=== PATIENT | female | born 1940 | race Caucasian/White ===

== ENCOUNTER 2017-01-06 09:07 | Inpatient (IN) | payer MEDICARE, OTHER ==
[~2017-01-06] VITALS: Ht 152.4 cm; Wt 59.8 kg
[2017-01-06 09:24] VITALS: BP 151/104; PULSE 99; RESP 20; TEMP 98.6; O2SAT 98
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
[2017-01-06] MEDS ORDERED: OLANZapine ODT 5 MG TAB PO ONE (09:45)
[2017-01-06 10:11] LABS: AUTOMATED NEUTROPHIL # 6.9 TH/MM3 (1.8-7.7); BASOPHIL # 0.1 TH/MM3 (0-0.2); BASOPHIL % 0.8 % (0.0-2.0); EOSINOPHIL # 0.3 TH/MM3 (0-0.4); EOSINOPHIL % 2.7 % (0.0-4.0); HEMATOCRIT 34.2 % (35.0-46.0); HEMO FLAGS DIFF FINAL; LYMPH % 16.6 % (9.0-44.0); LYMPHOCYTE # 1.6 TH/MM3 (1.0-4.8); MEAN CELL VOLUME 89.8 FL (80.0-100.0); MEAN CORPUSCULAR HEMOGLOBIN 29.4 PG (27.0-34.0); MEAN CORPUSCULAR HGB CONC 32.8 % (32.0-36.0); MONO % 9.4 % (0.0-8.0); NEUT % 70.5 % (16.0-70.0); PLATELET COUNT 203 TH/MM3 (150-450); RED CELL DISTRIBUTION WIDTH 14.5 % (11.6-17.2); WHITE BLOOD COUNT 9.9 TH/MM3 (4.0-11.0)
[2017-01-06 10:32] LABS: ALT (GPT) 19 U/L (10-53); ANION GAP 9 MEQ/L (5-15); AST (GOT) 12 U/L (15-37); BICARBONATE 26.5 MEQ/L (21.0-32.0); BLOOD UREA NITROGEN 36 MG/DL (7-18); CHLORIDE 107 MEQ/L (98-107); GLOMERULAR FILTRATION RATE 43 ML/MIN (>89); POTASSIUM 3.7 MEQ/L (3.5-5.1); SODIUM (NA) 142 MEQ/L (136-145)
[2017-01-06 10:34] LABS: ALKALINE PHOSPHATASE 72 U/L (45-117); TOTAL BILIRUBIN ADULT 0.3 MG/DL (0.2-1.0)
[2017-01-06] MEDS ORDERED: REME15TA PO (11:03)
[2017-01-06] MEDS ORDERED: LIPI20TA PO (11:03)
[2017-01-06] MEDS ORDERED: LEVO25TA4 PO (11:03)
[2017-01-06] MEDS ORDERED: VALP250S2 PO (11:03)
[2017-01-06] MEDS ORDERED: SERO200T PO (11:03)
[2017-01-06] MEDS ORDERED: TYLE325T PO (11:03)
[2017-01-06] MEDS ORDERED: ASPI81CH14 PO (11:03)
[2017-01-06] MEDS ORDERED: AMLO5 PO (11:03)
[2017-01-06] MEDS ORDERED: ABH TOP (11:03)
[2017-01-06] MEDS ORDERED: PRIN20TA2 PO (11:03)
[2017-01-06 14:30] LABS: AMPHETAMINE, URINE NEG (NEG); BARBITURATES, URINE NEG (NEG); COCAINE, URINE NEG (NEG)
[2017-01-06 16:00] VITALS: BP 167/95; PULSE 92; RESP 17; O2SAT 97
[2017-01-06 18:29] VITALS: BP 161/83; PULSE 89; RESP 17; O2SAT 98
[2017-01-06] MEDS ORDERED: amLODIPine BESYLATE 5 MG TAB PO ONE (22:15)
[2017-01-06] MEDS ORDERED: LISINOPRIL 20 MG TAB PO ONE (22:15)
[2017-01-06 22:32] VITALS: BP 144/98; PULSE 100; RESP 17; O2SAT 96
[2017-01-07 02:31] VITALS: BP 158/94; PULSE 76; RESP 17; O2SAT 97
[2017-01-07 06:37] VITALS: RESP 18
[2017-01-07] MEDS ORDERED: OLANZapine ODT 5 MG TAB PO ONE (11:00)
[2017-01-07] MEDS ORDERED: ACETAMINOPHEN 325 MG TAB PO PRN (17:30)
[2017-01-07] MEDS ORDERED: MAGNESIUM HYDROXIDE SUSP 30 ML CUP PO PRN (17:30)
[2017-01-07] MEDS ORDERED: ALUMINUM/MAGNESIUM/SIMETH 30 ML CUP PO PRN (17:30)
[2017-01-07] MEDS: ASPIRIN 81 MG CHEW TAB PO SCH (18:00)
[2017-01-07] MEDS ORDERED: amLODIPine BESYLATE 5 MG TAB PO SCH (18:00)
[2017-01-07 18:32] VITALS: BP 192/94
[2017-01-07] MEDS ORDERED: cloNIDine HCL 0.1 MG TAB PO PRN (18:45)
[2017-01-07] MEDS: LISINOPRIL 20 MG TAB PO SCH (18:45)
[2017-01-07 19:45] VITALS: BP 172/85; PULSE 82; RESP 18; O2SAT 98
[2017-01-07] MEDS ORDERED: ATORVASTATIN 20 MG TAB PO SCH (21:00)
[2017-01-07] MEDS ORDERED: MIRTAZAPINE 15 MG TAB PO SCH ×2 (21:00)
[2017-01-07] MEDS ORDERED: QUEtiapine FUMARATE 200 MG TAB PO SCH (21:00)
[2017-01-07] MEDS ORDERED: VALPROIC ACID SYRUP 250 MG/5 ML UDC PO SCH (21:00)
[2017-01-07] MEDS: VALPROIC ACID SYRUP 250 MG/5 ML UDC PO SCH (21:21)
[2017-01-08 06:00] VITALS: BP_SYST 145; BP_SYST 176; BP_DIAS 75; BP_DIAS 97; PULSE 79; RESP 18; TEMP 98.6; O2SAT 100
[2017-01-08] MEDS ORDERED: LEVOTHYROXINE SODIUM 50 MCG TAB PO SCH (06:00)
[2017-01-08 08:57] LABS: ANION GAP 7 MEQ/L (5-15); BICARBONATE 26.9 MEQ/L (21.0-32.0); BLOOD UREA NITROGEN 31 MG/DL (7-18); CHLORIDE 108 MEQ/L (98-107); GLOMERULAR FILTRATION RATE 54 ML/MIN (>89); LDL CHOLESTEROL 87 MG/DL (0-99); POTASSIUM 4.2 MEQ/L (3.5-5.1); SODIUM (NA) 142 MEQ/L (136-145)
[2017-01-08] MEDS: ASPIRIN 81 MG CHEW TAB PO SCH (09:54)
[2017-01-08] MEDS: LISINOPRIL 20 MG TAB PO SCH (09:54)
[2017-01-08] MEDS: VALPROIC ACID SYRUP 250 MG/5 ML UDC PO SCH ×2 (09:54→21:13)
--- NOTE | 2017-01-08 13:22 | PD.CONS ---
History of Present Illness Service Primary Consult Requested By Dr. Suresh Reason for Consult Medical Management Primary Care Physician Ascencion Vásquez DO Diagnoses: (1) Agitation (2) Dementia (3) Schizophrenia (4) Hyperlipemia (5) Hypertension History of Present Illness This is an agitated 76 y/o occitan speaking female resident at the [facility] , where Dr. Vásquez is the medical staff assistant, who is transported to [facility] due to extreme agitation. Patient is unable to give any history and a celebrity manager has been requested. She remains agitated, yelling at everyone in the hallway. We have been consulted for medical management. Review of Systems ROS Limitations: Altered Mental Status, Uncooperative, Psychotic, Language Barrier Past Family Social History Allergies: Coded Allergies: Trileptal (Verified Allergy, Unknown, 01/06/17) Past Medical History Schizophrenia/psychosis Dementia Diabetes Hypertension Anemia Hyperlipidemia Reported Medications Reported Meds & Active Scripts Active Reported Seroquel (Quetiapine Fumarate) 200 Mg Tab 200 Mg PO BID Valproic Acid Liq 250 Mg/5 Ml Syp 375 Mg PO BID [Abh Crm 1MG/25MG/1MG] 1 Appl TOP Q4HR PRN Aspirin Adult Low Strength (Aspirin) 81 Mg Chew 81 Mg PO DAILY Tylenol (Acetaminophen) 325 Mg Tab 650 Mg PO Q6H PRN Prinivil (Lisinopril) 20 Mg Tab 20 Mg PO DAILY Lipitor (Atorvastatin Calcium) 20 Mg Tab 20 Mg PO HS Remeron (Mirtazapine) 15 Mg Tab 15 Mg PO HS Levothyroxine (Levothyroxine Sodium) 25 Mcg Tab 50 Mcg PO DAILY Norvasc (Amlodipine Besylate) 5 Mg Tab 5 Mg PO DAILY Active Ordered Medications Current Medications Medications (Trade) Dose Ordered Sig/Natalio Route Start Time Stop Time Status Last Admin (Ativan) 0.5 mg Q12H PRN PO 01/07/17 17:30 (Ativan Inj) 0.5 mg Q12H PRN IM 01/07/17 17:30 (Tylenol) 650 mg Q4H PRN PO 01/07/17 17:30 (Milk Of Magnesia Liq) 30 ml DAILY PRN PO 01/07/17 17:30 (Mag-Al Plus Susp Liq) 30 ml Q6H PRN PO 01/07/17 17:30 (Prinivil) 20 mg DAILY PO 01/07/17 18:45 01/08/17 09:54 (Aspirin Chew) 81 mg DAILY PO 01/07/17 18:00 01/08/17 09:54 (Synthroid) 50 mcg DAILY@0600 PO 01/08/17 06:00 01/08/17 05:32 (Lipitor) 20 mg HS PO 01/07/17 21:00 01/07/17 21:20 (SEROquel) 200 mg BID PO 01/07/17 21:00 Hold (Catapres) 0.1 mg Q6H PRN PO 01/07/17 18:45 (Depakene Liq) 375 mg BID PO 01/07/17 21:00 01/08/17 09:54 (Remeron) 15 mg HS PO 01/07/17 21:00 01/07/17 21:20 (Norvasc) 10 mg DAILY PO 01/09/17 09:00 Physical Exam Vital Signs Vital Signs Date Time Temp Pulse Resp B/P Pulse Ox O2 Delivery O2 Flow Rate FiO2 01/08/17 06:00 98.6 79 18 176/97 100 145/75 01/07/17 19:45 82 18 172/85 98 01/07/17 18:32 192/94 Physical Exam GENERAL: Well-nourished, well-developed patient. SKIN: Warm and dry. HEAD: Normocephalic. EYES: No scleral icterus. No injection or drainage. NECK: Supple, trachea midline. No JVD. CARDIOVASCULAR: Regular rate and rhythm without murmurs, gallops, or rubs. RESPIRATORY: Breath sounds equal bilaterally. No accessory muscle use. GASTROINTESTINAL: Abdomen soft, non-tender, nondistended. EXTREMITIES: No cyanosis, or edema. NEUROLOGICAL: Awake, alert, agitated. Unable to determine orientation d/t language barrier. Laboratory Laboratory Tests Test 01/08/17 07:09 Sodium Level 142 Potassium Level 4.2 Chloride Level 108 Carbon Dioxide Level 26.9 Anion Gap 7 Blood Urea Nitrogen 31 Creatinine 1.00 Estimat Glomerular Filtration 54 Rate Random Glucose 80 Calcium Level 9.2 Triglycerides Level 59 Cholesterol Level 172 LDL Cholesterol 87 HDL Cholesterol 73.0 Cholesterol/HDL Ratio 2.35 Result Diagram: 01/06/17 1000 01/08/17 0709 Assessment and Plan Problem List: (1) Dementia Status: Chronic Plan: Chronic. (2) Schizophrenia Status: Chronic Plan: Med management per psych. (3) Agitation Status: Acute Plan: Will evaluate UA for underlying cause and follow labs. (4) Hyperlipemia Status: Chronic Plan: Stable on current regimen. Lipid panel reviewed. (5) Hypertension Status: Chronic Plan: Lisinopril daily, clonidine PRN, add norvasc and monitor. Assessment and Plan Thank you for the consultation, Dr. Suresh. We will follow Ms. Montoya with you. D/W RN, Dr. Vásquez. Problem Qualifiers (1) Dementia: Qualified Code: F03.91 - Dementia with behavioral disturbance, unspecified dementia type (2) Schizophrenia: Qualified Code: F20.9 - Schizophrenia, unspecified type (3) Hyperlipemia: Qualified Code: E78.2 - Mixed hyperlipidemia (4) Hypertension: Qualified Code: I10 - Essential hypertension Shantal Luu Jan 08, 2017 13:22
[2017-01-08 13:31] LABS: HEMOGLOBIN A1b 0.8 %; HEMOGLOBIN Ao 85.9 %; HEMOGLOBIN F 0.8 %; HEMOGLOBIN LA1C 1.9 %
[2017-01-08] MEDS ORDERED: MAGNESIUM HYDROXIDE SUSP 30 ML CUP PO PRN (13:45)
[2017-01-08] MEDS ORDERED: ALUMINUM/MAGNESIUM/SIMETH 30 ML CUP PO PRN (13:45)
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
[2017-01-08 18:15] VITALS: BP 145/74; PULSE 77; RESP 18
[2017-01-08] MEDS: MIRTAZAPINE 15 MG TAB PO SCH (21:11)
[2017-01-08] MEDS: ATORVASTATIN 20 MG TAB PO SCH (21:11)
[2017-01-08] MEDS: QUEtiapine FUMARATE 200 MG TAB PO SCH (21:11)
[2017-01-09] MEDS: LEVOTHYROXINE SODIUM 50 MCG TAB PO SCH (05:30)
[2017-01-09 06:11] VITALS: BP 147/84; PULSE 92; RESP 18; TEMP 97.8; O2SAT 98
[2017-01-09 06:17] VITALS: BP 147/84; PULSE 92; RESP 18; TEMP 97.8; O2SAT 98
[2017-01-09 07:50] LABS: AUTOMATED NEUTROPHIL # 2.9 TH/MM3 (1.8-7.7); BASOPHIL % 0.9 % (0.0-2.0); EOSINOPHIL # 0.4 TH/MM3 (0-0.4); EOSINOPHIL % 7.5 % (0.0-4.0); HEMATOCRIT 33.7 % (35.0-46.0); HEMO FLAGS DIFF FINAL; LYMPH % 27.9 % (9.0-44.0); LYMPHOCYTE # 1.6 TH/MM3 (1.0-4.8); MEAN CELL VOLUME 88.5 FL (80.0-100.0); MEAN CORPUSCULAR HEMOGLOBIN 28.7 PG (27.0-34.0); MEAN CORPUSCULAR HGB CONC 32.5 % (32.0-36.0); MONO % 11.5 % (0.0-8.0); NEUT % 52.2 % (16.0-70.0); PLATELET COUNT 184 TH/MM3 (150-450); RED BLOOD COUNT 3.81 MIL/MM3 (4.00-5.30); RED CELL DISTRIBUTION WIDTH 14.2 % (11.6-17.2); WHITE BLOOD COUNT 5.6 TH/MM3 (4.0-11.0)
[2017-01-09 08:26] LABS: ALKALINE PHOSPHATASE 76 U/L (45-117); ALT (GPT) 20 U/L (10-53); ANION GAP 10 MEQ/L (5-15); AST (GOT) 20 U/L (15-37); BICARBONATE 27.4 MEQ/L (21.0-32.0); BLOOD UREA NITROGEN 32 MG/DL (7-18); CHLORIDE 104 MEQ/L (98-107); FREE T4 1.08 NG/DL (0.76-1.46); GLOMERULAR FILTRATION RATE 48 ML/MIN (>89); POTASSIUM 4.3 MEQ/L (3.5-5.1); SODIUM (NA) 141 MEQ/L (136-145); TOTAL BILIRUBIN ADULT 0.3 MG/DL (0.2-1.0)
[2017-01-09] MEDS: amLODIPine BESYLATE 5 MG TAB PO SCH ×2 (09:00→10:12)
[2017-01-09] MEDS: ASPIRIN 81 MG CHEW TAB PO SCH ×2 (09:00→10:11)
[2017-01-09] MEDS: LISINOPRIL 20 MG TAB PO SCH ×2 (09:00→10:11)
[2017-01-09] MEDS: QUEtiapine FUMARATE 200 MG TAB PO SCH ×3 (09:00→21:00)
[2017-01-09] MEDS: VALPROIC ACID SYRUP 250 MG/5 ML UDC PO SCH ×3 (09:00→21:00)
[2017-01-09] MEDS: LORazepam 0.5 MG TAB age > 65 yrs PO PRN (10:19)
[2017-01-09] MEDS: LORazepam 2 MG/ML VIAL - age > 65 yrs IM PRN (11:02)
--- NOTE | 2017-01-09 11:21 | HHI.PYPN ---
Subjective Remarks Patient seen in her room with nurse Satya, continues to be loud and intrusive in Ukrainian, it appears patient urinated in her wastebasket, though her door to the commode was locked. Patient overall reluctantly compliant medication. Counselors continuing to attempt to reach family members to arrange for meeting with me. For now continue treatment Review of Systems Except as stated in HPI: all other systems reviewed are Neg Objective Alert: Yes [place]: Person (vague) Mood: Agitated, Angry, Anxious Affect: Labile Memory Intact: Comment (very poor) Hallucinations: Auditory (patient appears to be talking to herself) Delusions: Yes Delusion Type: Paranoid (patient appears quite vigilant) Suicidal: Ideation (difficult to ascertain) Homicidal: Ideation (difficult to ascertain) Insight/Judgement Very poor Labs Test 01/09/17 01/09/17 06:15 06:45 White Blood Count 5.6 TH/MM3 Red Blood Count 3.81 MIL/MM3 Hemoglobin 11.0 GM/DL Hematocrit 33.7 % Mean Corpuscular Volume 88.5 FL Mean Corpuscular Hemoglobin 28.7 PG Mean Corpuscular Hemoglobin 32.5 % Concent Red Cell Distribution Width 14.2 % Platelet Count 184 TH/MM3 Mean Platelet Volume 9.5 FL Neutrophils (%) (Auto) 52.2 % Lymphocytes (%) (Auto) 27.9 % Monocytes (%) (Auto) 11.5 % Eosinophils (%) (Auto) 7.5 % Basophils (%) (Auto) 0.9 % Neutrophils # (Auto) 2.9 TH/MM3 Lymphocytes # (Auto) 1.6 TH/MM3 Monocytes # (Auto) 0.6 TH/MM3 Eosinophils # (Auto) 0.4 TH/MM3 Basophils # (Auto) 0.0 TH/MM3 CBC Comment DIFF FINAL Differential Comment Sodium Level 141 MEQ/L Potassium Level 4.3 MEQ/L Chloride Level 104 MEQ/L Carbon Dioxide Level 27.4 MEQ/L Anion Gap 10 MEQ/L Blood Urea Nitrogen 32 MG/DL Creatinine 1.11 MG/DL Estimat Glomerular Filtration 48 ML/MIN Rate Random Glucose 88 MG/DL Calcium Level 8.7 MG/DL Total Bilirubin 0.3 MG/DL Aspartate Amino Transf 20 U/L (AST/SGOT) Alanine Aminotransferase 20 U/L (ALT/SGPT) Alkaline Phosphatase 76 U/L Total Protein 7.0 GM/DL Albumin 3.7 GM/DL Free Thyroxine 1.08 NG/DL Thyroid Stimulating Hormone 5.030 uIU/ML 3rd Gen Vitals/IOs Vital Signs Date Time Temp Pulse Resp B/P Pulse Ox O2 Delivery O2 Flow Rate FiO2 01/09/17 06:17 97.8 92 18 147/84 98 01/07/17 02:31 Room Air Intake and Output 01/08/17 01/08/17 01/09/17 08:00 16:00 00:00 Intake Total 1440 ml Balance 1440 ml Assessment & Plan Problem List: (1) Dementia of Alzheimer's type with behavioral disturbance ICD Code: G30.8 Assessment & Plan Estimated LOS: days patient continues demented labile irritable though also compounded by the language difficulty. Mixed Compliance with meds Justification for Cont. Inpt. At this time patient will decompensate if placed in a lower level of care Discharge Planning To be determined Request HC Surrog/Guard Advoc?: Yes Rodolfo Corona MD Jan 09, 2017 11:21
--- NOTE | 2017-01-09 15:36 | HHI.PR ---
Subjective Remarks Remains agitated, yelling out in Burmese. Objective Vital Signs Date Time Temp Pulse Resp B/P Pulse Ox O2 Delivery O2 Flow Rate FiO2 01/09/17 06:17 97.8 92 18 147/84 98 01/09/17 06:11 97.8 92 18 147/84 98 01/08/17 18:15 77 18 145/74 I/O 01/08/17 01/08/17 01/08/17 01/09/17 01/09/17 01/09/17 07:00 15:00 23:00 07:00 15:00 23:00 Intake Total 1440 ml 120 ml Balance 1440 ml 120 ml Intake Oral 720 ml 120 ml Oral Supplement 720 ml # Voids 2 5 3 Result Diagram: 01/09/17 0615 01/09/17 0645 Objective Remarks GENERAL: Well-nourished, well-developed patient. SKIN: Warm and dry. HEAD: Normocephalic. EYES: No scleral icterus. No injection or drainage. NECK: Trachea midline. No JVD. CARDIOVASCULAR: Regular rate and rhythm without murmurs, gallops, or rubs. RESPIRATORY: Breath sounds equal bilaterally. No accessory muscle use. GASTROINTESTINAL: Abdomen soft, non-tender, nondistended. EXTREMITIES: No cyanosis, or edema. NEUROLOGICAL: Awake, alert, agitated. Medications and IVs Current Medications Medications (Trade) Dose Ordered Sig/Natalio Route Start Time Stop Time Status Last Admin (Ativan) 0.5 mg Q12H PRN PO 01/07/17 17:30 (Ativan Inj) 0.5 mg Q12H PRN IM 01/07/17 17:30 01/09/17 11:02 (Catapres) 0.1 mg Q6H PRN PO 01/07/17 18:45 (Tylenol) 650 mg Q4H PRN PO 01/08/17 13:45 (Milk Of Magnesia Liq) 30 ml DAILY PRN PO 01/08/17 13:45 (Mag-Al Plus Susp Liq) 30 ml Q6H PRN PO 01/08/17 13:45 (Norvasc) 5 mg DAILY PO 01/09/17 09:00 01/09/17 09:00 (Aspirin Chew) 81 mg DAILY PO 01/09/17 09:00 01/09/17 09:00 (Lipitor) 20 mg HS PO 01/08/17 21:00 01/08/17 21:11 (Synthroid) 50 mcg DAILY@06 PO 01/09/17 06:00 01/09/17 05:30 (Prinivil) 20 mg DAILY PO 01/09/17 09:00 01/09/17 09:00 (Remeron) 15 mg HS PO 01/08/17 21:00 01/08/17 21:11 (SEROquel) 200 mg BID PO 01/08/17 21:00 01/09/17 09:00 (Depakene Liq) 375 mg BID PO 01/08/17 21:00 01/09/17 09:00 Assessment and Plan Problem List: (1) Dementia Status: Chronic Plan: Chronic, resident of [facility], medication titration complicated by compliance. May benefit from exelon patch. Will defer to psych for med mgmt. (2) Schizophrenia Status: Chronic Plan: Med management per psych. (3) Agitation Status: Acute Plan: Difficulty with urine sample, pt, urinated in wastebasket. Sample pending. (4) Hyperlipemia Status: Chronic Plan: Stable on current regimen. Lipid panel reviewed. (5) Hypertension Status: Chronic Plan: Lisinopril daily, clonidine PRN, improved on norvasc. Could change clonidine to catapres patch if needed for better med compliance. Assessment and Plan Thank you for the consultation, Dr. Suresh. We will follow Ms. Montoya with you. D/W RN, Dr. Vásquez. Problem Qualifiers (1) Dementia: Qualified Code: F03.91 - Dementia with behavioral disturbance, unspecified dementia type (2) Schizophrenia: Qualified Code: F20.9 - Schizophrenia, unspecified type (3) Hyperlipemia: Qualified Code: E78.2 - Mixed hyperlipidemia (4) Hypertension: Qualified Code: I10 - Essential hypertension Shantal Luu Jan 09, 2017 15:36
[2017-01-09 18:08] LABS: BLOOD, URINE TRACE (NEG); COMMENT (UR) CULT NOT INDICATED; CULTURE IF INDICATED CULT NOT INDICATED; GLUCOSE,URINE NEG (NEG); KETONE, URINE TRACE mg/dL (NEG); MUCUS URINE FEW /lpf (OCC); NITRITE,URINE NEG (NEG); SQUAMOUS EPITHELIAL CELL URINE 1 /hpf (0-5); URINE COLOR YELLOW (YELLW/STRAW)
[2017-01-09] MEDS: MIRTAZAPINE 15 MG TAB PO SCH (22:24)
[2017-01-09] MEDS: ATORVASTATIN 20 MG TAB PO SCH (22:24)
[2017-01-10] MEDS: LEVOTHYROXINE SODIUM 50 MCG TAB PO SCH (06:00)
[2017-01-10 06:09] VITALS: BP 157/70; PULSE 77; RESP 18; TEMP 99; O2SAT 99
[2017-01-10] MEDS: QUEtiapine FUMARATE 200 MG TAB PO SCH (09:00)
[2017-01-10] MEDS: VALPROIC ACID SYRUP 250 MG/5 ML UDC PO SCH ×2 (10:38→20:45)
[2017-01-10] MEDS: ASPIRIN 81 MG CHEW TAB PO SCH (10:38)
[2017-01-10] MEDS: amLODIPine BESYLATE 5 MG TAB PO SCH (10:38)
[2017-01-10] MEDS: LISINOPRIL 20 MG TAB PO SCH (10:38)
--- NOTE | 2017-01-10 13:20 | HHI.PYPN ---
Subjective Remarks Patient seen in day room with nurse Jules and medical student Zara, chart reviewed. It appears patient's family have refused to give us permission to use Seroquel stating that it doesn't work. Will offer Respinol 1 mg twice a day M tab in its place. Patient showing some episodes of irritability and intrusiveness, though at the present time she is sitting quietly in the day room. While she continues to speak Niuean it appears at times she may understand Sinhala better than she is showing Review of Systems Except as stated in HPI: all other systems reviewed are Neg Objective Alert: Yes [place]: Person (vague) Mood: Agitated, Angry, Anxious, Calm (at times) Affect: Labile Memory Intact: Comment (very poor) Hallucinations: Auditory (patient appears to be talking to herself) Delusions: Yes Delusion Type: Paranoid (patient appears quite vigilant) Suicidal: Ideation (difficult to ascertain) Homicidal: Ideation (difficult to ascertain) Insight/Judgement Very poor Labs Test 01/09/17 18:00 Urine Color YELLOW Urine Turbidity CLEAR Urine pH 6.0 Urine Specific [place] 1.026 Urine Protein TRACE mg/dL Urine Glucose (UA) NEG mg/dL Urine Ketones TRACE mg/dL Urine Occult Blood TRACE Urine Nitrite NEG Urine Bilirubin NEG Urine Urobilinogen LESS THAN 2.0 MG/DL Urine Leukocyte Esterase NEG Urine RBC 1 /hpf Urine WBC 1 /hpf Urine Squamous Epithelial 1 /hpf Cells Urine Mucus FEW /lpf Microscopic Urinalysis Comment CULT NOT INDICATED Vitals/IOs Vital Signs Date Time Temp Pulse Resp B/P Pulse Ox O2 Delivery O2 Flow Rate FiO2 01/10/17 06:09 99.0 77 18 157/70 99 01/07/17 02:31 Room Air Intake and Output 01/09/17 01/09/17 01/10/17 08:00 16:00 00:00 Intake Total 120 ml 1140 ml Balance 120 ml 1140 ml Assessment & Plan Problem List: (1) Dementia of Alzheimer's type with behavioral disturbance ICD Code: G30.8 Assessment & Plan Estimated LOS: 5-7 days patient continues demented confused with out-of- control behaviors at times being intrusive labile yelling. See medication changes above Justification for Cont. Inpt. At this time patient will decompensate the placed in a lower level of care Discharge Planning To be determined Request HC Surrog/Guard Advoc?: Yes Rodolfo Corona MD Jan 10, 2017 13:20
--- NOTE | 2017-01-10 13:47 | HHI.PR ---
Subjective Remarks Waved when she heard her name, smiled. After exam, she was seen to become agitated again, yelling out. Objective Vital Signs Date Time Temp Pulse Resp B/P Pulse Ox O2 Delivery O2 Flow Rate FiO2 01/10/17 06:09 99.0 77 18 157/70 99 I/O 01/09/17 01/09/17 01/09/17 01/10/17 01/10/17 01/10/17 07:00 15:00 23:00 07:00 15:00 23:00 Intake Total 120 ml 960 ml 180 ml 480 ml Balance 120 ml 960 ml 180 ml 480 ml Intake Oral 120 ml 720 ml 180 ml 480 ml Oral Supplement 240 ml # Voids 3 1 3 Result Diagram: 01/09/17 0615 01/09/17 0645 Objective Remarks GENERAL: Well-nourished, well-developed patient. SKIN: Warm and dry. HEAD: Normocephalic. EYES: No scleral icterus. No injection or drainage. NECK: Trachea midline. No JVD. CARDIOVASCULAR: Regular rate and rhythm without murmurs, gallops, or rubs. RESPIRATORY: Breath sounds equal bilaterally. No accessory muscle use. GASTROINTESTINAL: Abdomen soft, non-tender, nondistended. EXTREMITIES: No cyanosis, or edema. NEUROLOGICAL: Awake, alert, agitated. Medications and IVs Current Medications Medications (Trade) Dose Ordered Sig/Natalio Route Start Time Stop Time Status Last Admin (Ativan) 0.5 mg Q12H PRN PO 01/07/17 17:30 (Ativan Inj) 0.5 mg Q12H PRN IM 01/07/17 17:30 01/09/17 11:02 (Catapres) 0.1 mg Q6H PRN PO 01/07/17 18:45 (Tylenol) 650 mg Q4H PRN PO 01/08/17 13:45 (Milk Of Magnesia Liq) 30 ml DAILY PRN PO 01/08/17 13:45 (Mag-Al Plus Susp Liq) 30 ml Q6H PRN PO 01/08/17 13:45 (Norvasc) 5 mg DAILY PO 01/09/17 09:00 01/10/17 10:38 (Aspirin Chew) 81 mg DAILY PO 01/09/17 09:00 01/10/17 10:38 (Lipitor) 20 mg HS PO 01/08/17 21:00 01/09/17 22:24 (Synthroid) 50 mcg DAILY@06 PO 01/09/17 06:00 01/10/17 06:00 (Prinivil) 20 mg DAILY PO 01/09/17 09:00 01/10/17 10:38 (Remeron) 15 mg HS PO 01/08/17 21:00 01/09/17 22:24 (Depakene Liq) 375 mg BID PO 01/08/17 21:00 01/10/17 10:38 (risperDAL M-TAB) 1 mg DAILY@12,18 PO 01/10/17 18:00 Assessment and Plan Problem List: (1) Dementia Status: Chronic Plan: Chronic, resident of [facility], medication titration complicated by compliance. May benefit from exelon patch/transdermal route when applicable. Will defer to psych for med mgmt. (2) Schizophrenia Status: Chronic Plan: Med management per psych. (3) Agitation Status: Acute Plan: Negative, no culture indicated. (4) Hyperlipemia Status: Chronic Plan: Stable on current regimen. Lipid panel reviewed. (5) Hypertension Status: Chronic Plan: Lisinopril daily, clonidine PRN, improved on norvasc. Could change clonidine to catapres patch if needed for better med compliance. Assessment and Plan Thank you for the consultation, Dr. Suresh. We will follow Ms. Montoya with you. D/W RN, Dr. Vásquez. Problem Qualifiers (1) Dementia: Qualified Code: F03.91 - Dementia with behavioral disturbance, unspecified dementia type (2) Schizophrenia: Qualified Code: F20.9 - Schizophrenia, unspecified type (3) Hyperlipemia: Qualified Code: E78.2 - Mixed hyperlipidemia (4) Hypertension: Qualified Code: I10 - Essential hypertension Shantal Luu Jan 10, 2017 13:47
[2017-01-10 18:38] VITALS: BP 169/79; PULSE 80; RESP 16; TEMP 97.6; O2SAT 98
[2017-01-10] MEDS: risperiDONE ODT 1 MG TAB PO SCH (20:45)
[2017-01-10] MEDS: ATORVASTATIN 20 MG TAB PO SCH (20:45)
[2017-01-10] MEDS: MIRTAZAPINE 15 MG TAB PO SCH (20:45)
[2017-01-11] MEDS: LORazepam 0.5 MG TAB age > 65 yrs PO PRN (01:22)
[2017-01-11] MEDS: LEVOTHYROXINE SODIUM 50 MCG TAB PO SCH (05:33)
[2017-01-11 06:35] VITALS: BP 145/67; PULSE 95; RESP 16; TEMP 98.5; O2SAT 97
[2017-01-11] MEDS: ASPIRIN 81 MG CHEW TAB PO SCH (08:53)
[2017-01-11] MEDS: amLODIPine BESYLATE 5 MG TAB PO SCH (08:53)
[2017-01-11] MEDS: VALPROIC ACID SYRUP 250 MG/5 ML UDC PO SCH ×2 (08:53→21:28)
[2017-01-11] MEDS: LISINOPRIL 20 MG TAB PO SCH (08:53)
--- NOTE | 2017-01-11 09:19 | HHI.PYPN ---
Subjective Remarks Patient seen in day room with nurse Jules, patient somewhat calmer she'll speaking East Timorese that appear she does understand Turkish to degree. She is still showing some lability and sundowning type behaviors. Staff has been contact with patient's son with admission now to start Respinol 1 mg M tab twice a day Review of Systems Except as stated in HPI: all other systems reviewed are Neg Objective Alert: Yes [place]: Person (vague) Mood: Agitated, Angry, Anxious, Calm (at times) Affect: Labile Memory Intact: Comment (very poor) Hallucinations: Auditory (patient appears to be talking to herself) Delusions: Yes Delusion Type: Paranoid (patient appears quite vigilant) Suicidal: Ideation (difficult to ascertain) Homicidal: Ideation (difficult to ascertain) Insight/Judgement Poor Vitals/IOs Vital Signs Date Time Temp Pulse Resp B/P Pulse Ox O2 Delivery O2 Flow Rate FiO2 01/11/17 06:35 98.5 95 16 145/67 97 Intake and Output 01/10/17 01/10/17 01/11/17 08:00 16:00 00:00 Intake Total 480 ml 660 ml Balance 480 ml 660 ml Assessment & Plan Problem List: (1) Dementia of Alzheimer's type with behavioral disturbance ICD Code: G30.8 Assessment & Plan Estimated LOS: days patient continues demented confused with some sundowning towards late afternoon and evening. For now continue treatment Justification for Cont. Inpt. At this time patient will decompensate if placed in a lower level of care Discharge Planning To be determined Request HC Surrog/Guard Advoc?: Yes Rodolfo Corona MD Jan 11, 2017 09:19
[2017-01-11] MEDS: risperiDONE ODT 1 MG TAB PO SCH ×2 (12:22→17:19)
[2017-01-11 18:07] VITALS: BP 159/80; PULSE 99; RESP 18; TEMP 97.2; O2SAT 98
[2017-01-11] MEDS: ATORVASTATIN 20 MG TAB PO SCH (21:28)
[2017-01-11] MEDS: MIRTAZAPINE 15 MG TAB PO SCH (21:28)
[2017-01-12] MEDS: LEVOTHYROXINE SODIUM 50 MCG TAB PO SCH (05:47)
[2017-01-12 06:00] VITALS: BP 151/74; PULSE 89; RESP 16; TEMP 98.1; O2SAT 99
[2017-01-12] MEDS: amLODIPine BESYLATE 5 MG TAB PO SCH (09:16)
[2017-01-12] MEDS: VALPROIC ACID SYRUP 250 MG/5 ML UDC PO SCH ×2 (09:17→20:35)
[2017-01-12] MEDS: LISINOPRIL 20 MG TAB PO SCH (09:17)
[2017-01-12] MEDS: ASPIRIN 81 MG CHEW TAB PO SCH (09:17)
--- NOTE | 2017-01-12 11:38 | HHI.PYPN ---
Subjective Remarks Patient was seen and case discussed with nursing. Patient is reluctant to speak Bengali so interview was conducted in [place]. She is alert and oriented 2. She is confused and nonsensical at times. Affect is elevated. She denies suicidal ideations thought intent or plan. Denies psychosis. Could be responding to internal stimuli. Behaving well on the unit Objective Alert: Yes [place]: Person (vague), Place Mood: Anxious, Calm (at times) Affect: Labile Memory Intact: Comment (very poor) Hallucinations: Auditory (talking to self but denies) Delusions: Yes Delusion Type: Paranoid (patient appears quite vigilant) Suicidal: Ideation (denies) Homicidal: Ideation (denies) Insight/Judgement Poor Vitals/IOs Vital Signs Date Time Temp Pulse Resp B/P Pulse Ox O2 Delivery O2 Flow Rate FiO2 01/12/17 06:00 98.1 89 16 151/74 99 Intake and Output 01/11/17 01/11/17 01/12/17 08:00 16:00 00:00 Intake Total 360 ml 960 ml 960 ml Balance 360 ml 960 ml 960 ml Assessment & Plan Problem List: (1) Dementia of Alzheimer's type with behavioral disturbance ICD Code: G30.8 Assessment & Plan Continue current treatment plan Justification for Cont. Inpt. Patient will decompensate in a less restrictive setting Request HC Surrog/Guard Advoc?: Yes Gustavo Amador DO Jan 12, 2017 11:38
[2017-01-12] MEDS: risperiDONE ODT 1 MG TAB PO SCH ×2 (12:28→17:43)
[2017-01-12 18:28] VITALS: BP 149/75; PULSE 96; RESP 20; TEMP 98.1; O2SAT 97
[2017-01-12 20:11] VITALS: BP 149/75; TEMP 98.1
[2017-01-12] MEDS: MIRTAZAPINE 15 MG TAB PO SCH (20:34)
[2017-01-12] MEDS: ATORVASTATIN 20 MG TAB PO SCH (20:34)
[2017-01-13] MEDS: LEVOTHYROXINE SODIUM 50 MCG TAB PO SCH (05:37)
[2017-01-13 06:01] VITALS: BP 153/80; PULSE 89; RESP 17; TEMP 98; O2SAT 99
[2017-01-13] MEDS: amLODIPine BESYLATE 5 MG TAB PO SCH (09:00)
[2017-01-13] MEDS: LISINOPRIL 20 MG TAB PO SCH (09:00)
[2017-01-13] MEDS: VALPROIC ACID SYRUP 250 MG/5 ML UDC PO SCH ×2 (09:00→20:42)
[2017-01-13] MEDS: ASPIRIN 81 MG CHEW TAB PO SCH (09:00)
--- NOTE | 2017-01-13 11:51 | HHI.PYPN ---
Subjective Remarks Patient was seen and case discussed with nursing. Patient is spending her time here talking to herself. She was engaged in Urdu still difficult to understand. She is alert and oriented 1. She denies voices. Thought processes tangential. When asked if she was scared she was perseverative in a fat woman washing her hands in her room. Compliant with medications Objective Alert: Yes [place]: Person (vague) Mood: Anxious, Calm (at times) Affect: Labile Memory Intact: Comment (very poor) Hallucinations: Auditory (talking to self but denies) Delusions: Yes Delusion Type: Paranoid (fat woman washing her hands) Suicidal: Ideation (denies) Homicidal: Ideation (denies) Insight/Judgement Poor Vitals/IOs Vital Signs Date Time Temp Pulse Resp B/P Pulse Ox O2 Delivery O2 Flow Rate FiO2 01/13/17 06:01 98.0 89 17 153/80 99 Intake and Output 01/12/17 01/12/17 01/13/17 08:00 16:00 00:00 Intake Total 480 ml 1320 ml Balance 480 ml 1320 ml Assessment & Plan Problem List: (1) Dementia of Alzheimer's type with behavioral disturbance ICD Code: G30.8 Assessment & Plan Continue current treatment plan Justification for Cont. Inpt. Patient will decompensate in a less restrictive setting Request HC Surrog/Guard Advoc?: Yes Gustavo Amador DO Jan 13, 2017 11:51
[2017-01-13] MEDS: risperiDONE ODT 1 MG TAB PO SCH ×2 (12:00→17:34)
[2017-01-13 20:26] VITALS: BP 187/78; PULSE 79; RESP 17; TEMP 98; O2SAT 98
[2017-01-13] MEDS: MIRTAZAPINE 15 MG TAB PO SCH (20:42)
[2017-01-13] MEDS: ATORVASTATIN 20 MG TAB PO SCH (20:42)
[2017-01-14] MEDS: LORazepam 0.5 MG TAB age > 65 yrs PO PRN ×3 (00:18→22:10)
[2017-01-14] MEDS: LEVOTHYROXINE SODIUM 50 MCG TAB PO SCH (06:38)
[2017-01-14] MEDS: LISINOPRIL 20 MG TAB PO SCH (08:49)
[2017-01-14] MEDS: ASPIRIN 81 MG CHEW TAB PO SCH (08:49)
[2017-01-14] MEDS: amLODIPine BESYLATE 5 MG TAB PO SCH (08:49)
[2017-01-14] MEDS: VALPROIC ACID SYRUP 250 MG/5 ML UDC PO SCH ×2 (08:53→21:07)
[2017-01-14] MEDS: risperiDONE ODT 1 MG TAB PO SCH ×2 (12:50→17:29)
--- NOTE | 2017-01-14 15:51 | HHI.PYPN ---
Subjective Remarks Patient discussed with treatment team, chart review, seen on unit. Patient continues to have episodes appearing to be responding to internal stimuli. Patient compliant medications. For now continue treatment Review of Systems Except as stated in HPI: all other systems reviewed are Neg Objective Alert: Yes [place]: Person Mood: Anxious, Calm (at times) Affect: Labile Memory Intact: Comment (very poor) Hallucinations: Auditory (talking to self but denies) Delusions: Yes Delusion Type: Paranoid Suicidal: Ideation (denies) Homicidal: Ideation (denies) Insight/Judgement Very poor Vitals/IOs Vital Signs Date Time Temp Pulse Resp B/P Pulse Ox O2 Delivery O2 Flow Rate FiO2 01/13/17 20:26 98.0 79 17 187/78 98 Intake and Output 01/13/17 01/13/17 01/14/17 08:00 16:00 00:00 Intake Total 0 ml 1320 ml Balance 0 ml 1320 ml Assessment & Plan Problem List: (1) Dementia of Alzheimer's type with behavioral disturbance ICD Code: G30.8 Assessment & Plan Estimated LOS: days patient continues demented with episodes of mild dyscontrol , apparent respond to internal stimuli Justification for Cont. Inpt. At this time patient will decompensate the placed in a lower level of care Discharge Planning To be determined Request HC Surrog/Guard Advoc?: Yes Rodolfo Corona MD Jan 14, 2017 15:51
[2017-01-14 18:30] VITALS: BP 148/87; PULSE 82; RESP 16; TEMP 96.9; O2SAT 100
[2017-01-14] MEDS: MIRTAZAPINE 15 MG TAB PO SCH (21:02)
[2017-01-14] MEDS: ATORVASTATIN 20 MG TAB PO SCH (21:02)
[2017-01-15] MEDS: LEVOTHYROXINE SODIUM 50 MCG TAB PO SCH (05:32)
[2017-01-15 06:07] VITALS: BP 165/66; PULSE 77; RESP 18; TEMP 97.7; O2SAT 97
[2017-01-15] MEDS: amLODIPine BESYLATE 5 MG TAB PO SCH (08:39)
[2017-01-15] MEDS: LISINOPRIL 20 MG TAB PO SCH (08:39)
[2017-01-15] MEDS: ASPIRIN 81 MG CHEW TAB PO SCH (08:39)
[2017-01-15] MEDS: VALPROIC ACID SYRUP 250 MG/5 ML UDC PO SCH ×2 (08:39→20:19)
[2017-01-15] MEDS: LORazepam 2 MG/ML VIAL - age > 65 yrs IM PRN (09:15)
--- NOTE | 2017-01-15 10:50 | HHI.PYPN ---
Subjective Remarks Patient seen in day room with nurse Jules and medical student Zara, chart reviewed. Earlier today the nurse had a telemetry parking lot spotter through the computer speak with patient. Patient is quite paranoid about this that appear she acknowledge past history of schizophrenia. She thought she was at a hotel otherwise she stated she "felt fine". However when we saw patient she is quite distraught yelling screaming as if responding to internal stimuli. Though she did respond to comforting and individual attention. She was given a when necessary of oral Ativan and attempted calm her also. At this time we will increase the Ativan to a scheduled 0.5 mg 3 times a day and increase the Respinol to 1 mg 3 times a day Review of Systems Except as stated in HPI: all other systems reviewed are Neg Objective Alert: Yes [place]: Person Mood: Anxious, Calm (at times) Affect: Labile Memory Intact: Comment (very poor) Hallucinations: Auditory (talking to self but denies) Delusions: Yes Delusion Type: Paranoid Suicidal: Ideation (denies) Homicidal: Ideation (denies) Insight/Judgement Very poor Vitals/IOs Vital Signs Date Time Temp Pulse Resp B/P Pulse Ox O2 Delivery O2 Flow Rate FiO2 01/15/17 06:07 97.7 77 18 165/66 97 Intake and Output 01/14/17 01/14/17 01/15/17 08:00 16:00 00:00 Intake Total 360 ml 360 ml Balance 360 ml 360 ml Assessment & Plan Problem List: (1) Dementia of Alzheimer's type with behavioral disturbance ICD Code: G30.8 Assessment & Plan Estimated LOS: days she continue psychotic agitated and confused. Place a medication adjustments above Justification for Cont. Inpt. At this time patient decompensate if placed in a lower level of care Discharge Planning To be determined Request HC Surrog/Guard Advoc?: Yes Rodolfo Corona MD Jan 15, 2017 10:50
[2017-01-15] MEDS: LORazepam 0.5 MG TAB PO SCH ×2 (13:00→17:09)
[2017-01-15] MEDS: risperiDONE ODT 1 MG TAB PO SCH ×2 (13:00→17:09)
[2017-01-15] MEDS: LORazepam 0.5 MG TAB age > 65 yrs PO PRN (17:43)
[2017-01-15 18:00] VITALS: BP 166/74; PULSE 82; RESP 18; TEMP 97.6; O2SAT 98
[2017-01-15] MEDS: ATORVASTATIN 20 MG TAB PO SCH (20:20)
[2017-01-15] MEDS: MIRTAZAPINE 15 MG TAB PO SCH (20:20)
[2017-01-16] MEDS: LEVOTHYROXINE SODIUM 50 MCG TAB PO SCH (05:33)
[2017-01-16 05:38] VITALS: BP 168/81; PULSE 82; RESP 18; TEMP 95.8; O2SAT 97
--- NOTE | 2017-01-16 07:21 | HHI.PR ---
Subjective Remarks Patient seen in day room. Mosotho speaking mostly. Cooperative Objective Vital Signs Date Time Temp Pulse Resp B/P Pulse Ox O2 Delivery O2 Flow Rate FiO2 01/16/17 05:38 95.8 82 18 168/81 97 01/15/17 18:00 97.6 82 18 166/74 98 I/O 01/15/17 01/15/17 01/15/17 01/16/17 01/16/17 01/16/17 07:00 15:00 23:00 07:00 15:00 23:00 Intake Total 1080 ml 600 ml Output Total 1 ml Balance 1080 ml 599 ml Intake Oral 1080 ml 600 ml Output Urine Total 1 ml # Voids 3 2 1 # Bowel Movements 0 Other Results GENERAL: Patient alert not oriented. [place] speaking. SKIN: Warm and dry. HEAD: Normocephalic. EYES: No scleral icterus. No injection or drainage. NECK: Supple, trachea midline. No JVD or lymphadenopathy. CARDIOVASCULAR: Regular rate and rhythm without murmurs, gallops, or rubs. RESPIRATORY: Breath sounds equal bilaterally. No accessory muscle use. GASTROINTESTINAL: Abdomen soft, non-tender, nondistended. MUSCULOSKELETAL: No cyanosis, or edema. BACK: Nontender without obvious deformity. No CVA tenderness. Medications and IVs Current Medications Medications (Trade) Dose Ordered Sig/Natalio Route Start Time Stop Time Status Last Admin (Ativan) 0.5 mg Q12H PRN PO 01/07/17 17:30 01/15/17 17:43 (Ativan Inj) 0.5 mg Q12H PRN IM 01/07/17 17:30 01/15/17 09:15 (Catapres) 0.1 mg Q6H PRN PO 01/07/17 18:45 (Tylenol) 650 mg Q4H PRN PO 01/08/17 13:45 (Milk Of Magnesia Liq) 30 ml DAILY PRN PO 01/08/17 13:45 (Mag-Al Plus Susp Liq) 30 ml Q6H PRN PO 01/08/17 13:45 (Norvasc) 5 mg DAILY PO 01/09/17 09:00 01/15/17 08:39 (Aspirin Chew) 81 mg DAILY PO 01/09/17 09:00 01/15/17 08:39 (Lipitor) 20 mg HS PO 01/08/17 21:00 01/15/17 20:20 (Synthroid) 50 mcg DAILY@06 PO 01/09/17 06:00 01/16/17 05:33 (Prinivil) 20 mg DAILY PO 01/09/17 09:00 01/15/17 08:39 (Remeron) 15 mg HS PO 01/08/17 21:00 01/15/17 20:20 (Depakene Liq) 375 mg BID PO 01/08/17 21:00 01/15/17 20:19 (Ativan) 0.5 mg TID PO 01/15/17 13:00 01/15/17 17:09 (risperDAL M-TAB) 1 mg TID PO 01/15/17 13:00 01/15/17 17:09 Assessment and Plan Problem List: (1) Dementia Status: Chronic Plan: Chronic, resident of [facility]. Psych for med mgmt. (2) Hyperlipemia Status: Chronic Plan: Continue statin (3) Agitation Status: Acute Plan: Patient in day room. Calm (4) Hypertension Status: Chronic Plan: Blood pressure elevated at 168/81. Norvasc increased. (5) Schizophrenia Status: Chronic Plan: Managed per psych Assessment and Plan Assessment and plan discussed with Dr. Vásquez Problem Qualifiers (1) Dementia: Qualified Code: F03.91 - Dementia with behavioral disturbance, unspecified dementia type (2) Hyperlipemia: Qualified Code: E78.2 - Mixed hyperlipidemia (3) Hypertension: Qualified Code: I10 - Essential hypertension (4) Schizophrenia: Qualified Code: F20.9 - Schizophrenia, unspecified type Maria Esther Jhaveri Jan 16, 2017 07:21
[2017-01-16] MEDS: VALPROIC ACID SYRUP 250 MG/5 ML UDC PO SCH ×2 (08:32→20:54)
[2017-01-16] MEDS: LORazepam 0.5 MG TAB PO SCH ×3 (08:33→17:03)
[2017-01-16] MEDS: ASPIRIN 81 MG CHEW TAB PO SCH (08:33)
[2017-01-16] MEDS: LISINOPRIL 20 MG TAB PO SCH (08:34)
[2017-01-16] MEDS: risperiDONE ODT 1 MG TAB PO SCH ×3 (08:34→17:03)
[2017-01-16] MEDS: amLODIPine BESYLATE 5 MG TAB PO SCH (08:34)
--- NOTE | 2017-01-16 12:36 | HHI.PYPN ---
Subjective Remarks Patient seen in [place] nurse and family practice resident Stefan. Patient is to wander at times somewhat intrusive. Continues to heal no loud voice markedly confused in Albanian gesturing as of talking to an imaginary person. Patient is overall compliant with medications. Depakote level on 375 mg twice a day was 30 will increase Depakote to 500 mg twice a day check blood level in about 3 days Review of Systems Except as stated in HPI: all other systems reviewed are Neg Objective Alert: Yes [place]: Person Mood: Agitated (mildly today), Anxious, Calm (at times) Affect: Labile Memory Intact: Comment (very poor) Hallucinations: Auditory (talking to self but denies) Delusions: Yes Delusion Type: Paranoid Suicidal: Ideation (denies) Homicidal: Ideation (denies) Insight/Judgement Very poor Labs Test 01/16/17 07:17 Valproic Acid (Depakene) Level 30 MCG/ML Vitals/IOs Vital Signs Date Time Temp Pulse Resp B/P Pulse Ox O2 Delivery O2 Flow Rate FiO2 01/16/17 05:38 95.8 82 18 168/81 97 Intake and Output 01/15/17 01/15/17 01/16/17 08:00 16:00 00:00 Intake Total 120 ml 960 ml 480 ml Balance 120 ml 960 ml 480 ml Assessment & Plan Problem List: (1) Dementia of Alzheimer's type with behavioral disturbance ICD Code: G30.8 Assessment & Plan Estimated LOS: days patient continues demented loud intense intrusive at times noticed to be having conversation to nonexistent person. She medication adjustments above Justification for Cont. Inpt. At this time patient will decompensate if placed in a lower level of care Discharge Planning To be determined Request HC Surrog/Guard Advoc?: Yes Rodolfo Corona MD Jan 16, 2017 12:35
[2017-01-16 18:58] VITALS: BP 126/64; PULSE 98; RESP 17; TEMP 97.4; O2SAT 100
[2017-01-16] MEDS: MIRTAZAPINE 15 MG TAB PO SCH (20:53)
[2017-01-16] MEDS: ATORVASTATIN 20 MG TAB PO SCH (20:54)
[2017-01-17 06:16] VITALS: BP 149/65; PULSE 75; RESP 18; TEMP 98
[2017-01-17] MEDS: LEVOTHYROXINE SODIUM 50 MCG TAB PO SCH (06:16)
[2017-01-17 08:31] LABS: BASOPHIL % 0.2 % (0.0-2.0); EOSINOPHIL # 0.1 TH/MM3 (0-0.4); EOSINOPHIL % 1.1 % (0.0-4.0); HEMATOCRIT 36.5 % (35.0-46.0); HEMO FLAGS DIFF FINAL; LYMPH % 6.3 % (9.0-44.0); LYMPHOCYTE # 0.8 TH/MM3 (1.0-4.8); MEAN CELL VOLUME 88.4 FL (80.0-100.0); MEAN CORPUSCULAR HEMOGLOBIN 27.8 PG (27.0-34.0); MEAN CORPUSCULAR HGB CONC 31.4 % (32.0-36.0); MONO % 7.5 % (0.0-8.0); NEUT % 84.9 % (16.0-70.0); PLATELET COUNT 202 TH/MM3 (150-450); RED BLOOD COUNT 4.13 MIL/MM3 (4.00-5.30); RED CELL DISTRIBUTION WIDTH 13.9 % (11.6-17.2); WHITE BLOOD COUNT 12.9 TH/MM3 (4.0-11.0)
[2017-01-17 08:45] LABS: BICARBONATE 28.8 MEQ/L (21.0-32.0); POTASSIUM 4.8 MEQ/L (3.5-5.1)
[2017-01-17] MEDS: ASPIRIN 81 MG CHEW TAB PO SCH (09:09)
[2017-01-17] MEDS: VALPROIC ACID SYRUP 250 MG/5 ML UDC PO SCH ×2 (09:09→20:49)
[2017-01-17] MEDS: LISINOPRIL 20 MG TAB PO SCH (09:10)
[2017-01-17] MEDS: LORazepam 0.5 MG TAB PO SCH ×3 (09:10→17:39)
[2017-01-17] MEDS: risperiDONE ODT 1 MG TAB PO SCH ×3 (09:10→17:39)
[2017-01-17] MEDS: amLODIPine BESYLATE 5 MG TAB PO SCH (09:10)
--- NOTE | 2017-01-17 09:49 | HHI.PYPN ---
Subjective Remarks Patient seen in [place] [address], there is a Yakut speaking occupational physician present throughout session, retained by [place] [address] wire dropper. [employer] to be guardian advocate. Patient compliant medications. Continues diffusely confused place time and situation. States she has a "mansion" wish to live with her 2 children. She also wants to go home with her parents. She denies auditory hallucinations though she frequently appears to be talking to herself There were no family members at the hearing. For now continue treatment Review of Systems Except as stated in HPI: all other systems reviewed are Neg Objective Alert: Yes [place]: Person Mood: Agitated (none at this time), Anxious (calm him court), Calm (at times) Affect: Labile (to somewhat restricted) Memory Intact: Comment (very poor) Hallucinations: Auditory (talking to self but denies) Delusions: Yes Delusion Type: Paranoid Suicidal: Ideation (denies) Homicidal: Ideation (denies) Insight/Judgement Very poor Labs Test 01/17/17 07:16 White Blood Count 12.9 TH/MM3 Red Blood Count 4.13 MIL/MM3 Hemoglobin 11.5 GM/DL Hematocrit 36.5 % Mean Corpuscular Volume 88.4 FL Mean Corpuscular Hemoglobin 27.8 PG Mean Corpuscular Hemoglobin 31.4 % Concent Red Cell Distribution Width 13.9 % Platelet Count 202 TH/MM3 Mean Platelet Volume 9.5 FL Neutrophils (%) (Auto) 84.9 % Lymphocytes (%) (Auto) 6.3 % Monocytes (%) (Auto) 7.5 % Eosinophils (%) (Auto) 1.1 % Basophils (%) (Auto) 0.2 % Neutrophils # (Auto) 11.0 TH/MM3 Lymphocytes # (Auto) 0.8 TH/MM3 Monocytes # (Auto) 1.0 TH/MM3 Eosinophils # (Auto) 0.1 TH/MM3 Basophils # (Auto) 0.0 TH/MM3 CBC Comment DIFF FINAL Differential Comment Sodium Level 142 MEQ/L Potassium Level 4.8 MEQ/L Chloride Level 104 MEQ/L Carbon Dioxide Level 28.8 MEQ/L Anion Gap 9 MEQ/L Blood Urea Nitrogen 30 MG/DL Creatinine 0.99 MG/DL Estimat Glomerular Filtration 55 ML/MIN Rate Random Glucose 92 MG/DL Calcium Level 9.0 MG/DL Vitals/IOs Vital Signs Date Time Temp Pulse Resp B/P Pulse Ox O2 Delivery O2 Flow Rate FiO2 01/17/17 06:16 98.0 75 18 149/65 01/16/17 18:58 100 Intake and Output 01/16/17 01/16/17 01/17/17 08:00 16:00 00:00 Intake Total 360 ml 720 ml 840 ml Output Total 1 ml Balance 359 ml 720 ml 840 ml Assessment & Plan Problem List: (1) Dementia of Alzheimer's type with behavioral disturbance ICD Code: G30.8 Assessment & Plan Estimated LOS: days patient continues demented with possible psychotic features of auditory hallucinations Justification for Cont. Inpt. At this time patient will decompensate the placed in a lower level of care Discharge Planning To be determined Request HC Surrog/Guard Advoc?: Yes Rodolfo Corona MD Jan 17, 2017 09:49
[2017-01-17 18:26] VITALS: BP 125/58; PULSE 18; RESP 18; TEMP 97.9; TEMP 98; O2SAT 95
[2017-01-17] MEDS: MIRTAZAPINE 15 MG TAB PO SCH (20:49)
[2017-01-17] MEDS: ATORVASTATIN 20 MG TAB PO SCH (20:49)
[2017-01-18] MEDS: LEVOTHYROXINE SODIUM 50 MCG TAB PO SCH (05:20)
--- NOTE | 2017-01-18 07:03 | HHI.PR ---
Subjective Remarks Patient seen in day room. Welsh speaking mostly. Cooperative. WBC elevated yesterday and some suprapubic discomfort noted. Objective Vital Signs Date Time Temp Pulse Resp B/P Pulse Ox O2 Delivery O2 Flow Rate FiO2 01/17/17 18:26 98.0 01/17/17 18:26 97.9 18 18 125/58 95 I/O 01/17/17 01/17/17 01/17/17 01/18/17 01/18/17 01/18/17 07:00 15:00 23:00 07:00 15:00 23:00 Intake Total 4930 ml 120 ml Balance 4930 ml 120 ml Intake Oral 4930 ml 120 ml # Voids 1 2 2 # Bowel Movements 0 Result Diagram: 01/17/1771501/17/17715 Other Results GENERAL: Alert and cooperative SKIN: Warm and dry. HEAD: Normocephalic. EYES: No scleral icterus. No injection or drainage. NECK: Supple, trachea midline. No JVD or lymphadenopathy. CARDIOVASCULAR: Regular rate and rhythm without murmurs, gallops, or rubs. RESPIRATORY: Breath sounds equal bilaterally. No accessory muscle use. GASTROINTESTINAL: Abdomen soft and nondistended. Some suprapubic discomfort noted. MUSCULOSKELETAL: No cyanosis, or edema. BACK: Nontender without obvious deformity. No CVA tenderness. Medications and IVs Current Medications Medications (Trade) Dose Ordered Sig/Natalio Route Start Time Stop Time Status Last Admin (Ativan) 0.5 mg Q12H PRN PO 01/07/17 17:30 01/15/17 17:43 (Ativan Inj) 0.5 mg Q12H PRN IM 01/07/17 17:30 01/15/17 09:15 (Catapres) 0.1 mg Q6H PRN PO 01/07/17 18:45 (Tylenol) 650 mg Q4H PRN PO 01/08/17 13:45 (Milk Of Magnesia Liq) 30 ml DAILY PRN PO 01/08/17 13:45 01/16/17 20:54 (Mag-Al Plus Susp Liq) 30 ml Q6H PRN PO 01/08/17 13:45 (Aspirin Chew) 81 mg DAILY PO 01/09/17 09:00 01/17/17 09:09 (Lipitor) 20 mg HS PO 01/08/17 21:00 01/17/17 20:49 (Synthroid) 50 mcg DAILY@06 PO 01/09/17 06:00 01/18/17 05:20 (Prinivil) 20 mg DAILY PO 01/09/17 09:00 01/17/17 09:10 (Remeron) 15 mg HS PO 01/08/17 21:00 01/17/17 20:49 (Ativan) 0.5 mg TID PO 01/15/17 13:00 01/17/17 17:39 (risperDAL M-TAB) 1 mg TID PO 01/15/17 13:00 01/17/17 17:39 (Norvasc) 10 mg DAILY PO 01/17/17 09:00 01/17/17 09:10 (Depakene Liq) 500 mg BID PO 01/16/17 21:00 01/17/17 20:49 Assessment and Plan Problem List: (1) Dementia Status: Chronic Plan: Chronic, resident of [facility]. Psych for med mgmt. continues demented with possible psychotic features of auditory hallucinations per psych note (2) Hyperlipemia Status: Chronic Plan: Continue statin (3) Agitation Status: Acute Plan: Patient in day room. Calm (4) Hypertension Status: Chronic Plan: Blood pressure improved since Norvasc increased. (5) Schizophrenia Status: Chronic Plan: Managed per psych (6) Suprapubic tenderness Status: Acute Plan: Urinalysis ordered. Antibiotics not initiated will await UA results. Assessment and Plan Assessment and plan discussed with Dr. Vásquez Problem Qualifiers (1) Dementia: Qualified Code: F03.91 - Dementia with behavioral disturbance, unspecified dementia type (2) Hyperlipemia: Qualified Code: E78.2 - Mixed hyperlipidemia (3) Hypertension: Qualified Code: I10 - Essential hypertension (4) Schizophrenia: Qualified Code: F20.9 - Schizophrenia, unspecified type Maria Esther Jhaveri Jan 18, 2017 07:03
[2017-01-18 08:01] VITALS: BP 153/64; PULSE 95; RESP 18
[2017-01-18] MEDS: LORazepam 0.5 MG TAB PO SCH ×3 (08:43→18:00)
[2017-01-18] MEDS: risperiDONE ODT 1 MG TAB PO SCH ×3 (08:43→18:00)
[2017-01-18] MEDS: LISINOPRIL 20 MG TAB PO SCH (08:43)
[2017-01-18] MEDS: VALPROIC ACID SYRUP 250 MG/5 ML UDC PO SCH ×2 (08:43→20:31)
[2017-01-18] MEDS: amLODIPine BESYLATE 5 MG TAB PO SCH (08:43)
[2017-01-18] MEDS: ASPIRIN 81 MG CHEW TAB PO SCH (08:44)
--- NOTE | 2017-01-18 10:09 | HHI.PYPN ---
Subjective Remarks Patient seen in day room with nurse Anthony, patient somewhat calmer today though with several episodes of what appears to be patient talking to herself gesturing into the room with no apparent object. Patient compliant medications. Patient due for Depakote blood level on 01/20 Review of Systems Except as stated in HPI: all other systems reviewed are Neg Objective Alert: Yes [place]: Person Mood: Anxious (somewhat decreased), Calm (at times) Affect: Labile (to somewhat restricted) Memory Intact: Comment (very poor) Hallucinations: Auditory (talking to self but denies) Delusions: Yes Delusion Type: Paranoid Suicidal: Ideation (denies) Homicidal: Ideation (denies) Insight/Judgement Very poor Vitals/IOs Vital Signs Date Time Temp Pulse Resp B/P Pulse Ox O2 Delivery O2 Flow Rate FiO2 01/18/17 08:01 95 18 153/64 01/17/17 18:26 98.0 01/17/17 18:26 95 Intake and Output 01/17/17 01/17/17 01/18/17 08:00 16:00 00:00 Intake Total 4930 ml Balance 4930 ml Assessment & Plan Problem List: (1) Dementia of Alzheimer's type with behavioral disturbance ICD Code: G30.8 Assessment & Plan Estimated LOS: days patient continues demented and confused, though somewhat calmer today. Compliant medications. Justification for Cont. Inpt. At this time patient will decompensate if placed on the lower level of care Discharge Planning To be determined Request HC Surrog/Guard Advoc?: Yes Rodolfo Corona MD Jan 18, 2017 10:09
[2017-01-18 15:07] LABS: BLOOD, URINE NEG (NEG); COMMENT (UR) CULT NOT INDICATED; CULTURE IF INDICATED CULT NOT INDICATED; GLUCOSE,URINE NEG (NEG); KETONE, URINE NEG (NEG); MUCUS URINE FEW /lpf (OCC); NITRITE,URINE NEG (NEG); PH, URINE 5.5 (5.0-8.5); SQUAMOUS EPITHELIAL CELL URINE 2 /hpf (0-5); URINE COLOR YELLOW (YELLW/STRAW)
[2017-01-18] MEDS: LORazepam 2 MG/ML VIAL - age > 65 yrs IM PRN (16:30)
[2017-01-18 18:30] VITALS: BP 127/59; PULSE 100; RESP 18; TEMP 97.3; O2SAT 96
[2017-01-18] MEDS: ATORVASTATIN 20 MG TAB PO SCH (20:31)
[2017-01-18] MEDS: MIRTAZAPINE 15 MG TAB PO SCH (20:31)
[2017-01-19] MEDS: LEVOTHYROXINE SODIUM 50 MCG TAB PO SCH (05:42)
[2017-01-19 05:51] VITALS: BP 129/77; PULSE 108; RESP 15; TEMP 99.4; O2SAT 97
[2017-01-19] MEDS: LORazepam 0.5 MG TAB PO SCH ×3 (08:50→17:25)
[2017-01-19] MEDS: LISINOPRIL 20 MG TAB PO SCH (08:50)
[2017-01-19] MEDS: risperiDONE ODT 1 MG TAB PO SCH ×3 (08:51→17:25)
[2017-01-19] MEDS: amLODIPine BESYLATE 5 MG TAB PO SCH (08:51)
[2017-01-19] MEDS: ASPIRIN 81 MG CHEW TAB PO SCH (08:52)
[2017-01-19] MEDS: VALPROIC ACID SYRUP 250 MG/5 ML UDC PO SCH ×2 (08:53→20:35)
--- NOTE | 2017-01-19 13:31 | HHI.PYPN ---
Subjective Remarks Pt seen and discussed with staff. Pt has been wandering the hallway and has been observed responding to internal stimuli. She was agitated this morning, but calmed after administration of morning medications. She is compliant with medications and care. Objective Alert: Yes [place]: Person Mood: Calm Affect: Restricted Memory Intact: Comment (poor) Hallucinations: Auditory (appears internally stimulated) Delusions: Yes Delusion Type: Paranoid (decreased) Suicidal: Ideation (none) Homicidal: Ideation (none) Insight/Judgement poor Labs Test 01/18/17 14:00 Urine Color YELLOW Urine Turbidity CLEAR Urine pH 5.5 Urine Specific [place] 1.030 Urine Protein TRACE mg/dL Urine Glucose (UA) NEG mg/dL Urine Ketones NEG mg/dL Urine Occult Blood NEG Urine Nitrite NEG Urine Bilirubin NEG Urine Urobilinogen LESS THAN 2.0 MG/DL Urine Leukocyte Esterase NEG Urine WBC 1 /hpf Urine Squamous Epithelial 2 /hpf Cells Urine Mucus FEW /lpf Microscopic Urinalysis Comment CULT NOT INDICATED Vitals/IOs Vital Signs Date Time Temp Pulse Resp B/P Pulse Ox O2 Delivery O2 Flow Rate FiO2 01/19/17 05:51 99.4 108 15 129/77 97 Intake and Output 01/18/17 01/18/17 01/19/17 08:00 16:00 00:00 Intake Total 120 ml 1920 ml Balance 120 ml 1920 ml Assessment & Plan Problem List: (1) Dementia of Alzheimer's type with behavioral disturbance ICD Code: G30.8 Assessment & Plan Pt is improving. Continue current tx plan. Estimated LOS: days Justification for Cont. Inpt. Risks of decompensation Request HC Surrog/Guard Advoc?: Yes Keli iWld MD Jan 19, 2017 13:31
[2017-01-19 17:56] VITALS: BP 124/65; PULSE 98; RESP 16; TEMP 97.7; O2SAT 98
[2017-01-19] MEDS: MIRTAZAPINE 15 MG TAB PO SCH (20:35)
[2017-01-19] MEDS: ATORVASTATIN 20 MG TAB PO SCH (20:35)
[2017-01-20 06:00] VITALS: BP 176/74; PULSE 99; RESP 16; TEMP 97.9; O2SAT 100
[2017-01-20] MEDS: LEVOTHYROXINE SODIUM 50 MCG TAB PO SCH (06:00)
[2017-01-20] MEDS: LISINOPRIL 20 MG TAB PO SCH (08:13)
[2017-01-20] MEDS: amLODIPine BESYLATE 5 MG TAB PO SCH (08:14)
[2017-01-20] MEDS: risperiDONE ODT 1 MG TAB PO SCH ×3 (08:14→18:00)
[2017-01-20] MEDS: LORazepam 0.5 MG TAB PO SCH ×3 (08:14→18:00)
[2017-01-20] MEDS: VALPROIC ACID SYRUP 250 MG/5 ML UDC PO SCH ×3 (08:14→21:00)
[2017-01-20] MEDS: ASPIRIN 81 MG CHEW TAB PO SCH (08:19)
--- NOTE | 2017-01-20 14:20 | HHI.PYPN ---
Subjective Remarks Pt seen and discussed with staff. Internal stimulation and rambling speech persist, but has not been agitated today. She is compliant with medications and care. No SI/HI Objective Alert: Yes [place]: Person Mood: Calm Affect: Restricted Memory Intact: Comment (poor) Hallucinations: Auditory (appears internally stimulated) Delusions: No Delusion Type: Other (none) Suicidal: Ideation (none) Homicidal: Ideation (none) Insight/Judgement poor Labs Test 01/20/17 07:17 Valproic Acid (Depakene) Level 66 MCG/ML Vitals/IOs Vital Signs Date Time Temp Pulse Resp B/P Pulse Ox O2 Delivery O2 Flow Rate FiO2 01/20/17 06:00 97.9 99 16 176/74 100 Intake and Output 01/19/17 01/19/17 01/20/17 08:00 16:00 00:00 Intake Total 360 ml 2160 ml Balance 360 ml 2160 ml Assessment & Plan Problem List: (1) Dementia of Alzheimer's type with behavioral disturbance ICD Code: G30.8 Assessment & Plan Pt improving. Continue current tx plan. Justification for Cont. Inpt. risk of decompensation Request HC Surrog/Guard Advoc?: Yes Keli Wild MD Jan 20, 2017 14:20
[2017-01-20 18:09] VITALS: BP 135/68; PULSE 91; RESP 17; TEMP 98.2; O2SAT 99
[2017-01-20] MEDS: LORazepam 2 MG/ML VIAL - age > 65 yrs IM PRN (18:48)
[2017-01-20] MEDS: ATORVASTATIN 20 MG TAB PO SCH ×2 (20:10→21:00)
[2017-01-20] MEDS: MIRTAZAPINE 15 MG TAB PO SCH ×2 (20:10→21:00)
[2017-01-21 05:39] VITALS: BP 183/92; PULSE 89; RESP 18; TEMP 97.1; O2SAT 100
[2017-01-21] MEDS: LEVOTHYROXINE SODIUM 50 MCG TAB PO SCH (06:00)
[2017-01-21] MEDS: LORazepam 2 MG/ML VIAL - age > 65 yrs IM PRN (07:37)
[2017-01-21] MEDS: LORazepam 0.5 MG TAB PO SCH ×3 (09:00→17:39)
[2017-01-21] MEDS: risperiDONE ODT 1 MG TAB PO SCH ×3 (09:00→20:32)
[2017-01-21] MEDS: LISINOPRIL 20 MG TAB PO SCH (09:00)
[2017-01-21] MEDS: amLODIPine BESYLATE 5 MG TAB PO SCH (09:00)
[2017-01-21] MEDS: VALPROIC ACID SYRUP 250 MG/5 ML UDC PO SCH ×2 (09:00→20:31)
[2017-01-21] MEDS: ASPIRIN 81 MG CHEW TAB PO SCH (09:00)
--- NOTE | 2017-01-21 14:51 | HHI.PYPN ---
Subjective Remarks Patient discussed with treatment team, patient seen on unit. Appears patient is still having poor sleep she is up most of the night, intrusive, continues to be noted also talking to self. Will increase at bedtime Remeron to 20 mg, increase Respinol to 2 mg twice a day, Depakote level 66 on 01/20 so will increase Depakote liquid to 500 mg a.m. 750 mg at bedtime check level on 01/24 Review of Systems Except as stated in HPI: all other systems reviewed are Neg Objective Alert: Yes [place]: Person Mood: Agitated, Calm Affect: Labile, Restricted Memory Intact: Comment (poor) Hallucinations: Auditory (appears internally stimulated) Delusions: No Delusion Type: Other (none) Suicidal: Ideation (none) Homicidal: Ideation (none) Insight/Judgement Very poor Vitals/IOs Vital Signs Date Time Temp Pulse Resp B/P Pulse Ox O2 Delivery O2 Flow Rate FiO2 01/21/17 05:39 97.1 89 18 183/92 100 Intake and Output 01/20/17 01/20/17 01/21/17 08:00 16:00 00:00 Intake Total 440 ml 480 ml Balance 440 ml 480 ml Assessment & Plan Problem List: (1) Dementia of Alzheimer's type with behavioral disturbance ICD Code: G30.8 Assessment & Plan Estimated LOS: days patient remains intrusive labile with very poor sleep, please see medication adjustments above Justification for Cont. Inpt. At this time patient will decompensate if placed in the lower level of care Discharge Planning To be determined Request HC Surrog/Guard Advoc?: Yes Rodolfo Corona MD Jan 21, 2017 14:51
[2017-01-21] MEDS ORDERED: PILL SPLITTER OTHER PRN (16:15)
[2017-01-21 18:44] VITALS: BP 156/74; PULSE 78; RESP 18; TEMP 96.8; O2SAT 100
[2017-01-21] MEDS: MIRTAZAPINE 15 MG TAB PO SCH (20:31)
[2017-01-21] MEDS: ATORVASTATIN 20 MG TAB PO SCH (20:32)
[2017-01-22] MEDS: LEVOTHYROXINE SODIUM 50 MCG TAB PO SCH (05:38)
[2017-01-22 06:03] VITALS: BP 151/72; PULSE 99; RESP 18; TEMP 97.9; O2SAT 98
[2017-01-22] MEDS: VALPROIC ACID SYRUP 250 MG/5 ML UDC PO SCH ×2 (08:46→21:46)
[2017-01-22] MEDS: ASPIRIN 81 MG CHEW TAB PO SCH (08:47)
[2017-01-22] MEDS: LORazepam 0.5 MG TAB PO SCH ×3 (08:47→17:58)
[2017-01-22] MEDS: amLODIPine BESYLATE 5 MG TAB PO SCH (08:47)
[2017-01-22] MEDS: risperiDONE ODT 1 MG TAB PO SCH ×2 (08:47→21:47)
[2017-01-22] MEDS: LISINOPRIL 20 MG TAB PO SCH ×2 (08:47→21:47)
--- NOTE | 2017-01-22 08:49 | HHI.PYPN ---
Subjective Remarks Patient seen in day room nurse Anthony, chart reviewed, patient compliant medications. While It appears she slept without problems last night she was somewhat agitated in the earlier evening needing redirection from another patient's room. She is eating breakfast appropriately at this time. Patient calm no behavioral issues noted at this time Review of Systems Except as stated in HPI: all other systems reviewed are Neg Objective Alert: Yes [place]: Person Mood: Agitated, Calm Affect: Labile, Restricted Memory Intact: Comment (poor) Hallucinations: Auditory (appears internally stimulated) Delusions: No Delusion Type: Other (none) Suicidal: Ideation (none) Homicidal: Ideation (none) Insight/Judgement Very poor Vitals/IOs Vital Signs Date Time Temp Pulse Resp B/P Pulse Ox O2 Delivery O2 Flow Rate FiO2 01/22/17 06:03 97.9 99 18 151/72 98 Intake and Output 01/21/17 01/21/17 01/22/17 08:00 16:00 00:00 Intake Total 960 ml Balance 960 ml Assessment & Plan Problem List: (1) Dementia of Alzheimer's type with behavioral disturbance ICD Code: G30.8 Assessment & Plan Estimated LOS: days patient continues confused and disoriented, appears to manifest itself more towards evening. For now continue treatment Justification for Cont. Inpt. At this time patient will decompensate if placed in a lower level of care Discharge Planning To be determined Request HC Surrog/Guard Advoc?: Yes Rodolfo Corona MD Jan 22, 2017 08:49
--- NOTE | 2017-01-22 10:34 | HHI.PR ---
Subjective Remarks Patient seen in day room. Niuean speaking mostly. Cooperative with exam Objective Vital Signs Date Time Temp Pulse Resp B/P Pulse Ox O2 Delivery O2 Flow Rate FiO2 01/22/17 06:03 97.9 99 18 151/72 98 01/21/17 18:44 96.8 78 18 156/74 100 I/O 01/21/17 01/21/17 01/21/17 01/22/17 01/22/17 01/22/17 07:00 15:00 23:00 07:00 15:00 23:00 Intake Total 480 ml 960 ml Balance 480 ml 960 ml Intake Oral 480 ml 960 ml # Voids 3 1 1 # Bowel Movements 1 Other Results GENERAL: Cooperative however confused. SKIN: Warm and dry. HEAD: Normocephalic. EYES: No scleral icterus. No injection or drainage. NECK: Supple, trachea midline. No JVD or lymphadenopathy. CARDIOVASCULAR: Regular rate and rhythm without murmurs, gallops, or rubs. RESPIRATORY: Breath sounds equal bilaterally. No accessory muscle use. GASTROINTESTINAL: Abdomen soft, non-tender, nondistended. MUSCULOSKELETAL: No cyanosis, or edema. BACK: Nontender without obvious deformity. No CVA tenderness. Medications and IVs Current Medications Medications (Trade) Dose Ordered Sig/Natalio Route Start Time Stop Time Status Last Admin (Ativan) 0.5 mg Q12H PRN PO 01/07/17 17:30 01/15/17 17:43 (Ativan Inj) 0.5 mg Q12H PRN IM 01/07/17 17:30 01/21/17 07:37 (Catapres) 0.1 mg Q6H PRN PO 01/07/17 18:45 (Tylenol) 650 mg Q4H PRN PO 01/08/17 13:45 (Milk Of Magnesia Liq) 30 ml DAILY PRN PO 01/08/17 13:45 01/16/17 20:54 (Mag-Al Plus Susp Liq) 30 ml Q6H PRN PO 01/08/17 13:45 (Aspirin Chew) 81 mg DAILY PO 01/09/17 09:00 01/22/17 08:47 (Lipitor) 20 mg HS PO 01/08/17 21:00 01/21/17 20:32 (Synthroid) 50 mcg DAILY@06 PO 01/09/17 06:00 01/22/17 05:38 (Prinivil) 20 mg DAILY PO 01/09/17 09:00 01/22/17 08:47 (Ativan) 0.5 mg TID PO 01/15/17 13:00 01/22/17 08:47 (Norvasc) 10 mg DAILY PO 01/17/17 09:00 01/22/17 08:47 (Remeron) 20 mg HS PO 01/21/17 21:00 01/21/17 20:31 (risperDAL M-TAB) 2 mg BID PO 01/21/17 21:00 01/22/17 08:47 (Depakene Liq) 500 mg DAILY PO 01/22/17 09:00 01/22/17 08:46 (Depakene Liq) 750 mg HS PO 01/21/17 21:00 01/21/17 20:31 (Pill Splitter) 1 ea UNSCH PRN OTHER 01/21/17 16:15 Assessment and Plan Problem List: (1) Dementia Status: Chronic Plan: Chronic, resident of [facility]. Psych for med mgmt. (2) Hyperlipemia Status: Chronic Plan: Continue statin (3) Agitation Status: Acute Plan: Patient in day room. Cooperative and calm with visit (4) Hypertension Status: Acute Plan: Blood pressure elevated. On norvasc and lisinopril. Will increase lisinopril. (5) Schizophrenia Status: Chronic Plan: Managed per psych (6) Suprapubic tenderness Status: Resolved Plan: Resolved. . Assessment and Plan Assessment and plan discussed with Dr. Vásquez Problem Qualifiers (1) Dementia: Qualified Code: F03.91 - Dementia with behavioral disturbance, unspecified dementia type (2) Hyperlipemia: Qualified Code: E78.2 - Mixed hyperlipidemia (3) Hypertension: Qualified Code: I10 - Essential hypertension (4) Schizophrenia: Qualified Code: F20.9 - Schizophrenia, unspecified type Maria Esther Jhaveri Jan 22, 2017 10:34
[2017-01-22 20:11] VITALS: BP 160/88; PULSE 91; RESP 16; TEMP 97.6; O2SAT 100
[2017-01-22] MEDS: ATORVASTATIN 20 MG TAB PO SCH (21:46)
[2017-01-22] MEDS: MIRTAZAPINE 15 MG TAB PO SCH (21:47)
[2017-01-23 05:49] VITALS: BP 143/72; PULSE 87; RESP 15; TEMP 98; O2SAT 100
[2017-01-23] MEDS: LEVOTHYROXINE SODIUM 50 MCG TAB PO SCH ×2 (06:13→08:26)
[2017-01-23] MEDS: LORazepam 0.5 MG TAB PO SCH ×3 (08:25→17:52)
[2017-01-23] MEDS: VALPROIC ACID SYRUP 250 MG/5 ML UDC PO SCH ×2 (08:26→21:08)
[2017-01-23] MEDS: amLODIPine BESYLATE 5 MG TAB PO SCH (08:26)
[2017-01-23] MEDS: LISINOPRIL 20 MG TAB PO SCH ×2 (08:27→21:08)
[2017-01-23] MEDS: ASPIRIN 81 MG CHEW TAB PO SCH (08:27)
[2017-01-23] MEDS: risperiDONE ODT 1 MG TAB PO SCH ×2 (08:27→21:08)
--- NOTE | 2017-01-23 11:42 | HHI.PYPN ---
Subjective Remarks Patient discussed with treatment team, seen on unit. Patient continues markedly confused and disoriented. At times it appears she continues to talk herself and if responding to internal stimuli however no significant behavioral problems recently, compliant medications Review of Systems Except as stated in HPI: all other systems reviewed are Neg Objective Alert: Yes [place]: Person Mood: Agitated, Calm Affect: Labile, Restricted Memory Intact: Comment (poor) Hallucinations: Auditory (appears internally stimulated) Delusions: No Delusion Type: Other (none) Suicidal: Ideation (none) Homicidal: Ideation (none) Insight/Judgement Very poor Vitals/IOs Vital Signs Date Time Temp Pulse Resp B/P Pulse Ox O2 Delivery O2 Flow Rate FiO2 01/23/17 05:49 98.0 87 15 143/72 100 Intake and Output 01/22/17 01/22/17 01/23/17 08:00 16:00 00:00 Intake Total 480 ml 870 ml Balance 480 ml 870 ml Assessment & Plan Problem List: (1) Dementia of Alzheimer's type with behavioral disturbance ICD Code: G30.8 Assessment & Plan Estimated LOS: days patient continues confused and demented, appears isolate responding to internal stimuli, compliant medications. Justification for Cont. Inpt. At this time patient will decompensate if placed in a lower level of care Discharge Planning To be determined Request HC Surrog/Guard Advoc?: Yes Rodolfo Corona MD Jan 23, 2017 11:42
[2017-01-23 19:51] VITALS: BP 117/65; PULSE 77; RESP 16; TEMP 97.9; O2SAT 97
[2017-01-23] MEDS: ATORVASTATIN 20 MG TAB PO SCH (21:08)
[2017-01-23] MEDS: MIRTAZAPINE 15 MG TAB PO SCH (21:09)
[2017-01-24 05:20] VITALS: BP 110/69; PULSE 107; RESP 17; TEMP 97.8; O2SAT 95
[2017-01-24 07:45] LABS: HEMATOCRIT 32.6 % (35.0-46.0); MEAN CELL VOLUME 87.6 FL (80.0-100.0); MEAN CORPUSCULAR HEMOGLOBIN 28.3 PG (27.0-34.0); MEAN CORPUSCULAR HGB CONC 32.3 % (32.0-36.0); PLATELET COUNT 193 TH/MM3 (150-450); RED BLOOD COUNT 3.73 MIL/MM3 (4.00-5.30); RED CELL DISTRIBUTION WIDTH 13.5 % (11.6-17.2); REVIEW FLAG FINAL; WHITE BLOOD COUNT 8.4 TH/MM3 (4.0-11.0)
[2017-01-24 08:18] LABS: BICARBONATE 26.2 MEQ/L (21.0-32.0); POTASSIUM 4.7 MEQ/L (3.5-5.1)
[2017-01-24] MEDS: ASPIRIN 81 MG CHEW TAB PO SCH (08:51)
[2017-01-24] MEDS: risperiDONE ODT 1 MG TAB PO SCH ×2 (08:52→20:47)
[2017-01-24] MEDS: LORazepam 0.5 MG TAB PO SCH ×3 (08:52→17:18)
[2017-01-24] MEDS: amLODIPine BESYLATE 5 MG TAB PO SCH (08:52)
[2017-01-24] MEDS: LISINOPRIL 20 MG TAB PO SCH ×2 (08:52→20:46)
[2017-01-24] MEDS: LEVOTHYROXINE SODIUM 50 MCG TAB PO SCH (08:52)
[2017-01-24] MEDS: VALPROIC ACID SYRUP 250 MG/5 ML UDC PO SCH ×2 (08:53→20:46)
--- NOTE | 2017-01-24 11:01 | HHI.PYPN ---
Subjective Remarks Patient seen in day room with floor staff. Patient noted to be talking to herself gesturing at nothing particular as if talking to a person. Depakote level drawn this a.m. came back at 89. Patient no significant behavioral problems recently. Compliant medications. For now continue treatment Review of Systems Except as stated in HPI: all other systems reviewed are Neg Objective Alert: Yes [place]: Person Mood: Agitated, Calm Affect: Labile, Restricted Memory Intact: Comment (poor) Hallucinations: Auditory (appears internally stimulated) Delusions: No Delusion Type: Other (none) Suicidal: Ideation (none) Homicidal: Ideation (none) Insight/Judgement Very poor Labs Test 01/24/17 07:13 White Blood Count 8.4 TH/MM3 Red Blood Count 3.73 MIL/MM3 Hemoglobin 10.5 GM/DL Hematocrit 32.6 % Mean Corpuscular Volume 87.6 FL Mean Corpuscular Hemoglobin 28.3 PG Mean Corpuscular Hemoglobin 32.3 % Concent Red Cell Distribution Width 13.5 % Platelet Count 193 TH/MM3 Mean Platelet Volume 9.4 FL Sodium Level 142 MEQ/L Potassium Level 4.7 MEQ/L Chloride Level 107 MEQ/L Carbon Dioxide Level 26.2 MEQ/L Anion Gap 9 MEQ/L Blood Urea Nitrogen 27 MG/DL Creatinine 0.94 MG/DL Estimat Glomerular Filtration 58 ML/MIN Rate Random Glucose 96 MG/DL Calcium Level 9.1 MG/DL Valproic Acid (Depakene) Level 89 MCG/ML Vitals/IOs Vital Signs Date Time Temp Pulse Resp B/P Pulse Ox O2 Delivery O2 Flow Rate FiO2 01/24/17 05:20 97.8 107 17 110/69 95 Intake and Output 01/23/17 01/23/17 01/24/17 08:00 16:00 00:00 Intake Total 240 ml Balance 240 ml Assessment & Plan Problem List: (1) Dementia of Alzheimer's type with behavioral disturbance ICD Code: G30.8 Assessment & Plan Estimated LOS: days patient continues confused and demented, continues to appear to be talking to the medullary people. Compliant medication Depakote level this a.m. is 89 Justification for Cont. Inpt. At this time patient will decompensate if placed in the lower level of care Discharge Planning To be determined Request HC Surrog/Guard Advoc?: Yes Rodolfo Corona MD Jan 24, 2017 11:01
[2017-01-24 18:00] VITALS: BP 140/71; PULSE 89; RESP 17; TEMP 97.5; O2SAT 97
[2017-01-24] MEDS: ATORVASTATIN 20 MG TAB PO SCH (20:46)
[2017-01-24] MEDS: MIRTAZAPINE 15 MG TAB PO SCH (20:46)
[2017-01-25] MEDS: LEVOTHYROXINE SODIUM 50 MCG TAB PO SCH (06:42)
--- NOTE | 2017-01-25 07:32 | HHI.PR ---
Subjective Remarks Patient seen at bedside. Malaysian speaking. Cooperative with exam Objective Vital Signs Date Time Temp Pulse Resp B/P Pulse Ox O2 Delivery O2 Flow Rate FiO2 01/24/17 18:00 97.5 89 17 140/71 97 I/O 01/24/17 01/24/17 01/24/17 01/25/17 01/25/17 01/25/17 06:59 14:59 22:59 06:59 14:59 22:59 Intake Total 480 ml 720 ml Balance 480 ml 720 ml Intake Oral 480 ml 720 ml # Voids 1 1 1 1 Result Diagram: 01/24/1771201/24/17712 Other Results GENERAL: Alert and cooperative SKIN: Warm and dry. HEAD: Normocephalic. EYES: No scleral icterus. No injection or drainage. NECK: Supple, trachea midline. No JVD or lymphadenopathy. CARDIOVASCULAR: Regular rate and rhythm without murmurs, gallops, or rubs. RESPIRATORY: Breath sounds equal bilaterally. No accessory muscle use. GASTROINTESTINAL: Abdomen soft, non-tender, nondistended. MUSCULOSKELETAL: No cyanosis, or edema. BACK: Nontender without obvious deformity. No CVA tenderness. Medications and IVs Current Medications Medications (Trade) Dose Ordered Sig/Natalio Route Start Time Stop Time Status Last Admin (Ativan) 0.5 mg Q12H PRN PO 01/07/17 17:30 01/15/17 17:43 (Ativan Inj) 0.5 mg Q12H PRN IM 01/07/17 17:30 01/21/17 07:37 (Catapres) 0.1 mg Q6H PRN PO 01/07/17 18:45 (Tylenol) 650 mg Q4H PRN PO 01/08/17 13:45 (Milk Of Magnesia Liq) 30 ml DAILY PRN PO 01/08/17 13:45 01/16/17 20:54 (Mag-Al Plus Susp Liq) 30 ml Q6H PRN PO 01/08/17 13:45 (Aspirin Chew) 81 mg DAILY PO 01/09/17 09:00 01/24/17 08:51 (Lipitor) 20 mg HS PO 01/08/17 21:00 01/24/17 20:46 (Synthroid) 50 mcg DAILY@06 PO 01/09/17 06:00 01/25/17 06:42 (Ativan) 0.5 mg TID PO 01/15/17 13:00 01/24/17 17:18 (Norvasc) 10 mg DAILY PO 01/17/17 09:00 01/24/17 08:52 (Remeron) 20 mg HS PO 01/21/17 21:00 01/24/17 20:46 (risperDAL M-TAB) 2 mg BID PO 01/21/17 21:00 01/24/17 20:47 (Depakene Liq) 500 mg DAILY PO 01/22/17 09:00 01/24/17 08:53 (Depakene Liq) 750 mg HS PO 01/21/17 21:00 01/24/17 20:46 (Pill Splitter) 1 ea UNSCH PRN OTHER 01/21/17 16:15 (Prinivil) 20 mg BID PO 01/22/17 21:00 01/24/17 20:46 Assessment and Plan Problem List: (1) Dementia Status: Chronic Plan: Chronic, resident of [facility]. Psych for med mgmt. Cooperative and medication complaint (2) Hyperlipemia Status: Chronic Plan: Continue statin (3) Agitation Status: Acute Plan: Cooperative and calm with visit (4) Hypertension Status: Acute Plan: Blood pressure improved. On Norvasc and lisinopril. (5) Schizophrenia Status: Chronic Plan: Managed per psych (6) Suprapubic tenderness Status: Resolved Plan: Resolved. . (7) Discomfort of back Status: Chronic Plan: Acetaminophen ordered PRN. No discomfort noted on palpation Assessment and Plan Assessment and plan discussed with Dr. Vásquez Problem Qualifiers (1) Dementia: Qualified Code: F03.91 - Dementia with behavioral disturbance, unspecified dementia type (2) Hyperlipemia: Qualified Code: E78.2 - Mixed hyperlipidemia (3) Hypertension: Qualified Code: I10 - Essential hypertension (4) Schizophrenia: Qualified Code: F20.9 - Schizophrenia, unspecified type Maria Esther Jhaveri Jan 25, 2017 07:32
[2017-01-25] MEDS ORDERED: ACETAMINOPHEN 325 MG TAB PO PRN (07:45)
[2017-01-25] MEDS: LISINOPRIL 20 MG TAB PO SCH ×2 (09:00→21:03)
[2017-01-25] MEDS: amLODIPine BESYLATE 5 MG TAB PO SCH (09:00)
[2017-01-25] MEDS: LORazepam 0.5 MG TAB PO SCH ×3 (10:08→17:48)
[2017-01-25] MEDS: risperiDONE ODT 1 MG TAB PO SCH ×2 (10:08→21:02)
[2017-01-25] MEDS: ASPIRIN 81 MG CHEW TAB PO SCH (10:10)
[2017-01-25] MEDS: VALPROIC ACID SYRUP 250 MG/5 ML UDC PO SCH ×2 (10:10→21:03)
--- NOTE | 2017-01-25 14:37 | HHI.PYPN ---
Subjective Remarks Patient seen in dayroom with floor staff and nurse Elida. Appears somewhat sedated. Though still had some episodes of the evening of louder behavior. Patient continues markedly confused at times appearing to be responding to internal stimuli. Will decrease schedule Ativan to noon and 6 PM Review of Systems Except as stated in HPI: all other systems reviewed are Neg Objective Alert: Yes [place]: Person Mood: Agitated, Calm Affect: Labile, Restricted Memory Intact: Comment (poor) Hallucinations: Auditory (appears internally stimulated) Delusions: No Delusion Type: Other (none) Suicidal: Ideation (none) Homicidal: Ideation (none) Insight/Judgement Poor Vitals/IOs Vital Signs Date Time Temp Pulse Resp B/P Pulse Ox O2 Delivery O2 Flow Rate FiO2 01/24/17 18:00 97.5 89 17 140/71 97 Intake and Output 01/24/17 01/24/17 01/25/17 08:00 16:00 00:00 Intake Total 120 ml 360 ml 720 ml Balance 120 ml 360 ml 720 ml Assessment & Plan Problem List: (1) Dementia of Alzheimer's type with behavioral disturbance ICD Code: G30.8 Assessment & Plan Estimated LOS: days patient continues confused demented with some mild increased behavioral issues towards evening. There also appears be some sedation in the morning we will discontinue the a.m. dose of Ativan. Continue though the doses at noon and 6 PM Justification for Cont. Inpt. At this time patient will decompensate if placed in a lower level of care Discharge Planning To be determined Request HC Surrog/Guard Advoc?: Yes Rodolfo Corona MD Jan 25, 2017 14:37
[2017-01-25 18:00] VITALS: BP 158/92; PULSE 94; RESP 18; TEMP 99; O2SAT 99
[2017-01-25] MEDS: BENZTROPINE MESYLATE 1 MG TAB PO SCH (21:02)
[2017-01-25] MEDS: ATORVASTATIN 20 MG TAB PO SCH (21:03)
[2017-01-25] MEDS: MIRTAZAPINE 15 MG TAB PO SCH (21:03)
[2017-01-26 04:53] VITALS: BP 157/70; PULSE 110; RESP 16; TEMP 98.8; O2SAT 96
[2017-01-26] MEDS: LEVOTHYROXINE SODIUM 50 MCG TAB PO SCH (05:58)
[2017-01-26] MEDS: risperiDONE ODT 1 MG TAB PO SCH ×2 (08:54→20:55)
[2017-01-26] MEDS: VALPROIC ACID SYRUP 250 MG/5 ML UDC PO SCH ×2 (08:54→20:56)
[2017-01-26] MEDS: amLODIPine BESYLATE 5 MG TAB PO SCH (08:55)
[2017-01-26] MEDS: ASPIRIN 81 MG CHEW TAB PO SCH (08:55)
[2017-01-26] MEDS: BENZTROPINE MESYLATE 1 MG TAB PO SCH ×2 (08:55→20:56)
[2017-01-26] MEDS: LISINOPRIL 20 MG TAB PO SCH ×2 (08:55→20:56)
[2017-01-26] MEDS: LORazepam 0.5 MG TAB PO SCH ×2 (08:55→17:36)
[2017-01-26 10:00] VITALS: BP 143/66; PULSE 96; RESP 18
--- NOTE | 2017-01-26 12:25 | HHI.PYPN ---
Subjective Remarks Patient was seen and case discussed with nursing. Patient is mildly sedated with psychomotor retardation. She is quieter and behaving well per nursing. He is alert and oriented 1. Continues to respond to internal stimuli, frequently talking to self. He denies suicidal ideation intent or plan. Denies hallucinations. She is compliant with her medications Objective Alert: Yes [place]: Person Mood: Calm Affect: Restricted Memory Intact: Comment (poor) Hallucinations: Auditory (appears internally stimulated) Delusions: No Delusion Type: Other (none) Suicidal: Ideation (none) Homicidal: Ideation (none) Insight/Judgement Poor Vitals/IOs Vital Signs Date Time Temp Pulse Resp B/P Pulse Ox O2 Delivery O2 Flow Rate FiO2 01/26/17 10:00 96 18 143/66 01/26/17 04:53 98.8 96 Intake and Output 01/25/17 01/25/17 01/26/17 08:00 16:00 00:00 Intake Total 240 ml 360 ml Balance 240 ml 360 ml Assessment & Plan Problem List: (1) Dementia of Alzheimer's type with behavioral disturbance ICD Code: G30.8 Assessment & Plan Continue current treatment plan Justification for Cont. Inpt. Patient will decompensate in a less restrictive setting Request HC Surrog/Guard Advoc?: Yes Gustavo Amador DO Jan 26, 2017 12:25
[2017-01-26 18:31] VITALS: BP 144/69; PULSE 94; RESP 18; TEMP 97.7; O2SAT 94
[2017-01-26] MEDS: ATORVASTATIN 20 MG TAB PO SCH (20:55)
[2017-01-26] MEDS: MIRTAZAPINE 15 MG TAB PO SCH (20:56)
[2017-01-27] MEDS: LEVOTHYROXINE SODIUM 50 MCG TAB PO SCH (05:42)
[2017-01-27 06:25] VITALS: BP 151/67; PULSE 100; RESP 17; TEMP 97.8; O2SAT 98
[2017-01-27] MEDS: LISINOPRIL 20 MG TAB PO SCH ×2 (09:00→21:29)
[2017-01-27] MEDS: BENZTROPINE MESYLATE 1 MG TAB PO SCH ×2 (09:00→21:30)
[2017-01-27] MEDS: risperiDONE ODT 1 MG TAB PO SCH ×2 (09:00→21:29)
[2017-01-27] MEDS: amLODIPine BESYLATE 5 MG TAB PO SCH (09:00)
[2017-01-27] MEDS: VALPROIC ACID SYRUP 250 MG/5 ML UDC PO SCH ×2 (09:00→21:29)
[2017-01-27] MEDS: ASPIRIN 81 MG CHEW TAB PO SCH (09:00)
[2017-01-27 10:25] VITALS: BP 136/71; PULSE 81; RESP 17
--- NOTE | 2017-01-27 11:07 | HHI.PYPN ---
Subjective Remarks Patient was seen and case discussed with nursing. Patient remains labile and confused. Talking to self but less so per nursing. Alert and oriented 1. She is sedated in the mornings medication was held by nursing. Patient continues with poor insight and she denies auditory visual hallucinations. Denies suicidal ideation intent or plan Objective Alert: Yes [place]: Person Mood: Anxious Affect: Blunted Memory Intact: Comment (poor) Hallucinations: Auditory (appears internally stimulated) Delusions: No Delusion Type: Other (internally stimulated) Suicidal: Ideation (none) Homicidal: Ideation (none) Insight/Judgement Poor Vitals/IOs Vital Signs Date Time Temp Pulse Resp B/P Pulse Ox O2 Delivery O2 Flow Rate FiO2 01/27/17 10:25 81 17 136/71 01/27/17 06:25 97.8 98 Intake and Output 01/26/17 01/26/17 01/27/17 08:00 16:00 00:00 Intake Total 120 ml 960 ml 0 ml Balance 120 ml 960 ml 0 ml Assessment & Plan Problem List: (1) Dementia of Alzheimer's type with behavioral disturbance ICD Code: G30.8 Assessment & Plan Continue current treatment plan Justification for Cont. Inpt. Patient will decompensate in a less restrictive setting Request HC Surrog/Guard Advoc?: Yes Gustavo Amador DO Jan 27, 2017 11:07
[2017-01-27] MEDS: LORazepam 0.5 MG TAB PO SCH ×2 (12:00→18:08)
[2017-01-27 18:51] VITALS: BP 161/93; PULSE 84; RESP 18; TEMP 97.8; O2SAT 98
[2017-01-27] MEDS: ATORVASTATIN 20 MG TAB PO SCH (21:29)
[2017-01-27] MEDS: MIRTAZAPINE 15 MG TAB PO SCH (21:30)
[2017-01-27] MEDS: LORazepam 0.5 MG TAB age > 65 yrs PO PRN (22:51)
[2017-01-28] MEDS: LEVOTHYROXINE SODIUM 50 MCG TAB PO SCH (05:13)
[2017-01-28 05:39] VITALS: BP 156/95; PULSE 94; RESP 16; TEMP 97.1; O2SAT 100
[2017-01-28] MEDS: VALPROIC ACID SYRUP 250 MG/5 ML UDC PO SCH ×2 (08:42→21:20)
[2017-01-28] MEDS: amLODIPine BESYLATE 5 MG TAB PO SCH (08:42)
[2017-01-28] MEDS: risperiDONE ODT 1 MG TAB PO SCH ×2 (08:42→21:20)
[2017-01-28] MEDS: LISINOPRIL 20 MG TAB PO SCH ×2 (08:43→21:20)
[2017-01-28] MEDS: BENZTROPINE MESYLATE 1 MG TAB PO SCH ×2 (08:43→21:20)
[2017-01-28] MEDS: ASPIRIN 81 MG CHEW TAB PO SCH (08:43)
[2017-01-28] MEDS: LORazepam 0.5 MG TAB PO SCH ×2 (12:00→17:12)
--- NOTE | 2017-01-28 15:47 | HHI.PYPN ---
Subjective Remarks Patient discussed with treatment team, chart review, patient spending unit. Patient remains confused demented though outbursts have diminished. Somewhat more easily redirected. Compliant medications. Review of Systems Except as stated in HPI: all other systems reviewed are Neg Objective Alert: Yes [place]: Person Mood: Anxious Affect: Blunted Memory Intact: Comment (poor) Hallucinations: Auditory (appears internally stimulated) Delusions: No Delusion Type: Other (internally stimulated) Suicidal: Ideation (none) Homicidal: Ideation (none) Insight/Judgement Very poor Vitals/IOs Vital Signs Date Time Temp Pulse Resp B/P Pulse Ox O2 Delivery O2 Flow Rate FiO2 01/28/17 05:39 97.1 94 16 156/95 100 Intake and Output 01/27/17 01/27/17 01/28/17 08:00 16:00 00:00 Intake Total 240 ml 480 ml Balance 240 ml 480 ml Assessment & Plan Problem List: (1) Dementia of Alzheimer's type with behavioral disturbance ICD Code: G30.8 Assessment & Plan Estimated LOS: days patient remains demented and confused, no significant behavioral problems. At times she continues to appear to be responding to internal stimuli and talking to herself Justification for Cont. Inpt. At this time patient will decompensate if placed in a lower level of care Discharge Planning To be determined Request HC Surrog/Guard Advoc?: Yes Rodolfo Corona MD Jan 28, 2017 15:47
[2017-01-28 18:00] VITALS: BP 140/65; PULSE 98; RESP 16; TEMP 97.5; O2SAT 94
[2017-01-28] MEDS: ATORVASTATIN 20 MG TAB PO SCH (21:20)
[2017-01-28] MEDS: MIRTAZAPINE 15 MG TAB PO SCH (21:20)
[2017-01-29] MEDS: LEVOTHYROXINE SODIUM 50 MCG TAB PO SCH (05:42)
[2017-01-29 06:00] VITALS: BP 148/73; PULSE 95; RESP 17; TEMP 97.5; O2SAT 94
--- NOTE | 2017-01-29 08:53 | HHI.PYPN ---
Subjective Remarks Patient seen in day room with nurse Jules. Chart reviewed. Patient slept last night, compliant with medications. Patient somewhat calmer today continues diffusely confused though not as verbal. Is less episodes of what appears to be her talking to herself or responding to internal stimuli Review of Systems Except as stated in HPI: all other systems reviewed are Neg Objective Alert: Yes [place]: Person Mood: Anxious Affect: Blunted Memory Intact: Comment (poor) Hallucinations: Auditory (appears internally stimulated) Delusions: No Delusion Type: Other (internally stimulated) Suicidal: Ideation (none) Homicidal: Ideation (none) Insight/Judgement Very poor Vitals/IOs Vital Signs Date Time Temp Pulse Resp B/P Pulse Ox O2 Delivery O2 Flow Rate FiO2 01/29/17 06:00 97.5 95 17 148/73 94 Intake and Output 01/28/17 01/28/17 01/29/17 08:00 16:00 00:00 Intake Total 360 ml 960 ml 720 ml Balance 360 ml 960 ml 720 ml Assessment & Plan Problem List: (1) Dementia of Alzheimer's type with behavioral disturbance ICD Code: G30.8 Assessment & Plan Estimated LOS: days patient continues demented confused, though outbursts have diminished it appears at times that she continues to hear voices Justification for Cont. Inpt. At this time patient will decompensate if placed in a lower level of care Discharge Planning To be determined Request HC Surrog/Guard Advoc?: Yes Rodolfo Corona MD Jan 29, 2017 08:53
[2017-01-29] MEDS: amLODIPine BESYLATE 5 MG TAB PO SCH (09:00)
[2017-01-29] MEDS: VALPROIC ACID SYRUP 250 MG/5 ML UDC PO SCH ×2 (09:00→21:09)
[2017-01-29] MEDS: LISINOPRIL 20 MG TAB PO SCH ×2 (09:00→21:09)
[2017-01-29] MEDS: risperiDONE ODT 1 MG TAB PO SCH ×2 (09:00→21:09)
[2017-01-29] MEDS: ASPIRIN 81 MG CHEW TAB PO SCH (09:00)
[2017-01-29] MEDS: BENZTROPINE MESYLATE 1 MG TAB PO SCH ×2 (09:00→21:09)
[2017-01-29 10:47] VITALS: BP 117/56; PULSE 70; RESP 16
[2017-01-29] MEDS: LORazepam 0.5 MG TAB PO SCH ×2 (11:17→16:44)
--- NOTE | 2017-01-29 11:41 | HHI.PR ---
Subjective Remarks Patient seen at bedside. [place] Island[place] speaking. Cooperative with exam. Denies any pain Objective Vital Signs Date Time Temp Pulse Resp B/P Pulse Ox O2 Delivery O2 Flow Rate FiO2 01/29/17 10:47 70 16 117/56 01/29/17 06:00 97.5 95 17 148/73 94 01/28/17 18:00 97.5 98 16 140/65 94 I/O 01/28/17 01/28/17 01/28/17 01/29/17 01/29/17 01/29/17 07:00 15:00 23:00 07:00 15:00 23:00 Intake Total 1320 ml 720 ml Balance 1320 ml 720 ml Intake Oral 1320 ml 720 ml # Voids 1 1 3 3 Other Results GENERAL: Disoriented but cooperative SKIN: Warm and dry. HEAD: Normocephalic. EYES: No scleral icterus. No injection or drainage. NECK: Supple, trachea midline. No JVD or lymphadenopathy. CARDIOVASCULAR: Regular rate and rhythm without murmurs, gallops, or rubs. RESPIRATORY: Breath sounds equal bilaterally. No accessory muscle use. GASTROINTESTINAL: Abdomen soft, non-tender, nondistended. MUSCULOSKELETAL: No cyanosis, or edema. BACK: Nontender without obvious deformity. No CVA tenderness. Medications and IVs Current Medications Medications (Trade) Dose Ordered Sig/Natalio Route Start Time Stop Time Status Last Admin (Ativan) 0.5 mg Q12H PRN PO 01/07/17 17:30 01/27/17 22:51 (Ativan Inj) 0.5 mg Q12H PRN IM 01/07/17 17:30 01/21/17 07:37 (Catapres) 0.1 mg Q6H PRN PO 01/07/17 18:45 (Tylenol) 650 mg Q4H PRN PO 01/08/17 13:45 (Milk Of Magnesia Liq) 30 ml DAILY PRN PO 01/08/17 13:45 01/16/17 20:54 (Mag-Al Plus Susp Liq) 30 ml Q6H PRN PO 01/08/17 13:45 (Aspirin Chew) 81 mg DAILY PO 01/09/17 09:00 01/28/17 08:43 (Lipitor) 20 mg HS PO 01/08/17 21:00 01/28/17 21:20 (Synthroid) 50 mcg DAILY@06 PO 01/09/17 06:00 01/29/17 05:42 (Norvasc) 10 mg DAILY PO 01/17/17 09:00 01/28/17 08:42 (risperDAL M-TAB) 2 mg BID PO 01/21/17 21:00 01/28/17 21:20 (Depakene Liq) 500 mg DAILY PO 01/22/17 09:00 01/28/17 08:42 (Depakene Liq) 750 mg HS PO 01/21/17 21:00 01/28/17 21:20 (Pill Splitter) 1 ea UNSCH PRN OTHER 01/21/17 16:15 (Prinivil) 20 mg BID PO 01/22/17 21:00 01/28/17 21:20 (Tylenol) 650 mg Q4H PRN PO 01/25/17 07:45 (Ativan) 0.5 mg DAILY@12,18 PO 01/26/17 18:00 01/28/17 17:12 (Cogentin) 0.5 mg BID PO 01/25/17 21:00 01/28/17 21:20 (Remeron) 7.5 mg HS PO 01/27/17 21:00 01/28/17 21:20 Assessment and Plan Problem List: (1) Dementia Status: Chronic Plan: Chronic, resident of [facility]. Psych for med mgmt. Cooperative and med complaint (2) Hyperlipemia Status: Chronic Plan: Continue statin (3) Agitation Status: Acute Plan: Cooperative and calm with visit (4) Hypertension Status: Acute Plan: Blood pressure controlled. On Norvasc and lisinopril. (5) Schizophrenia Status: Chronic Plan: Managed per psych (6) Suprapubic tenderness Status: Resolved Plan: Resolved. . (7) Discomfort of back Status: Resolved Plan: Acetaminophen ordered PRN. No discomfort noted on palpation Assessment and Plan Assessment and plan discussed with Dr. Vásquez Problem Qualifiers (1) Dementia: Qualified Code: F03.91 - Dementia with behavioral disturbance, unspecified dementia type (2) Hyperlipemia: Qualified Code: E78.2 - Mixed hyperlipidemia (3) Hypertension: Qualified Code: I10 - Essential hypertension (4) Schizophrenia: Qualified Code: F20.9 - Schizophrenia, unspecified type Maria Esther Jhaveri Jan 29, 2017 11:41
[2017-01-29 18:00] VITALS: BP 187/83; PULSE 93; RESP 18; TEMP 98.3; O2SAT 98
[2017-01-29 19:17] VITALS: BP 147/74; PULSE 86
[2017-01-29] MEDS: MIRTAZAPINE 15 MG TAB PO SCH (21:09)
[2017-01-29] MEDS: ATORVASTATIN 20 MG TAB PO SCH (21:09)
[2017-01-30 05:15] VITALS: BP 139/57; PULSE 77; RESP 18; TEMP 98; O2SAT 96
[2017-01-30] MEDS: LEVOTHYROXINE SODIUM 50 MCG TAB PO SCH (06:00)
[2017-01-30] MEDS: VALPROIC ACID SYRUP 250 MG/5 ML UDC PO SCH ×2 (09:49→20:52)
[2017-01-30] MEDS: risperiDONE ODT 1 MG TAB PO SCH ×2 (09:49→21:00)
[2017-01-30] MEDS: ASPIRIN 81 MG CHEW TAB PO SCH (09:50)
[2017-01-30] MEDS: BENZTROPINE MESYLATE 1 MG TAB PO SCH ×2 (09:50→20:53)
[2017-01-30] MEDS: amLODIPine BESYLATE 5 MG TAB PO SCH (09:50)
[2017-01-30] MEDS: LISINOPRIL 20 MG TAB PO SCH ×2 (09:50→21:00)
--- NOTE | 2017-01-30 10:34 | HHI.PYPN ---
Subjective Remarks Patient seen on unit with nurse Allie and family practice resident Cole, chart reviewed. Patient somewhat calmer today though continues to be noted talking to herself and gesturing to the area around her. As if responding to internal stimuli. There is still a language difficulty we are attempting to remedy this somewhat by using the [employer] fountain helper (this will need some practice). Patient compliant medications. No behavioral problems. Review of Systems Except as stated in HPI: all other systems reviewed are Neg Objective Alert: Yes [place]: Person Mood: Anxious Affect: Blunted Memory Intact: Comment (poor) Hallucinations: Auditory (appears internally stimulated) Delusions: No Delusion Type: Other (internally stimulated) Suicidal: Ideation (none) Homicidal: Ideation (none) Insight/Judgement Very poor Vitals/IOs Vital Signs Date Time Temp Pulse Resp B/P Pulse Ox O2 Delivery O2 Flow Rate FiO2 01/30/17 05:15 98.0 77 18 139/57 96 Intake and Output 01/29/17 01/29/17 01/30/17 08:00 16:00 00:00 Intake Total 240 ml 720 ml Balance 240 ml 720 ml Assessment & Plan Problem List: (1) Dementia of Alzheimer's type with behavioral disturbance ICD Code: G30.8 Assessment & Plan Estimated LOS: days patient continues markedly demented confused, with the probability of continued auditory hallucinations. Patient compliant medications. For now continue treatment Justification for Cont. Inpt. At this time patient will decompensate placed of lower level of care Discharge Planning To be determined Request HC Surrog/Guard Advoc?: Yes Rodolfo Corona MD Jan 30, 2017 10:34
[2017-01-30] MEDS: LORazepam 0.5 MG TAB PO SCH ×2 (12:35→18:14)
[2017-01-30 18:40] VITALS: BP 133/70; PULSE 79; RESP 18; TEMP 97.7; O2SAT 98
[2017-01-30] MEDS: ATORVASTATIN 20 MG TAB PO SCH (20:52)
[2017-01-30] MEDS: MIRTAZAPINE 15 MG TAB PO SCH (21:00)
[2017-01-31 05:04] VITALS: BP 145/70; PULSE 86; RESP 16; TEMP 97.8; O2SAT 97
[2017-01-31] MEDS: LEVOTHYROXINE SODIUM 50 MCG TAB PO SCH (06:06)
[2017-01-31] MEDS: LISINOPRIL 20 MG TAB PO SCH ×2 (08:31→20:31)
[2017-01-31] MEDS: ASPIRIN 81 MG CHEW TAB PO SCH (08:31)
[2017-01-31] MEDS: amLODIPine BESYLATE 5 MG TAB PO SCH (08:31)
[2017-01-31] MEDS: risperiDONE ODT 1 MG TAB PO SCH ×2 (08:31→20:31)
[2017-01-31] MEDS: VALPROIC ACID SYRUP 250 MG/5 ML UDC PO SCH ×2 (08:32→20:30)
[2017-01-31] MEDS: BENZTROPINE MESYLATE 1 MG TAB PO SCH ×2 (08:32→20:30)
[2017-01-31] MEDS: LORazepam 0.5 MG TAB PO SCH ×2 (11:35→18:00)
--- NOTE | 2017-01-31 14:11 | HHI.PYPN ---
Subjective Remarks Patient seen in [place] with nurse Selena, chart review, patient continues with the language difficulty, at times continues to. To be speaking to imaginary friends, though no significant behavioral problems, compliant medications. For now continue treatment Review of Systems Except as stated in HPI: all other systems reviewed are Neg Objective Alert: Yes [place]: Person Mood: Anxious Affect: Blunted Memory Intact: Comment (poor) Hallucinations: Auditory (appears internally stimulated) Delusions: No Delusion Type: Other (internally stimulated) Suicidal: Ideation (none) Homicidal: Ideation (none) Insight/Judgement Very poor Vitals/IOs Vital Signs Date Time Temp Pulse Resp B/P Pulse Ox O2 Delivery O2 Flow Rate FiO2 01/31/17 05:04 97.8 86 16 145/70 97 Intake and Output 01/30/17 01/30/17 01/31/17 08:00 16:00 00:00 Intake Total 480 ml 1200 ml 840 ml Balance 480 ml 1200 ml 840 ml Assessment & Plan Problem List: (1) Dementia of Alzheimer's type with behavioral disturbance ICD Code: G30.8 Assessment & Plan Estimated LOS: days patient continues confused and demented, though no significant behavioral problems, is still noted that she occasionally appears be talking to herself or to imaginary friends Justification for Cont. Inpt. At this time patient will decompensate if placed in a lower level of care Discharge Planning To be determined Request HC Surrog/Guard Advoc?: Yes Rodolfo Corona MD Jan 31, 2017 14:11
[2017-01-31 17:48] VITALS: BP 114/65; PULSE 78; RESP 18; TEMP 96.9; O2SAT 100
[2017-01-31] MEDS: ATORVASTATIN 20 MG TAB PO SCH (20:30)
[2017-01-31] MEDS: MIRTAZAPINE 15 MG TAB PO SCH (20:30)
[2017-02-01 04:53] VITALS: BP 138/64; PULSE 62; RESP 18; TEMP 98; O2SAT 98
[2017-02-01] MEDS: LEVOTHYROXINE SODIUM 50 MCG TAB PO SCH (05:36)
[2017-02-01] MEDS: VALPROIC ACID SYRUP 250 MG/5 ML UDC PO SCH ×2 (08:31→21:10)
[2017-02-01] MEDS: ASPIRIN 81 MG CHEW TAB PO SCH (08:31)
[2017-02-01] MEDS: risperiDONE ODT 1 MG TAB PO SCH (08:32)
[2017-02-01] MEDS: LISINOPRIL 20 MG TAB PO SCH ×2 (08:32→21:13)
[2017-02-01] MEDS: BENZTROPINE MESYLATE 1 MG TAB PO SCH ×2 (08:32→21:10)
[2017-02-01] MEDS: amLODIPine BESYLATE 5 MG TAB PO SCH (08:33)
--- NOTE | 2017-02-01 08:47 | HHI.PR ---
Subjective Remarks Patient seen at bedside. Cooperative with exam. Denies any pain Objective Vital Signs Date Time Temp Pulse Resp B/P Pulse Ox O2 Delivery O2 Flow Rate FiO2 02/01/17 04:53 98.0 62 18 138/64 98 01/31/17 17:48 96.9 78 18 114/65 100 I/O 01/31/17 01/31/17 01/31/17 02/01/17 02/01/17 02/01/17 07:00 15:00 23:00 07:00 15:00 23:00 Intake Total 0 ml 60 ml 360 ml 0 ml Balance 0 ml 60 ml 360 ml 0 ml Intake Oral 0 ml 60 ml 360 ml 0 ml # Voids 1 1 1 1 Other Results GENERAL: Cooperative SKIN: Warm and dry. HEAD: Normocephalic. EYES: No scleral icterus. No injection or drainage. NECK: Supple, trachea midline. No JVD or lymphadenopathy. CARDIOVASCULAR: Regular rate and rhythm without murmurs, gallops, or rubs. RESPIRATORY: Breath sounds equal bilaterally. No accessory muscle use. GASTROINTESTINAL: Abdomen soft, non-tender, nondistended. MUSCULOSKELETAL: No cyanosis, or edema. BACK: Nontender without obvious deformity. No CVA tenderness. Medications and IVs Current Medications Medications (Trade) Dose Ordered Sig/Natalio Route Start Time Stop Time Status Last Admin (Ativan) 0.5 mg Q12H PRN PO 01/07/17 17:30 01/27/17 22:51 (Ativan Inj) 0.5 mg Q12H PRN IM 01/07/17 17:30 01/21/17 07:37 (Catapres) 0.1 mg Q6H PRN PO 01/07/17 18:45 (Tylenol) 650 mg Q4H PRN PO 01/08/17 13:45 (Milk Of Magnesia Liq) 30 ml DAILY PRN PO 01/08/17 13:45 01/16/17 20:54 (Mag-Al Plus Susp Liq) 30 ml Q6H PRN PO 01/08/17 13:45 (Aspirin Chew) 81 mg DAILY PO 01/09/17 09:00 02/01/17 08:31 (Lipitor) 20 mg HS PO 01/08/17 21:00 01/31/17 20:30 (Synthroid) 50 mcg DAILY@06 PO 01/09/17 06:00 02/01/17 05:36 (Norvasc) 10 mg DAILY PO 01/17/17 09:00 02/01/17 08:33 (risperDAL M-TAB) 2 mg BID PO 01/21/17 21:00 02/01/17 08:32 (Depakene Liq) 500 mg DAILY PO 01/22/17 09:00 02/01/17 08:31 (Depakene Liq) 750 mg HS PO 01/21/17 21:00 01/31/17 20:30 (Pill Splitter) 1 ea UNSCH PRN OTHER 01/21/17 16:15 (Prinivil) 20 mg BID PO 01/22/17 21:00 02/01/17 08:32 (Tylenol) 650 mg Q4H PRN PO 01/25/17 07:45 (Ativan) 0.5 mg DAILY@12,18 PO 01/26/17 18:00 01/31/17 11:35 (Cogentin) 0.5 mg BID PO 01/25/17 21:00 02/01/17 08:32 (Remeron) 7.5 mg HS PO 01/27/17 21:00 01/31/17 20:30 Assessment and Plan Problem List: (1) Dementia Status: Chronic Plan: Chronic, resident of [facility]. Psych for med mgmt. Cooperative and med complaint (2) Hyperlipemia Status: Chronic Plan: Continue statin (3) Agitation Status: Acute Plan: Cooperative at visit (4) Hypertension Status: Acute Plan: Continue current regimen blood pressure well controlled. (5) Schizophrenia Status: Chronic Plan: Managed per psych (6) Suprapubic tenderness Status: Resolved Plan: Resolved. . (7) Discomfort of back Status: Resolved Plan: Acetaminophen ordered PRN. No discomfort noted on palpation Assessment and Plan Labs ordered for Saturday Discussed Condition With Assessment and plan discussed with Dr. Vásquez Problem Qualifiers (1) Dementia: Qualified Code: F03.91 - Dementia with behavioral disturbance, unspecified dementia type (2) Hyperlipemia: Qualified Code: E78.2 - Mixed hyperlipidemia (3) Hypertension: Qualified Code: I10 - Essential hypertension (4) Schizophrenia: Qualified Code: F20.9 - Schizophrenia, unspecified type Maria Esther Jhaveri Feb 01, 2017 08:47
--- NOTE | 2017-02-01 12:33 | HHI.PYPN ---
Subjective Remarks Patient seen in day room with nurse Cruz, chart reviewed, patient compliant medications. Patient remains confused and wandering, at times appears to be talking to herself and gesturing to imaginary people. Will decrease schedule Ativan to 6 PM only and increase Respinol M tab to 2 mg a.m. 3 mg at bedtime Review of Systems Except as stated in HPI: all other systems reviewed are Neg Objective Alert: Yes Energy: Person Mood: Anxious Affect: Blunted Memory Intact: Comment (poor) Hallucinations: Auditory (appears internally stimulated) Delusions: No Delusion Type: Other (internally stimulated) Suicidal: Ideation (none) Homicidal: Ideation (none) Insight/Judgement Very poor Vitals/IOs Vital Signs Date Time Temp Pulse Resp B/P Pulse Ox O2 Delivery O2 Flow Rate FiO2 02/01/17 04:53 98.0 62 18 138/64 98 Intake and Output 01/31/17 01/31/17 02/01/17 08:00 16:00 00:00 Intake Total 0 ml 60 ml 360 ml Balance 0 ml 60 ml 360 ml Assessment & Plan Problem List: (1) Dementia of Alzheimer's type with behavioral disturbance ICD Code: G30.8 Assessment & Plan Estimated LOS: days patient continues confused demented and psychotic, she medication adjustments above Justification for Cont. Inpt. At this time patient will decompensate if placed in a lower level of care Discharge Planning To be determined Request HC Surrog/Guard Advoc?: Yes Rodolfo Corona MD Feb 01, 2017 12:33
[2017-02-01] MEDS: LORazepam 2 MG/ML VIAL - age > 65 yrs IM PRN (15:47)
[2017-02-01] MEDS ORDERED: LORazepam 0.5 MG TAB PO SCH (18:00)
[2017-02-01] MEDS ORDERED: risperiDONE ODT 3 MG TAB PO SCH (21:00)
[2017-02-01] MEDS: MIRTAZAPINE 15 MG TAB PO SCH (21:10)
[2017-02-01] MEDS: ATORVASTATIN 20 MG TAB PO SCH (21:10)
[2017-02-02] VITALS (7 sets, daily range): BP systolic 134–161; BP diastolic 67–84; PULSE 62–105; RESP 10–20; TEMP 97.8–99; O2SAT 95–100
[2017-02-02] MEDS: LEVOTHYROXINE SODIUM 50 MCG TAB PO SCH ×2 (06:00→06:23)
[2017-02-02] MEDS ORDERED: ONDANSETRON HCL 4 MG/2 ML VIAL IV PUSH STA (07:14)
--- NOTE | 2017-02-02 07:37 | HHI.FPPN ---
Addendum to progress note ADDENDUM Reason for addendum: Additonal documentation Additional information [facility] ADDENDUM SUBJECTIVE Dr. Miranda and Dr. Rouse responded to [facility]. 76 year-old female with dementia with psychotic features presenting who is less responsive than baseline after increasing nighttime risperidone dose from 2mg to 3mg.. Normally will wake up and yell in [place]. Currently, appears very sleepy will attempt to open eyes to command in [place], but not actually open them. Shakes head "no" if she has pain. Does not respond to questions about chest pain or diarrhea. Began to vomit bilious emesis during exam, ~ 1 cup. Sat forward originally to vomit, but then leaned back and drooled on self. OBJECTIVE: VITALS: SBP 130s. Pulse 77. O2 97. GEN: Sleepy adult female HEENT: Eyes appear cloudy bilaterally. Will not follow directions to track finger. Mucous membranes moist. Poor dentition CV: RRR. No murmurs RESP: Anterior exam with air movement bilaterally. Breathing well on room air. GI: Non-tender to palpation. No masses. MSK: Sitting in chair. Will attempt to move all four extremities, unable to grasp bin or hold limbs against gravity. NEURO: More sleepy than baseline. Not respond to nailbed or supraorbital pressure. Will attempt to open eyes to command in [place] islander. ASSESSMENT/PLAN 76 year-old [place] speaking female with dementia presenting with acute AMS. Differential: sedation secondary to risperidone vs other medication side effect (pt also on ambien) vs infection (UTI vs PNA vs sepsis). Pt did not appear septic on exam. Some concern for aspiration PNA due to poor posture and poor elimination of vomitus. -Ordered CBC, CMP, Ammonia, CXR AP, U/A, TSH -Zofran 4mg IV x1 STAT -Per nurse, [facility] primary team contacted, will assume further management. SDW: Annemarie Lyles MD R1 Feb 02, 2017 07:37
[2017-02-02 07:45] LABS: BLOOD GAS VENOUS BASE EXCESS 1.2 mmol/L (-2-2); BLOOD GAS VENOUS HCO3 26 mmol/L (22-26); BLOOD GAS VENOUS O2 HGB SAT 77 % (70-76); BLOOD GAS VENOUS PCO2 47 mmHg (44-48); BLOOD GAS VENOUS PO2 47 mmHg (35-40); BLOOD GAS VENOUS pH 7.36 (7.360-7.400); CRITICAL VALUE NO; DRAW SITE IV; FIO2 21 %; TEMP CORR TO 98.6
[2017-02-02 07:46] LABS: STAT YES
--- NOTE | 2017-02-02 08:08 | RADRPT ---
EXAM DATE/TIME: 02/02/2017 07:18 [facility] COMPARISON: No previous studies available for comparison. INDICATIONS : Shortness of breath MEDICAL HISTORY : None. SURGICAL HISTORY : None. ENCOUNTER: Initial ACUITY: 1 day PAIN SCORE: Non-responsive. LOCATION: Bilateral chest FINDINGS: A single view of the chest demonstrates the lungs to be symmetrically aerated without evidence of mas s, infiltrate or effusion. The cardiomediastinal contours are unremarkable. Osseous structures are intact. CONCLUSION: No acute disease. Renan Mcfraland MD FACR on February 02, 2017 at 8:07 Board Certified Radiologist. This report was verified electronically.
[2017-02-02 08:32] LABS: HEMATOCRIT 30.4 % (35.0-46.0); MEAN CELL VOLUME 86.5 FL (80.0-100.0); MEAN CORPUSCULAR HEMOGLOBIN 28.4 PG (27.0-34.0); MEAN CORPUSCULAR HGB CONC 32.8 % (32.0-36.0); PLATELET COUNT 177 TH/MM3 (150-450); RED BLOOD COUNT 3.52 MIL/MM3 (4.00-5.30); RED CELL DISTRIBUTION WIDTH 13.8 % (11.6-17.2); REVIEW FLAG FINAL; WHITE BLOOD COUNT 6.5 TH/MM3 (4.0-11.0)
--- NOTE | 2017-02-02 08:37 | RADRPT ---
EXAM DATE/TIME: 02/02/2017 08:18 [facility] COMPARISON: No previous studies available for comparison. INDICATIONS : Altered mental status. RADIATION DOSE: 56.77 CTDIvol (mGy) MEDICAL HISTORY : Dementia. Schizophrenia. SURGICAL HISTORY : None. ENCOUNTER: Initial ACUITY: 1 day PAIN SCALE: Non-responsive LOCATION: cranial TECHNIQUE: Multiple contiguous axial images were obtained of the head. Using automated exposure control and adj ustment of the mA and/or kV according to patient size, radiation dose was kept as low as reasonably a chievable to obtain optimal diagnostic quality images. FINDINGS: CEREBRUM: The ventricles are normal for age. No evidence of midline shift, mass lesion, hemorrhage or acute in farction. No extra-axial fluid collections are seen. Basalganglia calcifications are noted. POSTERIOR FOSSA: The cerebellum and brainstem are intact. The 4th ventricle is midline. The cerebellopontine angle i s unremarkable. EXTRACRANIAL: The visualized portion of the orbits is intact. SKULL: The calvaria is intact. No evidence of skull fracture. CONCLUSION: Negative for acute process. Renan Mcfarland MD FACR on February 02, 2017 at 8:35 Board Certified Radiologist. This report was verified electronically.
[2017-02-02 08:50] LABS: ALT (GPT) 21 U/L (10-53); ANION GAP 6 MEQ/L (5-15); AST (GOT) 14 U/L (15-37); BICARBONATE 27.5 MEQ/L (21.0-32.0); BLOOD UREA NITROGEN 32 MG/DL (7-18); CHLORIDE 108 MEQ/L (98-107); GLOMERULAR FILTRATION RATE 55 ML/MIN (>89); POTASSIUM 4.8 MEQ/L (3.5-5.1); SODIUM (NA) 141 MEQ/L (136-145)
[2017-02-02 09:00] LABS: ALKALINE PHOSPHATASE 71 U/L (45-117); TOTAL BILIRUBIN ADULT 0.2 MG/DL (0.2-1.0)
[2017-02-02] MEDS ORDERED: risperiDONE ODT 1 MG TAB PO SCH (09:00)
[2017-02-02] MEDS: BENZTROPINE MESYLATE 1 MG TAB PO SCH ×2 (09:00→20:19)
[2017-02-02] MEDS: ASPIRIN 81 MG CHEW TAB PO SCH (09:00)
[2017-02-02] MEDS: amLODIPine BESYLATE 5 MG TAB PO SCH (09:00)
[2017-02-02] MEDS: LISINOPRIL 20 MG TAB PO SCH ×2 (09:00→20:19)
[2017-02-02] MEDS: VALPROIC ACID SYRUP 250 MG/5 ML UDC PO SCH (10:15)
--- NOTE | 2017-02-02 10:31 | HHI.PR ---
Subjective Remarks pt transfered to med/psych as she had altered mental status she became obtunded Objective Vital Signs Date Time Temp Pulse Resp B/P Pulse Ox O2 Delivery O2 Flow Rate FiO2 02/02/17 06:45 98 21 02/02/17 06:25 82 14 137/67 99 02/02/17 05:58 97.8 105 15 138/84 95 I/O 02/01/17 02/01/17 02/01/17 02/02/17 02/02/17 02/02/17 07:00 15:00 23:00 07:00 15:00 23:00 Intake Total 0 ml 960 ml 360 ml 840 ml 0 ml Output Total 30 ml Balance 0 ml 960 ml 360 ml 810 ml 0 ml Intake Oral 0 ml 960 ml 360 ml 840 ml 0 ml Emesis 30 ml # Voids 1 2 4 Result Diagram: 02/02/17 0818 02/02/17 0818 Imaging Last [address] 02/02/17 0000 Signed Impressions: Service Date/Time: Thursday, February 02, 2017 08:18 - CONCLUSION: Negative for acute process. Renan Mcfarland MD FACR Chest X-Ray 02/02/17 0000 Signed Impressions: Service Date/Time: Thursday, February 02, 2017 07:18 - CONCLUSION: No acute disease. Renan Mcfarland MD FACR Objective Remarks GENERAL: Well-nourished, well-developed patient. SKIN: Warm and dry. HEAD: Normocephalic. EYES: No scleral icterus. No injection or drainage. NECK: Supple, trachea midline. No JVD or lymphadenopathy. CARDIOVASCULAR: Regular rate and rhythm without murmurs, gallops, or rubs. RESPIRATORY: Breath sounds equal bilaterally. No accessory muscle use. GASTROINTESTINAL: Abdomen soft, non-tender, nondistended. EXTREMITIES: No cyanosis, or edema. NEUROLOGICAL: Awake, alert, agitated speaks only [place] wishes only to go home agitated that she is here Medications and IVs Current Medications Medications (Trade) Dose Ordered Sig/Natalio Route PRN Reason Start Time Stop Time Status Last Admin Dose Admin Lorazepam (Ativan) 0.5 mg Q12H PRN PO MODERATE TO SEVERE ANXIETY 01/07/17 17:30 01/27/17 22:51 Lorazepam (Ativan Inj) 0.5 mg Q12H PRN IM MODERATE TO SEVERE ANXIETY 01/07/17 17:30 02/01/17 15:47 Clonidine (Catapres) 0.1 mg Q6H PRN PO SBP> OR = 180, DBP> OR = 100 01/07/17 18:45 Acetaminophen (Tylenol) 650 mg Q4H PRN PO Temp >101F 01/08/17 13:45 Magnesium Hydroxide (Milk Of Magnesia Liq) 30 ml DAILY PRN PO CONSTIPATION 01/08/17 13:45 01/16/17 20:54 Al Hydrox/Mg Hydrox/Simethicone (Mag-Al Plus Susp Liq) 30 ml Q6H PRN PO DYSPEPSIA 01/08/17 13:45 Aspirin (Aspirin Chew) 81 mg DAILY PO 01/09/17 09:00 02/01/17 08:31 Atorvastatin Calcium (Lipitor) 20 mg HS PO 01/08/17 21:00 02/01/17 21:10 Levothyroxine Sodium (Synthroid) 50 mcg DAILY@06 PO 01/09/17 06:00 02/01/17 05:36 Amlodipine Besylate (Norvasc) 10 mg DAILY PO 01/17/17 09:00 02/01/17 08:33 Valproic Acid (Depakene Liq) 500 mg DAILY PO 01/22/17 09:00 02/01/17 08:31 Valproic Acid (Depakene Liq) 750 mg HS PO 01/21/17 21:00 02/01/17 21:10 Miscellaneous (Pill Splitter) 1 ea UNSCH PRN OTHER SEE LABEL COMMENTS 01/21/17 16:15 Lisinopril (Prinivil) 20 mg BID PO 01/22/17 21:00 02/01/17 21:13 Acetaminophen (Tylenol) 650 mg Q4H PRN PO PAIN 1 TO 10 AND/OR AGITATION 01/25/17 07:45 Benztropine Mesylate (Cogentin) 0.5 mg BID PO 01/25/17 21:00 02/01/17 21:10 Mirtazapine (Remeron) 7.5 mg HS PO 01/27/17 21:00 02/01/17 21:10 Lorazepam (Ativan) 0.5 mg DAILY@18 PO 02/01/17 18:00 02/01/17 17:34 Risperidone (risperDAL M-TAB) 2 mg DAILY PO 02/02/17 09:00 Risperidone (risperDAL M-TAB) 3 mg HS PO 02/01/17 21:00 02/01/17 21:10 Assessment and Plan Problem List: (1) Altered mental status Status: Acute Plan: pt was obtunded earlier alert though confused now ct head no acute process lab shows no sign of infection or metabolic imbalance patients ams may have been due to medication will follow again in am please cill if there are further changes Assessment and Plan ams medication related will repeat lab in am to asses for occult changes Ascencion Vásquez DO Feb 02, 2017 10:31
[2017-02-02] MEDS: LORazepam 0.5 MG TAB age > 65 yrs PO PRN ×2 (11:00→22:39)
--- NOTE | 2017-02-02 13:14 | HHI.PYPN ---
Subjective Remarks Patient seen in weekend coverage with nursing staff. Chart reviewed. Case discussed with nurse. I was contacted by the nurse on the [facility] psychiatric unit this morning that the patient was somewhat lethargic following administration of a larger dose of Risperdal last night. Halicat was called. Medical workup revealed marked hyperammonemia. Patient was transferred to the medical psychiatric unit. Patient apparently perked up somewhat later in the morning and was given her morning psychiatric medications, which had been held. On my examination, patient is once again somewhat sedated. I can get her to arouse briefly with painful stimuli, but otherwise she lapses back into sleep. Vital signs reviewed with nursing staff. Limited interview for this reason. Review of Systems ROS Limitations: Altered Mental Status Objective Alert: No (sedated) [place]: Person (unable to obtain (UTO)) Mood: Other (UTO) Affect: Flat Memory Intact: Comment (UTO) Hallucinations: Other (UTO) Delusions: No Delusion Type: Other (UTO) Suicidal: Ideation (UTO) Homicidal: Ideation (UTO) Insight/Judgement Presently absent Remarks No motor abnormalities noted. Labs Test 02/02/17 02/02/17 07:35 08:18 Blood Gas Puncture Site IV Blood Gas Patient Temperature 98.6 Venous Blood pH 7.36 Venous Blood Partial Pressure 47 mmHg CO2 Venous Blood Partial Pressure 47 mmHg O2 Venous Blood HCO3 26 mmol/L Venous Blood Oxygen Saturation 77 % Venous Blood Oxygen Content 11.0 Vol % Venous Blood Base Excess 1.2 mmol/L Blood Gas Inspired Oxygen 21 % White Blood Count 6.5 TH/MM3 Red Blood Count 3.52 MIL/MM3 Hemoglobin 10.0 GM/DL Hematocrit 30.4 % Mean Corpuscular Volume 86.5 FL Mean Corpuscular Hemoglobin 28.4 PG Mean Corpuscular Hemoglobin 32.8 % Concent Red Cell Distribution Width 13.8 % Platelet Count 177 TH/MM3 Mean Platelet Volume 8.7 FL Sodium Level 141 MEQ/L Potassium Level 4.8 MEQ/L Chloride Level 108 MEQ/L Carbon Dioxide Level 27.5 MEQ/L Anion Gap 6 MEQ/L Blood Urea Nitrogen 32 MG/DL Creatinine 0.98 MG/DL Estimat Glomerular Filtration 55 ML/MIN Rate Random Glucose 105 MG/DL Calcium Level 8.6 MG/DL Total Bilirubin 0.2 MG/DL Aspartate Amino Transf 14 U/L (AST/SGOT) Alanine Aminotransferase 21 U/L (ALT/SGPT) Alkaline Phosphatase 71 U/L Ammonia 286 MCMOL/L Total Protein 6.5 GM/DL Albumin 3.2 GM/DL Thyroid Stimulating Hormone 0.979 uIU/ML 3rd Gen Labs reviewed. Last Impressions Head CT 02/02/17 0000 Signed Impressions: Service Date/Time: Thursday, February 02, 2017 08:18 - CONCLUSION: Negative for acute process. Renan Mcfarland MD FACR Chest X-Ray 02/02/17 0000 Signed Impressions: Service Date/Time: Thursday, February 02, 2017 07:18 - CONCLUSION: No acute disease. Renan Mcfarland MD FACR Vitals/IOs Vital Signs Date Time Temp Pulse Resp B/P Pulse Ox O2 Delivery O2 Flow Rate FiO2 02/02/17 06:45 98 21 02/02/17 06:25 82 14 137/67 02/02/17 05:58 97.8 Intake and Output 02/01/17 02/01/17 02/02/17 08:00 16:00 00:00 Intake Total 0 ml 960 ml 1200 ml Balance 0 ml 960 ml 1200 ml Assessment & Plan Problem List: (1) Dementia of Alzheimer's type with behavioral disturbance ICD Code: G30.8 (2) Altered mental status ICD Code: R41.82 Assessment & Plan Ongoing sedation. Possibly related to medications versus hyperammonemia. No evidence of hepatic impairment, and so I wonder if hyperammonemia is Depakote- induced. Hold scheduled psychotropics until mental status persistently improves. Add Carnitor for possible VPA-related hyperammonemia. continue to monitor on the inpatient unit. Continue other medications and care as ordered. Appreciate hospitalist home planning consultant salesperson input. Justification for Cont. Inpt. Complicating conditions. Impairment in self-care. High risk for decompensation. Discharge Planning Per Dr. Colindres Request HC Surrog/Guard Advoc?: Yes Desmond Connolly MD Feb 02, 2017 13:14
[2017-02-02] MEDS: levOCARNitine 10% ORAL SOLN 118 ML BTL PO SCH (17:25)
[2017-02-02 19:46] LABS: BLOOD, URINE NEG (NEG); GLUCOSE,URINE NEG (NEG); KETONE, URINE NEG (NEG); NITRITE,URINE NEG (NEG); PH, URINE 7.5 (5.0-8.5); SQUAMOUS EPITHELIAL CELL URINE 1 /hpf (0-5); URINE COLOR LIGHT-YELLOW (YELLW/STRAW)
[2017-02-02 19:47] LABS: COMMENT (UR) CULT NOT INDICATED; CULTURE IF INDICATED CULT NOT INDICATED
[2017-02-02] MEDS: risperiDONE ODT 2 MG TAB PO SCH (20:19)
[2017-02-02] MEDS: ATORVASTATIN 20 MG TAB PO SCH (20:19)
[2017-02-03] MEDS: LEVOTHYROXINE SODIUM 50 MCG TAB PO SCH (05:02)
[2017-02-03 05:37] VITALS: BP 163/71; PULSE 92; RESP 14; TEMP 97.6; O2SAT 97
[2017-02-03 06:27] LABS: AUTOMATED NEUTROPHIL # 6.2 TH/MM3 (1.8-7.7); BASOPHIL % 0.3 % (0.0-2.0); EOSINOPHIL # 0.2 TH/MM3 (0-0.4); EOSINOPHIL % 1.9 % (0.0-4.0); HEMATOCRIT 31.7 % (35.0-46.0); HEMO FLAGS DIFF FINAL; LYMPHOCYTE # 1.3 TH/MM3 (1.0-4.8); MEAN CELL VOLUME 86.7 FL (80.0-100.0); MEAN CORPUSCULAR HEMOGLOBIN 28.3 PG (27.0-34.0); MEAN CORPUSCULAR HGB CONC 32.7 % (32.0-36.0); MONO % 8.9 % (0.0-8.0); NEUT % 73.9 % (16.0-70.0); PLATELET COUNT 191 TH/MM3 (150-450); RED BLOOD COUNT 3.65 MIL/MM3 (4.00-5.30); RED CELL DISTRIBUTION WIDTH 13.7 % (11.6-17.2); WHITE BLOOD COUNT 8.3 TH/MM3 (4.0-11.0)
[2017-02-03 06:56] LABS: ANION GAP 7 MEQ/L (5-15); BICARBONATE 28.3 MEQ/L (21.0-32.0); BLOOD UREA NITROGEN 28 MG/DL (7-18); CHLORIDE 107 MEQ/L (98-107); FREE T3 1.85 PG/ML (2.18-3.98); GLOMERULAR FILTRATION RATE 59 ML/MIN (>89); POTASSIUM 3.9 MEQ/L (3.5-5.1); SODIUM (NA) 142 MEQ/L (136-145)
[2017-02-03] MEDS: levOCARNitine 10% ORAL SOLN 118 ML BTL PO SCH ×3 (09:00→17:12)
[2017-02-03] MEDS: BENZTROPINE MESYLATE 1 MG TAB PO SCH ×2 (09:00→20:13)
[2017-02-03] MEDS: ASPIRIN 81 MG CHEW TAB PO SCH (09:00)
[2017-02-03] MEDS: amLODIPine BESYLATE 5 MG TAB PO SCH (09:00)
[2017-02-03] MEDS: LISINOPRIL 20 MG TAB PO SCH ×2 (09:00→20:13)
--- NOTE | 2017-02-03 09:32 | HHI.PR ---
Subjective Remarks no new problema today behavior better no syncope Objective Vital Signs Date Time Temp Pulse Resp B/P Pulse Ox O2 Delivery O2 Flow Rate FiO2 02/03/17 05:37 97.6 92 14 163/71 97 02/02/17 17:47 89 20 161/70 100 02/02/17 15:42 62 14 142/78 97 02/02/17 13:00 66 10 161/67 99 I/O 02/02/17 02/02/17 02/02/17 02/03/17 02/03/17 02/03/17 07:00 15:00 23:00 07:00 15:00 23:00 Intake Total 840 ml 0 ml 120 ml 0 ml Output Total 30 ml 600 ml Balance 810 ml 0 ml 120 ml -600 ml Intake Oral 840 ml 0 ml 120 ml 0 ml Output Urine Total 600 ml Emesis 30 ml # Voids 4 2 3 # Bowel Movements 0 0 Result Diagram: 02/03/17 0555 02/03/17 0555 Objective Remarks GENERAL: Well-nourished, well-developed patient. SKIN: Warm and dry. HEAD: Normocephalic. EYES: No scleral icterus. No injection or drainage. NECK: Supple, trachea midline. No JVD or lymphadenopathy. CARDIOVASCULAR: Regular rate and rhythm without murmurs, gallops, or rubs. RESPIRATORY: Breath sounds equal bilaterally. No accessory muscle use. GASTROINTESTINAL: Abdomen soft, non-tender, nondistended. EXTREMITIES: No cyanosis, or edema. NEUROLOGICAL: Awake, alert, agitated speaks only american wishes only to go home agitated that she is here Medications and IVs Current Medications Medications (Trade) Dose Ordered Sig/Natalio Route PRN Reason Start Time Stop Time Status Last Admin Dose Admin Lorazepam (Ativan) 0.5 mg Q12H PRN PO MODERATE TO SEVERE ANXIETY 01/07/17 17:30 02/02/17 22:39 Lorazepam (Ativan Inj) 0.5 mg Q12H PRN IM MODERATE TO SEVERE ANXIETY 01/07/17 17:30 02/01/17 15:47 Clonidine (Catapres) 0.1 mg Q6H PRN PO SBP> OR = 180, DBP> OR = 100 01/07/17 18:45 Acetaminophen (Tylenol) 650 mg Q4H PRN PO Temp >101F 01/08/17 13:45 Magnesium Hydroxide (Milk Of Magnesia Liq) 30 ml DAILY PRN PO CONSTIPATION 01/08/17 13:45 01/16/17 20:54 Al Hydrox/Mg Hydrox/Simethicone (Mag-Al Plus Susp Liq) 30 ml Q6H PRN PO DYSPEPSIA 01/08/17 13:45 Aspirin (Aspirin Chew) 81 mg DAILY PO 01/09/17 09:00 02/03/17 09:00 Atorvastatin Calcium (Lipitor) 20 mg HS PO 01/08/17 21:00 02/02/17 20:19 Levothyroxine Sodium (Synthroid) 50 mcg DAILY@06 PO 01/09/17 06:00 02/01/17 05:36 Amlodipine Besylate (Norvasc) 10 mg DAILY PO 01/17/17 09:00 02/03/17 09:00 Valproic Acid (Depakene Liq) 500 mg DAILY PO 01/22/17 09:00 Hold 02/02/17 10:15 Valproic Acid (Depakene Liq) 750 mg HS PO 01/21/17 21:00 Hold 02/01/17 21:10 Miscellaneous (Pill Splitter) 1 ea UNSCH PRN OTHER SEE LABEL COMMENTS 01/21/17 16:15 Lisinopril (Prinivil) 20 mg BID PO 01/22/17 21:00 02/03/17 09:00 Acetaminophen (Tylenol) 650 mg Q4H PRN PO PAIN 1 TO 10 AND/OR AGITATION 01/25/17 07:45 Benztropine Mesylate (Cogentin) 0.5 mg BID PO 01/25/17 21:00 02/03/17 09:00 Mirtazapine (Remeron) 7.5 mg HS PO 01/27/17 21:00 Hold 02/01/17 21:10 Lorazepam (Ativan) 0.5 mg DAILY@18 PO 02/01/17 18:00 Hold 02/01/17 17:34 Risperidone (risperDAL M-TAB) 2 mg HS PO 02/02/17 21:00 Hold 02/02/17 20:19 Risperidone (risperDAL M-TAB) 1 mg DAILY PO 02/03/17 09:00 Hold Levocarnitine (Carnitor 10% Liq) 3 ml TID PO 02/02/17 18:00 02/03/17 09:00 Assessment and Plan Problem List: (1) Altered mental status Status: Acute Plan: pt was obtunded earlier alert though confused now ct head no acute process lab shows no sign of infection or metabolic imbalance patients ams may have been due to medication will follow again in am please cill if there are further changes Assessment and Plan ams medication related lab stable discussed with nursing pt is drinking will avoid iv fluids for now no further rx needed at this time Discussed Condition With nursing Discharge Planning return to snf Ascencion Vásquez DO Feb 03, 2017 09:32
[2017-02-03 11:20] LABS: HEMOGLOBIN A1b 0.9 %; HEMOGLOBIN Ao 84.6 %; HEMOGLOBIN F 0.9 %; HEMOGLOBIN LA1C 1.9 %; HEMOGLOBIN P3 4.3 %
[2017-02-03 12:04] VITALS: BP 136/62; PULSE 81; RESP 12; O2SAT 98
--- NOTE | 2017-02-03 13:49 | HHI.PYPN ---
Subjective Remarks Patient seen and examined in weekend coverage. Following up lethargy. Psychotropics currently on hold. Chart reviewed. Case discussed with nursing staff. Patient reportedly perked up later in the afternoon yesterday and slept poorly overnight. Mildly agitated this morning. Speech saw and recommended a diet, which has been ordered. On my examination today, patient is awake and alert but confused. No signs of ongoing sedation. No other issues noted. Review of Systems ROS Limitations: Poor Historian Except as stated in HPI: all other systems reviewed are Neg Objective Alert: Yes (sedated) [place]: Person Mood: Other (mildly agitated) Affect: Other (anxious) Memory Intact: Comment (not formally assessed) Hallucinations: Other (does not appear internally stimulated) Delusions: No Delusion Type: Other (none) Suicidal: Ideation (none voiced) Homicidal: Ideation (none voiced) Insight/Judgement Poor Remarks Thought process disorganized, but I suspect this is her baseline. No motor abnormalities noted. Labs Test 02/02/17 02/03/17 18:05 05:55 Urine Color LIGHT-YELLOW Urine Turbidity CLEAR Urine pH 7.5 Urine Specific [place] 1.009 Urine Protein NEG mg/dL Urine Glucose (UA) NEG mg/dL Urine Ketones NEG mg/dL Urine Occult Blood NEG Urine Nitrite NEG Urine Bilirubin NEG Urine Urobilinogen LESS THAN 2.0 MG/DL Urine Leukocyte Esterase TRACE Urine RBC LESS THAN 1 /hpf Urine WBC 6 /hpf Urine Squamous Epithelial 1 /hpf Cells Microscopic Urinalysis Comment CULT NOT INDICATED White Blood Count 8.3 TH/MM3 Red Blood Count 3.65 MIL/MM3 Hemoglobin 10.3 GM/DL Hematocrit 31.7 % Mean Corpuscular Volume 86.7 FL Mean Corpuscular Hemoglobin 28.3 PG Mean Corpuscular Hemoglobin 32.7 % Concent Red Cell Distribution Width 13.7 % Platelet Count 191 TH/MM3 Mean Platelet Volume 8.8 FL Neutrophils (%) (Auto) 73.9 % Lymphocytes (%) (Auto) 15.0 % Monocytes (%) (Auto) 8.9 % Eosinophils (%) (Auto) 1.9 % Basophils (%) (Auto) 0.3 % Neutrophils # (Auto) 6.2 TH/MM3 Lymphocytes # (Auto) 1.3 TH/MM3 Monocytes # (Auto) 0.7 TH/MM3 Eosinophils # (Auto) 0.2 TH/MM3 Basophils # (Auto) 0.0 TH/MM3 CBC Comment DIFF FINAL Differential Comment Sodium Level 142 MEQ/L Potassium Level 3.9 MEQ/L Chloride Level 107 MEQ/L Carbon Dioxide Level 28.3 MEQ/L Anion Gap 7 MEQ/L Blood Urea Nitrogen 28 MG/DL Creatinine 0.93 MG/DL Estimat Glomerular Filtration 59 ML/MIN Rate Random Glucose 83 MG/DL Hemoglobin A1c 5.9 % Calcium Level 8.9 MG/DL Ammonia 19 MCMOL/L Free Thyroxine 0.90 NG/DL Free Triiodothyronine (T3) 1.85 PG/ML pg/dL Valproic Acid (Depakene) Level 48 MCG/ML Labs reviewed. Depakote level slightly low. Ammonia level within normal limits. Vitals/IOs Vital Signs Date Time Temp Pulse Resp B/P Pulse Ox O2 Delivery O2 Flow Rate FiO2 02/03/17 12:04 81 12 136/62 98 02/03/17 05:37 97.6 02/02/17 06:45 21 Intake and Output 02/02/17 02/02/17 02/03/17 08:00 16:00 00:00 Intake Total 0 ml 0 ml 120 ml Output Total 30 ml Balance -30 ml 0 ml 120 ml Assessment & Plan Problem List: (1) Dementia of Alzheimer's type with behavioral disturbance ICD Code: G30.8 (2) Altered mental status Assessment & Plan: Resolved ICD Code: R41.82 Assessment & Plan Mental status considerably improved today. I will administer Risperdal 0.5 mg now and resume scheduled Risperdal at reduced doses: 1 mg in the morning and 2 mg at bedtime. Resume Depakote. I will continue to hold her benzodiazepine. Continue to monitor on the inpatient unit. Continue other medications and care as ordered. Justification for Cont. Inpt. Complicating condition, altered mental status, improved. Risk for decompensation. Discharge Planning Per Dr. Alicia Request HC Surrog/Guard Advoc?: Yes Desmond Connolly MD Feb 03, 2017 13:49
[2017-02-03 15:50] VITALS: BP 169/67
[2017-02-03] MEDS: LORazepam 0.5 MG TAB age > 65 yrs PO PRN (15:55)
[2017-02-03 16:00] VITALS: BP 165/67; PULSE 95; RESP 18; TEMP 97.5; O2SAT 98
[2017-02-03] MEDS: ATORVASTATIN 20 MG TAB PO SCH (20:13)
[2017-02-03] MEDS: VALPROIC ACID SYRUP 250 MG/5 ML UDC PO SCH (20:13)
[2017-02-03] MEDS: risperiDONE ODT 2 MG TAB PO SCH (20:13)
[2017-02-04] MEDS: LEVOTHYROXINE SODIUM 50 MCG TAB PO SCH (05:57)
[2017-02-04 06:15] VITALS: BP 170/94; PULSE 88; RESP 16; TEMP 97.5; O2SAT 99
[2017-02-04] MEDS: amLODIPine BESYLATE 5 MG TAB PO SCH (08:31)
[2017-02-04] MEDS: risperiDONE ODT 1 MG TAB PO SCH (08:31)
[2017-02-04] MEDS: LISINOPRIL 20 MG TAB PO SCH ×2 (08:31→21:01)
[2017-02-04] MEDS: BENZTROPINE MESYLATE 1 MG TAB PO SCH ×2 (08:32→21:01)
[2017-02-04] MEDS: VALPROIC ACID SYRUP 250 MG/5 ML UDC PO SCH ×2 (08:32→21:00)
[2017-02-04] MEDS: levOCARNitine 10% ORAL SOLN 118 ML BTL PO SCH ×3 (08:33→18:00)
[2017-02-04] MEDS: ASPIRIN 81 MG CHEW TAB PO SCH (08:33)
[2017-02-04 09:13] LABS: HEMATOCRIT 33.3 % (35.0-46.0); MEAN CELL VOLUME 88.1 FL (80.0-100.0); MEAN CORPUSCULAR HEMOGLOBIN 28.3 PG (27.0-34.0); MEAN CORPUSCULAR HGB CONC 32.1 % (32.0-36.0); PLATELET COUNT 177 TH/MM3 (150-450); RED BLOOD COUNT 3.78 MIL/MM3 (4.00-5.30); RED CELL DISTRIBUTION WIDTH 13.8 % (11.6-17.2); REVIEW FLAG FINAL; WHITE BLOOD COUNT 6.9 TH/MM3 (4.0-11.0)
[2017-02-04 09:28] LABS: BICARBONATE 22.6 MEQ/L (21.0-32.0); POTASSIUM 4.5 MEQ/L (3.5-5.1)
[2017-02-04 09:38] VITALS: BP 116/56; PULSE 72; RESP 16
--- NOTE | 2017-02-04 11:23 | HHI.PYPN ---
Subjective Remarks Patient seen today for psychiatric reevaluation, she is found in the [employer] working with the 1:1 observer, she is interviewing primary her primary language , Japanese. Patient says that she feels much better, she reports good mood, however she is pleasantly confused and demented, disoriented in time and place, she says that she is in [place]. She seems to be now at baseline, however little bit sedated and distant. Review of Systems Other No somatic complaints Objective Alert: Yes (sedated) [place]: Person Mood: Calm, Other Affect: Restricted, Other Memory Intact: Comment (not formally assessed) Hallucinations: Other (does not appear internally stimulated) Delusions: No Delusion Type: Other (none) Suicidal: Ideation (none voiced) Homicidal: Ideation (none voiced) Insight/Judgement poor Labs Test 02/04/17 08:15 White Blood Count 6.9 TH/MM3 Red Blood Count 3.78 MIL/MM3 Hemoglobin 10.7 GM/DL Hematocrit 33.3 % Mean Corpuscular Volume 88.1 FL Mean Corpuscular Hemoglobin 28.3 PG Mean Corpuscular Hemoglobin 32.1 % Concent Red Cell Distribution Width 13.8 % Platelet Count 177 TH/MM3 Mean Platelet Volume 9.0 FL Sodium Level 139 MEQ/L Potassium Level 4.5 MEQ/L Chloride Level 107 MEQ/L Carbon Dioxide Level 22.6 MEQ/L Anion Gap 9 MEQ/L Blood Urea Nitrogen 26 MG/DL Creatinine 0.95 MG/DL Estimat Glomerular Filtration 57 ML/MIN Rate Random Glucose 73 MG/DL Calcium Level 8.8 MG/DL Vitals/IOs Vital Signs Date Time Temp Pulse Resp B/P Pulse Ox O2 Delivery O2 Flow Rate FiO2 02/04/17 09:38 72 16 116/56 02/04/17 06:15 97.5 99 02/02/17 06:45 21 Intake and Output 02/03/17 02/03/17 02/04/17 08:00 16:00 00:00 Intake Total 0 ml 720 ml 960 ml Output Total 600 ml Balance -600 ml 720 ml 960 ml Assessment & Plan Problem List: (1) Dementia of Alzheimer's type with behavioral disturbance Assessment & Plan: Patient is still sedated, however much improved since last time seen by Dr. Connolly. We will continue same psychotropics, 1:1 sitter for safety. Might consider to decrease nighttime antipsychotic. ICD Code: G30.8 (2) Altered mental status ICD Code: R41.82 Assessment & Plan Estimated LOS: days Justification for Cont. Inpt. Patient is psychiatric hospitalization for stabilization, now acutely delirious most probably due to Depakote intoxication. Request HC Surrog/Guard Advoc?: Yes Jesu Alicia MD Feb 04, 2017 11:23
[2017-02-04 20:00] VITALS: BP 107/56; PULSE 77; RESP 17; TEMP 98.3; O2SAT 99
[2017-02-04] MEDS: ATORVASTATIN 20 MG TAB PO SCH (21:01)
[2017-02-04] MEDS: risperiDONE ODT 2 MG TAB PO SCH (21:01)
[2017-02-04] MEDS: ACETAMINOPHEN 325 MG TAB PO PRN (22:14)
[2017-02-05] MEDS: LEVOTHYROXINE SODIUM 50 MCG TAB PO SCH (06:13)
[2017-02-05 06:18] VITALS: BP 109/55; PULSE 75; RESP 18; TEMP 97.2; O2SAT 97
[2017-02-05] MEDS: levOCARNitine 10% ORAL SOLN 118 ML BTL PO SCH ×3 (09:00→18:00)
[2017-02-05] MEDS: LISINOPRIL 20 MG TAB PO SCH ×2 (09:54→21:29)
[2017-02-05] MEDS: VALPROIC ACID SYRUP 250 MG/5 ML UDC PO SCH ×3 (09:54→21:29)
[2017-02-05] MEDS: BENZTROPINE MESYLATE 1 MG TAB PO SCH ×3 (09:55→21:29)
[2017-02-05] MEDS: ASPIRIN 81 MG CHEW TAB PO SCH (09:55)
[2017-02-05] MEDS: risperiDONE ODT 1 MG TAB PO SCH (09:55)
[2017-02-05] MEDS: amLODIPine BESYLATE 5 MG TAB PO SCH (09:55)
--- NOTE | 2017-02-05 13:40 | HHI.PYPN ---
Subjective Remarks Patient seen on unit after return from [facility] unit, patient wandering the halls, continues nonsensical speech in Cook Islander, though alert and walking without difficulty Review of Systems Except as stated in HPI: all other systems reviewed are Neg Objective Alert: Yes (sedated) [place]: Person Mood: Calm, Other Affect: Restricted, Other Memory Intact: Comment (not formally assessed) Hallucinations: Other (does not appear internally stimulated) Delusions: No Delusion Type: Other (none) Suicidal: Ideation (none voiced) Homicidal: Ideation (none voiced) Insight/Judgement Very poor Vitals/IOs Vital Signs Date Time Temp Pulse Resp B/P Pulse Ox O2 Delivery O2 Flow Rate FiO2 02/05/17 06:18 97.2 75 18 109/55 97 02/02/17 06:45 21 Intake and Output 02/04/17 02/04/17 02/05/17 08:00 16:00 00:00 Intake Total 120 ml 240 ml 600 ml Balance 120 ml 240 ml 600 ml Assessment & Plan Problem List: (1) Dementia of Alzheimer's type with behavioral disturbance ICD Code: G30.8 (2) Altered mental status ICD Code: R41.82 Assessment & Plan Estimated LOS: days patient continues confused and demented, though no apparent distress at the present time she is alert, will continues babbling in [place]er, compliant medications Justification for Cont. Inpt. At this time patient will decompensate if placed in a lower level of care Discharge Planning To be determined Request HC Surrog/Guard Advoc?: Yes Rodolfo Corona MD Feb 05, 2017 13:40
[2017-02-05] MEDS: LORazepam 2 MG/ML VIAL - age > 65 yrs IM PRN (15:45)
[2017-02-05 18:01] VITALS: BP 140/79; PULSE 85; RESP 18; TEMP 97.4; O2SAT 100
[2017-02-05] MEDS: risperiDONE ODT 2 MG TAB PO SCH ×2 (21:00→21:29)
[2017-02-05] MEDS: ATORVASTATIN 20 MG TAB PO SCH (21:29)
[2017-02-06 06:00] VITALS: BP 141/86; PULSE 89; RESP 16; TEMP 98.3; O2SAT 96
[2017-02-06] MEDS: LEVOTHYROXINE SODIUM 50 MCG TAB PO SCH (06:10)
[2017-02-06] MEDS: levOCARNitine 10% ORAL SOLN 118 ML BTL PO SCH ×3 (09:00→17:14)
[2017-02-06] MEDS: amLODIPine BESYLATE 5 MG TAB PO SCH (10:29)
[2017-02-06] MEDS: VALPROIC ACID SYRUP 250 MG/5 ML UDC PO SCH ×2 (10:29→20:45)
[2017-02-06] MEDS: BENZTROPINE MESYLATE 1 MG TAB PO SCH ×2 (10:30→20:46)
[2017-02-06] MEDS: LISINOPRIL 20 MG TAB PO SCH ×2 (10:30→20:45)
[2017-02-06] MEDS: ASPIRIN 81 MG CHEW TAB PO SCH (10:31)
[2017-02-06] MEDS: risperiDONE ODT 1 MG TAB PO SCH (10:31)
--- NOTE | 2017-02-06 14:43 | HHI.PYPN ---
Subjective Remarks Patient discussed with treatment team, chart review, patient seen on unit. Patient continues to wander the unit somewhat intrusive speaking incoherently in Faroese. Patient is compliant with medications. At time she is somewhat labile towards late afternoon and evening Review of Systems Except as stated in HPI: all other systems reviewed are Neg Objective Alert: Yes (sedated) [place]: Person Mood: Calm, Other Affect: Restricted, Other Memory Intact: Comment (not formally assessed) Hallucinations: Other (does not appear internally stimulated) Delusions: No Delusion Type: Other (none) Suicidal: Ideation (none voiced) Homicidal: Ideation (none voiced) Insight/Judgement Very poor Vitals/IOs Vital Signs Date Time Temp Pulse Resp B/P Pulse Ox O2 Delivery O2 Flow Rate FiO2 02/06/17 06:00 98.3 89 16 141/86 96 Intake and Output 02/05/17 02/05/17 02/06/17 08:00 16:00 00:00 Intake Total 360 ml 720 ml Balance 360 ml 720 ml Assessment & Plan Problem List: (1) Dementia of Alzheimer's type with behavioral disturbance ICD Code: G30.8 (2) Altered mental status ICD Code: R41.82 Assessment & Plan Estimated LOS: days patient continues demented and confused, continues wandering the halls being somewhat intrusive, but redirectable. Justification for Cont. Inpt. At this time patient will decompensate if placed in a lower level of care Discharge Planning To be determined Request HC Surrog/Guard Advoc?: Yes Rodolfo Corona MD Feb 06, 2017 14:43
[2017-02-06] MEDS: LORazepam 2 MG/ML VIAL - age > 65 yrs IM PRN (17:05)
[2017-02-06 20:00] VITALS: BP 119/63; PULSE 77; RESP 16; TEMP 98; O2SAT 98
[2017-02-06] MEDS: risperiDONE ODT 2 MG TAB PO SCH (20:46)
[2017-02-06] MEDS: ATORVASTATIN 20 MG TAB PO SCH (20:47)
[2017-02-07] MEDS: LEVOTHYROXINE SODIUM 50 MCG TAB PO SCH (05:33)
[2017-02-07 06:00] VITALS: BP 124/62; PULSE 84; RESP 17; TEMP 97.1; O2SAT 99
[2017-02-07] MEDS: LISINOPRIL 20 MG TAB PO SCH ×2 (08:27→21:18)
[2017-02-07] MEDS: VALPROIC ACID SYRUP 250 MG/5 ML UDC PO SCH ×2 (08:27→21:18)
[2017-02-07] MEDS: amLODIPine BESYLATE 5 MG TAB PO SCH (08:28)
[2017-02-07] MEDS: risperiDONE ODT 1 MG TAB PO SCH (08:29)
[2017-02-07] MEDS: BENZTROPINE MESYLATE 1 MG TAB PO SCH ×2 (08:29→21:19)
[2017-02-07] MEDS: levOCARNitine 10% ORAL SOLN 118 ML BTL PO SCH ×3 (08:30→17:18)
[2017-02-07] MEDS: ASPIRIN 81 MG CHEW TAB PO SCH (08:30)
--- NOTE | 2017-02-07 09:25 | HHI.PYPN ---
Subjective Remarks Patient seen in day room with nurse Jules, chart review, patient continues to wander, at times appears to be talking to herself, though she is redirectable. And compliant medications. Does need frequent interventions. Will increase scheduled Resporal 2 mg twice a day Review of Systems Except as stated in HPI: all other systems reviewed are Neg Objective Alert: Yes (sedated) [place]: Person Mood: Calm, Other Affect: Restricted, Other Memory Intact: Comment (not formally assessed) Hallucinations: Auditory (at times appears to be talking to herself and others) Delusions: No Delusion Type: Other (none) Suicidal: Ideation (none voiced) Homicidal: Ideation (none voiced) Insight/Judgement Very poor Vitals/IOs Vital Signs Date Time Temp Pulse Resp B/P Pulse Ox O2 Delivery O2 Flow Rate FiO2 02/07/17 06:00 97.1 84 17 124/62 99 Intake and Output 02/06/17 02/06/17 02/07/17 08:00 16:00 00:00 Intake Total 420 ml 600 ml Balance 420 ml 600 ml Assessment & Plan Problem List: (1) Dementia of Alzheimer's type with behavioral disturbance ICD Code: G30.8 (2) Altered mental status ICD Code: R41.82 Assessment & Plan Estimated LOS: days patient continues quite confused demented and wandering, also appears to be talking to imaginary people. See medication adjustments above Justification for Cont. Inpt. At this time patient will decompensate placed in the lower level of care Request HC Surrog/Guard Advoc?: Yes Rodolfo Corona MD Feb 07, 2017 09:25
[2017-02-07] MEDS: LORazepam 2 MG/ML VIAL - age > 65 yrs IM PRN (15:19)
[2017-02-07 20:30] VITALS: BP 159/77; PULSE 83; RESP 16; TEMP 98.4; O2SAT 98
[2017-02-07] MEDS: ATORVASTATIN 20 MG TAB PO SCH (21:18)
[2017-02-07] MEDS: risperiDONE ODT 2 MG TAB PO SCH (21:18)
[2017-02-08] MEDS: LEVOTHYROXINE SODIUM 50 MCG TAB PO SCH ×2 (05:57→06:00)
[2017-02-08 06:18] VITALS: BP 161/77; PULSE 90; RESP 16; TEMP 97.6; O2SAT 96
[2017-02-08] MEDS: LISINOPRIL 20 MG TAB PO SCH ×2 (08:37→20:43)
[2017-02-08] MEDS: VALPROIC ACID SYRUP 250 MG/5 ML UDC PO SCH ×2 (08:37→20:43)
[2017-02-08] MEDS: ASPIRIN 81 MG CHEW TAB PO SCH (08:37)
[2017-02-08] MEDS: risperiDONE ODT 2 MG TAB PO SCH ×2 (08:37→20:43)
[2017-02-08] MEDS: amLODIPine BESYLATE 5 MG TAB PO SCH (08:38)
[2017-02-08] MEDS: BENZTROPINE MESYLATE 1 MG TAB PO SCH ×2 (08:38→20:43)
[2017-02-08] MEDS: levOCARNitine 10% ORAL SOLN 118 ML BTL PO SCH ×3 (09:00→18:00)
--- NOTE | 2017-02-08 16:36 | HHI.PYPN ---
Subjective Remarks Patient seen in day room with floor staff, patient continues to wander, babbling in Japanese markedly confused, but able to be redirected without difficulty. Compliant medications Review of Systems Except as stated in HPI: all other systems reviewed are Neg Objective Alert: Yes (sedated) [place]: Person Mood: Calm, Other Affect: Restricted, Other Memory Intact: Comment (not formally assessed) Hallucinations: Auditory (at times appears to be talking to herself and others) Delusions: No Delusion Type: Other (none) Suicidal: Ideation (none voiced) Homicidal: Ideation (none voiced) Insight/Judgment Very poor Vitals/IOs Vital Signs Date Time Temp Pulse Resp B/P Pulse Ox O2 Delivery O2 Flow Rate FiO2 02/08/17 06:18 97.6 90 16 161/77 96 Intake and Output 02/07/17 02/07/17 02/08/17 08:00 16:00 00:00 Intake Total 120 ml Balance 120 ml Assessment & Plan Problem List: (1) Dementia of Alzheimer's type with behavioral disturbance ICD Code: G30.8 (2) Altered mental status ICD Code: R41.82 Assessment & Plan Estimated LOS: days patient continues demented confused wandering though redirectable, compliant medication Justification for Cont. Inpt. At this time patient will decompensate if placed in a lower level of care Discharge Planning To be determined Request HC Surrog/Guard Advoc?: Yes Rodolfo Corona MD Feb 08, 2017 16:36
[2017-02-08 19:05] VITALS: BP 130/81; PULSE 84; RESP 16; TEMP 97.3; O2SAT 99
[2017-02-08] MEDS: ATORVASTATIN 20 MG TAB PO SCH (20:43)
[2017-02-09] MEDS: LEVOTHYROXINE SODIUM 50 MCG TAB PO SCH (06:30)
[2017-02-09 06:45] VITALS: BP 139/82; PULSE 90; RESP 16; TEMP 98.3; O2SAT 99
[2017-02-09] MEDS: LORazepam 0.5 MG TAB age > 65 yrs PO PRN (08:07)
[2017-02-09] MEDS: levOCARNitine 10% ORAL SOLN 118 ML BTL PO SCH ×3 (09:00→16:47)
[2017-02-09] MEDS: risperiDONE ODT 2 MG TAB PO SCH ×2 (09:09→21:19)
[2017-02-09] MEDS: BENZTROPINE MESYLATE 1 MG TAB PO SCH ×2 (09:09→21:18)
[2017-02-09] MEDS: amLODIPine BESYLATE 5 MG TAB PO SCH (09:09)
[2017-02-09] MEDS: LISINOPRIL 20 MG TAB PO SCH ×2 (09:09→21:18)
[2017-02-09] MEDS: ASPIRIN 81 MG CHEW TAB PO SCH (09:10)
[2017-02-09] MEDS: VALPROIC ACID SYRUP 250 MG/5 ML UDC PO SCH ×2 (09:10→21:19)
--- NOTE | 2017-02-09 12:00 | HHI.PYPN ---
Subjective Remarks Patient was seen and case discussed with nursing. Per nursing she has been pacing and tearful throughout the day. When I saw her she was calm and cooperative. She is alert and oriented 1. Remains grossly confused and disorganized. She denies depressed mood. Denies auditory or visual hallucinations. Compliant with medications Objective Alert: Yes (sedated) [place]: Person Mood: Anxious Affect: Blunted Memory Intact: Comment (not formally assessed) Hallucinations: Auditory (denies), Other (responding to internal stimuli) Delusions: No Delusion Type: Other (none) Suicidal: Ideation (none voiced) Homicidal: Ideation (none voiced) Insight/Judgment Poor Vitals/IOs Vital Signs Date Time Temp Pulse Resp B/P Pulse Ox O2 Delivery O2 Flow Rate FiO2 02/09/17 06:45 98.3 90 16 139/82 99 Intake and Output 02/08/17 02/08/17 02/09/17 08:00 16:00 00:00 Intake Total 240 ml 480 ml 480 ml Balance 240 ml 480 ml 480 ml Assessment & Plan Problem List: (1) Dementia of Alzheimer's type with behavioral disturbance ICD Code: G30.8 (2) Altered mental status ICD Code: R41.82 Assessment & Plan Continue current treatment plan Justification for Cont. Inpt. Patient will decompensate in a less restrictive setting Request HC Surrog/Guard Advoc?: Yes Gustavo Amador DO Feb 09, 2017 12:00
[2017-02-09 18:00] VITALS: BP 135/82; PULSE 96; TEMP 98.4; O2SAT 99
[2017-02-09] MEDS: ATORVASTATIN 20 MG TAB PO SCH (21:19)
[2017-02-10 06:14] VITALS: BP 151/67; PULSE 77; RESP 16; TEMP 97
[2017-02-10] MEDS: LEVOTHYROXINE SODIUM 50 MCG TAB PO SCH (06:16)
[2017-02-10] MEDS: levOCARNitine 10% ORAL SOLN 118 ML BTL PO SCH ×3 (09:00→18:00)
[2017-02-10] MEDS: ASPIRIN 81 MG CHEW TAB PO SCH (09:00)
[2017-02-10] MEDS: risperiDONE ODT 2 MG TAB PO SCH ×2 (09:42→21:41)
[2017-02-10] MEDS: LISINOPRIL 20 MG TAB PO SCH ×2 (09:42→21:40)
[2017-02-10] MEDS: BENZTROPINE MESYLATE 1 MG TAB PO SCH ×2 (09:43→21:41)
[2017-02-10] MEDS: amLODIPine BESYLATE 5 MG TAB PO SCH (09:44)
[2017-02-10] MEDS: VALPROIC ACID SYRUP 250 MG/5 ML UDC PO SCH ×2 (09:45→21:40)
--- NOTE | 2017-02-10 13:59 | HHI.PYPN ---
Subjective Remarks Patient was seen and case discussed with nursing. Patient remains disorganized and labile. Largely nonsensical. She thinks she is in [place]. Compliant with her medications. Occasional outbursts per nursing. Patient denies suicidal ideation intent or plan Objective Alert: Yes (sedated) [place]: Person Mood: Oppositional Affect: Labile Memory Intact: Comment (not formally assessed) Hallucinations: Auditory (denies), Other (responding to internal stimuli) Delusions: No Delusion Type: Other (none) Suicidal: Ideation (none voiced) Homicidal: Ideation (none voiced) Insight/Judgment Poor Vitals/IOs Vital Signs Date Time Temp Pulse Resp B/P Pulse Ox O2 Delivery O2 Flow Rate FiO2 02/10/17 06:14 97.0 77 16 151/67 02/09/17 18:00 99 Intake and Output 02/09/17 02/09/17 02/10/17 08:00 16:00 00:00 Intake Total 720 ml 600 ml Balance 720 ml 600 ml Assessment & Plan Problem List: (1) Dementia of Alzheimer's type with behavioral disturbance ICD Code: G30.8 (2) Altered mental status ICD Code: R41.82 Assessment & Plan Continue current treatment plan Justification for Cont. Inpt. Patient will decompensate in a less restrictive setting Request HC Surrog/Guard Advoc?: Yes Gustavo Amador DO Feb 10, 2017 13:59
[2017-02-10 20:27] VITALS: BP 126/68; PULSE 94; TEMP 97.9; O2SAT 100
[2017-02-10] MEDS: ATORVASTATIN 20 MG TAB PO SCH (21:41)
[2017-02-11 06:24] VITALS: BP 126/83; PULSE 100; RESP 17; TEMP 97.4; O2SAT 99
[2017-02-11] MEDS: LEVOTHYROXINE SODIUM 50 MCG TAB PO SCH (06:26)
[2017-02-11] MEDS: risperiDONE ODT 2 MG TAB PO SCH ×2 (08:29→20:21)
[2017-02-11] MEDS: BENZTROPINE MESYLATE 1 MG TAB PO SCH ×2 (08:29→20:22)
[2017-02-11] MEDS: LISINOPRIL 20 MG TAB PO SCH ×2 (08:30→20:21)
[2017-02-11] MEDS: amLODIPine BESYLATE 5 MG TAB PO SCH (08:30)
[2017-02-11] MEDS: ASPIRIN 81 MG CHEW TAB PO SCH (08:30)
[2017-02-11] MEDS: VALPROIC ACID SYRUP 250 MG/5 ML UDC PO SCH ×2 (08:30→20:22)
[2017-02-11] MEDS: levOCARNitine 10% ORAL SOLN 118 ML BTL PO SCH ×3 (08:30→18:00)
--- NOTE | 2017-02-11 13:02 | HHI.PYPN ---
Subjective Remarks Patient discussed with treatment team, chart reviewed, patient seen on unit. Patient continues compliant with medications. Now has somewhat calmer no behavioral problems. While at times is noted to continue speaking to herself it is less frequent less intense Review of Systems Except as stated in HPI: all other systems reviewed are Neg Objective Alert: Yes (sedated) [place]: Person Mood: Oppositional Affect: Labile Memory Intact: Comment (not formally assessed) Hallucinations: Auditory (denies), Other (responding to internal stimuli) Delusions: No Delusion Type: Other (none) Suicidal: Ideation (none voiced) Homicidal: Ideation (none voiced) Insight/Judgment Very poor Vitals/IOs Vital Signs Date Time Temp Pulse Resp B/P Pulse Ox O2 Delivery O2 Flow Rate FiO2 02/11/17 06:24 97.4 100 17 126/83 99 Intake and Output 02/10/17 02/10/17 02/11/17 08:00 16:00 00:00 Intake Total 0 ml 720 ml 720 ml Balance 0 ml 720 ml 720 ml Assessment & Plan Problem List: (1) Dementia of Alzheimer's type with behavioral disturbance ICD Code: G30.8 (2) Altered mental status ICD Code: R41.82 Assessment & Plan Estimated LOS: days patient continues demented confused though it appears the psychotic behaviors, talking to imaginary people is softened. She is also somewhat less intrusive Justification for Cont. Inpt. At this time patient will decompensate if placed in a lower level of care Discharge Planning To be determined Request HC Surrog/Guard Advoc?: Yes Rodolfo Corona MD Feb 11, 2017 13:02
[2017-02-11 19:00] VITALS: BP 114/62; PULSE 94; RESP 18; TEMP 97.1
[2017-02-11] MEDS: ATORVASTATIN 20 MG TAB PO SCH (20:22)
[2017-02-12 05:55] VITALS: BP 128/66; PULSE 98; RESP 16; TEMP 97.6; O2SAT 99
[2017-02-12] MEDS: LEVOTHYROXINE SODIUM 50 MCG TAB PO SCH (06:23)
[2017-02-12] MEDS: BENZTROPINE MESYLATE 1 MG TAB PO SCH ×2 (08:58→21:00)
[2017-02-12] MEDS: amLODIPine BESYLATE 5 MG TAB PO SCH (08:58)
[2017-02-12] MEDS: VALPROIC ACID SYRUP 250 MG/5 ML UDC PO SCH ×2 (08:58→21:00)
[2017-02-12] MEDS: risperiDONE ODT 2 MG TAB PO SCH ×2 (08:58→21:00)
[2017-02-12] MEDS: ASPIRIN 81 MG CHEW TAB PO SCH (08:59)
[2017-02-12] MEDS: LISINOPRIL 20 MG TAB PO SCH ×2 (08:59→21:00)
[2017-02-12] MEDS: levOCARNitine 10% ORAL SOLN 118 ML BTL PO SCH ×3 (08:59→18:00)
--- NOTE | 2017-02-12 12:42 | HHI.PR ---
Subjective Remarks Patient seen in day room. Cooperative with exam. Denies any pain. Talking out loud to self Objective Vital Signs Date Time Temp Pulse Resp B/P Pulse Ox O2 Delivery O2 Flow Rate FiO2 02/12/17 05:55 97.6 98 16 128/66 99 02/11/17 19:00 97.1 94 18 114/62 I/O 02/11/17 02/11/17 02/11/17 02/12/17 02/12/17 02/12/17 07:00 15:00 23:00 07:00 15:00 23:00 Intake Total 720 ml 960 ml 240 ml Balance 720 ml 960 ml 240 ml Intake Oral 720 ml 240 ml Oral Supplement 960 ml # Voids 7 2 2 Other Results GENERAL: Cooperative SKIN: Warm and dry. HEAD: Normocephalic. EYES: No scleral icterus. No injection or drainage. NECK: Supple, trachea midline. No JVD or lymphadenopathy. CARDIOVASCULAR: Regular rate and rhythm without murmurs, gallops, or rubs. RESPIRATORY: Breath sounds equal bilaterally. No accessory muscle use. GASTROINTESTINAL: Abdomen soft, non-tender, nondistended. MUSCULOSKELETAL: No cyanosis, or edema. BACK: Nontender without obvious deformity. No CVA tenderness. Medications and IVs Current Medications Medications (Trade) Dose Ordered Sig/Natalio Route Start Time Stop Time Status Last Admin (Ativan) 0.5 mg Q12H PRN PO 01/07/17 17:30 02/09/17 08:07 (Ativan Inj) 0.5 mg Q12H PRN IM 01/07/17 17:30 02/07/17 15:19 (Catapres) 0.1 mg Q6H PRN PO 01/07/17 18:45 (Tylenol) 650 mg Q4H PRN PO 01/08/17 13:45 02/04/17 22:14 (Milk Of Magnesia Liq) 30 ml DAILY PRN PO 01/08/17 13:45 01/16/17 20:54 (Mag-Al Plus Susp Liq) 30 ml Q6H PRN PO 01/08/17 13:45 (Aspirin Chew) 81 mg DAILY PO 01/09/17 09:00 02/12/17 08:59 (Lipitor) 20 mg HS PO 01/08/17 21:00 02/11/17 20:22 (Synthroid) 50 mcg DAILY@06 PO 01/09/17 06:00 02/12/17 06:23 (Norvasc) 10 mg DAILY PO 01/17/17 09:00 02/12/17 08:58 (Depakene Liq) 500 mg DAILY PO 01/22/17 09:00 02/12/17 08:58 (Depakene Liq) 750 mg HS PO 01/21/17 21:00 02/11/17 20:22 (Pill Splitter) 1 ea UNSCH PRN OTHER 01/21/17 16:15 (Prinivil) 20 mg BID PO 01/22/17 21:00 02/12/17 08:59 (Tylenol) 650 mg Q4H PRN PO 01/25/17 07:45 (Cogentin) 0.5 mg BID PO 01/25/17 21:00 02/12/17 08:58 (Remeron) 7.5 mg HS PO 01/27/17 21:00 Hold 02/01/17 21:10 (Ativan) 0.5 mg DAILY@18 PO 02/01/17 18:00 Hold 02/01/17 17:34 (Carnitor 10% Liq) 3 ml TID PO 02/02/17 18:00 02/12/17 08:59 (risperDAL M-TAB) 2 mg BID PO 02/07/17 21:00 02/12/17 08:58 Assessment and Plan Problem List: (1) Dementia Status: Chronic Plan: Chronic, resident of [facility]. Psych for med mgmt. Cooperative and med complaint (2) Hyperlipemia Status: Chronic Plan: Continue statin (3) Agitation Status: Acute Plan: Cooperative at visit (4) Hypertension Status: Acute Plan: Continue current regimen blood pressure well controlled. 128/66 (5) Schizophrenia Status: Chronic Plan: Managed per psych (6) Suprapubic tenderness Status: Resolved Plan: Resolved. . (7) Discomfort of back Status: Resolved Plan: Acetaminophen ordered PRN. No discomfort noted on palpation Assessment and Plan Labs ordered for Discussed Condition With Assessment and plan discussed with Dr. Vásquez Problem Qualifiers (1) Dementia: Qualified Code: F03.91 - Dementia with behavioral disturbance, unspecified dementia type (2) Hyperlipemia: Qualified Code: E78.2 - Mixed hyperlipidemia (3) Hypertension: Qualified Code: I10 - Essential hypertension (4) Schizophrenia: Qualified Code: F20.9 - Schizophrenia, unspecified type Maria Esther Jhaveri [facility] Feb 12, 2017 12:42
--- NOTE | 2017-02-12 14:06 | HHI.PYPN ---
Subjective Remarks Patient seen in day room with nurse Jules, patient continues to wander, confused disoriented speaking unintelligibly in Y[place], compliant medications. For now continue treatment Review of Systems Except as stated in HPI: all other systems reviewed are Neg Objective Alert: Yes (sedated) [place]: Person Mood: Oppositional Affect: Labile Memory Intact: Comment (not formally assessed) Hallucinations: Auditory (denies), Other (responding to internal stimuli) Delusions: No Delusion Type: Other (none) Suicidal: Ideation (none voiced) Homicidal: Ideation (none voiced) Insight/Judgment Very poor Vitals/IOs Vital Signs Date Time Temp Pulse Resp B/P Pulse Ox O2 Delivery O2 Flow Rate FiO2 02/12/17 05:55 97.6 98 16 128/66 99 Intake and Output 02/11/17 02/11/17 02/12/17 08:00 16:00 00:00 Intake Total 960 ml Balance 960 ml Assessment & Plan Problem List: (1) Dementia of Alzheimer's type with behavioral disturbance ICD Code: G30.8 (2) Altered mental status ICD Code: R41.82 Assessment & Plan Estimated LOS: days patient continues confused and demented, though no significant behavioral problems except wandering. For now continue treatment Justification for Cont. Inpt. At this time patient will decompensate place to the lower level of care Discharge Planning To be determined Request HC Surrog/Guard Advoc?: Yes Rodolfo Corona MD Feb 12, 2017 14:06
[2017-02-12 19:00] VITALS: BP 142/64; PULSE 86; RESP 16; TEMP 97.8
[2017-02-12] MEDS: ATORVASTATIN 20 MG TAB PO SCH (21:00)
[2017-02-12] MEDS: LORazepam 0.5 MG TAB age > 65 yrs PO PRN (21:17)
[2017-02-13] MEDS: LEVOTHYROXINE SODIUM 50 MCG TAB PO SCH (05:57)
[2017-02-13] MEDS: levOCARNitine 10% ORAL SOLN 118 ML BTL PO SCH ×3 (09:00→18:00)
[2017-02-13] MEDS: LISINOPRIL 20 MG TAB PO SCH ×2 (09:00→20:26)
[2017-02-13] MEDS: amLODIPine BESYLATE 5 MG TAB PO SCH (09:00)
[2017-02-13] MEDS: risperiDONE ODT 2 MG TAB PO SCH ×2 (09:00→20:27)
[2017-02-13] MEDS: BENZTROPINE MESYLATE 1 MG TAB PO SCH ×2 (09:00→20:27)
[2017-02-13] MEDS: VALPROIC ACID SYRUP 250 MG/5 ML UDC PO SCH ×2 (09:00→20:26)
[2017-02-13] MEDS: ASPIRIN 81 MG CHEW TAB PO SCH (09:00)
--- NOTE | 2017-02-13 13:28 | HHI.PYPN ---
Subjective Remarks Patient discussed with treatment team, seen on unit, chart reviewed. Patient continues to wander, continues diffusely confused, no significant behavioral problems, compliant medications. Review of Systems Except as stated in HPI: all other systems reviewed are Neg Objective Alert: Yes (sedated) [place]: Person Mood: Oppositional Affect: Labile Memory Intact: Comment (not formally assessed) Hallucinations: Auditory (denies), Other (responding to internal stimuli) Delusions: No Delusion Type: Other (none) Suicidal: Ideation (none voiced) Homicidal: Ideation (none voiced) Insight/Judgment Very poor Vitals/IOs Vital Signs Date Time Temp Pulse Resp B/P Pulse Ox O2 Delivery O2 Flow Rate FiO2 02/12/17 19:00 97.8 86 16 142/64 02/12/17 05:55 99 Intake and Output 02/12/17 02/12/17 02/13/17 08:00 16:00 00:00 Intake Total 240 ml 360 ml Balance 240 ml 360 ml Assessment & Plan Problem List: (1) Dementia of Alzheimer's type with behavioral disturbance ICD Code: G30.8 (2) Altered mental status ICD Code: R41.82 Assessment & Plan Estimated LOS: days patient continues to [place] confused with no behavior problems, compliant medications Justification for Cont. Inpt. At this time patient will decompensate if placed in a lower level of care Discharge Planning To be determined Request HC Surrog/Guard Advoc?: Yes Rodolfo Corona MD Feb 13, 2017 13:28
[2017-02-13 18:00] VITALS: BP 107/60; PULSE 89; RESP 18; TEMP 97.2; O2SAT 100
[2017-02-13] MEDS: ATORVASTATIN 20 MG TAB PO SCH (20:27)
[2017-02-14 02:45] VITALS: BP 159/85; PULSE 88; RESP 12; TEMP 96.8; O2SAT 100
[2017-02-14 05:56] VITALS: BP 150/72; PULSE 74; RESP 18; TEMP 97.3
[2017-02-14] MEDS: LEVOTHYROXINE SODIUM 50 MCG TAB PO SCH (06:19)
[2017-02-14 08:17] LABS: HEMATOCRIT 34.1 % (35.0-46.0); MEAN CORPUSCULAR HEMOGLOBIN 29.8 PG (27.0-34.0); MEAN CORPUSCULAR HGB CONC 34.3 % (32.0-36.0); PLATELET COUNT 168 TH/MM3 (150-450); RED BLOOD COUNT 3.93 MIL/MM3 (4.00-5.30); RED CELL DISTRIBUTION WIDTH 14.4 % (11.6-17.2); REVIEW FLAG FINAL; WHITE BLOOD COUNT 5.9 TH/MM3 (4.0-11.0)
[2017-02-14 08:50] LABS: BICARBONATE 27.5 MEQ/L (21.0-32.0); POTASSIUM 4.6 MEQ/L (3.5-5.1)
[2017-02-14] MEDS: levOCARNitine 10% ORAL SOLN 118 ML BTL PO SCH ×3 (09:00→18:00)
[2017-02-14] MEDS: VALPROIC ACID SYRUP 250 MG/5 ML UDC PO SCH ×2 (09:37→21:02)
[2017-02-14] MEDS: ASPIRIN 81 MG CHEW TAB PO SCH (09:37)
[2017-02-14] MEDS: BENZTROPINE MESYLATE 1 MG TAB PO SCH ×2 (09:38→21:02)
[2017-02-14] MEDS: LISINOPRIL 20 MG TAB PO SCH ×2 (09:38→21:02)
[2017-02-14] MEDS: amLODIPine BESYLATE 5 MG TAB PO SCH (09:38)
[2017-02-14] MEDS: risperiDONE ODT 2 MG TAB PO SCH ×2 (09:38→21:02)
--- NOTE | 2017-02-14 11:23 | HHI.PYPN ---
Subjective Remarks Patient seen in day room with nurse Anthony, chart reviewed, patient continues to wander, diffusely confused speaking basically Urdu. Compliant medications. Though no significant behavioral problems Review of Systems Except as stated in HPI: all other systems reviewed are Neg Objective Alert: Yes (sedated) [place]: Person Mood: Oppositional Affect: Labile Memory Intact: Comment (not formally assessed) Hallucinations: Auditory (denies), Other (responding to internal stimuli) Delusions: No Delusion Type: Other (none) Suicidal: Ideation (none voiced) Homicidal: Ideation (none voiced) Insight/Judgment Poor Labs Test 02/14/17 07:08 White Blood Count 5.9 TH/MM3 Red Blood Count 3.93 MIL/MM3 Hemoglobin 11.7 GM/DL Hematocrit 34.1 % Mean Corpuscular Volume 87.0 FL Mean Corpuscular Hemoglobin 29.8 PG Mean Corpuscular Hemoglobin 34.3 % Concent Red Cell Distribution Width 14.4 % Platelet Count 168 TH/MM3 Mean Platelet Volume 9.6 FL Sodium Level 141 MEQ/L Potassium Level 4.6 MEQ/L Chloride Level 107 MEQ/L Carbon Dioxide Level 27.5 MEQ/L Anion Gap 7 MEQ/L Blood Urea Nitrogen 32 MG/DL Creatinine 1.06 MG/DL Estimat Glomerular Filtration 51 ML/MIN Rate Random Glucose 76 MG/DL Calcium Level 9.3 MG/DL Vitals/IOs Vital Signs Date Time Temp Pulse Resp B/P Pulse Ox O2 Delivery O2 Flow Rate FiO2 02/14/17 05:56 97.3 74 18 150/72 02/14/17 02:45 100 Intake and Output 02/13/17 02/13/17 02/14/17 08:00 16:00 00:00 Intake Total 240 ml 0 ml 600 ml Balance 240 ml 0 ml 600 ml Assessment & Plan Problem List: (1) Dementia of Alzheimer's type with behavioral disturbance ICD Code: G30.8 (2) Altered mental status ICD Code: R41.82 Assessment & Plan Estimated LOS: days patient continues demented confused, though no behavioral problems, compliant medications Justification for Cont. Inpt. With this time patient will decompensate if placed in a lower level of care Discharge Planning To be determined Request HC Surrog/Guard Advoc?: Yes Rodolfo Corona MD Feb 14, 2017 11:23
[2017-02-14 19:15] VITALS: BP 130/75; PULSE 89; RESP 18; TEMP 97.3
[2017-02-14] MEDS: ATORVASTATIN 20 MG TAB PO SCH (21:02)
[2017-02-15] MEDS: LEVOTHYROXINE SODIUM 50 MCG TAB PO SCH (05:18)
[2017-02-15] MEDS: LORazepam 0.5 MG TAB age > 65 yrs PO PRN (05:18)
[2017-02-15 06:03] VITALS: BP 131/78; PULSE 96; RESP 16; TEMP 97.6; O2SAT 96
[2017-02-15] MEDS: levOCARNitine 10% ORAL SOLN 118 ML BTL PO SCH ×3 (09:00→17:18)
[2017-02-15] MEDS: risperiDONE ODT 2 MG TAB PO SCH ×2 (09:08→20:34)
[2017-02-15] MEDS: amLODIPine BESYLATE 5 MG TAB PO SCH (09:08)
[2017-02-15] MEDS: VALPROIC ACID SYRUP 250 MG/5 ML UDC PO SCH ×2 (09:08→20:34)
[2017-02-15] MEDS: BENZTROPINE MESYLATE 1 MG TAB PO SCH ×2 (09:08→20:34)
[2017-02-15] MEDS: LISINOPRIL 20 MG TAB PO SCH ×2 (09:08→20:34)
[2017-02-15] MEDS: ASPIRIN 81 MG CHEW TAB PO SCH (09:09)
--- NOTE | 2017-02-15 09:34 | HHI.PYPN ---
Subjective Remarks According to staff reports, the patient continues to be confused and speaks mostly Irish. She did respond to this physician's greeting and Irish. She is not a behavior problem at this time. Review of Systems ROS Limitations: Clinical Condition Objective Alert: Yes (sedated) [place]: Person Mood: Oppositional Affect: Labile Memory Intact: Comment (not formally assessed) Hallucinations: Auditory (denies), Other (responding to internal stimuli) Delusions: No Delusion Type: Other (none) Suicidal: Ideation (none voiced) Homicidal: Ideation (none voiced) Insight/Judgment Impaired. Vitals/IOs Vital Signs Date Time Temp Pulse Resp B/P Pulse Ox O2 Delivery O2 Flow Rate FiO2 02/15/17 06:03 97.6 96 16 131/78 96 Intake and Output 02/14/17 02/14/17 02/15/17 08:00 16:00 00:00 Intake Total 480 ml Balance 480 ml Assessment & Plan Problem List: (1) Dementia of Alzheimer's type with behavioral disturbance ICD Code: G30.8 (2) Altered mental status ICD Code: R41.82 Assessment & Plan Estimated LOS: 7 days patient continues to be evaluated for appropriateness of current medications. She remains a placement issue as she is easily confused and unable to care for self. Justification for Cont. Inpt. Unable to care for self. Request HC Surrog/Guard Advoc?: Yes Timoteo Barron MD Feb 15, 2017 09:34
[2017-02-15 18:00] VITALS: BP 133/72; PULSE 74; RESP 16; TEMP 97.1; O2SAT 96
[2017-02-15] MEDS: ATORVASTATIN 20 MG TAB PO SCH (20:34)
[2017-02-16] MEDS: LEVOTHYROXINE SODIUM 50 MCG TAB PO SCH (06:07)
[2017-02-16] MEDS: levOCARNitine 10% ORAL SOLN 118 ML BTL PO SCH ×3 (09:00→17:30)
[2017-02-16] MEDS: amLODIPine BESYLATE 5 MG TAB PO SCH (09:04)
[2017-02-16] MEDS: LISINOPRIL 20 MG TAB PO SCH ×2 (09:04→21:22)
[2017-02-16] MEDS: ASPIRIN 81 MG CHEW TAB PO SCH (09:04)
[2017-02-16] MEDS: risperiDONE ODT 2 MG TAB PO SCH ×2 (09:04→21:22)
[2017-02-16] MEDS: BENZTROPINE MESYLATE 1 MG TAB PO SCH ×2 (09:05→21:22)
[2017-02-16] MEDS: VALPROIC ACID SYRUP 250 MG/5 ML UDC PO SCH ×2 (10:00→21:21)
--- NOTE | 2017-02-16 17:02 | HHI.PYPN ---
Subjective Remarks Pt seen and discussed with staff. Pt has been compliant with treatment and has not had any behavioral problems on unit today. She still rambles but staff report that pt has been much calmer and outbursts have declined. No SI/HI Objective Alert: Yes (sedated) [place]: Person Mood: Calm Affect: Restricted Memory Intact: Comment (impaired) Hallucinations: Other (does not appear to be responding to internal stimuli) Delusions: No Delusion Type: Other (none) Suicidal: Ideation (none voiced) Homicidal: Ideation (none voiced) Insight/Judgment poor Vitals/IOs Vital Signs Date Time Temp Pulse Resp B/P Pulse Ox O2 Delivery O2 Flow Rate FiO2 02/15/17 18:00 97.1 74 16 133/72 96 Intake and Output 02/15/17 02/15/17 02/16/17 08:00 16:00 00:00 Intake Total 0 ml 1080 ml 720 ml Balance 0 ml 1080 ml 720 ml Assessment & Plan Problem List: (1) Dementia of Alzheimer's type with behavioral disturbance ICD Code: G30.8 Assessment & Plan Continue current tx plan.Estimated LOS: days Justification for Cont. Inpt. risk of decompensation Request HC Surrog/Guard Advoc?: Yes Keli Wild MD Feb 16, 2017 17:02
[2017-02-16 20:00] VITALS: BP 142/60; PULSE 92; TEMP 96.5; O2SAT 100
[2017-02-16] MEDS: ATORVASTATIN 20 MG TAB PO SCH (21:22)
[2017-02-16] MEDS: LORazepam 0.5 MG TAB age > 65 yrs PO PRN (21:24)
[2017-02-17 05:27] VITALS: BP 128/62; PULSE 95; RESP 16; TEMP 96.9
[2017-02-17] MEDS: LEVOTHYROXINE SODIUM 50 MCG TAB PO SCH (05:31)
[2017-02-17] MEDS: BENZTROPINE MESYLATE 1 MG TAB PO SCH ×2 (08:55→21:37)
[2017-02-17] MEDS: ASPIRIN 81 MG CHEW TAB PO SCH (08:55)
[2017-02-17] MEDS: amLODIPine BESYLATE 5 MG TAB PO SCH (08:55)
[2017-02-17] MEDS: VALPROIC ACID SYRUP 250 MG/5 ML UDC PO SCH ×2 (08:55→21:37)
[2017-02-17] MEDS: LISINOPRIL 20 MG TAB PO SCH ×2 (08:55→21:37)
[2017-02-17] MEDS: risperiDONE ODT 2 MG TAB PO SCH ×2 (08:55→21:37)
[2017-02-17] MEDS: levOCARNitine 10% ORAL SOLN 118 ML BTL PO SCH ×3 (09:00→18:00)
--- NOTE | 2017-02-17 17:57 | HHI.PYPN ---
Subjective Remarks Pt seen and discussed with staff. She has been cooperative and compliant with treatment. She has been singing loudly on the unit, but has not been agitated. Pleasant and cooperative.. Objective Alert: Yes (sedated) [place]: Person Mood: Calm Affect: Restricted Memory Intact: Comment (impaired) Hallucinations: Other (does not appear to be responding to internal stimuli) Delusions: No Delusion Type: Other (none) Suicidal: Ideation (none voiced) Homicidal: Ideation (none voiced) Insight/Judgment poor Vitals/IOs Vital Signs Date Time Temp Pulse Resp B/P Pulse Ox O2 Delivery O2 Flow Rate FiO2 02/17/17 05:27 96.9 95 16 128/62 02/16/17 20:00 100 Intake and Output 02/16/17 02/16/17 02/17/17 08:00 16:00 00:00 Intake Total 360 ml 660 ml Balance 360 ml 660 ml Assessment & Plan Problem List: (1) Dementia of Alzheimer's type with behavioral disturbance ICD Code: G30.8 Assessment & Plan Continue current tx plan. Estimated LOS: days Justification for Cont. Inpt. risk of decompensation Request HC Surrog/Guard Advoc?: Yes Keli Wild MD Feb 17, 2017 17:57
[2017-02-17 18:00] VITALS: BP 122/60; PULSE 75; RESP 16; TEMP 96.9; O2SAT 96
[2017-02-17] MEDS: ATORVASTATIN 20 MG TAB PO SCH (21:37)
[2017-02-18 05:30] VITALS: BP 116/58; PULSE 80; RESP 18; TEMP 97.3
[2017-02-18] MEDS: LEVOTHYROXINE SODIUM 50 MCG TAB PO SCH (06:49)
[2017-02-18] MEDS: levOCARNitine 10% ORAL SOLN 118 ML BTL PO SCH ×3 (09:00→17:56)
[2017-02-18] MEDS: ASPIRIN 81 MG CHEW TAB PO SCH (09:00)
[2017-02-18] MEDS: amLODIPine BESYLATE 5 MG TAB PO SCH (09:26)
[2017-02-18] MEDS: risperiDONE ODT 2 MG TAB PO SCH ×2 (09:26→20:54)
[2017-02-18] MEDS: VALPROIC ACID SYRUP 250 MG/5 ML UDC PO SCH ×2 (09:26→20:53)
[2017-02-18] MEDS: BENZTROPINE MESYLATE 1 MG TAB PO SCH ×2 (09:27→20:53)
[2017-02-18] MEDS: LISINOPRIL 20 MG TAB PO SCH ×2 (09:27→20:53)
--- NOTE | 2017-02-18 16:26 | HHI.PYPN ---
Subjective Remarks Patient discussed with treatment team, patient seen on unit with floor staff, patient continues to wander, continues babbling in [place], at times appears to be gesturing and talking to imaginary people. For now continue treatment Review of Systems Except as stated in HPI: all other systems reviewed are Neg Objective Alert: Yes (sedated) [place]: Person Mood: Calm Affect: Restricted Memory Intact: Comment (impaired) Hallucinations: Other (does not appear to be responding to internal stimuli) Delusions: No Delusion Type: Other (none) Suicidal: Ideation (none voiced) Homicidal: Ideation (none voiced) Insight/Judgment Poor Vitals/IOs Vital Signs Date Time Temp Pulse Resp B/P Pulse Ox O2 Delivery O2 Flow Rate FiO2 02/18/17 05:30 97.3 80 18 116/58 02/17/17 18:00 96 Intake and Output 02/17/17 02/17/17 02/18/17 08:00 16:00 00:00 Intake Total 480 ml 480 ml Balance 480 ml 480 ml Assessment & Plan Problem List: (1) Dementia of Alzheimer's type with behavioral disturbance ICD Code: G30.8 Assessment & Plan Estimated LOS: days patient continues demented confused and wandering. Though no significant behavioral problem Justification for Cont. Inpt. At this time patient will decompensate if placed in a lower level of care Discharge Planning To be determined Request HC Surrog/Guard Advoc?: Yes Rodolfo Corona MD Feb 18, 2017 16:26
[2017-02-18 18:00] VITALS: BP 110/67; PULSE 72; RESP 18; TEMP 97.1; O2SAT 100
[2017-02-18] MEDS: ATORVASTATIN 20 MG TAB PO SCH (20:52)
[2017-02-18 21:57] LABS: BACTERIA, URINE RARE /hpf; BLOOD, URINE NEG (NEG); COMMENT (UR) CULTURE INDICATED; CULTURE IF INDICATED CULTURE INDICATED; GLUCOSE,URINE NEG (NEG); KETONE, URINE NEG (NEG); MUCUS URINE FEW /lpf (OCC); NITRITE,URINE NEG (NEG); SQUAMOUS EPITHELIAL CELL URINE 1 /hpf (0-5); URINE COLOR YELLOW (YELLW/STRAW)
[2017-02-19 01:00] VITALS: BP 136/61; PULSE 94; RESP 18; TEMP 98.8; O2SAT 97
[2017-02-19 05:25] VITALS: BP 114/57; PULSE 78; RESP 16; TEMP 98.1; O2SAT 98
[2017-02-19 06:00] VITALS: BP 120/60; PULSE 79; RESP 18; TEMP 96.6; O2SAT 98
[2017-02-19] MEDS: LEVOTHYROXINE SODIUM 50 MCG TAB PO SCH (06:20)
[2017-02-19] MEDS: ASPIRIN 81 MG CHEW TAB PO SCH (09:00)
[2017-02-19] MEDS: levOCARNitine 10% ORAL SOLN 118 ML BTL PO SCH ×3 (09:00→17:54)
[2017-02-19] MEDS: BENZTROPINE MESYLATE 1 MG TAB PO SCH ×2 (09:33→20:26)
[2017-02-19] MEDS: amLODIPine BESYLATE 5 MG TAB PO SCH (09:33)
[2017-02-19] MEDS: risperiDONE ODT 2 MG TAB PO SCH ×2 (09:33→20:26)
[2017-02-19] MEDS: LISINOPRIL 20 MG TAB PO SCH ×2 (09:34→20:26)
[2017-02-19] MEDS: VALPROIC ACID SYRUP 250 MG/5 ML UDC PO SCH ×2 (09:34→20:26)
--- NOTE | 2017-02-19 13:59 | HHI.PYPN ---
Subjective Remarks Patient seen in day room with nurse Anthony, chart reviewed. Patient compliant medications. Is no significant change in patient's behavior she is easily redirectable, continues to talk herself at times appears to be talking to some imaginary person. For now continue treatment Review of Systems Except as stated in HPI: all other systems reviewed are Neg Objective Alert: Yes (sedated) [place]: Person Mood: Calm Affect: Restricted Memory Intact: Comment (impaired) Hallucinations: Other (does not appear to be responding to internal stimuli) Delusions: No Delusion Type: Other (none) Suicidal: Ideation (none voiced) Homicidal: Ideation (none voiced) Insight/Judgment Very poor Labs Test 02/18/17 17:15 Urine Color YELLOW Urine Turbidity CLEAR Urine pH 6.0 Urine Specific [place] 1.020 Urine Protein TRACE mg/dL Urine Glucose (UA) NEG mg/dL Urine Ketones NEG mg/dL Urine Occult Blood NEG Urine Nitrite NEG Urine Bilirubin NEG Urine Urobilinogen LESS THAN 2.0 MG/DL Urine Leukocyte Esterase MOD Urine RBC 3 /hpf Urine WBC 33 /hpf Urine WBC Clumps RARE Urine Squamous Epithelial 1 /hpf Cells Urine Bacteria RARE /hpf Urine Mucus FEW /lpf Microscopic Urinalysis Comment CULTURE INDICATED Date/Time Procedure Status Source Growth 02/18/17 17:15 Urine Culture Received Urine Clean Catch Pending Vitals/IOs Vital Signs Date Time Temp Pulse Resp B/P Pulse Ox O2 Delivery O2 Flow Rate FiO2 02/19/17 05:25 98.1 78 16 114/57 98 Intake and Output 02/18/17 02/18/17 02/18/17 07:59 15:59 23:59 Intake Total 0 ml 1080 ml 820 ml Balance 0 ml 1080 ml 820 ml Assessment & Plan Problem List: (1) Dementia of Alzheimer's type with behavioral disturbance ICD Code: G30.8 Assessment & Plan Estimated LOS: days patient and she is markedly demented and confused, though no significant behavioral problems. For now continue treatment Justification for Cont. Inpt. At this time patient will decompensate if placed in a lower level of care Discharge Planning To be determined Request HC Surrog/Guard Advoc?: Yes Rodolfo Corona MD Feb 19, 2017 13:59
[2017-02-19 14:00] VITALS: BP 122/58; PULSE 76; RESP 18; TEMP 90.8; O2SAT 100
[2017-02-19] MEDS: ATORVASTATIN 20 MG TAB PO SCH (20:26)
[2017-02-20 05:05] VITALS: BP 109/54; PULSE 75; RESP 16; TEMP 97; O2SAT 98
[2017-02-20] MEDS: LEVOTHYROXINE SODIUM 50 MCG TAB PO SCH (06:22)
--- NOTE | 2017-02-20 06:50 | HHI.PR ---
Subjective Remarks Patient seen in day room. Cooperative with exam. Denies any pain or problems. Is still a 1:1 Objective Vital Signs Date Time Temp Pulse Resp B/P Pulse Ox O2 Delivery O2 Flow Rate FiO2 02/20/17 05:05 97.0 75 16 109/54 98 02/19/17 14:00 90.8 76 18 122/58 100 I/O 02/19/17 02/19/17 02/19/17 02/20/17 02/20/17 02/20/17 07:00 15:00 23:00 07:00 15:00 23:00 Intake Total 480 ml 630 ml Balance 480 ml 630 ml Intake Oral 480 ml 630 ml # Voids 2 2 1 2 # Bowel Movements 0 Objective Remarks GENERAL: alert and cooperative SKIN: Warm and dry. HEAD: Normocephalic. EYES: No scleral icterus. No injection or drainage. NECK: Supple, trachea midline. No JVD or lymphadenopathy. CARDIOVASCULAR: Regular rate and rhythm without murmurs, gallops, or rubs. RESPIRATORY: Breath sounds equal bilaterally. No accessory muscle use. GASTROINTESTINAL: Abdomen soft, non-tender, nondistended. MUSCULOSKELETAL: No cyanosis, or edema. BACK: Nontender without obvious deformity. No CVA tenderness. Medications and IVs Current Medications Medications (Trade) Dose Ordered Sig/Natalio Route Start Time Stop Time Status Last Admin (Ativan) 0.5 mg Q12H PRN PO 01/07/17 17:30 02/16/17 21:24 (Ativan Inj) 0.5 mg Q12H PRN IM 01/07/17 17:30 02/07/17 15:19 (Catapres) 0.1 mg Q6H PRN PO 01/07/17 18:45 (Tylenol) 650 mg Q4H PRN PO 01/08/17 13:45 02/04/17 22:14 (Milk Of Magnesia Liq) 30 ml DAILY PRN PO 01/08/17 13:45 01/16/17 20:54 (Mag-Al Plus Susp Liq) 30 ml Q6H PRN PO 01/08/17 13:45 (Aspirin Chew) 81 mg DAILY PO 01/09/17 09:00 02/19/17 09:00 (Lipitor) 20 mg HS PO 01/08/17 21:00 02/19/17 20:26 (Synthroid) 50 mcg DAILY@06 PO 01/09/17 06:00 02/20/17 06:22 (Norvasc) 10 mg DAILY PO 01/17/17 09:00 02/19/17 09:33 (Depakene Liq) 500 mg DAILY PO 01/22/17 09:00 02/19/17 09:34 (Depakene Liq) 750 mg HS PO 01/21/17 21:00 02/19/17 20:26 (Pill Splitter) 1 ea UNSCH PRN OTHER 01/21/17 16:15 (Prinivil) 20 mg BID PO 01/22/17 21:00 02/19/17 20:26 (Tylenol) 650 mg Q4H PRN PO 01/25/17 07:45 (Cogentin) 0.5 mg BID PO 01/25/17 21:00 02/19/17 20:26 (Remeron) 7.5 mg HS PO 01/27/17 21:00 Hold 02/01/17 21:10 (Ativan) 0.5 mg DAILY@18 PO 02/01/17 18:00 Hold 02/01/17 17:34 (Carnitor 10% Liq) 3 ml TID PO 02/02/17 18:00 02/19/17 12:41 (risperDAL M-TAB) 2 mg BID PO 02/07/17 21:00 02/19/17 20:26 Assessment and Plan Problem List: (1) Dementia Status: Chronic Plan: . Cooperative and med complaint (2) Hyperlipemia Status: Chronic Plan: Continue statin (3) Agitation Status: Acute Plan: Cooperative at visit. On Ativan and Risperdal. (4) Hypertension Status: Acute Plan: Continue current regimen blood pressure well controlled. (5) Schizophrenia Status: Chronic Plan: Managed per psych (6) Suprapubic tenderness Status: Resolved Plan: Resolved. (7) Discomfort of back Status: Resolved Plan: Acetaminophen ordered PRN. No discomfort noted on palpation Assessment and Plan Labs ordered for Discussed Condition With Nursing Problem Qualifiers (1) Dementia: Qualified Code: F03.91 - Dementia with behavioral disturbance, unspecified dementia type (2) Hyperlipemia: Qualified Code: E78.2 - Mixed hyperlipidemia (3) Hypertension: Qualified Code: I10 - Essential hypertension (4) Schizophrenia: Qualified Code: F20.9 - Schizophrenia, unspecified type Maria Esther Jhaveri Feb 20, 2017 06:50
[2017-02-20] MEDS: ASPIRIN 81 MG CHEW TAB PO SCH (08:51)
[2017-02-20] MEDS: VALPROIC ACID SYRUP 250 MG/5 ML UDC PO SCH ×2 (08:52→20:35)
[2017-02-20] MEDS: risperiDONE ODT 2 MG TAB PO SCH ×2 (08:52→20:26)
[2017-02-20] MEDS: levOCARNitine 10% ORAL SOLN 118 ML BTL PO SCH ×3 (08:52→18:00)
[2017-02-20] MEDS: LISINOPRIL 20 MG TAB PO SCH ×2 (08:52→20:26)
[2017-02-20] MEDS: BENZTROPINE MESYLATE 1 MG TAB PO SCH ×2 (08:52→20:25)
[2017-02-20] MEDS: amLODIPine BESYLATE 5 MG TAB PO SCH (08:52)
--- NOTE | 2017-02-20 13:00 | HHI.PYPN ---
Subjective Remarks Patient seen in dayroom with nurse Stefan, chart reviewed. Patient behavior is calm she continues to wander but is more easily redirectable, continues to babble times appearing to be responding to internal stimuli. We'll attempt to decrease patient psychotropics anticipation of hopefully finding a placement for this lady Review of Systems Except as stated in HPI: all other systems reviewed are Neg Objective Alert: Yes (sedated) [place]: Person Mood: Calm Affect: Restricted Memory Intact: Comment (impaired) Hallucinations: Other (does not appear to be responding to internal stimuli) Delusions: No Delusion Type: Other (none) Suicidal: Ideation (none voiced) Homicidal: Ideation (none voiced) Insight/Judgment Very poor Labs Date/Time Procedure Status Source Growth 02/18/17 17:15 Urine Culture - Final Complete Urine Clean Catch 50-100,000 CFU/ML MIXED GRAM POSITIVE... Vitals/IOs Vital Signs Date Time Temp Pulse Resp B/P Pulse Ox O2 Delivery O2 Flow Rate FiO2 02/20/17 05:05 97.0 75 16 109/54 98 Intake and Output 02/19/17 02/19/17 02/20/17 08:00 16:00 00:00 Intake Total 480 ml 630 ml Balance 480 ml 630 ml Assessment & Plan Problem List: (1) Dementia of Alzheimer's type with behavioral disturbance ICD Code: G30.8 Assessment & Plan Estimated LOS: days patient continues markedly demented though behaviors of calm decrease Respinol to 1 mg a.m. 2 mg p.m. Justification for Cont. Inpt. See medication adjustment above Discharge Planning To be determined Request HC Surrog/Guard Advoc?: Yes Rodolfo Corona MD Feb 20, 2017 12:59
[2017-02-20 18:00] VITALS: BP 122/64; PULSE 80; RESP 16; TEMP 97; O2SAT 97
[2017-02-20] MEDS: ATORVASTATIN 20 MG TAB PO SCH (20:26)
[2017-02-21] MEDS: LEVOTHYROXINE SODIUM 50 MCG TAB PO SCH (04:51)
[2017-02-21 06:55] VITALS: BP 120/66; PULSE 85; RESP 16; TEMP 97.6; O2SAT 100
[2017-02-21 07:21] LABS: AUTOMATED NEUTROPHIL # 2.2 TH/MM3 (1.8-7.7); BASOPHIL % 0.7 % (0.0-2.0); EOSINOPHIL # 0.2 TH/MM3 (0-0.4); EOSINOPHIL % 3.9 % (0.0-4.0); HEMATOCRIT 31.6 % (35.0-46.0); HEMO FLAGS DIFF FINAL; LYMPH % 33.7 % (9.0-44.0); LYMPHOCYTE # 1.5 TH/MM3 (1.0-4.8); MEAN CELL VOLUME 86.8 FL (80.0-100.0); MEAN CORPUSCULAR HEMOGLOBIN 28.4 PG (27.0-34.0); MEAN CORPUSCULAR HGB CONC 32.7 % (32.0-36.0); MONO % 12.3 % (0.0-8.0); NEUT % 49.4 % (16.0-70.0); PLATELET COUNT 132 TH/MM3 (150-450); RED BLOOD COUNT 3.64 MIL/MM3 (4.00-5.30); RED CELL DISTRIBUTION WIDTH 14.1 % (11.6-17.2); WHITE BLOOD COUNT 4.4 TH/MM3 (4.0-11.0)
[2017-02-21 07:37] LABS: BICARBONATE 28.8 MEQ/L (21.0-32.0); POTASSIUM 5.6 MEQ/L (3.5-5.1)
[2017-02-21] MEDS: BENZTROPINE MESYLATE 1 MG TAB PO SCH ×2 (09:00→20:59)
[2017-02-21] MEDS: LISINOPRIL 20 MG TAB PO SCH ×2 (09:00→21:00)
[2017-02-21] MEDS: amLODIPine BESYLATE 5 MG TAB PO SCH (09:00)
[2017-02-21] MEDS: ASPIRIN 81 MG CHEW TAB PO SCH (09:00)
[2017-02-21] MEDS: VALPROIC ACID SYRUP 250 MG/5 ML UDC PO SCH ×2 (09:00→21:00)
[2017-02-21] MEDS: risperiDONE ODT 1 MG TAB PO SCH (09:00)
[2017-02-21] MEDS: levOCARNitine 10% ORAL SOLN 118 ML BTL PO SCH ×3 (09:00→18:00)
--- NOTE | 2017-02-21 11:22 | HHI.PYPN ---
Subjective Remarks Patient seen in day room with nurse Jules, chart review, patient continues no significant behavioral problems speaking disorganized [place]i. Though easily redirectable. At times appears to be responding to internal stimuli. For now continue treatment Review of Systems Except as stated in HPI: all other systems reviewed are Neg Objective Alert: Yes (sedated) [place]: Person Mood: Calm Affect: Restricted Memory Intact: Comment (impaired) Hallucinations: Other (does not appear to be responding to internal stimuli) Delusions: No Delusion Type: Other (none) Suicidal: Ideation (none voiced) Homicidal: Ideation (none voiced) Insight/Judgment Very poor Labs Test 02/21/17 06:14 White Blood Count 4.4 TH/MM3 Red Blood Count 3.64 MIL/MM3 Hemoglobin 10.4 GM/DL Hematocrit 31.6 % Mean Corpuscular Volume 86.8 FL Mean Corpuscular Hemoglobin 28.4 PG Mean Corpuscular Hemoglobin 32.7 % Concent Red Cell Distribution Width 14.1 % Platelet Count 132 TH/MM3 Mean Platelet Volume 9.6 FL Neutrophils (%) (Auto) 49.4 % Lymphocytes (%) (Auto) 33.7 % Monocytes (%) (Auto) 12.3 % Eosinophils (%) (Auto) 3.9 % Basophils (%) (Auto) 0.7 % Neutrophils # (Auto) 2.2 TH/MM3 Lymphocytes # (Auto) 1.5 TH/MM3 Monocytes # (Auto) 0.5 TH/MM3 Eosinophils # (Auto) 0.2 TH/MM3 Basophils # (Auto) 0.0 TH/MM3 CBC Comment DIFF FINAL Differential Comment Sodium Level 141 MEQ/L Potassium Level 5.6 MEQ/L Chloride Level 106 MEQ/L Carbon Dioxide Level 28.8 MEQ/L Anion Gap 6 MEQ/L Blood Urea Nitrogen 36 MG/DL Creatinine 1.09 MG/DL Estimat Glomerular Filtration 49 ML/MIN Rate Random Glucose 76 MG/DL Calcium Level 8.9 MG/DL Date/Time Procedure Status Source Growth 02/18/17 17:15 Urine Culture - Final Complete Urine Clean Catch 50-100,000 CFU/ML MIXED GRAM POSITIVE... Vitals/IOs Vital Signs Date Time Temp Pulse Resp B/P Pulse Ox O2 Delivery O2 Flow Rate FiO2 02/21/17 06:55 97.6 85 16 120/66 100 Intake and Output 02/20/17 02/20/17 02/21/17 08:00 16:00 00:00 Intake Total 240 ml 360 ml Balance 240 ml 360 ml Assessment & Plan Problem List: (1) Dementia of Alzheimer's type with behavioral disturbance ICD Code: G30.8 Assessment & Plan Estimated LOS: days patient continues confused and demented, though no significant behavioral problems. Compliant medications. So far no significant changes with the decreasing her antipsychotic Justification for Cont. Inpt. This time patient decompensate and placed a lower level of care, also need to continue monitoring behaviors with decrease in antipsychotic medication Discharge Planning To be determined Request HC Surrog/Guard Advoc?: Yes Rodolfo Corona MD Feb 21, 2017 11:21
[2017-02-21 18:57] VITALS: BP 119/59; PULSE 75; RESP 16; TEMP 97.5; O2SAT 99
[2017-02-21] MEDS: ATORVASTATIN 20 MG TAB PO SCH (20:59)
[2017-02-21] MEDS: risperiDONE ODT 2 MG TAB PO SCH (21:00)
[2017-02-22] MEDS: LEVOTHYROXINE SODIUM 50 MCG TAB PO SCH (05:14)
[2017-02-22 06:18] VITALS: BP 138/70; PULSE 87; RESP 15; TEMP 97.2; O2SAT 94
--- NOTE | 2017-02-22 07:49 | HHI.PR ---
Subjective Remarks Patient seen in day room. Cooperative with exam. Denies any pain or problems. Objective Vital Signs Date Time Temp Pulse Resp B/P Pulse Ox O2 Delivery O2 Flow Rate FiO2 02/22/17 06:18 97.2 87 15 138/70 94 02/21/17 18:57 97.5 75 16 119/59 99 I/O 02/21/17 02/21/17 02/21/17 02/22/17 02/22/17 02/22/17 07:00 15:00 23:00 07:00 15:00 23:00 Intake Total 0 ml 1350 ml 240 ml Balance 0 ml 1350 ml 240 ml Intake Oral 0 ml 1350 ml 240 ml # Voids 2 2 Result Diagram: 02/21/1761302/21/17 06 Objective Remarks GENERAL: alert and cooperative SKIN: Warm and dry. HEAD: Normocephalic. EYES: No scleral icterus. No injection or drainage. NECK: Supple, trachea midline. No JVD or lymphadenopathy. CARDIOVASCULAR: Regular rate and rhythm without murmurs, gallops, or rubs. RESPIRATORY: Breath sounds equal bilaterally. No accessory muscle use. GASTROINTESTINAL: Abdomen soft, non-tender, nondistended. MUSCULOSKELETAL: No cyanosis, or edema. BACK: Nontender without obvious deformity. No CVA tenderness. Medications and IVs Current Medications Medications (Trade) Dose Ordered Sig/Natalio Route Start Time Stop Time Status Last Admin (Ativan) 0.5 mg Q12H PRN PO 01/07/17 17:30 02/16/17 21:24 (Ativan Inj) 0.5 mg Q12H PRN IM 01/07/17 17:30 02/07/17 15:19 (Catapres) 0.1 mg Q6H PRN PO 01/07/17 18:45 (Tylenol) 650 mg Q4H PRN PO 01/08/17 13:45 02/04/17 22:14 (Milk Of Magnesia Liq) 30 ml DAILY PRN PO 01/08/17 13:45 01/16/17 20:54 (Mag-Al Plus Susp Liq) 30 ml Q6H PRN PO 01/08/17 13:45 (Aspirin Chew) 81 mg DAILY PO 01/09/17 09:00 02/21/17 09:00 (Lipitor) 20 mg HS PO 01/08/17 21:00 02/21/17 20:59 (Synthroid) 50 mcg DAILY@06 PO 01/09/17 06:00 02/22/17 05:14 (Norvasc) 10 mg DAILY PO 01/17/17 09:00 02/21/17 09:00 (Depakene Liq) 500 mg DAILY PO 01/22/17 09:00 02/21/17 09:00 (Depakene Liq) 750 mg HS PO 01/21/17 21:00 02/21/17 21:00 (Pill Splitter) 1 ea UNSCH PRN OTHER 01/21/17 16:15 (Prinivil) 20 mg BID PO 01/22/17 21:00 02/21/17 09:00 (Tylenol) 650 mg Q4H PRN PO 01/25/17 07:45 (Cogentin) 0.5 mg BID PO 01/25/17 21:00 02/21/17 20:59 (Remeron) 7.5 mg HS PO 01/27/17 21:00 Hold 02/01/17 21:10 (Ativan) 0.5 mg DAILY@18 PO 02/01/17 18:00 Hold 02/01/17 17:34 (Carnitor 10% Liq) 3 ml TID PO 02/02/17 18:00 02/21/17 18:00 (risperDAL M-TAB) 2 mg HS PO 02/20/17 21:00 02/21/17 21:00 (risperDAL M-TAB) 1 mg DAILY PO 02/21/17 09:00 02/21/17 09:00 Assessment and Plan Problem List: (1) Dementia Status: Chronic Plan: Cooperative and med complaint per nursing (2) Hyperlipemia Status: Chronic Plan: Continue statin (3) Agitation Status: Acute Plan: Cooperative at visit. On Ativan and Risperdal. (4) Hypertension Status: Acute Plan: Continue current regimen blood pressure well controlled. (5) Schizophrenia Status: Chronic Plan: Managed per psych (6) Suprapubic tenderness Status: Resolved Plan: Resolved. (7) Discomfort of back Status: Resolved Plan: Acetaminophen ordered PRN. No discomfort noted on palpation (8) Hyperkalemia Status: Acute Plan: Potassium 5.6. On no replacement. Will recheck to see if accurate. Will need to adjust medication if consistent. Assessment and Plan Assessment and plan discussed with Dr. Vásquez Problem Qualifiers (1) Dementia: Qualified Code: F03.91 - Dementia with behavioral disturbance, unspecified dementia type (2) Hyperlipemia: Qualified Code: E78.2 - Mixed hyperlipidemia (3) Hypertension: Qualified Code: I10 - Essential hypertension (4) Schizophrenia: Qualified Code: F20.9 - Schizophrenia, unspecified type Maria Esther Jhaveri Feb 22, 2017 07:49
--- NOTE | 2017-02-22 07:58 | HHI.PYPN ---
Subjective Remarks Patient seen in day room with nurse Jules, chart reviewed. Patient calm pleasant today continues to wander but less intrusive. Continues at times to talk herself that to his somewhat diminished. The been no behavioral issues. Review of Systems Except as stated in HPI: all other systems reviewed are Neg Objective Alert: Yes (sedated) [place]: Person Mood: Calm Affect: Restricted Memory Intact: Comment (impaired) Hallucinations: Other (does not appear to be responding to internal stimuli) Delusions: No Delusion Type: Other (none) Suicidal: Ideation (none voiced) Homicidal: Ideation (none voiced) Insight/Judgment Poor Labs Date/Time Procedure Status Source Growth 02/18/17 17:15 Urine Culture - Final Complete Urine Clean Catch 50-100,000 CFU/ML MIXED GRAM POSITIVE... Vitals/IOs Vital Signs Date Time Temp Pulse Resp B/P Pulse Ox O2 Delivery O2 Flow Rate FiO2 02/22/17 06:18 97.2 87 15 138/70 94 Intake and Output 02/21/17 02/21/17 02/22/17 08:00 16:00 00:00 Intake Total 0 ml 1590 ml Balance 0 ml 1590 ml Assessment & Plan Problem List: (1) Dementia of Alzheimer's type with behavioral disturbance ICD Code: G30.8 Assessment & Plan Estimated LOS: days patient continues confused demented, though no significant behavioral problems, compliant medications Justification for Cont. Inpt. At this time patient will decompensate placed in a lower level of care Discharge Planning To be determined Request HC Surrog/Guard Advoc?: Yes Rodolfo Corona MD Feb 22, 2017 07:58
[2017-02-22] MEDS: VALPROIC ACID SYRUP 250 MG/5 ML UDC PO SCH ×2 (08:44→22:03)
[2017-02-22] MEDS: risperiDONE ODT 1 MG TAB PO SCH (08:44)
[2017-02-22] MEDS: BENZTROPINE MESYLATE 1 MG TAB PO SCH ×2 (08:44→22:03)
[2017-02-22] MEDS: amLODIPine BESYLATE 5 MG TAB PO SCH (08:44)
[2017-02-22] MEDS: LISINOPRIL 20 MG TAB PO SCH ×2 (08:45→22:04)
[2017-02-22] MEDS: ASPIRIN 81 MG CHEW TAB PO SCH (08:45)
[2017-02-22] MEDS: levOCARNitine 10% ORAL SOLN 118 ML BTL PO SCH ×3 (09:00→18:00)
[2017-02-22 18:33] VITALS: BP 129/67; PULSE 87; RESP 16; TEMP 97.3; O2SAT 94
[2017-02-22] MEDS: ATORVASTATIN 20 MG TAB PO SCH (22:03)
[2017-02-22] MEDS: risperiDONE ODT 2 MG TAB PO SCH (22:04)
[2017-02-23] MEDS: LEVOTHYROXINE SODIUM 50 MCG TAB PO SCH (05:54)
[2017-02-23 06:14] VITALS: BP 132/69; PULSE 77; RESP 16; TEMP 97.9; O2SAT 99
[2017-02-23 07:15] VITALS: BP 132/69; PULSE 77; RESP 16; TEMP 97.9; O2SAT 99
[2017-02-23] MEDS: risperiDONE ODT 1 MG TAB PO SCH (08:31)
[2017-02-23] MEDS: VALPROIC ACID SYRUP 250 MG/5 ML UDC PO SCH ×2 (08:32→21:10)
[2017-02-23] MEDS: BENZTROPINE MESYLATE 1 MG TAB PO SCH ×2 (08:32→21:09)
[2017-02-23] MEDS: ASPIRIN 81 MG CHEW TAB PO SCH (08:33)
[2017-02-23] MEDS: amLODIPine BESYLATE 5 MG TAB PO SCH (08:33)
[2017-02-23] MEDS: LISINOPRIL 20 MG TAB PO SCH ×2 (08:33→21:08)
[2017-02-23] MEDS: levOCARNitine 10% ORAL SOLN 118 ML BTL PO SCH ×3 (08:33→17:02)
[2017-02-23 09:54] LABS: BICARBONATE 28.1 MEQ/L (21.0-32.0); POTASSIUM 4.6 MEQ/L (3.5-5.1)
--- NOTE | 2017-02-23 11:48 | HHI.PYPN ---
Subjective Remarks Patient was seen and case discussed with nursing. Patient appears more organized and logical than her last visit. Her mood today is "a little bad." She is less labile. Alert and oriented times to. Compliant with the medications and behaving well on the unit Objective Alert: Yes (sedated) [place]: Person, Place Mood: Anxious Affect: Blunted Memory Intact: Comment (impaired) Hallucinations: Other (denies) Delusions: No Delusion Type: Other (none) Suicidal: Ideation (none voiced) Homicidal: Ideation (none voiced) Insight/Judgment Poor Labs Test 02/23/17 08:18 Sodium Level 142 MEQ/L Potassium Level 4.6 MEQ/L Chloride Level 107 MEQ/L Carbon Dioxide Level 28.1 MEQ/L Anion Gap 7 MEQ/L Blood Urea Nitrogen 38 MG/DL Creatinine 1.08 MG/DL Estimat Glomerular Filtration 49 ML/MIN Rate Random Glucose 75 MG/DL Calcium Level 9.1 MG/DL Date/Time Procedure Status Source Growth 02/18/17 17:15 Urine Culture - Final Complete Urine Clean Catch 50-100,000 CFU/ML MIXED GRAM POSITIVE... Vitals/IOs Vital Signs Date Time Temp Pulse Resp B/P Pulse Ox O2 Delivery O2 Flow Rate FiO2 02/23/17 07:15 97.9 77 16 132/69 99 Intake and Output 02/22/17 02/22/17 02/23/17 08:00 16:00 00:00 Intake Total 960 ml 360 ml Balance 960 ml 360 ml Assessment & Plan Problem List: (1) Dementia of Alzheimer's type with behavioral disturbance ICD Code: G30.8 Assessment & Plan Continue current treatment plan Justification for Cont. Inpt. Patient will decompensate in a less restrictive setting Request HC Surrog/Guard Advoc?: Yes Gustavo Amador DO Feb 23, 2017 11:48
[2017-02-23 16:32] VITALS: BP 146/67; PULSE 88; RESP 18; TEMP 97.1; O2SAT 99
[2017-02-23] MEDS: risperiDONE ODT 2 MG TAB PO SCH (21:09)
[2017-02-23] MEDS: ATORVASTATIN 20 MG TAB PO SCH (21:09)
[2017-02-24] MEDS: LEVOTHYROXINE SODIUM 50 MCG TAB PO SCH ×2 (06:00→06:17)
[2017-02-24 06:01] VITALS: BP 124/57; PULSE 102; RESP 16; TEMP 98.8; O2SAT 96
[2017-02-24 07:15] VITALS: BP 124/57; PULSE 102; RESP 16; TEMP 98.8; O2SAT 96
[2017-02-24] MEDS: levOCARNitine 10% ORAL SOLN 118 ML BTL PO SCH ×3 (09:00→17:06)
[2017-02-24] MEDS: risperiDONE ODT 1 MG TAB PO SCH (09:00)
[2017-02-24] MEDS: LISINOPRIL 20 MG TAB PO SCH ×2 (09:41→20:29)
[2017-02-24] MEDS: BENZTROPINE MESYLATE 1 MG TAB PO SCH ×2 (09:41→20:29)
[2017-02-24] MEDS: ASPIRIN 81 MG CHEW TAB PO SCH (09:41)
[2017-02-24] MEDS: amLODIPine BESYLATE 5 MG TAB PO SCH (09:41)
[2017-02-24] MEDS: VALPROIC ACID SYRUP 250 MG/5 ML UDC PO SCH ×2 (09:42→20:31)
--- NOTE | 2017-02-24 11:37 | HHI.PYPN ---
Subjective Remarks Patient was seen and case discussed with nursing. Patient continues to behave well on the unit and has not had any outbursts. She is less labile and is less responsive to internal stimuli. Alert and oriented 1. Compliant with her medications. Denies suicidal ideation intent or plan Objective Alert: Yes (sedated) [place]: Person Mood: Calm Affect: Blunted Memory Intact: Comment (impaired) Hallucinations: Other (denies) Delusions: No Delusion Type: Other (none) Suicidal: Ideation (none voiced) Homicidal: Ideation (none voiced) Insight/Judgment Poor Vitals/IOs Vital Signs Date Time Temp Pulse Resp B/P Pulse Ox O2 Delivery O2 Flow Rate FiO2 02/24/17 07:15 98.8 102 16 124/57 96 Intake and Output 02/23/17 02/23/17 02/24/17 08:00 16:00 00:00 Intake Total 240 ml 1080 ml 1080 ml Balance 240 ml 1080 ml 1080 ml Assessment & Plan Problem List: (1) Dementia of Alzheimer's type with behavioral disturbance ICD Code: G30.8 Assessment & Plan Continue current treatment plan Justification for Cont. Inpt. Patient will decompensate in the less restrictive setting Request HC Surrog/Guard Advoc?: Yes Gustavo Amador DO Feb 24, 2017 11:37
[2017-02-24] MEDS: ACETAMINOPHEN 325 MG TAB PO PRN (12:58)
[2017-02-24] MEDS: risperiDONE ODT 2 MG TAB PO SCH (20:29)
[2017-02-24] MEDS: ATORVASTATIN 20 MG TAB PO SCH (20:30)
[2017-02-24 21:12] VITALS: PULSE 82; TEMP 98.2; O2SAT 100
[2017-02-25] MEDS: LEVOTHYROXINE SODIUM 50 MCG TAB PO SCH (05:43)
[2017-02-25 05:58] VITALS: BP 129/60; PULSE 88; RESP 20; TEMP 97.9; O2SAT 99
[2017-02-25] MEDS: levOCARNitine 10% ORAL SOLN 118 ML BTL PO SCH ×3 (09:00→18:00)
[2017-02-25] MEDS: VALPROIC ACID SYRUP 250 MG/5 ML UDC PO SCH ×2 (09:02→20:54)
[2017-02-25] MEDS: amLODIPine BESYLATE 5 MG TAB PO SCH (09:02)
[2017-02-25] MEDS: risperiDONE ODT 1 MG TAB PO SCH (09:02)
[2017-02-25] MEDS: BENZTROPINE MESYLATE 1 MG TAB PO SCH ×2 (09:03→20:54)
[2017-02-25] MEDS: ASPIRIN 81 MG CHEW TAB PO SCH (09:03)
[2017-02-25] MEDS: LISINOPRIL 20 MG TAB PO SCH ×2 (09:04→20:54)
--- NOTE | 2017-02-25 15:01 | HHI.PYPN ---
Subjective Remarks Patient seen and examined with nurse in coverage for Dr. Corona. Chart reviewed. Case discussed with nursing staff who reports patient has been pleasant and confused but internally stimulated. On my examination today, the patient is dozing in the day area. She is calm and cooperative with examination. She offers no particular complaints. No reported side effects from medications. Review of Systems ROS Limitations: Poor Historian Except as stated in HPI: all other systems reviewed are Neg Objective Alert: Yes [place]: Person Mood: Calm Affect: Blunted Memory Intact: Comment (not formally assessed) Hallucinations: Other (none) Delusions: No Delusion Type: Other (none) Suicidal: Ideation (no SI voiced) Homicidal: Ideation (no HI voiced) Insight/Judgment Poor Remarks No abnormal motor movements noted Labs Labs reviewed. Vitals/IOs Vital Signs Date Time Temp Pulse Resp B/P Pulse Ox O2 Delivery O2 Flow Rate FiO2 02/25/17 05:58 97.9 88 20 129/60 99 Intake and Output 02/24/17 02/24/17 02/25/17 08:00 16:00 00:00 Intake Total 240 ml 720 ml 480 ml Balance 240 ml 720 ml 480 ml Assessment & Plan Problem List: (1) Dementia of Alzheimer's type with behavioral disturbance ICD Code: G30.8 Assessment & Plan Continue current psychotropic medications as ordered including Risperdal and Depakote. Continue to monitor on the inpatient psychiatric unit. Continue other medications and care as ordered. Justification for Cont. Inpt. High risk for decompensation in a less restrictive environment Discharge Planning Case discussed with counselor, patient requires placement. Request HC Surrog/Guard Advoc?: Yes Problem Qualifiers (1) Dementia of Alzheimer's type with behavioral disturbance: Qualified Code: G30.8 - Alzheimer's disease of other onset with behavioral disturbance Desmond Connolly MD Feb 25, 2017 15:01
[2017-02-25 20:00] VITALS: BP 159/94; PULSE 97; RESP 16; TEMP 97.6; O2SAT 96
[2017-02-25] MEDS: ATORVASTATIN 20 MG TAB PO SCH (20:54)
[2017-02-25] MEDS: risperiDONE ODT 2 MG TAB PO SCH (20:55)
[2017-02-26] MEDS: LEVOTHYROXINE SODIUM 50 MCG TAB PO SCH (05:44)
[2017-02-26 05:54] VITALS: BP 100/70; PULSE 88; RESP 18; TEMP 98.1; O2SAT 97
--- NOTE | 2017-02-26 08:43 | HHI.PR ---
Subjective Remarks Patient seen in day room. Cooperative with exam. Denies any pain or problems Medication complaint per staff. Objective Vital Signs Date Time Temp Pulse Resp B/P Pulse Ox O2 Delivery O2 Flow Rate FiO2 02/26/17 05:54 98.1 88 18 100/70 97 02/25/17 20:00 97.6 97 16 159/94 96 I/O 02/25/17 02/25/17 02/25/17 02/26/17 02/26/17 02/26/17 07:00 15:00 23:00 07:00 15:00 23:00 Intake Total 0 ml 1080 ml Balance 0 ml 1080 ml Intake Oral 0 ml 1080 ml # Voids 3 3 2 Result Diagram: 02/23/17 0818 Objective Remarks GENERAL: alert and cooperative SKIN: Warm and dry. HEAD: Normocephalic. EYES: No scleral icterus. No injection or drainage. NECK: Supple, trachea midline. No JVD or lymphadenopathy. CARDIOVASCULAR: Regular rate and rhythm without murmurs, gallops, or rubs. RESPIRATORY: Breath sounds equal bilaterally. No accessory muscle use. GASTROINTESTINAL: Abdomen soft, non-tender, nondistended. MUSCULOSKELETAL: No cyanosis, or edema. BACK: Nontender without obvious deformity. No CVA tenderness. Medications and IVs Current Medications Medications (Trade) Dose Ordered Sig/Natalio Route Start Time Stop Time Status Last Admin (Ativan) 0.5 mg Q12H PRN PO 01/07/17 17:30 02/16/17 21:24 (Ativan Inj) 0.5 mg Q12H PRN IM 01/07/17 17:30 02/07/17 15:19 (Catapres) 0.1 mg Q6H PRN PO 01/07/17 18:45 (Tylenol) 650 mg Q4H PRN PO 01/08/17 13:45 02/24/17 12:58 (Milk Of Magnesia Liq) 30 ml DAILY PRN PO 01/08/17 13:45 01/16/17 20:54 (Mag-Al Plus Susp Liq) 30 ml Q6H PRN PO 01/08/17 13:45 (Aspirin Chew) 81 mg DAILY PO 01/09/17 09:00 02/25/17 09:03 (Lipitor) 20 mg HS PO 01/08/17 21:00 02/25/17 20:54 (Synthroid) 50 mcg DAILY@06 PO 01/09/17 06:00 02/26/17 05:44 (Norvasc) 10 mg DAILY PO 01/17/17 09:00 02/25/17 09:02 (Depakene Liq) 500 mg DAILY PO 01/22/17 09:00 02/25/17 09:02 (Depakene Liq) 750 mg HS PO 01/21/17 21:00 02/25/17 20:54 (Pill Splitter) 1 ea UNSCH PRN OTHER 01/21/17 16:15 (Prinivil) 20 mg BID PO 01/22/17 21:00 02/25/17 20:54 (Tylenol) 650 mg Q4H PRN PO 01/25/17 07:45 (Cogentin) 0.5 mg BID PO 01/25/17 21:00 02/25/17 20:54 (Remeron) 7.5 mg HS PO 01/27/17 21:00 Hold 02/01/17 21:10 (Ativan) 0.5 mg DAILY@18 PO 02/01/17 18:00 Hold 02/01/17 17:34 (Carnitor 10% Liq) 3 ml TID PO 02/02/17 18:00 02/25/17 13:00 (risperDAL M-TAB) 2 mg HS PO 02/20/17 21:00 02/25/17 20:55 (risperDAL M-TAB) 1 mg DAILY PO 02/21/17 09:00 02/25/17 09:02 Assessment and Plan Problem List: (1) Dementia Status: Chronic Plan: Cooperative and med complaint per staff (2) Hyperlipemia Status: Chronic Plan: Continue statin (3) Agitation Status: Acute Plan: Cooperative at visit. On Ativan and Risperdal. (4) Hypertension Status: Acute Plan: Continue current regimen blood pressure labile will monitor (5) Schizophrenia Status: Chronic Plan: Managed per psych (6) Suprapubic tenderness Status: Resolved Plan: Resolved. (7) Discomfort of back Status: Resolved Plan: Acetaminophen ordered PRN. No discomfort noted on palpation (8) Hyperkalemia Status: Resolved Plan: Repeat WNL. Assessment and Plan Assessment and plan discussed with Dr. Vásquez Problem Qualifiers (1) Dementia: Qualified Code: F03.91 - Dementia with behavioral disturbance, unspecified dementia type (2) Hyperlipemia: Qualified Code: E78.2 - Mixed hyperlipidemia (3) Hypertension: Qualified Code: I10 - Essential hypertension (4) Schizophrenia: Qualified Code: F20.9 - Schizophrenia, unspecified type Maria Esther Jhaveri Feb 26, 2017 08:43
[2017-02-26] MEDS: levOCARNitine 10% ORAL SOLN 118 ML BTL PO SCH ×3 (09:00→17:42)
[2017-02-26] MEDS: amLODIPine BESYLATE 5 MG TAB PO SCH (09:00)
[2017-02-26] MEDS: LISINOPRIL 20 MG TAB PO SCH ×2 (09:00→20:41)
[2017-02-26] MEDS: VALPROIC ACID SYRUP 250 MG/5 ML UDC PO SCH ×2 (09:20→20:42)
[2017-02-26] MEDS: risperiDONE ODT 1 MG TAB PO SCH (09:21)
[2017-02-26] MEDS: ASPIRIN 81 MG CHEW TAB PO SCH (09:21)
[2017-02-26] MEDS: BENZTROPINE MESYLATE 1 MG TAB PO SCH ×2 (09:21→20:41)
--- NOTE | 2017-02-26 15:08 | HHI.PYPN ---
Subjective Remarks Patient seen and examined. Chart reviewed. Case discussed with nurse, counselor and occupational therapist in treatment team. Per nursing staff, patient has been no behavioral problem but remains somewhat internally stimulated. On my examination today, the patient says that she is doing "good. " She is calm and pleasant. She does indeed remain a little internally preoccupied. No evident side effects from medications. Review of Systems ROS Limitations: Poor Historian Except as stated in HPI: all other systems reviewed are Neg Objective Alert: Yes [place]: Person Mood: Calm Affect: Blunted Memory Intact: Comment (not assessed) Hallucinations: Other (appears little internally preoccupied) Delusions: No Delusion Type: Other (no delusions) Suicidal: Ideation (no SI voiced) Homicidal: Ideation (no HI voiced) Insight/Judgment Poor Remarks No abnormal motor movements noted. Labs Labs reviewed. Vitals/IOs Vital Signs Date Time Temp Pulse Resp B/P Pulse Ox O2 Delivery O2 Flow Rate FiO2 02/26/17 05:54 98.1 88 18 100/70 97 Intake and Output 02/25/17 02/25/17 02/26/17 08:00 16:00 00:00 Intake Total 0 ml 1080 ml Balance 0 ml 1080 ml Assessment & Plan Problem List: (1) Dementia of Alzheimer's type with behavioral disturbance ICD Code: G30.8 Assessment & Plan Continue current psychotropics as ordered. Continue other medications and care as ordered. Justification for Cont. Inpt. Risk for decompensation in a less restrictive environment. Discharge Planning Per counselor, placement remains challenging. We could consider home with home health care as a potential alternative. Counselor to discuss with family. Request HC Surrog/Guard Advoc?: Yes Problem Qualifiers (1) Dementia of Alzheimer's type with behavioral disturbance: Qualified Code: G30.8 - Alzheimer's disease of other onset with behavioral disturbance Desmond Connolly MD Feb 26, 2017 15:08
[2017-02-26 18:00] VITALS: BP 138/92; PULSE 76; RESP 18; O2SAT 100
[2017-02-26] MEDS: risperiDONE ODT 2 MG TAB PO SCH (20:41)
[2017-02-26] MEDS: ATORVASTATIN 20 MG TAB PO SCH (20:41)
[2017-02-27 05:22] VITALS: BP 119/93; PULSE 98; RESP 16; TEMP 97.6; O2SAT 98
[2017-02-27] MEDS: LEVOTHYROXINE SODIUM 50 MCG TAB PO SCH (06:06)
[2017-02-27] MEDS: ASPIRIN 81 MG CHEW TAB PO SCH (09:00)
[2017-02-27] MEDS: LISINOPRIL 20 MG TAB PO SCH ×2 (09:00→20:32)
[2017-02-27] MEDS: levOCARNitine 10% ORAL SOLN 118 ML BTL PO SCH ×3 (09:00→17:03)
[2017-02-27] MEDS: risperiDONE ODT 1 MG TAB PO SCH (09:00)
[2017-02-27] MEDS: amLODIPine BESYLATE 5 MG TAB PO SCH (09:00)
[2017-02-27] MEDS: BENZTROPINE MESYLATE 1 MG TAB PO SCH ×2 (09:00→20:24)
[2017-02-27] MEDS: VALPROIC ACID SYRUP 250 MG/5 ML UDC PO SCH ×2 (09:00→20:22)
--- NOTE | 2017-02-27 09:16 | HHI.PYPN ---
Subjective Remarks Patient seen and case discussed with nursing staff. Per nursing staff, no behavioral problems noted. Chart reviewed. For me today, patient appears to be in no acute distress. She is standing in the champion talking to herself. No evident side effects from medications. Review of Systems ROS Limitations: Poor Historian Except as stated in HPI: all other systems reviewed are Neg Objective Alert: Yes [place]: Person Mood: Calm Affect: Blunted Memory Intact: Comment (not assessed) Hallucinations: Other (internally preoccupied) Delusions: No Delusion Type: Other (no delusions) Suicidal: Ideation (none) Homicidal: Ideation (none) Insight/Judgment Poor Remarks No motor abnormalities noted Labs Labs reviewed. No new labs. Vitals/IOs Vital Signs Date Time Temp Pulse Resp B/P Pulse Ox O2 Delivery O2 Flow Rate FiO2 02/27/17 05:22 97.6 98 16 119/93 98 Intake and Output 02/26/17 02/26/17 02/27/17 08:00 16:00 00:00 Intake Total 240 ml 960 ml Balance 240 ml 960 ml Assessment & Plan Problem List: (1) Dementia of Alzheimer's type with behavioral disturbance ICD Code: G30.8 Assessment & Plan Continue current psychiatric medications as ordered. Continue to monitor on the inpatient unit. Continue other medications and care as ordered. Justification for Cont. Inpt. High risk for decompensation in a less restrictive environment. Discharge Planning Placement is proving difficult. Home with home health care may represent an alternative plan. Request HC Surrog/Guard Advoc?: Yes Problem Qualifiers (1) Dementia of Alzheimer's type with behavioral disturbance: Qualified Code: G30.8 - Alzheimer's disease of other onset with behavioral disturbance Desmond Connolly MD Feb 27, 2017 09:16
[2017-02-27 18:00] VITALS: BP 102/55; PULSE 79; RESP 17; TEMP 98.1; O2SAT 98
[2017-02-27] MEDS: risperiDONE ODT 2 MG TAB PO SCH (20:23)
[2017-02-27] MEDS: ATORVASTATIN 20 MG TAB PO SCH (20:23)
[2017-02-28] MEDS: LEVOTHYROXINE SODIUM 50 MCG TAB PO SCH (06:25)
[2017-02-28 08:30] VITALS: BP 158/78; PULSE 80; RESP 16
[2017-02-28] MEDS: ASPIRIN 81 MG CHEW TAB PO SCH (08:36)
[2017-02-28] MEDS: VALPROIC ACID SYRUP 250 MG/5 ML UDC PO SCH ×2 (08:37→20:32)
[2017-02-28] MEDS: amLODIPine BESYLATE 5 MG TAB PO SCH (08:37)
[2017-02-28] MEDS: levOCARNitine 10% ORAL SOLN 118 ML BTL PO SCH ×3 (08:37→16:17)
[2017-02-28] MEDS: LISINOPRIL 20 MG TAB PO SCH ×2 (08:38→20:32)
[2017-02-28] MEDS: BENZTROPINE MESYLATE 1 MG TAB PO SCH ×2 (08:58→20:32)
[2017-02-28] MEDS: risperiDONE ODT 1 MG TAB PO SCH (08:59)
--- NOTE | 2017-02-28 15:00 | HHI.PYPN ---
Subjective Remarks Patient seen and examined. Chart reviewed. Case discussed with nursing staff. For me today, patient is calm. She is ambulating around the unit talking to herself. She does not appear to be in any acute physical distress. No evident side effects from medications. No other issues noted. Review of Systems ROS Limitations: Poor Historian Objective Alert: Yes [place]: Person Mood: Calm Affect: Blunted Memory Intact: Comment (not formally assessed) Hallucinations: Other (somewhat internally preoccupied) Delusions: No Delusion Type: Other (none noted) Suicidal: Ideation (no SI) Homicidal: Ideation (no HI) Insight/Judgment Poor Remarks No motor abnormalities noted Labs Labs reviewed. Vitals/IOs Vital Signs Date Time Temp Pulse Resp B/P Pulse Ox O2 Delivery O2 Flow Rate FiO2 02/28/17 08:30 80 16 158/78 02/27/17 18:00 98.1 98 Intake and Output 02/27/17 02/27/17 02/28/17 08:00 16:00 00:00 Intake Total 240 ml 720 ml Balance 240 ml 720 ml Weight reviewed. Patient has gained approximately 15 pounds since admission but her BMI remains within the normal range. Assessment & Plan Problem List: (1) Dementia of Alzheimer's type with behavioral disturbance ICD Code: G30.8 Assessment & Plan Continue current psychiatric medications as ordered. Continue other medications and care as ordered. Continue to monitor on the inpatient unit. Justification for Cont. Inpt. High risk for decompensation in a less restrictive environment. Discharge Planning Counselor continues to work on placement Request HC Surrog/Guard Advoc?: Yes Problem Qualifiers (1) Dementia of Alzheimer's type with behavioral disturbance: Qualified Code: G30.8 - Alzheimer's disease of other onset with behavioral disturbance Desmond Connolly MD Feb 28, 2017 15:00
[2017-02-28 18:40] VITALS: BP 135/61; PULSE 74; RESP 18; TEMP 97.8; O2SAT 97
[2017-02-28] MEDS: risperiDONE ODT 2 MG TAB PO SCH (20:32)
[2017-02-28] MEDS: ATORVASTATIN 20 MG TAB PO SCH (20:32)
[2017-03-01] MEDS: LEVOTHYROXINE SODIUM 50 MCG TAB PO SCH (05:28)
[2017-03-01 06:11] VITALS: BP 146/64; PULSE 63; RESP 16; TEMP 98; O2SAT 97
[2017-03-01] MEDS: ASPIRIN 81 MG CHEW TAB PO SCH (09:00)
[2017-03-01] MEDS: levOCARNitine 10% ORAL SOLN 118 ML BTL PO SCH ×3 (09:00→18:00)
[2017-03-01] MEDS: risperiDONE ODT 1 MG TAB PO SCH (09:05)
[2017-03-01] MEDS: amLODIPine BESYLATE 5 MG TAB PO SCH (09:05)
[2017-03-01] MEDS: BENZTROPINE MESYLATE 1 MG TAB PO SCH ×2 (09:05→20:49)
[2017-03-01] MEDS: LISINOPRIL 20 MG TAB PO SCH ×2 (09:05→20:50)
[2017-03-01] MEDS: VALPROIC ACID SYRUP 250 MG/5 ML UDC PO SCH ×2 (09:06→20:49)
--- NOTE | 2017-03-01 14:45 | HHI.PYPN ---
Subjective Remarks patient seen and case discussed with nursing staff. Chart reviewed. Per nursing staff, patient has been no behavioral problem. I find the patient out on the unit. She is talking to herself but calm and not acting out. No evident physical distress. No evident side effects from medications. Review of Systems ROS Limitations: Poor Historian Objective Alert: Yes [place]: Person Mood: Calm Affect: Blunted Memory Intact: Comment (not formally assessed) Hallucinations: Other (remains internally stimulated) Delusions: No Delusion Type: Other (again none noted) Suicidal: Ideation (no SI) Homicidal: Ideation (no HI) Insight/Judgment Poor Remarks No motor abnormalities noted. Labs Labs reviewed. Vitals/IOs Vital Signs Date Time Temp Pulse Resp B/P Pulse Ox O2 Delivery O2 Flow Rate FiO2 03/01/17 06:11 98.0 63 16 146/64 97 Intake and Output 02/28/17 02/28/17 03/01/17 08:00 16:00 00:00 Intake Total 0 ml 960 ml Balance 0 ml 960 ml Assessment & Plan Problem List: (1) Dementia of Alzheimer's type with behavioral disturbance ICD Code: G30.8 Assessment & Plan Continue current psychiatric medications as ordered. Continue to monitor on the inpatient unit. Continue other medications and care as ordered. Justification for Cont. Inpt. High risk for decompensation in a less restrictive environment. Discharge Planning Counselor has spoken to patient's son who is open to the idea of home with home health. Counselor tells me that he will need to discuss it with the rest of the family and get back to us. Request HC Surrog/Guard Advoc?: Yes Problem Qualifiers (1) Dementia of Alzheimer's type with behavioral disturbance: Qualified Code: G30.8 - Alzheimer's disease of other onset with behavioral disturbance Desmond Connolly MD Mar 01, 2017 14:45
[2017-03-01 18:00] VITALS: BP 100/60; PULSE 80; RESP 16; TEMP 97.2; O2SAT 98
[2017-03-01] MEDS: ATORVASTATIN 20 MG TAB PO SCH (20:49)
[2017-03-01] MEDS: risperiDONE ODT 2 MG TAB PO SCH (20:49)
[2017-03-02] MEDS: LEVOTHYROXINE SODIUM 50 MCG TAB PO SCH (05:53)
[2017-03-02 06:21] VITALS: BP 126/59; PULSE 80; RESP 16; TEMP 98.1; O2SAT 97
[2017-03-02] MEDS: risperiDONE ODT 1 MG TAB PO SCH (08:21)
[2017-03-02] MEDS: BENZTROPINE MESYLATE 1 MG TAB PO SCH ×2 (08:22→20:30)
[2017-03-02] MEDS: VALPROIC ACID SYRUP 250 MG/5 ML UDC PO SCH ×2 (08:22→20:30)
[2017-03-02] MEDS: ASPIRIN 81 MG CHEW TAB PO SCH (08:22)
[2017-03-02] MEDS: LISINOPRIL 20 MG TAB PO SCH ×2 (08:23→20:31)
[2017-03-02] MEDS: amLODIPine BESYLATE 5 MG TAB PO SCH (08:23)
[2017-03-02] MEDS: levOCARNitine 10% ORAL SOLN 118 ML BTL PO SCH ×3 (08:23→17:41)
--- NOTE | 2017-03-02 11:16 | HHI.PYPN ---
Subjective Remarks Pt seen and discussed with staff. Pt has been compliant with medications and care. No agitation or behavioral problems on unit. No SI/HI.Mood euthymic. Objective Alert: Yes [place]: Person Mood: Calm Affect: Restricted Memory Intact: Comment (impaired) Hallucinations: Other (appears less internally stimulated) Delusions: No Delusion Type: Other (none) Suicidal: Ideation (no SI) Homicidal: Ideation (no HI) Insight/Judgment poor Vitals/IOs Vital Signs Date Time Temp Pulse Resp B/P Pulse Ox O2 Delivery O2 Flow Rate FiO2 03/02/17 06:21 98.1 80 16 126/59 97 Intake and Output 03/01/17 03/01/17 03/02/17 08:00 16:00 00:00 Intake Total 0 ml 480 ml Balance 0 ml 480 ml Assessment & Plan Problem List: (1) Dementia of Alzheimer's type with behavioral disturbance ICD Code: G30.8 Assessment & Plan Continue current tx plan. Estimated LOS: days Justification for Cont. Inpt. risk of decompensation Request HC Surrog/Guard Advoc?: Yes Problem Qualifiers (1) Dementia of Alzheimer's type with behavioral disturbance: Qualified Code: G30.8 - Alzheimer's disease of other onset with behavioral disturbance Keli Wild MD Mar 02, 2017 11:16
[2017-03-02] MEDS: LORazepam 0.5 MG TAB age > 65 yrs PO PRN (12:01)
[2017-03-02 18:07] VITALS: BP 128/63; PULSE 77; RESP 16; TEMP 97.4; O2SAT 98
[2017-03-02] MEDS: risperiDONE ODT 2 MG TAB PO SCH (20:30)
[2017-03-02] MEDS: ATORVASTATIN 20 MG TAB PO SCH (20:30)
[2017-03-03 05:34] VITALS: BP 140/62; PULSE 17; RESP 17; TEMP 97.6; O2SAT 98
[2017-03-03 06:02] VITALS: BP 140/62; PULSE 78; RESP 17; TEMP 97.6; O2SAT 98
[2017-03-03] MEDS: LEVOTHYROXINE SODIUM 50 MCG TAB PO SCH (06:38)
[2017-03-03 08:37] LABS: AUTOMATED NEUTROPHIL # 2.2 TH/MM3 (1.8-7.7); BASOPHIL % 0.8 % (0.0-2.0); EOSINOPHIL # 0.1 TH/MM3 (0-0.4); EOSINOPHIL % 3.5 % (0.0-4.0); HEMATOCRIT 30.4 % (35.0-46.0); HEMO FLAGS DIFF FINAL; LYMPH % 32.5 % (9.0-44.0); LYMPHOCYTE # 1.4 TH/MM3 (1.0-4.8); MEAN CORPUSCULAR HEMOGLOBIN 28.4 PG (27.0-34.0); MEAN CORPUSCULAR HGB CONC 32.3 % (32.0-36.0); MONO % 10.7 % (0.0-8.0); NEUT % 52.5 % (16.0-70.0); PLATELET COUNT 121 TH/MM3 (150-450); RED BLOOD COUNT 3.46 MIL/MM3 (4.00-5.30); RED CELL DISTRIBUTION WIDTH 14.3 % (11.6-17.2); WHITE BLOOD COUNT 4.2 TH/MM3 (4.0-11.0)
[2017-03-03 08:47] LABS: ALT (GPT) 18 U/L (10-53); ANION GAP 4 MEQ/L (5-15); AST (GOT) 12 U/L (15-37); BICARBONATE 29.9 MEQ/L (21.0-32.0); BLOOD UREA NITROGEN 48 MG/DL (7-18); CHLORIDE 109 MEQ/L (98-107); GLOMERULAR FILTRATION RATE 47 ML/MIN (>89); SODIUM (NA) 143 MEQ/L (136-145)
[2017-03-03] MEDS: amLODIPine BESYLATE 5 MG TAB PO SCH (08:48)
[2017-03-03] MEDS: risperiDONE ODT 1 MG TAB PO SCH (08:48)
[2017-03-03] MEDS: VALPROIC ACID SYRUP 250 MG/5 ML UDC PO SCH ×2 (08:48→19:58)
[2017-03-03] MEDS: levOCARNitine 10% ORAL SOLN 118 ML BTL PO SCH ×3 (08:48→17:26)
[2017-03-03] MEDS: BENZTROPINE MESYLATE 1 MG TAB PO SCH ×2 (08:48→19:59)
[2017-03-03] MEDS: LISINOPRIL 20 MG TAB PO SCH ×2 (08:48→19:59)
[2017-03-03] MEDS: ASPIRIN 81 MG CHEW TAB PO SCH (08:49)
[2017-03-03 08:58] LABS: ALKALINE PHOSPHATASE 57 U/L (45-117); FREE T3 1.93 PG/ML (2.18-3.98); TOTAL BILIRUBIN ADULT 0.2 MG/DL (0.2-1.0)
[2017-03-03 09:23] LABS: POTASSIUM 5.7 MEQ/L (3.5-5.1)
--- NOTE | 2017-03-03 10:56 | HHI.PR ---
Subjective Remarks no new problema today behavior much better no syncope Objective Vital Signs Date Time Temp Pulse Resp B/P Pulse Ox O2 Delivery O2 Flow Rate FiO2 03/03/17 06:02 97.6 78 17 140/62 98 03/03/17 05:34 97.6 17 17 140/62 98 03/02/17 18:07 97.4 77 16 128/63 98 I/O 03/02/17 03/02/17 03/02/17 03/03/17 03/03/17 03/03/17 07:00 15:00 23:00 07:00 15:00 23:00 Intake Total 2200 ml Balance 2200 ml Intake Oral 2200 ml # Voids 2 3 2 Result Diagram: 03/03/1771403/03/17714 Objective Remarks GENERAL: Well-nourished, well-developed patient. SKIN: Warm and dry. HEAD: Normocephalic. EYES: No scleral icterus. No injection or drainage. NECK: Supple, trachea midline. No JVD or lymphadenopathy. CARDIOVASCULAR: Regular rate and rhythm without murmurs, gallops, or rubs. RESPIRATORY: Breath sounds equal bilaterally. No accessory muscle use. GASTROINTESTINAL: Abdomen soft, non-tender, nondistended. EXTREMITIES: No cyanosis, or edema. NEUROLOGICAL: Awake, alert, agitated speaks only swedish wishes only to go home agitated that she is here Medications and IVs Inpatient Medications Acetaminophen (Tylenol) 650 mg Q4H PRN PO PAIN 1 TO 10 AND/OR AGITATION; Start 01/25/17 at 07:45 Al Hydrox/Mg Hydrox/Simethicone (Mag-Al Plus Susp Liq) 30 ml Q6H PRN PO DYSPEPSIA; Start 01/08/17 at 13:45 Amlodipine Besylate (Norvasc) 10 mg DAILY PO Last administered on 03/03/17 08: 48; Start 01/17/17 at 09:00 Aspirin (Aspirin Chew) 81 mg DAILY PO Last administered on 03/03/17 08:49; Start 01/09/17 at 09:00 Atorvastatin Calcium (Lipitor) 20 mg HS PO Last administered on 03/02/17 20:30 ; Start 01/08/17 at 21:00 Benztropine Mesylate (Cogentin) 0.5 mg BID PO Last administered on 03/03/17 08 :48; Start 01/25/17 at 21:00 Clonidine (Catapres) 0.1 mg Q6H PRN PO SBP> OR = 180, DBP> OR = 100; Start 01/07 at 18:45 Levocarnitine (Carnitor 10% Liq) 3 ml TID PO Last administered on 03/03/17 08: 48; Start 02/02/17 at 18:00 Levothyroxine Sodium (Synthroid) 50 mcg DAILY@06 PO Last administered on 06:38; Start 01/09/17 at 06:00 Lisinopril (Prinivil) 20 mg BID PO Last administered on 03/03/17 08:48; Start 01/22/17 at 21:00 Lorazepam (Ativan Inj) 0.5 mg Q12H PRN IM MODERATE TO SEVERE ANXIETY Last administered on 02/07/17 15:19; Start 01/07/17 at 17:30 Lorazepam (Ativan) 0.5 mg DAILY@18 PO Last administered on 02/01/17 17:34; Start 02/01/17 at 18:00; Status Hold Magnesium Hydroxide (Milk Of Magnesia Liq) 30 ml DAILY PRN PO CONSTIPATION Last administered on 01/16/17 20:54; Start 01/08/17 at 13:45 Mirtazapine (Remeron) 7.5 mg HS PO Last administered on 02/01/17 21:10; Start 01/27/17 at 21:00; Status Hold Miscellaneous (Pill Splitter) 1 ea UNSCH PRN OTHER SEE LABEL COMMENTS; Start at 16:15 Olanzapine (ZyPREXA ZYDIS ODT) 5 mg NOW ONCE PO Last administered on 01/07/17 11:00; Start 01/07/17 at 11:00; Stop 01/07/17 at 11:01; Status DC Ondansetron HCl (Zofran Inj) 4 mg ONCE STAT IV PUSH ; Start 02/02/17 at 07:14; Stop 02/02/17 at 07:18; Status DC Quetiapine Fumarate (SEROquel) 200 mg BID PO Last administered on 01/09/17 21: 00; Start 01/08/17 at 21:00; Stop 01/10/17 at 13:23; Status DC Risperidone (risperDAL M-TAB) 1 mg DAILY PO Last administered on 03/03/17 08: 48; Start 02/21/17 at 09:00 Valproic Acid (Depakene Liq) 750 mg HS PO Last administered on 03/02/17 20:30 ; Start 01/21/17 at 21:00 Assessment and Plan Problem List: (1) Altered mental status Status: Acute Plan: pt was obtunded earlier alert though confused now ct head no acute process lab shows no sign of infection or metabolic imbalance patients ams may have been due to medication will follow again in am please cill if there are further changes (2) Hyperkalemia Status: Resolved Plan: dc lisinopril give kxylate yany K in am Assessment and Plan ams medication related lab stable discussed with nursing pt is drinking will avoid iv fluids for now no further rx needed at this time Ascencion Vásquez DO Mar 03, 2017 10:56
[2017-03-03] MEDS ORDERED: SODIUM POLYSTYRENE SULFONATE SUSP 15 GM/60 ML CUP PO ONE (11:00)
--- NOTE | 2017-03-03 12:17 | HHI.PYPN ---
Subjective Remarks Pt seen and discussed with staff. She has been compliant and cooperative with care and medications.She slept well last night. She has been friendly and talkative today. No SI/HI Objective Alert: Yes [place]: Person Mood: Calm Affect: Euthymic Memory Intact: Comment (impaired) Hallucinations: Other (none) Delusions: No Delusion Type: Other (none) Suicidal: Ideation (no SI) Homicidal: Ideation (no HI) Insight/Judgment poor Labs Test 03/03/17 07:15 White Blood Count 4.2 TH/MM3 Red Blood Count 3.46 MIL/MM3 Hemoglobin 9.8 GM/DL Hematocrit 30.4 % Mean Corpuscular Volume 88.0 FL Mean Corpuscular Hemoglobin 28.4 PG Mean Corpuscular Hemoglobin 32.3 % Concent Red Cell Distribution Width 14.3 % Platelet Count 121 TH/MM3 Mean Platelet Volume 9.9 FL Neutrophils (%) (Auto) 52.5 % Lymphocytes (%) (Auto) 32.5 % Monocytes (%) (Auto) 10.7 % Eosinophils (%) (Auto) 3.5 % Basophils (%) (Auto) 0.8 % Neutrophils # (Auto) 2.2 TH/MM3 Lymphocytes # (Auto) 1.4 TH/MM3 Monocytes # (Auto) 0.5 TH/MM3 Eosinophils # (Auto) 0.1 TH/MM3 Basophils # (Auto) 0.0 TH/MM3 CBC Comment DIFF FINAL Differential Comment Sodium Level 143 MEQ/L Potassium Level 5.7 MEQ/L Chloride Level 109 MEQ/L Carbon Dioxide Level 29.9 MEQ/L Anion Gap 4 MEQ/L Blood Urea Nitrogen 48 MG/DL Creatinine 1.12 MG/DL Estimat Glomerular Filtration 47 ML/MIN Rate Random Glucose 74 MG/DL Calcium Level 8.7 MG/DL Total Bilirubin 0.2 MG/DL Aspartate Amino Transf 12 U/L (AST/SGOT) Alanine Aminotransferase 18 U/L (ALT/SGPT) Alkaline Phosphatase 57 U/L Total Protein 6.4 GM/DL Albumin 3.4 GM/DL Free Triiodothyronine (T3) 1.93 PG/ML pg/dL Vitals/IOs Vital Signs Date Time Temp Pulse Resp B/P Pulse Ox O2 Delivery O2 Flow Rate FiO2 03/03/17 06:02 97.6 78 17 140/62 98 Intake and Output 03/02/17 03/02/1717 08:00 16:00 00:00 Intake Total 2200 ml Balance 2200 ml Assessment & Plan Problem List: (1) Dementia of Alzheimer's type with behavioral disturbance ICD Code: G30.8 Assessment & Plan Continue current tx plan. Estimated LOS: days Justification for Cont. Inpt. risk for decompensation Request HC Surrog/Guard Advoc?: Yes Problem Qualifiers (1) Dementia of Alzheimer's type with behavioral disturbance: Qualified Code: G30.8 - Alzheimer's disease of other onset with behavioral disturbance Keli Wild MD Mar 03, 2017 12:17
[2017-03-03 19:27] VITALS: BP 103/66; PULSE 74; RESP 18
[2017-03-03] MEDS: risperiDONE ODT 2 MG TAB PO SCH (19:58)
[2017-03-03] MEDS: ATORVASTATIN 20 MG TAB PO SCH (19:58)
[2017-03-03] MEDS: LORazepam 0.5 MG TAB age > 65 yrs PO PRN (19:59)
[2017-03-04 05:42] VITALS: BP 129/74; PULSE 93; RESP 16; TEMP 97.3; O2SAT 94
[2017-03-04] MEDS: LEVOTHYROXINE SODIUM 50 MCG TAB PO SCH (06:04)
[2017-03-04 07:15] VITALS: BP 129/74; PULSE 93; RESP 16; TEMP 97.3; O2SAT 94
[2017-03-04] MEDS: VALPROIC ACID SYRUP 250 MG/5 ML UDC PO SCH ×2 (09:04→20:48)
[2017-03-04] MEDS: ASPIRIN 81 MG CHEW TAB PO SCH (09:04)
[2017-03-04] MEDS: LISINOPRIL 20 MG TAB PO SCH ×2 (09:04→20:48)
[2017-03-04] MEDS: amLODIPine BESYLATE 5 MG TAB PO SCH (09:05)
[2017-03-04] MEDS: BENZTROPINE MESYLATE 1 MG TAB PO SCH ×2 (09:05→20:47)
[2017-03-04] MEDS: risperiDONE ODT 1 MG TAB PO SCH (09:05)
[2017-03-04] MEDS: levOCARNitine 10% ORAL SOLN 118 ML BTL PO SCH ×3 (09:05→17:37)
[2017-03-04 10:02] LABS: BICARBONATE 28.1 MEQ/L (21.0-32.0); POTASSIUM 4.5 MEQ/L (3.5-5.1)
--- NOTE | 2017-03-04 11:27 | HHI.PYPN ---
Subjective Remarks Patient seen and case discussed with nursing staff. Chart reviewed. Patient apparently had an episode of altered mental status over the weekend but appears to be at her baseline mental state today. Per nursing staff, no behavioral problems. On my examination today, the patient is calm and ambulating around the unit. No evident side effects from medications. No other issues noted. Review of Systems ROS Limitations: Poor Historian Objective Alert: Yes [place]: Person Mood: Calm Affect: Blunted Memory Intact: Comment (impaired) Hallucinations: Other (no AVH) Delusions: No Delusion Type: Other (none) Suicidal: Ideation (no SI) Homicidal: Ideation (no HI) Insight/Judgment Poor Remarks No motor abnormalities noted Labs Labs reviewed. Renal function stable. BMP otherwise unremarkable. Test 03/04/17 08:00 Sodium Level 144 MEQ/L Potassium Level 4.5 MEQ/L Chloride Level 108 MEQ/L Carbon Dioxide Level 28.1 MEQ/L Anion Gap 8 MEQ/L Blood Urea Nitrogen 49 MG/DL Creatinine 1.12 MG/DL Estimat Glomerular Filtration 47 ML/MIN Rate Random Glucose 91 MG/DL Calcium Level 8.5 MG/DL Vitals/IOs Vital Signs Date Time Temp Pulse Resp B/P Pulse Ox O2 Delivery O2 Flow Rate FiO2 03/04/17 07:15 97.3 93 16 129/74 94 Intake and Output 03/03/17 03/03/17 03/04/17 08:00 16:00 00:00 Intake Total 480 ml Balance 480 ml Assessment & Plan Problem List: (1) Dementia of Alzheimer's type with behavioral disturbance ICD Code: G30.8 Assessment & Plan Continue current psychiatric medications as ordered. Hospitalist consult input noted and appreciated. Continue other care as ordered. Justification for Cont. Inpt. Discharge planning/risk for decompensation in a less restrictive environment Discharge Planning Counselor to follow-up with family regarding possibility of home with home health care. Request HC Surrog/Guard Advoc?: Yes Problem Qualifiers (1) Dementia of Alzheimer's type with behavioral disturbance: Qualified Code: G30.8 - Alzheimer's disease of other onset with behavioral disturbance Desmond Connolly MD March 04, 2017 11:27
[2017-03-04 18:00] VITALS: BP 149/63; PULSE 81; RESP 18; TEMP 98.1; O2SAT 95
[2017-03-04] MEDS: ATORVASTATIN 20 MG TAB PO SCH (20:47)
[2017-03-04] MEDS: risperiDONE ODT 2 MG TAB PO SCH (20:47)
[2017-03-05] MEDS: LEVOTHYROXINE SODIUM 50 MCG TAB PO SCH (05:42)
[2017-03-05 06:00] VITALS: BP 142/66; PULSE 93; RESP 17; TEMP 97.4; O2SAT 97
[2017-03-05 07:15] VITALS: BP 142/66; PULSE 93; RESP 17; TEMP 97.4; O2SAT 97
--- NOTE | 2017-03-05 07:36 | HHI.PR ---
Subjective Remarks Patient seen in day room. Cooperative with exam. Denies any pain or problems. No behavior issues noted per nursing. Objective Vital Signs Date Time Temp Pulse Resp B/P Pulse Ox O2 Delivery O2 Flow Rate FiO2 03/05/17 06:00 97.4 93 17 142/66 97 03/04/17 18:00 98.1 81 18 149/63 95 I/O 03/04/17 03/04/17 03/04/17 03/05/17 03/05/17 03/05/17 07:00 15:00 23:00 07:00 15:00 23:00 Intake Total 240 ml 840 ml Balance 240 ml 840 ml Intake Oral 240 ml 840 ml # Voids 2 2 1 Result Diagram: 03/03/17 0715 03/04/17 0800 Objective Remarks GENERAL: alert and cooperative SKIN: Warm and dry. HEAD: Normocephalic. EYES: No scleral icterus. No injection or drainage. NECK: Supple, trachea midline. No JVD or lymphadenopathy. CARDIOVASCULAR: Regular rate and rhythm without murmurs, gallops, or rubs. RESPIRATORY: Breath sounds equal bilaterally. No accessory muscle use. GASTROINTESTINAL: Abdomen soft, non-tender, nondistended. MUSCULOSKELETAL: No cyanosis, or edema. BACK: Nontender without obvious deformity. No CVA tenderness. Medications and IVs Current Medications Medications (Trade) Dose Ordered Sig/Natalio Route Start Time Stop Time Status Last Admin (Ativan) 0.5 mg Q12H PRN PO 01/07/17 17:30 03/03/17 19:59 (Ativan Inj) 0.5 mg Q12H PRN IM 01/07/17 17:30 02/07/17 15:19 (Catapres) 0.1 mg Q6H PRN PO 01/07/17 18:45 (Tylenol) 650 mg Q4H PRN PO 01/08/17 13:45 02/24/17 12:58 (Milk Of Magnesia Liq) 30 ml DAILY PRN PO 01/08/17 13:45 01/16/17 20:54 (Mag-Al Plus Susp Liq) 30 ml Q6H PRN PO 01/08/17 13:45 (Aspirin Chew) 81 mg DAILY PO 01/09/17 09:00 03/04/17 09:04 (Lipitor) 20 mg HS PO 01/08/17 21:00 03/04/17 20:47 (Synthroid) 50 mcg DAILY@06 PO 01/09/17 06:00 03/05/17 05:42 (Norvasc) 10 mg DAILY PO 01/17/17 09:00 03/04/17 09:05 (Depakene Liq) 500 mg DAILY PO 01/22/17 09:00 03/04/17 09:04 (Depakene Liq) 750 mg HS PO 01/21/17 21:00 03/04/17 20:48 (Pill Splitter) 1 ea UNSCH PRN OTHER 01/21/17 16:15 (Tylenol) 650 mg Q4H PRN PO 01/25/17 07:45 (Cogentin) 0.5 mg BID PO 01/25/17 21:00 03/04/17 20:47 (Remeron) 7.5 mg HS PO 01/27/17 21:00 Hold 02/01/17 21:10 (Ativan) 0.5 mg DAILY@18 PO 02/01/17 18:00 Hold 02/01/17 17:34 (Carnitor 10% Liq) 3 ml TID PO 02/02/17 18:00 03/04/17 17:37 (risperDAL M-TAB) 2 mg HS PO 02/20/17 21:00 03/04/17 20:47 (risperDAL M-TAB) 1 mg DAILY PO 02/21/17 09:00 03/04/17 09:05 (Prinivil) 5 mg BID PO 03/03/17 21:00 03/04/17 20:48 Assessment and Plan Problem List: (1) Dementia Status: Chronic Plan: Cooperative and med complaint per staff. No behavior issues noted (2) Hyperlipemia Status: Chronic Plan: Continue statin (3) Agitation Status: Acute Plan: Cooperative at visit. On Ativan and Risperdal. (4) Hypertension Status: Acute Plan: Continue current regimen blood pressure 142/66 will monitor (5) Schizophrenia Status: Chronic Plan: Managed per psych (6) Suprapubic tenderness Status: Resolved Plan: Resolved. (7) Discomfort of back Status: Resolved Plan: Acetaminophen ordered PRN. No discomfort noted on palpation (8) Hyperkalemia Status: Resolved Plan: Resolved. Kayexalate given per 1 dose and repeat K 4.5. Recheck on Assessment and Plan Assessment and plan discussed with Dr. Vásquez Discussed Condition With Nursing. Problem Qualifiers (1) Dementia: Qualified Code: F03.91 - Dementia with behavioral disturbance, unspecified dementia type (2) Hyperlipemia: Qualified Code: E78.2 - Mixed hyperlipidemia (3) Hypertension: Qualified Code: I10 - Essential hypertension (4) Schizophrenia: Qualified Code: F20.9 - Schizophrenia, unspecified type Maria Esther Jhaveri March 05, 2017 07:36
[2017-03-05] MEDS: VALPROIC ACID SYRUP 250 MG/5 ML UDC PO SCH ×2 (08:23→20:10)
[2017-03-05] MEDS: risperiDONE ODT 1 MG TAB PO SCH (08:26)
[2017-03-05] MEDS: amLODIPine BESYLATE 5 MG TAB PO SCH (08:27)
[2017-03-05] MEDS: ASPIRIN 81 MG CHEW TAB PO SCH (08:27)
[2017-03-05] MEDS: BENZTROPINE MESYLATE 1 MG TAB PO SCH ×2 (08:27→20:10)
[2017-03-05] MEDS: LISINOPRIL 20 MG TAB PO SCH ×2 (08:30→20:11)
[2017-03-05] MEDS: levOCARNitine 10% ORAL SOLN 118 ML BTL PO SCH ×3 (08:31→17:29)
--- NOTE | 2017-03-05 10:18 | HHI.PYPN ---
Subjective Remarks Patient seen and examined with counselor and nurse. Chart reviewed. Case discussed with nurse, counselor and recreation therapist in treatment team. Per nursing staff, patient has been no behavioral problem and has been medication compliant. Recreation therapist notes that the patient has been attending groups. Counselor reports ongoing efforts to pursue assisted living placement. Counselor also shares that patient's family is resistant to home with home health care. For me today, patient is calm and pleasant. She appears to be in no physical or emotional distress. No abnormal motor movements noted. No evident side effects from medications. Review of Systems ROS Limitations: Poor Historian Objective Alert: Yes [place]: Person Mood: Calm Affect: Blunted (remains somewhat blunted) Memory Intact: Comment (not assessed) Hallucinations: Other (no AVH) Delusions: No Delusion Type: Other (none) Suicidal: Ideation (no suicidal ideation) Homicidal: Ideation (no homicidal ideation) Insight/Judgment Poor Remarks No motor abnormalities noted Labs Labs reviewed. Vitals/IOs Vital Signs Date Time Temp Pulse Resp B/P Pulse Ox O2 Delivery O2 Flow Rate FiO2 03/05/17 07:15 97.4 93 17 142/66 97 Intake and Output 03/04/17 03/04/17 03/05/17 08:00 16:00 00:00 Intake Total 240 ml 840 ml Balance 240 ml 840 ml Assessment & Plan Problem List: (1) Dementia of Alzheimer's type with behavioral disturbance ICD Code: G30.8 Assessment & Plan Continue current psychotropics as ordered. I note that the hospitalist is checking basic laboratories on 03/07. I will check a Depakote and ammonia level at that time as well. Hospitalist consult and input noted and appreciated. Continue to monitor on the inpatient unit. Continue other medications and care as ordered. Justification for Cont. Inpt. High risk for decompensation in a less restrictive environment. Discharge Planning Counselor will continue to work on placement for this patient. Request HC Surrog/Guard Advoc?: Yes Problem Qualifiers (1) Dementia of Alzheimer's type with behavioral disturbance: Qualified Code: G30.8 - Alzheimer's disease of other onset with behavioral disturbance Desmond Connolly MD March 05, 2017 10:18
[2017-03-05 18:00] VITALS: BP 147/67; PULSE 67; RESP 18; TEMP 97.2; O2SAT 98
[2017-03-05] MEDS: ATORVASTATIN 20 MG TAB PO SCH (20:10)
[2017-03-05] MEDS: risperiDONE ODT 2 MG TAB PO SCH (20:10)
[2017-03-05] MEDS: ACETAMINOPHEN 325 MG TAB PO PRN (22:21)
[2017-03-06 04:52] VITALS: BP 157/72; PULSE 71; RESP 18; TEMP 97.4; O2SAT 96
[2017-03-06] MEDS: LEVOTHYROXINE SODIUM 50 MCG TAB PO SCH (05:55)
[2017-03-06] MEDS: ASPIRIN 81 MG CHEW TAB PO SCH (08:45)
[2017-03-06] MEDS: BENZTROPINE MESYLATE 1 MG TAB PO SCH ×2 (08:45→20:26)
[2017-03-06] MEDS: risperiDONE ODT 1 MG TAB PO SCH (08:45)
[2017-03-06] MEDS: amLODIPine BESYLATE 5 MG TAB PO SCH (08:45)
[2017-03-06] MEDS: LISINOPRIL 20 MG TAB PO SCH ×2 (08:45→20:30)
[2017-03-06] MEDS: levOCARNitine 10% ORAL SOLN 118 ML BTL PO SCH ×3 (08:45→18:00)
[2017-03-06] MEDS: VALPROIC ACID SYRUP 250 MG/5 ML UDC PO SCH ×2 (08:45→20:25)
--- NOTE | 2017-03-06 11:32 | HHI.PYPN ---
Subjective Remarks Patient seen and case discussed with nursing staff. Per nursing staff, patient has been no behavioral problem. For me today, patient is calm and pleasant. Remains somewhat internally preoccupied. No evident side effects from medications. Review of Systems ROS Limitations: Poor Historian Except as stated in HPI: all other systems reviewed are Neg Objective Alert: Yes [place]: Person Mood: Calm Affect: Blunted Memory Intact: Comment (not assessed) Hallucinations: Other (somewhat internally stimulated) Delusions: No Delusion Type: Other (none) Suicidal: Ideation (no SI) Homicidal: Ideation (no HI) Insight/Judgment Poor Remarks No abnormal motor movements noted Labs Labs reviewed Vitals/IOs Vital Signs Date Time Temp Pulse Resp B/P Pulse Ox O2 Delivery O2 Flow Rate FiO2 03/06/17 04:52 97.4 71 18 157/72 96 Intake and Output 03/05/17 03/05/17 03/06/17 08:00 16:00 00:00 Intake Total 360 ml 1590 ml Balance 360 ml 1590 ml Assessment & Plan Problem List: (1) Dementia of Alzheimer's type with behavioral disturbance ICD Code: G30.8 Assessment & Plan Continue current psychotropics as ordered. Updated laboratories scheduled for tomorrow morning. Continue other medications and care as ordered. Justification for Cont. Inpt. High risk for decompensation in a restrictive environment. Discharge Planning Plan is for placement Request HC Surrog/Guard Advoc?: Yes Problem Qualifiers (1) Dementia of Alzheimer's type with behavioral disturbance: Qualified Code: G30.8 - Alzheimer's disease of other onset with behavioral disturbance Desmond Connolly MD March 06, 2017 11:32
[2017-03-06] MEDS: LORazepam 0.5 MG TAB age > 65 yrs PO PRN (14:08)
[2017-03-06 16:31] VITALS: BP 159/77; PULSE 80; RESP 17; TEMP 97.4; O2SAT 98
[2017-03-06] MEDS: risperiDONE ODT 2 MG TAB PO SCH (20:27)
[2017-03-06] MEDS: ATORVASTATIN 20 MG TAB PO SCH (20:27)
[2017-03-07 05:21] VITALS: BP 133/67; PULSE 86; RESP 18; TEMP 97.8; O2SAT 99
[2017-03-07] MEDS: LEVOTHYROXINE SODIUM 50 MCG TAB PO SCH (05:43)
[2017-03-07 08:05] LABS: MEAN CELL VOLUME 86.8 FL (80.0-100.0); MEAN CORPUSCULAR HEMOGLOBIN 29.4 PG (27.0-34.0); MEAN CORPUSCULAR HGB CONC 33.9 % (32.0-36.0); PLATELET COUNT 115 TH/MM3 (150-450); RED BLOOD COUNT 3.11 MIL/MM3 (4.00-5.30); REVIEW FLAG FINAL; WHITE BLOOD COUNT 5.8 TH/MM3 (4.0-11.0)
[2017-03-07 08:30] LABS: BICARBONATE 25.9 MEQ/L (21.0-32.0); POTASSIUM 4.7 MEQ/L (3.5-5.1)
[2017-03-07] MEDS: ASPIRIN 81 MG CHEW TAB PO SCH (08:31)
[2017-03-07] MEDS: risperiDONE ODT 1 MG TAB PO SCH (08:31)
[2017-03-07] MEDS: amLODIPine BESYLATE 5 MG TAB PO SCH (08:31)
[2017-03-07] MEDS: levOCARNitine 10% ORAL SOLN 118 ML BTL PO SCH ×3 (08:31→17:15)
[2017-03-07] MEDS: BENZTROPINE MESYLATE 1 MG TAB PO SCH ×2 (08:31→20:23)
[2017-03-07] MEDS: LISINOPRIL 20 MG TAB PO SCH ×2 (08:31→20:24)
[2017-03-07] MEDS: VALPROIC ACID SYRUP 250 MG/5 ML UDC PO SCH ×2 (08:32→20:21)
--- NOTE | 2017-03-07 13:41 | HHI.PYPN ---
Subjective Remarks Patient seen and case discussed with nursing staff. Per nursing staff, no behavioral problem noted. On my examination today, patient is calm and out on the unit. No physical complaints. No evident side effects from medications. Review of Systems ROS Limitations: Poor Historian Except as stated in HPI: all other systems reviewed are Neg Objective Alert: Yes [place]: Person Mood: Calm Affect: Blunted Memory Intact: Comment (not formally assessed) Hallucinations: Other (remains a little internally preoccupied) Delusions: No Delusion Type: Other (none) Suicidal: Ideation (none) Homicidal: Ideation (none) Insight/Judgment Poor Remarks Steady gait and station Labs Test 03/07/17 07:35 White Blood Count 5.8 TH/MM3 Red Blood Count 3.11 MIL/MM3 Hemoglobin 9.2 GM/DL Hematocrit 27.0 % Mean Corpuscular Volume 86.8 FL Mean Corpuscular Hemoglobin 29.4 PG Mean Corpuscular Hemoglobin 33.9 % Concent Red Cell Distribution Width 15.0 % Platelet Count 115 TH/MM3 Mean Platelet Volume 9.9 FL Sodium Level 139 MEQ/L Potassium Level 4.7 MEQ/L Chloride Level 107 MEQ/L Carbon Dioxide Level 25.9 MEQ/L Anion Gap 6 MEQ/L Blood Urea Nitrogen 42 MG/DL Creatinine 1.16 MG/DL Estimat Glomerular Filtration 46 ML/MIN Rate Random Glucose 73 MG/DL Calcium Level 8.3 MG/DL Ammonia 64 MCMOL/L Valproic Acid (Depakene) Level 56 MCG/ML Labs reviewed. Mild interval worsening of patient's anemia and thrombocytopenia. BMP reveals stable GFR and no electrolyte abnormalities. Depakote level is within the therapeutic range and ammonia level is mildly elevated. Vitals/IOs Vital Signs Date Time Temp Pulse Resp B/P Pulse Ox O2 Delivery O2 Flow Rate FiO2 03/07/17 05:21 97.8 86 18 133/67 99 Intake and Output 03/06/17 03/06/17 03/07/17 08:00 16:00 00:00 Intake Total 360 ml 480 ml 1080 ml Balance 360 ml 480 ml 1080 ml Assessment & Plan Problem List: (1) Dementia of Alzheimer's type with behavioral disturbance ICD Code: G30.8 Assessment & Plan Titrate Carnitor for hyperammonemia and plan to recheck an ammonia level later in the week. Continue other psychotropics as ordered. Await hospitalist input regarding the mild progression of patient's anemia/thrombocytopenia. Continue other medications and care as ordered. Justification for Cont. Inpt. High risk for decompensation in a restrictive environment. Discharge Planning Patient requires placement Request HC Surrog/Guard Advoc?: Yes Problem Qualifiers (1) Dementia of Alzheimer's type with behavioral disturbance: Qualified Code: G30.8 - Alzheimer's disease of other onset with behavioral disturbance Desmond Connolly MD March 07, 2017 13:40
[2017-03-07 19:25] VITALS: BP 135/70; PULSE 83; RESP 18; TEMP 97.9
[2017-03-07] MEDS: ATORVASTATIN 20 MG TAB PO SCH (20:22)
[2017-03-07] MEDS: risperiDONE ODT 2 MG TAB PO SCH (20:24)
[2017-03-08] MEDS: LEVOTHYROXINE SODIUM 50 MCG TAB PO SCH (05:11)
[2017-03-08 05:42] VITALS: BP 132/66; PULSE 94; RESP 16; TEMP 97.5; O2SAT 96
[2017-03-08] MEDS: ASPIRIN 81 MG CHEW TAB PO SCH (09:00)
[2017-03-08] MEDS: amLODIPine BESYLATE 5 MG TAB PO SCH (09:13)
[2017-03-08] MEDS: VALPROIC ACID SYRUP 250 MG/5 ML UDC PO SCH ×2 (09:13→21:40)
[2017-03-08] MEDS: risperiDONE ODT 1 MG TAB PO SCH (09:14)
[2017-03-08] MEDS: LISINOPRIL 20 MG TAB PO SCH ×2 (09:14→21:00)
[2017-03-08] MEDS: BENZTROPINE MESYLATE 1 MG TAB PO SCH ×2 (09:14→21:41)
[2017-03-08] MEDS: levOCARNitine 10% ORAL SOLN 118 ML BTL PO SCH ×3 (09:14→17:04)
--- NOTE | 2017-03-08 10:38 | HHI.PR ---
Subjective Remarks Cooperative with exam. Denies any pain or problems. No behavior issues noted per nursing. Objective Vital Signs Date Time Temp Pulse Resp B/P Pulse Ox O2 Delivery O2 Flow Rate FiO2 03/08/17 05:42 97.5 94 16 132/66 96 03/07/17 19:25 97.9 83 18 135/70 I/O 03/07/17 03/07/17 03/07/17 03/08/17 03/08/17 03/08/17 07:00 15:00 23:00 07:00 15:00 23:00 Intake Total 360 ml 240 ml 0 ml 360 ml Balance 360 ml 240 ml 0 ml 360 ml Intake Oral 360 ml 0 ml 360 ml Oral Supplement 240 ml # Voids 1 2 2 Result Diagram: 03/07/1773403/07/17 07 Objective Remarks GENERAL: alert and cooperative SKIN: Warm and dry. HEAD: Normocephalic. EYES: No scleral icterus. No injection or drainage. NECK: Supple, trachea midline. No JVD or lymphadenopathy. CARDIOVASCULAR: Regular rate and rhythm without murmurs, gallops, or rubs. RESPIRATORY: Breath sounds equal bilaterally. No accessory muscle use. GASTROINTESTINAL: Abdomen soft, non-tender, nondistended. MUSCULOSKELETAL: No cyanosis, or edema. BACK: Nontender without obvious deformity. No CVA tenderness. Medications and IVs Current Medications Medications (Trade) Dose Ordered Sig/Natalio Route Start Time Stop Time Status Last Admin (Ativan) 0.5 mg Q12H PRN PO 01/07/17 17:30 03/06/17 14:08 (Ativan Inj) 0.5 mg Q12H PRN IM 01/07/17 17:30 02/07/17 15:19 (Catapres) 0.1 mg Q6H PRN PO 01/07/17 18:45 (Tylenol) 650 mg Q4H PRN PO 01/08/17 13:45 03/05/17 22:21 (Milk Of Magnesia Liq) 30 ml DAILY PRN PO 01/08/17 13:45 01/16/17 20:54 (Mag-Al Plus Susp Liq) 30 ml Q6H PRN PO 01/08/17 13:45 (Aspirin Chew) 81 mg DAILY PO 01/09/17 09:00 03/07/17 08:31 (Lipitor) 20 mg HS PO 01/08/17 21:00 03/07/17 20:22 (Synthroid) 50 mcg DAILY@06 PO 01/09/17 06:00 03/08/17 05:11 (Norvasc) 10 mg DAILY PO 01/17/17 09:00 03/08/17 09:13 (Depakene Liq) 500 mg DAILY PO 01/22/17 09:00 03/08/17 09:13 (Depakene Liq) 750 mg HS PO 01/21/17 21:00 03/07/17 20:21 (Pill Splitter) 1 ea UNSCH PRN OTHER 01/21/17 16:15 (Tylenol) 650 mg Q4H PRN PO 01/25/17 07:45 (Cogentin) 0.5 mg BID PO 01/25/17 21:00 03/08/17 09:14 (Remeron) 7.5 mg HS PO 01/27/17 21:00 Hold 02/01/17 21:10 (Ativan) 0.5 mg DAILY@18 PO 02/01/17 18:00 Hold 02/01/17 17:34 (risperDAL M-TAB) 2 mg HS PO 02/20/17 21:00 03/07/17 20:24 (risperDAL M-TAB) 1 mg DAILY PO 02/21/17 09:00 03/08/17 09:14 (Prinivil) 5 mg BID PO 03/03/17 21:00 03/08/17 09:14 (Carnitor 10% Liq) 6 ml TID PO 03/07/17 18:00 03/08/17 09:14 Assessment and Plan Problem List: (1) Dementia Status: Chronic Plan: Cooperative and med complaint per staff. No behavior issues noted (2) Hyperlipemia Status: Chronic Plan: Continue statin (3) Agitation Status: Acute Plan: Cooperative at visit. On Risperdal. (4) Hypertension Status: Acute Plan: Continue current regimen blood pressure 142/66 will monitor (5) Schizophrenia Status: Chronic Plan: Managed per psych (6) Suprapubic tenderness Status: Resolved Plan: Resolved. (7) Discomfort of back Status: Resolved Plan: Acetaminophen ordered PRN. No discomfort noted (8) Hyperkalemia Status: Resolved Plan: Resolved. Assessment and Plan Assessment and plan discussed with Dr. Vásquez Discussed Condition With Nursing Problem Qualifiers (1) Dementia: Qualified Code: F03.91 - Dementia with behavioral disturbance, unspecified dementia type (2) Hyperlipemia: Qualified Code: E78.2 - Mixed hyperlipidemia (3) Hypertension: Qualified Code: I10 - Essential hypertension (4) Schizophrenia: Qualified Code: F20.9 - Schizophrenia, unspecified type Maria Esther Jhaveri March 08, 2017 10:38
--- NOTE | 2017-03-08 12:53 | HHI.PYPN ---
Subjective Remarks Patient seen and case discussed with nursing staff. No behavioral issues noted. For me today, the patient is dozing in her room. She does awaken briefly but is not much interested in lengthy interaction. No signs of physical distress. No signs of side effects from medications. Review of Systems ROS Limitations: Poor Historian Other Limited ROS today Objective Alert: Yes [place]: Person Mood: Calm Affect: Flat Memory Intact: Comment (not formally assessed) Hallucinations: Other (none) Delusions: No Delusion Type: Other (none) Suicidal: Ideation (no SI) Homicidal: Ideation (no HI) Insight/Judgment Poor Remarks No motor abnormalities noted Labs Labs reviewed. No new labs. Vitals/IOs Vital Signs Date Time Temp Pulse Resp B/P Pulse Ox O2 Delivery O2 Flow Rate FiO2 03/08/17 05:42 97.5 94 16 132/66 96 Intake and Output 03/07/17 03/07/17 03/08/17 08:00 16:00 00:00 Intake Total 120 ml 240 ml 240 ml Balance 120 ml 240 ml 240 ml Assessment & Plan Problem List: (1) Dementia of Alzheimer's type with behavioral disturbance ICD Code: G30.8 Assessment & Plan Continue current psychotropics as ordered. Continue increased dose of Carnitor for hyperammonemia and plan to check an ammonia level over the weekend. Hospitalist technology sales consultant input noted and appreciated. Continue other medications and care as ordered. Justification for Cont. Inpt. High risk for decompensation in a restrictive environment Discharge Planning Patient requires placement. Counselor thinks that [facility] might be a possibility for this patient. Request HC Surrog/Guard Advoc?: Yes Problem Qualifiers (1) Dementia of Alzheimer's type with behavioral disturbance: Qualified Code: G30.8 - Alzheimer's disease of other onset with behavioral disturbance Desmond Connolly MD March 08, 2017 12:53
[2017-03-08 18:38] VITALS: BP 95/53; PULSE 71; RESP 16; TEMP 96.9; O2SAT 98
[2017-03-08] MEDS: ATORVASTATIN 20 MG TAB PO SCH (21:41)
[2017-03-08] MEDS: risperiDONE ODT 2 MG TAB PO SCH (21:41)
[2017-03-09 05:44] VITALS: BP 128/60; PULSE 89; RESP 16; TEMP 97.9; O2SAT 98
[2017-03-09] MEDS: LEVOTHYROXINE SODIUM 50 MCG TAB PO SCH (05:49)
[2017-03-09] MEDS: ASPIRIN 81 MG CHEW TAB PO SCH (08:20)
[2017-03-09] MEDS: BENZTROPINE MESYLATE 1 MG TAB PO SCH ×2 (08:20→20:25)
[2017-03-09] MEDS: risperiDONE ODT 1 MG TAB PO SCH (08:20)
[2017-03-09] MEDS: amLODIPine BESYLATE 5 MG TAB PO SCH (08:21)
[2017-03-09] MEDS: VALPROIC ACID SYRUP 250 MG/5 ML UDC PO SCH ×2 (08:26→20:24)
[2017-03-09] MEDS: LISINOPRIL 20 MG TAB PO SCH ×2 (08:27→20:24)
[2017-03-09] MEDS: levOCARNitine 10% ORAL SOLN 118 ML BTL PO SCH ×3 (08:28→16:51)
--- NOTE | 2017-03-09 12:20 | HHI.PYPN ---
Subjective Remarks Patient was seen and case discussed with nursing. Patient remains grossly disorganized. Responding to internal stimuli. Alert and oriented 2. Describes her mood as "good." She is convinced that she has a visitor coming an early hour. She is compliant with her medications and behaving well on the unit Objective Alert: Yes [place]: Person, Place Mood: Calm Affect: Blunted Memory Intact: Comment (not formally assessed) Hallucinations: Other (none) Delusions: No Delusion Type: Other (none) Suicidal: Ideation (no SI) Homicidal: Ideation (no HI) Insight/Judgment Poor Vitals/IOs Vital Signs Date Time Temp Pulse Resp B/P Pulse Ox O2 Delivery O2 Flow Rate FiO2 03/09/17 05:44 97.9 89 16 128/60 98 Intake and Output 03/08/17 03/08/17 03/09/17 08:00 16:00 00:00 Intake Total 360 ml 480 ml 240 ml Balance 360 ml 480 ml 240 ml Assessment & Plan Problem List: (1) Dementia of Alzheimer's type with behavioral disturbance ICD Code: G30.8 Assessment & Plan Continue current treatment plan Justification for Cont. Inpt. Patient will decompensate in the less restrictive setting Request HC Surrog/Guard Advoc?: Yes Problem Qualifiers (1) Dementia of Alzheimer's type with behavioral disturbance: Qualified Code: G30.8 - Alzheimer's disease of other onset with behavioral disturbance Gustavo Amador DO March 09, 2017 12:20
[2017-03-09 18:00] VITALS: BP 122/56; PULSE 83; RESP 16; TEMP 96.6; O2SAT 100
[2017-03-09] MEDS: risperiDONE ODT 2 MG TAB PO SCH (20:24)
[2017-03-09] MEDS: ATORVASTATIN 20 MG TAB PO SCH (20:25)
[2017-03-10] MEDS: LEVOTHYROXINE SODIUM 50 MCG TAB PO SCH (05:48)
[2017-03-10 06:11] VITALS: BP 134/55; PULSE 71; RESP 17; TEMP 97.3; O2SAT 100
[2017-03-10] MEDS: BENZTROPINE MESYLATE 1 MG TAB PO SCH ×2 (08:28→20:39)
[2017-03-10] MEDS: amLODIPine BESYLATE 5 MG TAB PO SCH (08:28)
[2017-03-10] MEDS: VALPROIC ACID SYRUP 250 MG/5 ML UDC PO SCH ×2 (08:28→20:39)
[2017-03-10] MEDS: risperiDONE ODT 1 MG TAB PO SCH (08:29)
[2017-03-10] MEDS: ASPIRIN 81 MG CHEW TAB PO SCH (08:29)
[2017-03-10] MEDS: levOCARNitine 10% ORAL SOLN 118 ML BTL PO SCH ×3 (08:37→16:56)
[2017-03-10] MEDS: LISINOPRIL 20 MG TAB PO SCH ×3 (08:37→20:47)
--- NOTE | 2017-03-10 09:37 | HHI.PYPN ---
Subjective Remarks Patient was seen and case discussed with nursing. Patient appears more organized compared to previous visits. She says she's had schizophrenia since age 16. Continues to respond to internal stimuli. Denies auditory visual hallucinations. Behaving well on the unit. Ammonia is trending down and today is 47 Objective Alert: Yes [place]: Person, Place Mood: Calm Affect: Restricted Memory Intact: Comment (not formally assessed) Hallucinations: Other (none) Delusions: No Delusion Type: Other (none) Suicidal: Ideation (no SI) Homicidal: Ideation (no HI) Insight/Judgment Poor Labs Test 03/10/17 08:15 Ammonia 47 MCMOL/L Vitals/IOs Vital Signs Date Time Temp Pulse Resp B/P Pulse Ox O2 Delivery O2 Flow Rate FiO2 03/10/17 06:11 97.3 71 17 134/55 100 Intake and Output 03/09/17 03/09/17 03/10/17 08:00 16:00 00:00 Intake Total 0 ml 2760 ml Balance 0 ml 2760 ml Assessment & Plan Problem List: (1) Dementia of Alzheimer's type with behavioral disturbance ICD Code: G30.8 Assessment & Plan Continue current treatment plan Justification for Cont. Inpt. Patient will decompensate in a less restrictive setting Request HC Surrog/Guard Advoc?: Yes Problem Qualifiers (1) Dementia of Alzheimer's type with behavioral disturbance: Qualified Code: G30.8 - Alzheimer's disease of other onset with behavioral disturbance Gustavo Amador DO March 10, 2017 09:37
[2017-03-10 18:17] VITALS: BP 106/52; PULSE 62; RESP 18; TEMP 97
[2017-03-10] MEDS: ATORVASTATIN 20 MG TAB PO SCH (20:40)
[2017-03-10] MEDS: risperiDONE ODT 2 MG TAB PO SCH (20:42)
[2017-03-11] MEDS: LEVOTHYROXINE SODIUM 50 MCG TAB PO SCH (05:48)
[2017-03-11 06:00] VITALS: BP 117/58; PULSE 74; RESP 16; TEMP 98.5; O2SAT 96
[2017-03-11] MEDS: risperiDONE ODT 1 MG TAB PO SCH (08:17)
[2017-03-11] MEDS: VALPROIC ACID SYRUP 250 MG/5 ML UDC PO SCH ×2 (08:17→20:20)
[2017-03-11] MEDS: BENZTROPINE MESYLATE 1 MG TAB PO SCH ×2 (08:17→20:20)
[2017-03-11] MEDS: ASPIRIN 81 MG CHEW TAB PO SCH (08:17)
[2017-03-11] MEDS: LISINOPRIL 20 MG TAB PO SCH ×2 (08:23→20:21)
[2017-03-11] MEDS: amLODIPine BESYLATE 5 MG TAB PO SCH (08:23)
[2017-03-11] MEDS: levOCARNitine 10% ORAL SOLN 118 ML BTL PO SCH ×3 (08:23→17:07)
--- NOTE | 2017-03-11 12:32 | HHI.PYPN ---
Subjective Remarks Patient seen and case discussed with nursing staff. Chart reviewed. Nurse reports no behavioral issues. For me today, patient is standing in the day area. She appears to be in no distress. No evident side effects from medications. Review of Systems ROS Limitations: Poor Historian Except as stated in HPI: all other systems reviewed are Neg Objective Alert: Yes [place]: Person, Place Mood: Calm Affect: Blunted Memory Intact: Comment (not formally assessed) Hallucinations: Other (None) Delusions: No Delusion Type: Other (None) Suicidal: Ideation (No SI) Homicidal: Ideation (No HI) Insight/Judgment Poor Remarks No motor abnormalities noted Labs Labs reviewed. Ammonia level trended downward with titration of Carnitor. Vitals/IOs Vital Signs Date Time Temp Pulse Resp B/P Pulse Ox O2 Delivery O2 Flow Rate FiO2 03/11/17 06:00 98.5 74 16 117/58 96 Intake and Output 03/10/17 03/10/17 03/10/17 07:59 15:59 23:59 Intake Total 600 ml 240 ml Balance 600 ml 240 ml Assessment & Plan Problem List: (1) Dementia of Alzheimer's type with behavioral disturbance ICD Code: G30.8 Assessment & Plan Continue current psychiatric medications as ordered. Continue other medications and care as ordered. Justification for Cont. Inpt. High risk for decompensation in a restrictive environment. Discharge Planning Patient requires placement. Request HC Surrog/Guard Advoc?: Yes Problem Qualifiers (1) Dementia of Alzheimer's type with behavioral disturbance: Qualified Code: G30.8 - Alzheimer's disease of other onset with behavioral disturbance Desmond Connolly MD March 11, 2017 12:32
[2017-03-11] MEDS: LORazepam 0.5 MG TAB age > 65 yrs PO PRN (12:45)
[2017-03-11 18:55] VITALS: BP 157/85; PULSE 72; RESP 18; TEMP 98.1
[2017-03-11] MEDS: ATORVASTATIN 20 MG TAB PO SCH (20:20)
[2017-03-11] MEDS: risperiDONE ODT 2 MG TAB PO SCH (20:20)
[2017-03-12] MEDS: LORazepam 0.5 MG TAB age > 65 yrs PO PRN (02:52)
[2017-03-12] MEDS: LEVOTHYROXINE SODIUM 50 MCG TAB PO SCH (05:08)
[2017-03-12 05:35] VITALS: BP 140/61; PULSE 88; RESP 18; TEMP 98.4; O2SAT 97
[2017-03-12] MEDS: amLODIPine BESYLATE 5 MG TAB PO SCH (08:48)
[2017-03-12] MEDS: VALPROIC ACID SYRUP 250 MG/5 ML UDC PO SCH ×2 (08:48→20:05)
[2017-03-12] MEDS: BENZTROPINE MESYLATE 1 MG TAB PO SCH ×2 (08:48→20:06)
[2017-03-12] MEDS: risperiDONE ODT 1 MG TAB PO SCH (08:48)
[2017-03-12] MEDS: LISINOPRIL 20 MG TAB PO SCH ×2 (08:50→20:05)
[2017-03-12] MEDS: ASPIRIN 81 MG CHEW TAB PO SCH (08:51)
[2017-03-12] MEDS: levOCARNitine 10% ORAL SOLN 118 ML BTL PO SCH ×3 (08:51→18:00)
--- NOTE | 2017-03-12 12:04 | HHI.PYPN ---
Subjective Remarks Patient seen in dayroom with nurse Jules, chart review, patient calm today continue speaking Divehi and markedly confused manner. Staff notes no behavioral problems noted recently. Compliant medications Review of Systems Except as stated in HPI: all other systems reviewed are Neg Objective Alert: Yes [place]: Person, Place Mood: Calm Affect: Blunted Memory Intact: Comment (not formally assessed) Hallucinations: Other (None) Delusions: No Delusion Type: Other (None) Suicidal: Ideation (No SI) Homicidal: Ideation (No HI) Insight/Judgment Poor Vitals/IOs Vital Signs Date Time Temp Pulse Resp B/P Pulse Ox O2 Delivery O2 Flow Rate FiO2 03/12/17 05:35 98.4 88 18 140/61 97 Intake and Output 03/11/17 03/11/17 03/12/17 08:00 16:00 00:00 Intake Total 0 ml 0 ml 720 ml Output Total 30 ml Balance 0 ml -30 ml 720 ml Assessment & Plan Problem List: (1) Dementia of Alzheimer's type with behavioral disturbance ICD Code: G30.8 Assessment & Plan Estimated LOS: days patient continues confused and demented, though behaviors seemed at this time to be under control, compliant medications Justification for Cont. Inpt. At this time patient will decompensate if placed in a lower level of care Discharge Planning To be determined Request HC Surrog/Guard Advoc?: Yes Problem Qualifiers (1) Dementia of Alzheimer's type with behavioral disturbance: Qualified Code: G30.8 - Alzheimer's disease of other onset with behavioral disturbance Rodolfo Corona MD March 12, 2017 12:03
[2017-03-12 20:00] VITALS: BP 143/60; PULSE 66; RESP 18; TEMP 98.6
[2017-03-12] MEDS: ATORVASTATIN 20 MG TAB PO SCH (20:05)
[2017-03-12] MEDS: risperiDONE ODT 2 MG TAB PO SCH (20:07)
[2017-03-13] MEDS: LEVOTHYROXINE SODIUM 50 MCG TAB PO SCH (05:47)
[2017-03-13 05:55] VITALS: BP 119/66; PULSE 69; RESP 18; TEMP 97.8
[2017-03-13] MEDS: BENZTROPINE MESYLATE 1 MG TAB PO SCH ×2 (08:46→20:53)
[2017-03-13] MEDS: LISINOPRIL 20 MG TAB PO SCH ×2 (08:47→20:53)
[2017-03-13] MEDS: ASPIRIN 81 MG CHEW TAB PO SCH (08:47)
[2017-03-13] MEDS: risperiDONE ODT 1 MG TAB PO SCH (08:47)
[2017-03-13] MEDS: amLODIPine BESYLATE 5 MG TAB PO SCH (08:47)
[2017-03-13] MEDS: VALPROIC ACID SYRUP 250 MG/5 ML UDC PO SCH ×2 (08:48→20:54)
[2017-03-13] MEDS: levOCARNitine 10% ORAL SOLN 118 ML BTL PO SCH ×3 (08:48→17:44)
[2017-03-13] MEDS: LORazepam 2 MG/ML VIAL - age > 65 yrs IM PRN ×2 (09:30→18:05)
--- NOTE | 2017-03-13 11:03 | HHI.PR ---
Subjective Remarks Patient seen in Day room. Cooperative with exam. Denies any pain or problems. No behavior issues noted per nursing and complaint with medications Objective Vital Signs Date Time Temp Pulse Resp B/P Pulse Ox O2 Delivery O2 Flow Rate FiO2 03/13/17 05:55 97.8 69 18 119/66 03/12/17 20:00 98.6 66 18 143/60 I/O 03/12/17 03/12/17 03/12/17 03/13/17 03/13/17 03/13/17 07:00 15:00 23:00 07:00 15:00 23:00 Intake Total 1440 ml 240 ml Balance 1440 ml 240 ml Intake Oral 1440 ml 240 ml # Voids 2 5 3 Objective Remarks GENERAL: alert and cooperative SKIN: Warm and dry. HEAD: Normocephalic. EYES: No scleral icterus. No injection or drainage. NECK: Supple, trachea midline. No JVD or lymphadenopathy. CARDIOVASCULAR: Regular rate and rhythm without murmurs, gallops, or rubs. RESPIRATORY: Breath sounds equal bilaterally. No accessory muscle use. GASTROINTESTINAL: Abdomen soft, non-tender, nondistended. MUSCULOSKELETAL: No cyanosis, or edema. BACK: Nontender without obvious deformity. No CVA tenderness. Medications and IVs Current Medications Medications (Trade) Dose Ordered Sig/Natalio Route Start Time Stop Time Status Last Admin (Ativan) 0.5 mg Q12H PRN PO 01/07/17 17:30 03/12/17 02:52 (Ativan Inj) 0.5 mg Q12H PRN IM 01/07/17 17:30 03/13/17 09:30 (Catapres) 0.1 mg Q6H PRN PO 01/07/17 18:45 (Tylenol) 650 mg Q4H PRN PO 01/08/17 13:45 03/05/17 22:21 (Milk Of Magnesia Liq) 30 ml DAILY PRN PO 01/08/17 13:45 01/16/17 20:54 (Mag-Al Plus Susp Liq) 30 ml Q6H PRN PO 01/08/17 13:45 (Aspirin Chew) 81 mg DAILY PO 01/09/17 09:00 03/13/17 08:47 (Lipitor) 20 mg HS PO 01/08/17 21:00 03/12/17 20:05 (Synthroid) 50 mcg DAILY@06 PO 01/09/17 06:00 03/13/17 05:47 (Norvasc) 10 mg DAILY PO 01/17/17 09:00 03/13/17 08:47 (Depakene Liq) 500 mg DAILY PO 01/22/17 09:00 03/13/17 08:48 (Depakene Liq) 750 mg HS PO 01/21/17 21:00 03/12/17 20:05 (Pill Splitter) 1 ea UNSCH PRN OTHER 01/21/17 16:15 (Tylenol) 650 mg Q4H PRN PO 01/25/17 07:45 (Cogentin) 0.5 mg BID PO 01/25/17 21:00 03/13/17 08:46 (Remeron) 7.5 mg HS PO 01/27/17 21:00 Hold 02/01/17 21:10 (Ativan) 0.5 mg DAILY@18 PO 02/01/17 18:00 Hold 02/01/17 17:34 (risperDAL M-TAB) 2 mg HS PO 02/20/17 21:00 03/12/17 20:07 (risperDAL M-TAB) 1 mg DAILY PO 02/21/17 09:00 03/13/17 08:47 (Prinivil) 5 mg BID PO 03/03/17 21:00 03/13/17 08:47 (Carnitor 10% Liq) 6 ml TID PO 03/07/17 18:00 03/13/17 08:48 Assessment and Plan Problem List: (1) Dementia Status: Chronic Plan: Cooperative and med complaint per staff. No behavior issues noted (2) Hyperlipemia Status: Chronic Plan: Continue statin (3) Agitation Status: Acute Plan: Cooperative at visit. On Risperdal. (4) Hypertension Status: Acute Plan: Continue current regimen blood pressure well controlled. will monitor (5) Schizophrenia Status: Chronic Plan: Managed per psych. (6) Suprapubic tenderness Status: Resolved Plan: Resolved. (7) Discomfort of back Status: Resolved Plan: Acetaminophen ordered PRN. No discomfort noted (8) Hyperkalemia Status: Resolved Plan: Resolved. Assessment and Plan Assessment and plan discussed with Dr. Vásquez Discussed Condition With Nursing Physician Attestation I have examined this patient and reviewed this note and I agree with these findings and plan of care. Ascencion Vásquez DO Problem Qualifiers (1) Dementia: Qualified Code: F03.91 - Dementia with behavioral disturbance, unspecified dementia type (2) Hyperlipemia: Qualified Code: E78.2 - Mixed hyperlipidemia (3) Hypertension: Qualified Code: I10 - Essential hypertension (4) Schizophrenia: Qualified Code: F20.9 - Schizophrenia, unspecified type Maria Esther Jhaveri March 13, 2017 11:03
--- NOTE | 2017-03-13 13:35 | HHI.PYPN ---
Subjective Remarks Patient discussed with treatment team, patient seen on unit, chart reviewed. Patient continues to wander at times noted to be talking to herself in [place]ic. Patient did show some behavioral issues this morning sleeping at one of our floor staff. Otherwise no consistent behavioral issues, compliant medications Review of Systems Except as stated in HPI: all other systems reviewed are Neg Objective Alert: Yes [place]: Person, Place Mood: Calm Affect: Blunted Memory Intact: Comment (not formally assessed) Hallucinations: Other (None) Delusions: No Delusion Type: Other (None) Suicidal: Ideation (No SI) Homicidal: Ideation (No HI) Insight/Judgment Very poor Vitals/IOs Vital Signs Date Time Temp Pulse Resp B/P Pulse Ox O2 Delivery O2 Flow Rate FiO2 03/13/17 05:55 97.8 69 18 119/66 03/12/17 05:35 97 Intake and Output 03/12/17 03/12/17 03/13/17 08:00 16:00 00:00 Intake Total 1440 ml Balance 1440 ml Assessment & Plan Problem List: (1) Dementia of Alzheimer's type with behavioral disturbance ICD Code: G30.8 Assessment & Plan Estimated LOS: days patient remains confused and demented needing redirection, continues to wander, did slap at a floor staff today Justification for Cont. Inpt. At this time patient will decompensate placed in a lower level of care Discharge Planning To be determined Request HC Surrog/Guard Advoc?: Yes Problem Qualifiers (1) Dementia of Alzheimer's type with behavioral disturbance: Qualified Code: G30.8 - Alzheimer's disease of other onset with behavioral disturbance Rodolfo Corona MD March 13, 2017 13:35
[2017-03-13 17:15] VITALS: BP 119/66; PULSE 69; RESP 18; TEMP 97.8; O2SAT 98
[2017-03-13] MEDS: risperiDONE ODT 2 MG TAB PO SCH (20:54)
[2017-03-13] MEDS: ATORVASTATIN 20 MG TAB PO SCH (20:54)
[2017-03-14 05:33] VITALS: BP 160/95; PULSE 108; RESP 18; TEMP 97
[2017-03-14] MEDS: LEVOTHYROXINE SODIUM 50 MCG TAB PO SCH (06:31)
[2017-03-14 07:15] VITALS: BP 160/95; PULSE 108; RESP 18; TEMP 97; O2SAT 97
[2017-03-14] MEDS: risperiDONE ODT 1 MG TAB PO SCH (08:54)
[2017-03-14] MEDS: VALPROIC ACID SYRUP 250 MG/5 ML UDC PO SCH ×2 (08:54→20:57)
[2017-03-14] MEDS: amLODIPine BESYLATE 5 MG TAB PO SCH (08:54)
[2017-03-14] MEDS: ASPIRIN 81 MG CHEW TAB PO SCH (08:54)
[2017-03-14] MEDS: LISINOPRIL 20 MG TAB PO SCH ×2 (08:55→20:57)
[2017-03-14] MEDS: BENZTROPINE MESYLATE 1 MG TAB PO SCH ×2 (08:55→20:57)
[2017-03-14] MEDS: levOCARNitine 10% ORAL SOLN 118 ML BTL PO SCH ×3 (09:00→18:00)
--- NOTE | 2017-03-14 14:04 | HHI.PYPN ---
Subjective Remarks Patient seen in dayroom with floor staff, chart review, patient continues confused wandering, at times appears to be talking to herself. This morning became a little upset with another female patient leading to a little mini " food fight" that was easily intervened with and redirected compliant medications Review of Systems Except as stated in HPI: all other systems reviewed are Neg Objective Alert: Yes [place]: Person, Place Mood: Calm Affect: Blunted Memory Intact: Comment (not formally assessed) Hallucinations: Other (None) Delusions: No Delusion Type: Other (None) Suicidal: Ideation (No SI) Homicidal: Ideation (No HI) Insight/Judgment Very poor Vitals/IOs Vital Signs Date Time Temp Pulse Resp B/P Pulse Ox O2 Delivery O2 Flow Rate FiO2 03/14/17 07:15 97.0 108 18 160/95 97 Intake and Output 03/13/17 03/13/17 03/14/17 08:00 16:00 00:00 Intake Total 240 ml 1080 ml Balance 240 ml 1080 ml Assessment & Plan Problem List: (1) Dementia of Alzheimer's type with behavioral disturbance ICD Code: G30.8 Assessment & Plan Estimated LOS: days patient continues demented confused though no significant behavioral problems. Justification for Cont. Inpt. At this time patient will decompensate if placed in the lower level of care Discharge Planning To be determined Request HC Surrog/Guard Advoc?: Yes Problem Qualifiers (1) Dementia of Alzheimer's type with behavioral disturbance: Qualified Code: G30.8 - Alzheimer's disease of other onset with behavioral disturbance Rodolfo Corona MD March 14, 2017 14:04
[2017-03-14 17:16] VITALS: BP 123/76; PULSE 79; RESP 19; TEMP 97.3
[2017-03-14] MEDS: ATORVASTATIN 20 MG TAB PO SCH (20:57)
[2017-03-14] MEDS: risperiDONE ODT 2 MG TAB PO SCH (20:57)
[2017-03-15] MEDS: LEVOTHYROXINE SODIUM 50 MCG TAB PO SCH (05:51)
[2017-03-15] MEDS: ASPIRIN 81 MG CHEW TAB PO SCH (09:00)
[2017-03-15] MEDS: amLODIPine BESYLATE 5 MG TAB PO SCH (09:00)
[2017-03-15] MEDS: VALPROIC ACID SYRUP 250 MG/5 ML UDC PO SCH ×2 (09:00→21:40)
[2017-03-15] MEDS: BENZTROPINE MESYLATE 1 MG TAB PO SCH ×2 (09:00→21:40)
[2017-03-15] MEDS: LISINOPRIL 20 MG TAB PO SCH ×2 (09:00→21:40)
[2017-03-15] MEDS: risperiDONE ODT 1 MG TAB PO SCH (09:00)
[2017-03-15] MEDS: levOCARNitine 10% ORAL SOLN 118 ML BTL PO SCH ×3 (09:00→17:22)
--- NOTE | 2017-03-15 09:46 | HHI.PYPN ---
Subjective Remarks Patient seen in dayroom with floor staff, chart review, patient continues to wander speaking nonsensical in Lithuanian. At times noted to be talking to herself. Otherwise she has no significant behavioral problems at this time. Compliant medications Review of Systems Except as stated in HPI: all other systems reviewed are Neg Objective Alert: Yes [place]: Person, Place Mood: Calm Affect: Blunted Memory Intact: Comment (not formally assessed) Hallucinations: Other (None) Delusions: No Delusion Type: Other (None) Suicidal: Ideation (No SI) Homicidal: Ideation (No HI) Insight/Judgment Very poor Vitals/IOs Vital Signs Date Time Temp Pulse Resp B/P Pulse Ox O2 Delivery O2 Flow Rate FiO2 03/14/17 17:16 97.3 79 19 123/76 03/14/17 07:15 97 Intake and Output 03/14/17 03/14/17 03/15/17 08:00 16:00 00:00 Intake Total 240 ml 240 ml 420 ml Balance 240 ml 240 ml 420 ml Assessment & Plan Problem List: (1) Dementia of Alzheimer's type with behavioral disturbance ICD Code: G30.8 Assessment & Plan Estimated LOS: days patient continues confused and demented, needing frequent redirection, but no significant behavioral problems noted today. Compliant medications Justification for Cont. Inpt. At this time patient will decompensate if placed in a lower level of care Discharge Planning To be determined Request HC Surrog/Guard Advoc?: Yes Problem Qualifiers (1) Dementia of Alzheimer's type with behavioral disturbance: Qualified Code: G30.8 - Alzheimer's disease of other onset with behavioral disturbance Rodolfo Corona MD March 15, 2017 09:46
[2017-03-15 10:34] LABS: HEMATOCRIT 28.7 % (35.0-46.0); MEAN CELL VOLUME 88.3 FL (80.0-100.0); MEAN CORPUSCULAR HGB CONC 32.8 % (32.0-36.0); PLATELET COUNT 154 TH/MM3 (150-450); RED BLOOD COUNT 3.25 MIL/MM3 (4.00-5.30); REVIEW FLAG FINAL; WHITE BLOOD COUNT 9.2 TH/MM3 (4.0-11.0)
[2017-03-15 10:47] LABS: BICARBONATE 27.8 MEQ/L (21.0-32.0); POTASSIUM 4.8 MEQ/L (3.5-5.1)
--- NOTE | 2017-03-15 10:58 | HHI.PR ---
Subjective Remarks Patient seen in Day room. Cooperative with exam. Denies any pain. No behavior issues noted per nursing and complaint with medications Objective Vital Signs Date Time Temp Pulse Resp B/P Pulse Ox O2 Delivery O2 Flow Rate FiO2 03/14/17 17:16 97.3 79 19 123/76 I/O 03/14/17 03/14/17 03/14/17 03/15/17 03/15/17 03/15/17 07:00 15:00 23:00 07:00 15:00 23:00 Intake Total 480 ml 420 ml 0 ml 360 ml Balance 480 ml 420 ml 0 ml 360 ml Intake Oral 480 ml 420 ml 0 ml 360 ml # Voids 3 1 1 Result Diagram: 03/15/17 1010 03/15/17 1010 Other Results Laboratory Tests Test 03/15/17 03/15/17 10:10 10:15 White Blood Count 9.2 TH/MM3 Red Blood Count 3.25 MIL/MM3 Hemoglobin 9.4 GM/DL Hematocrit 28.7 % Mean Corpuscular Volume 88.3 FL Mean Corpuscular Hemoglobin 29.0 PG Mean Corpuscular Hemoglobin 32.8 % Concent Red Cell Distribution Width 16.0 % Platelet Count 154 TH/MM3 Mean Platelet Volume 9.1 FL Sodium Level 143 MEQ/L Potassium Level 4.8 MEQ/L Chloride Level 108 MEQ/L Carbon Dioxide Level 27.8 MEQ/L Anion Gap 7 MEQ/L Blood Urea Nitrogen 36 MG/DL Creatinine 0.98 MG/DL Estimat Glomerular Filtration 55 ML/MIN Rate Random Glucose 74 MG/DL Calcium Level 9.0 MG/DL Ammonia 48 MCMOL/L Objective Remarks GENERAL: alert and cooperative SKIN: Warm and dry. HEAD: Normocephalic. EYES: No scleral icterus. No injection or drainage. NECK: Supple, trachea midline. No JVD or lymphadenopathy. CARDIOVASCULAR: Regular rate and rhythm without murmurs, gallops, or rubs. RESPIRATORY: Breath sounds equal bilaterally. No accessory muscle use. GASTROINTESTINAL: Abdomen soft, non-tender, nondistended. MUSCULOSKELETAL: No cyanosis, or edema. BACK: Nontender without obvious deformity. No CVA tenderness. Medications and IVs Current Medications Medications (Trade) Dose Ordered Sig/Natalio Route Start Time Stop Time Status Last Admin (Catapres) 0.1 mg Q6H PRN PO 01/07/17 18:45 (Tylenol) 650 mg Q4H PRN PO 01/08/17 13:45 03/05/17 22:21 (Milk Of Magnesia Liq) 30 ml DAILY PRN PO 01/08/17 13:45 01/16/17 20:54 (Mag-Al Plus Susp Liq) 30 ml Q6H PRN PO 01/08/17 13:45 (Aspirin Chew) 81 mg DAILY PO 01/09/17 09:00 03/15/17 09:00 (Lipitor) 20 mg HS PO 01/08/17 21:00 03/14/17 20:57 (Synthroid) 50 mcg DAILY@06 PO 01/09/17 06:00 03/15/17 05:51 (Norvasc) 10 mg DAILY PO 01/17/17 09:00 03/15/17 09:00 (Depakene Liq) 500 mg DAILY PO 01/22/17 09:00 03/15/17 09:00 (Depakene Liq) 750 mg HS PO 01/21/17 21:00 03/14/17 20:57 (Pill Splitter) 1 ea UNSCH PRN OTHER 01/21/17 16:15 (Tylenol) 650 mg Q4H PRN PO 01/25/17 07:45 (Cogentin) 0.5 mg BID PO 01/25/17 21:00 03/15/17 09:00 (Remeron) 7.5 mg HS PO 01/27/17 21:00 Hold 02/01/17 21:10 (Ativan) 0.5 mg DAILY@18 PO 02/01/17 18:00 Hold 02/01/17 17:34 (risperDAL M-TAB) 2 mg HS PO 02/20/17 21:00 03/14/17 20:57 (risperDAL M-TAB) 1 mg DAILY PO 02/21/17 09:00 03/15/17 09:00 (Prinivil) 5 mg BID PO 03/03/17 21:00 03/15/17 09:00 (Carnitor 10% Liq) 6 ml TID PO 03/07/17 18:00 03/15/17 09:00 (Ativan) 0.5 mg Q6H PRN PO 03/13/17 16:15 (Ativan Inj) 0.5 mg Q6H PRN IM 03/13/17 16:33 03/13/17 18:05 Assessment and Plan Problem List: (1) Dementia Status: Chronic Plan: Cooperative and med complaint per staff. No behavior issues noted seen in Day room (2) Hyperlipemia Status: Chronic Plan: Continue statin (3) Agitation Status: Acute Plan: Cooperative at visit. On Risperdal. (4) Hypertension Status: Acute Plan: Continue current regimen blood pressure well controlled. will monitor (5) Schizophrenia Status: Chronic Plan: Managed per psych. (6) Suprapubic tenderness Status: Resolved Plan: Resolved. (7) Discomfort of back Status: Resolved Plan: Acetaminophen ordered PRN. No discomfort noted (8) Hyperkalemia Status: Resolved Plan: Resolved. Assessment and Plan Assessment and plan discussed with Dr. Vásquez Discussed Condition With Nursing Physician Attestation I and the QUALITY REVIEW TRAINER have both examined this patient and reviewed this note and I agree with these findings and plan of care. Ascencion Vásquez DO Problem Qualifiers (1) Dementia: Qualified Code: F03.91 - Dementia with behavioral disturbance, unspecified dementia type (2) Hyperlipemia: Qualified Code: E78.2 - Mixed hyperlipidemia (3) Hypertension: Qualified Code: I10 - Essential hypertension (4) Schizophrenia: Qualified Code: F20.9 - Schizophrenia, unspecified type Maria Esther Jhaveri [facility] March 15, 2017 10:58
[2017-03-15] MEDS: LORazepam 2 MG/ML VIAL - age > 65 yrs IM PRN (12:25)
[2017-03-15 18:17] VITALS: BP 116/57; PULSE 70; RESP 18; TEMP 98
[2017-03-15] MEDS: ATORVASTATIN 20 MG TAB PO SCH (21:40)
[2017-03-15] MEDS: risperiDONE ODT 2 MG TAB PO SCH (21:40)
[2017-03-16] MEDS: LORazepam 0.5 MG TAB age > 65 yrs PO PRN ×2 (01:17→22:26)
[2017-03-16] MEDS: LEVOTHYROXINE SODIUM 50 MCG TAB PO SCH (05:59)
[2017-03-16 06:18] VITALS: BP 150/74; PULSE 94; RESP 17; TEMP 97.9; O2SAT 96
[2017-03-16] MEDS: levOCARNitine 10% ORAL SOLN 118 ML BTL PO SCH ×3 (09:00→18:00)
[2017-03-16] MEDS: amLODIPine BESYLATE 5 MG TAB PO SCH (09:12)
[2017-03-16] MEDS: BENZTROPINE MESYLATE 1 MG TAB PO SCH ×3 (09:12→22:26)
[2017-03-16] MEDS: ASPIRIN 81 MG CHEW TAB PO SCH (09:12)
[2017-03-16] MEDS: LISINOPRIL 20 MG TAB PO SCH ×2 (09:13→22:26)
[2017-03-16] MEDS: risperiDONE ODT 1 MG TAB PO SCH (09:13)
[2017-03-16] MEDS: VALPROIC ACID SYRUP 250 MG/5 ML UDC PO SCH ×3 (09:13→22:25)
--- NOTE | 2017-03-16 09:14 | HHI.PYPN ---
Subjective Remarks Patient seen in weekend coverage with nurse. Chart reviewed. Case discussed with nursing staff who reports that the patient has been no real behavioral problems but will awaken around 3 AM and require Ativan to get back to sleep. For me today, the patient is in good spirits. She is ambulating around the unit with a steady gait. She is somewhat internally preoccupied. No evident side effects from medications. No other issues noted. Review of Systems ROS Limitations: Poor Historian Other Limited ROS Objective Alert: Yes [place]: Person Mood: Calm Affect: Euthymic Memory Intact: Comment (not assessed today) Hallucinations: Other (appears somewhat internally preoccupied) Delusions: No Delusion Type: Other (None) Suicidal: Ideation (No SI) Homicidal: Ideation (No HI) Insight/Judgment Poor Remarks No motor abnormalities noted Labs Test 03/15/17 03/15/17 10:10 10:15 White Blood Count 9.2 TH/MM3 Red Blood Count 3.25 MIL/MM3 Hemoglobin 9.4 GM/DL Hematocrit 28.7 % Mean Corpuscular Volume 88.3 FL Mean Corpuscular Hemoglobin 29.0 PG Mean Corpuscular Hemoglobin 32.8 % Concent Red Cell Distribution Width 16.0 % Platelet Count 154 TH/MM3 Mean Platelet Volume 9.1 FL Sodium Level 143 MEQ/L Potassium Level 4.8 MEQ/L Chloride Level 108 MEQ/L Carbon Dioxide Level 27.8 MEQ/L Anion Gap 7 MEQ/L Blood Urea Nitrogen 36 MG/DL Creatinine 0.98 MG/DL Estimat Glomerular Filtration 55 ML/MIN Rate Random Glucose 74 MG/DL Calcium Level 9.0 MG/DL Ammonia 48 MCMOL/L Labs reviewed. Anemia stable. Mild hyperammonemia stable. Vitals/IOs Vital Signs Date Time Temp Pulse Resp B/P Pulse Ox O2 Delivery O2 Flow Rate FiO2 03/16/17 06:18 97.9 94 17 150/74 96 Intake and Output 03/15/17 03/15/17 03/16/17 08:00 16:00 00:00 Intake Total 360 ml 450 ml 720 ml Balance 360 ml 450 ml 720 ml Assessment & Plan Problem List: (1) Dementia of Alzheimer's type with behavioral disturbance ICD Code: G30.8 Assessment & Plan I will add scheduled melatonin at night for sleep. Continue other psychotropics as ordered. Continue other medications and care as ordered. Justification for Cont. Inpt. High risk for decompensation in a less restrictive environment. Discharge Planning Per Dr. Corona Request HC Surrog/Guard Advoc?: Yes Problem Qualifiers (1) Dementia of Alzheimer's type with behavioral disturbance: Qualified Code: G30.8 - Alzheimer's disease of other onset with behavioral disturbance Desmond Connolly MD March 16, 2017 09:14
[2017-03-16] MEDS: ATORVASTATIN 20 MG TAB PO SCH ×2 (21:00→22:26)
[2017-03-16] MEDS: risperiDONE ODT 2 MG TAB PO SCH ×2 (21:00→22:26)
[2017-03-16] MEDS: MELATONIN 5 MG TAB PO SCH ×2 (21:00→22:25)
[2017-03-17 05:38] VITALS: BP 131/60; PULSE 70; RESP 18; TEMP 98; O2SAT 99
[2017-03-17] MEDS: LEVOTHYROXINE SODIUM 50 MCG TAB PO SCH (05:56)
[2017-03-17] MEDS: amLODIPine BESYLATE 5 MG TAB PO SCH (08:14)
[2017-03-17] MEDS: BENZTROPINE MESYLATE 1 MG TAB PO SCH ×2 (08:14→20:22)
[2017-03-17] MEDS: LISINOPRIL 20 MG TAB PO SCH ×2 (08:14→20:22)
[2017-03-17] MEDS: VALPROIC ACID SYRUP 250 MG/5 ML UDC PO SCH ×2 (08:14→20:20)
[2017-03-17] MEDS: ASPIRIN 81 MG CHEW TAB PO SCH (08:15)
[2017-03-17] MEDS: levOCARNitine 10% ORAL SOLN 118 ML BTL PO SCH ×3 (08:15→18:00)
[2017-03-17] MEDS: risperiDONE ODT 1 MG TAB PO SCH (08:15)
--- NOTE | 2017-03-17 11:55 | HHI.PYPN ---
Subjective Remarks Patient seen for psychiatric reevaluation, patient is interviewed primary language Sinhala, patient reports good mood, she is in a good spirit, singing, she says that she is happy to be here, she doesn't remember the reason she is in the hospital, she is pleasantly disoriented in time and place, doesn't seem to be in distress or pain, she denies suicidal or homicidal ideation, she denies visual and auditory hallucinations. No restlessness, no agitation, no aggressive behavior reported. Review of Systems Other No somatic complaints Objective Alert: Yes [place]: Person Mood: Calm Affect: Appropriate, Euthymic Memory Intact: Comment (not assessed today) Hallucinations: Other (appears somewhat internally preoccupied) Delusions: No Delusion Type: Other (None) Suicidal: Ideation (No SI) Homicidal: Ideation (No HI) Insight/Judgment Poor Vitals/IOs Vital Signs Date Time Temp Pulse Resp B/P Pulse Ox O2 Delivery O2 Flow Rate FiO2 03/17/17 05:38 98.0 70 18 131/60 99 Intake and Output 03/16/17 03/16/17 03/16/17 07:59 15:59 23:59 Intake Total 480 ml 840 ml Balance 480 ml 840 ml Assessment & Plan Problem List: (1) Dementia of Alzheimer's type with behavioral disturbance ICD Code: G30.8 Assessment & Plan Estimated LOS: days Justification for Cont. Inpt. Patient is to continue psychiatric hospitalization for stabilization and in order to coordinate a safe discharge. Request HC Surrog/Guard Advoc?: Yes Problem Qualifiers (1) Dementia of Alzheimer's type with behavioral disturbance: Qualified Code: G30.8 - Alzheimer's disease of other onset with behavioral disturbance Jesu Alicia MD March 17, 2017 11:55
[2017-03-17 20:12] VITALS: BP 121/77; PULSE 80; RESP 18; TEMP 97.4; O2SAT 99
[2017-03-17] MEDS: risperiDONE ODT 2 MG TAB PO SCH (20:22)
[2017-03-17] MEDS: MELATONIN 5 MG TAB PO SCH (20:22)
[2017-03-17] MEDS: ATORVASTATIN 20 MG TAB PO SCH (20:22)
[2017-03-18 05:24] VITALS: BP 128/65; PULSE 87; RESP 16; TEMP 97
[2017-03-18] MEDS: LEVOTHYROXINE SODIUM 50 MCG TAB PO SCH (06:00)
[2017-03-18 07:00] VITALS: BP 128/63; PULSE 87; RESP 16; O2SAT 97
[2017-03-18 07:15] VITALS: BP 128/63; PULSE 87; RESP 16; O2SAT 97
[2017-03-18] MEDS: ASPIRIN 81 MG CHEW TAB PO SCH (08:15)
[2017-03-18] MEDS: BENZTROPINE MESYLATE 1 MG TAB PO SCH ×2 (08:15→21:43)
[2017-03-18] MEDS: risperiDONE ODT 1 MG TAB PO SCH (08:15)
[2017-03-18] MEDS: levOCARNitine 10% ORAL SOLN 118 ML BTL PO SCH ×3 (08:15→18:00)
[2017-03-18] MEDS: VALPROIC ACID SYRUP 250 MG/5 ML UDC PO SCH ×2 (08:15→21:43)
[2017-03-18] MEDS: LISINOPRIL 20 MG TAB PO SCH ×2 (08:16→21:43)
[2017-03-18] MEDS: amLODIPine BESYLATE 5 MG TAB PO SCH (08:16)
--- NOTE | 2017-03-18 15:59 | HHI.PYPN ---
Subjective Remarks Patient seen in day room with nurse Jules, chart reviewed, patient compliant medications. Now showing no significant behavioral problems for a few days. Patient remains problematic Review of Systems Except as stated in HPI: all other systems reviewed are Neg Objective Alert: Yes [place]: Person Mood: Calm Affect: Appropriate, Euthymic Memory Intact: Comment (not assessed today) Hallucinations: Other (appears somewhat internally preoccupied) Delusions: No Delusion Type: Other (None) Suicidal: Ideation (No SI) Homicidal: Ideation (No HI) Insight/Judgment Poor Vitals/IOs Vital Signs Date Time Temp Pulse Resp B/P Pulse Ox O2 Delivery O2 Flow Rate FiO2 03/18/17 07:15 87 16 128/63 97 03/18/17 05:24 97.0 Intake and Output 03/17/17 03/17/17 03/17/17 07:59 15:59 23:59 Intake Total 0 ml 600 ml 480 ml Balance 0 ml 600 ml 480 ml Assessment & Plan Problem List: (1) Dementia of Alzheimer's type with behavioral disturbance ICD Code: G30.8 Assessment & Plan Estimated LOS: days patient remains demented confused though no significant behavioral problems at this time Justification for Cont. Inpt. At this time patient decompensate if placed in a lower level of care Discharge Planning To be determined Request HC Surrog/Guard Advoc?: Yes Problem Qualifiers (1) Dementia of Alzheimer's type with behavioral disturbance: Qualified Code: G30.8 - Alzheimer's disease of other onset with behavioral disturbance Rodolfo Corona MD March 18, 2017 15:59
[2017-03-18 19:35] VITALS: BP 133/63; PULSE 68; RESP 18; TEMP 97.9; O2SAT 100
[2017-03-18] MEDS: ATORVASTATIN 20 MG TAB PO SCH (21:42)
[2017-03-18] MEDS: risperiDONE ODT 2 MG TAB PO SCH (21:42)
[2017-03-18] MEDS: MELATONIN 5 MG TAB PO SCH (21:42)
[2017-03-19 05:08] VITALS: BP 150/73; PULSE 98; RESP 17; TEMP 98.2; O2SAT 96
[2017-03-19] MEDS: LEVOTHYROXINE SODIUM 50 MCG TAB PO SCH (05:54)
--- NOTE | 2017-03-19 08:05 | HHI.PR ---
Subjective Remarks Patient seen in Day room. Cooperative with exam. Denies any pain. No behavior issues noted per nursing and complaint with medications. VSS and afebrile Objective Vital Signs Date Time Temp Pulse Resp B/P Pulse Ox O2 Delivery O2 Flow Rate FiO2 03/19/17 05:08 98.2 98 17 150/73 96 03/18/17 19:35 97.9 68 18 133/63 100 I/O 03/18/17 03/18/17 03/18/17 03/19/17 03/19/17 03/19/17 07:00 15:00 23:00 07:00 15:00 23:00 Intake Total 0 ml 240 ml 2750 ml Balance 0 ml 240 ml 2750 ml Intake Oral 0 ml 240 ml 2750 ml # Voids 2 5 2 Result Diagram: 03/15/17 1010 03/15/17 1010 Objective Remarks GENERAL: alert and cooperative SKIN: Warm and dry. HEAD: Normocephalic. EYES: No scleral icterus. No injection or drainage. NECK: Supple, trachea midline. No JVD or lymphadenopathy. CARDIOVASCULAR: Regular rate and rhythm without murmurs, gallops, or rubs. RESPIRATORY: Breath sounds equal bilaterally. No accessory muscle use. GASTROINTESTINAL: Abdomen soft, non-tender, nondistended. MUSCULOSKELETAL: No cyanosis, or edema. BACK: Nontender without obvious deformity. No CVA tenderness. Medications and IVs Current Medications Medications (Trade) Dose Ordered Sig/Natalio Route Start Time Stop Time Status Last Admin (Catapres) 0.1 mg Q6H PRN PO 01/07/17 18:45 (Tylenol) 650 mg Q4H PRN PO 01/08/17 13:45 03/05/17 22:21 (Milk Of Magnesia Liq) 30 ml DAILY PRN PO 01/08/17 13:45 01/16/17 20:54 (Mag-Al Plus Susp Liq) 30 ml Q6H PRN PO 01/08/17 13:45 (Aspirin Chew) 81 mg DAILY PO 01/09/17 09:00 03/18/17 08:15 (Lipitor) 20 mg HS PO 01/08/17 21:00 03/18/17 21:42 (Synthroid) 50 mcg DAILY@06 PO 01/09/17 06:00 03/19/17 05:54 (Norvasc) 10 mg DAILY PO 01/17/17 09:00 03/17/17 08:14 (Depakene Liq) 500 mg DAILY PO 01/22/17 09:00 03/18/17 08:15 (Depakene Liq) 750 mg HS PO 01/21/17 21:00 03/18/17 21:43 (Pill Splitter) 1 ea UNSCH PRN OTHER 01/21/17 16:15 (Tylenol) 650 mg Q4H PRN PO 01/25/17 07:45 (Cogentin) 0.5 mg BID PO 01/25/17 21:00 03/18/17 21:43 (Remeron) 7.5 mg HS PO 01/27/17 21:00 Hold 02/01/17 21:10 (Ativan) 0.5 mg DAILY@18 PO 02/01/17 18:00 Hold 02/01/17 17:34 (risperDAL M-TAB) 2 mg HS PO 02/20/17 21:00 03/18/17 21:42 (risperDAL M-TAB) 1 mg DAILY PO 02/21/17 09:00 03/18/17 08:15 (Prinivil) 5 mg BID PO 03/03/17 21:00 03/18/17 21:43 (Carnitor 10% Liq) 6 ml TID PO 03/07/17 18:00 03/18/17 18:00 (Ativan) 0.5 mg Q6H PRN PO 03/13/17 16:15 03/16/17 01:17 (Ativan Inj) 0.5 mg Q6H PRN IM 03/13/17 16:33 03/15/17 12:25 (Melatonin) 5 mg HS PO 03/16/17 21:00 03/18/17 21:42 Assessment and Plan Problem List: (1) Dementia Status: Chronic Plan: Cooperative and med complaint per staff. No behavior issues noted per nursing (2) Hyperlipemia Status: Chronic Plan: Continue statin (3) Agitation Status: Acute Plan: Cooperative at visit. On Risperdal. (4) Hypertension Status: Acute Plan: Continue current regimen blood pressure well controlled. will monitor (5) Schizophrenia Status: Chronic Plan: Managed per psych. (6) Suprapubic tenderness Status: Resolved Plan: Resolved. (7) Discomfort of back Status: Resolved Plan: Acetaminophen ordered PRN. No discomfort noted (8) Hyperkalemia Status: Resolved Plan: Resolved. Assessment and Plan Assessment and plan discussed with Dr. Vásquez Discussed Condition With Nursing Physician Attestation I and the SAS DEVELOPER have both examined this patient and reviewed this note and I agree with these findings and plan of care. Ascencion Vásquez DO Problem Qualifiers (1) Dementia: Qualified Code: F03.91 - Dementia with behavioral disturbance, unspecified dementia type (2) Hyperlipemia: Qualified Code: E78.2 - Mixed hyperlipidemia (3) Hypertension: Qualified Code: I10 - Essential hypertension (4) Schizophrenia: Qualified Code: F20.9 - Schizophrenia, unspecified type Maria Esther Jhaveri March 19, 2017 08:05
[2017-03-19] MEDS: risperiDONE ODT 1 MG TAB PO SCH (09:34)
[2017-03-19] MEDS: VALPROIC ACID SYRUP 250 MG/5 ML UDC PO SCH ×2 (09:34→20:56)
[2017-03-19] MEDS: BENZTROPINE MESYLATE 1 MG TAB PO SCH ×2 (09:34→20:56)
[2017-03-19] MEDS: ASPIRIN 81 MG CHEW TAB PO SCH (09:34)
[2017-03-19] MEDS: amLODIPine BESYLATE 5 MG TAB PO SCH (09:34)
[2017-03-19] MEDS: LISINOPRIL 20 MG TAB PO SCH ×2 (09:34→20:56)
[2017-03-19] MEDS: levOCARNitine 10% ORAL SOLN 118 ML BTL PO SCH ×3 (09:34→17:22)
--- NOTE | 2017-03-19 13:15 | HHI.PYPN ---
Subjective Remarks Patient seen in day room with nurse Tere, chart review, patient continues to wander at times somewhat intrusive but easily redirected. Continues to babble in [place]. For now continue treatment Review of Systems Except as stated in HPI: all other systems reviewed are Neg Objective Alert: Yes [place]: Person Mood: Calm Affect: Appropriate, Euthymic Memory Intact: Comment (not assessed today) Hallucinations: Other (appears somewhat internally preoccupied) Delusions: No Delusion Type: Other (None) Suicidal: Ideation (No SI) Homicidal: Ideation (No HI) Insight/Judgment Very poor Vitals/IOs Vital Signs Date Time Temp Pulse Resp B/P Pulse Ox O2 Delivery O2 Flow Rate FiO2 03/19/17 05:08 98.2 98 17 150/73 96 Intake and Output 03/18/17 03/18/17 03/18/17 07:59 15:59 23:59 Intake Total 240 ml 2750 ml Balance 240 ml 2750 ml Assessment & Plan Problem List: (1) Dementia of Alzheimer's type with behavioral disturbance ICD Code: G30.8 Assessment & Plan Estimated LOS: days patient continues demented confused though no significant behavioral problems compliant medications placement is problematic Justification for Cont. Inpt. At this time patient would decompensate if placed in the lower level of care Discharge Planning To be determined Request HC Surrog/Guard Advoc?: Yes Problem Qualifiers (1) Dementia of Alzheimer's type with behavioral disturbance: Qualified Code: G30.8 - Alzheimer's disease of other onset with behavioral disturbance Rodolfo Corona MD March 19, 2017 13:15
[2017-03-19 19:29] VITALS: BP 120/59; PULSE 69; RESP 16; TEMP 97.7; O2SAT 99
[2017-03-19] MEDS: risperiDONE ODT 2 MG TAB PO SCH (20:56)
[2017-03-19] MEDS: MELATONIN 5 MG TAB PO SCH (20:56)
[2017-03-19] MEDS: ATORVASTATIN 20 MG TAB PO SCH (20:56)
[2017-03-20 02:25] VITALS: BP 146/67; PULSE 85; RESP 18; TEMP 98.3; O2SAT 100
[2017-03-20 05:34] VITALS: BP 121/78; PULSE 75; RESP 16; TEMP 97.7; O2SAT 98
[2017-03-20] MEDS: LEVOTHYROXINE SODIUM 50 MCG TAB PO SCH (05:51)
[2017-03-20] MEDS: levOCARNitine 10% ORAL SOLN 118 ML BTL PO SCH ×3 (09:00→17:27)
[2017-03-20] MEDS: VALPROIC ACID SYRUP 250 MG/5 ML UDC PO SCH ×2 (09:00→20:52)
--- NOTE | 2017-03-20 09:17 | HHI.PYPN ---
Subjective Remarks Patient seen in day room with nurse Allie. Chart review. Patient compliant medications. Patient continues confused demented wandering speaking [place], at times noted to be speaking to herself. However there is no significant behavioral problems at this time for now continue treatment Review of Systems Except as stated in HPI: all other systems reviewed are Neg Objective Alert: Yes [place]: Person Mood: Calm Affect: Appropriate, Euthymic Memory Intact: Comment (not assessed today) Hallucinations: Other (appears somewhat internally preoccupied) Delusions: No Delusion Type: Other (None) Suicidal: Ideation (No SI) Homicidal: Ideation (No HI) Insight/Judgment Very poor Vitals/IOs Vital Signs Date Time Temp Pulse Resp B/P Pulse Ox O2 Delivery O2 Flow Rate FiO2 03/20/17 05:34 97.7 75 16 121/78 98 Intake and Output 03/19/17 03/19/17 03/20/17 08:00 16:00 00:00 Intake Total 100 ml 840 ml Balance 100 ml 840 ml Assessment & Plan Problem List: (1) Dementia of Alzheimer's type with behavioral disturbance ICD Code: G30.8 Assessment & Plan Estimated LOS: days patient continues demented and confused, though behavioral problems have somewhat diminished. She still needs redirection interventions Justification for Cont. Inpt. At this time patient would compensate placed at a lower level of care Discharge Planning To be determined Request HC Surrog/Guard Advoc?: Yes Problem Qualifiers (1) Dementia of Alzheimer's type with behavioral disturbance: Qualified Code: G30.8 - Alzheimer's disease of other onset with behavioral disturbance Rodolfo Corona MD March 20, 2017 09:17
[2017-03-20] MEDS: amLODIPine BESYLATE 5 MG TAB PO SCH (09:50)
[2017-03-20] MEDS: BENZTROPINE MESYLATE 1 MG TAB PO SCH ×2 (09:50→20:52)
[2017-03-20] MEDS: LISINOPRIL 20 MG TAB PO SCH ×2 (09:50→20:52)
[2017-03-20] MEDS: ASPIRIN 81 MG CHEW TAB PO SCH (09:50)
[2017-03-20] MEDS: risperiDONE ODT 1 MG TAB PO SCH (09:51)
[2017-03-20] MEDS: LORazepam 0.5 MG TAB age > 65 yrs PO PRN (15:50)
[2017-03-20] MEDS: risperiDONE ODT 2 MG TAB PO SCH (20:52)
[2017-03-20] MEDS: MELATONIN 5 MG TAB PO SCH (20:52)
[2017-03-20] MEDS: ATORVASTATIN 20 MG TAB PO SCH (20:52)
[2017-03-21 05:26] VITALS: BP 117/65; PULSE 100; RESP 17; TEMP 97.6
[2017-03-21] MEDS: LEVOTHYROXINE SODIUM 50 MCG TAB PO SCH (05:44)
[2017-03-21] MEDS: BENZTROPINE MESYLATE 1 MG TAB PO SCH ×2 (09:00→20:18)
[2017-03-21] MEDS: risperiDONE ODT 1 MG TAB PO SCH (09:00)
[2017-03-21] MEDS: LISINOPRIL 20 MG TAB PO SCH ×2 (09:00→20:19)
[2017-03-21] MEDS: VALPROIC ACID SYRUP 250 MG/5 ML UDC PO SCH ×2 (09:00→20:18)
[2017-03-21] MEDS: amLODIPine BESYLATE 5 MG TAB PO SCH (09:00)
[2017-03-21] MEDS: ASPIRIN 81 MG CHEW TAB PO SCH (09:00)
[2017-03-21] MEDS: levOCARNitine 10% ORAL SOLN 118 ML BTL PO SCH ×3 (09:00→17:50)
--- NOTE | 2017-03-21 11:20 | HHI.PYPN ---
Subjective Remarks Patient seen in day room. Patient continues to wander confused in [place]. Needing redirection and frequent assistance by staff. Though no real behavioral problems noted at this time. Compliant medications Review of Systems Except as stated in HPI: all other systems reviewed are Neg Objective Alert: Yes [place]: Person Mood: Calm Affect: Appropriate, Euthymic Memory Intact: Comment (not assessed today) Hallucinations: Other (appears somewhat internally preoccupied) Delusions: No Delusion Type: Other (None) Suicidal: Ideation (No SI) Homicidal: Ideation (No HI) Insight/Judgment Poor Vitals/IOs Vital Signs Date Time Temp Pulse Resp B/P Pulse Ox O2 Delivery O2 Flow Rate FiO2 03/21/17 05:26 97.6 100 17 117/65 03/20/17 05:34 98 Intake and Output 03/20/17 03/20/17 03/21/17 08:00 16:00 00:00 Intake Total 360 ml Balance 360 ml Assessment & Plan Problem List: (1) Dementia of Alzheimer's type with behavioral disturbance ICD Code: G30.8 Assessment & Plan Patient continues confused and demented, though no significant behavior problems at this time Justification for Cont. Inpt. At this time patient will decompensate if placed in a lower level of care Discharge Planning To be determined Request HC Surrog/Guard Advoc?: Yes Problem Qualifiers (1) Dementia of Alzheimer's type with behavioral disturbance: Qualified Code: G30.8 - Alzheimer's disease of other onset with behavioral disturbance Rodolfo Corona MD March 21, 2017 11:20
[2017-03-21 17:29] VITALS: BP 121/56; PULSE 72; RESP 18; TEMP 97; O2SAT 100
[2017-03-21] MEDS: risperiDONE ODT 2 MG TAB PO SCH (20:18)
[2017-03-21] MEDS: MELATONIN 5 MG TAB PO SCH (20:18)
[2017-03-21] MEDS: ATORVASTATIN 20 MG TAB PO SCH (20:18)
[2017-03-22] MEDS: LEVOTHYROXINE SODIUM 50 MCG TAB PO SCH (05:19)
[2017-03-22 05:40] VITALS: BP 138/74; PULSE 102; RESP 17; TEMP 96.2; O2SAT 99
--- NOTE | 2017-03-22 07:12 | HHI.PR ---
Subjective Remarks Patient seen in Day room. Cooperative with exam. Denies any pain. VSS and afebrile Objective Vital Signs Date Time Temp Pulse Resp B/P Pulse Ox O2 Delivery O2 Flow Rate FiO2 03/22/17 05:40 96.2 102 17 138/74 99 03/21/17 17:29 97.0 72 18 121/56 100 I/O 03/21/17 03/21/17 03/21/17 03/22/17 03/22/17 03/22/17 07:00 15:00 23:00 07:00 15:00 23:00 Intake Total 240 ml 1560 ml 360 ml Balance 240 ml 1560 ml 360 ml Intake Oral 240 ml 1560 ml 360 ml # Voids 2 5 2 # Bowel Movements 0 Objective Remarks GENERAL: alert and cooperative SKIN: Warm and dry. HEAD: Normocephalic. EYES: No scleral icterus. No injection or drainage. NECK: Supple, trachea midline. No JVD or lymphadenopathy. CARDIOVASCULAR: Regular rate and rhythm without murmurs, gallops, or rubs. RESPIRATORY: Breath sounds equal bilaterally. No accessory muscle use. GASTROINTESTINAL: Abdomen soft, non-tender, nondistended. MUSCULOSKELETAL: No cyanosis, or edema. BACK: Nontender without obvious deformity. No CVA tenderness. Medications and IVs Current Medications Medications (Trade) Dose Ordered Sig/Natalio Route Start Time Stop Time Status Last Admin (Catapres) 0.1 mg Q6H PRN PO 01/07/17 18:45 (Tylenol) 650 mg Q4H PRN PO 01/08/17 13:45 03/05/17 22:21 (Milk Of Magnesia Liq) 30 ml DAILY PRN PO 01/08/17 13:45 01/16/17 20:54 (Mag-Al Plus Susp Liq) 30 ml Q6H PRN PO 01/08/17 13:45 (Aspirin Chew) 81 mg DAILY PO 01/09/17 09:00 03/21/17 09:00 (Lipitor) 20 mg HS PO 01/08/17 21:00 03/21/17 20:18 (Synthroid) 50 mcg DAILY@06 PO 01/09/17 06:00 03/22/17 05:19 (Norvasc) 10 mg DAILY PO 01/17/17 09:00 03/21/17 09:00 (Depakene Liq) 500 mg DAILY PO 01/22/17 09:00 03/21/17 09:00 (Depakene Liq) 750 mg HS PO 01/21/17 21:00 03/21/17 20:18 (Pill Splitter) 1 ea UNSCH PRN OTHER 01/21/17 16:15 (Tylenol) 650 mg Q4H PRN PO 01/25/17 07:45 (Cogentin) 0.5 mg BID PO 01/25/17 21:00 03/21/17 20:18 (Remeron) 7.5 mg HS PO 01/27/17 21:00 Hold 02/01/17 21:10 (Ativan) 0.5 mg DAILY@18 PO 02/01/17 18:00 Hold 02/01/17 17:34 (risperDAL M-TAB) 2 mg HS PO 02/20/17 21:00 03/21/17 20:18 (risperDAL M-TAB) 1 mg DAILY PO 02/21/17 09:00 03/21/17 09:00 (Prinivil) 5 mg BID PO 03/03/17 21:00 03/21/17 20:19 (Carnitor 10% Liq) 6 ml TID PO 03/07/17 18:00 03/21/17 17:50 (Ativan) 0.5 mg Q6H PRN PO 03/13/17 16:15 03/20/17 15:50 (Ativan Inj) 0.5 mg Q6H PRN IM 03/13/17 16:33 03/15/17 12:25 (Melatonin) 5 mg HS PO 03/16/17 21:00 03/21/17 20:18 Assessment and Plan Problem List: (1) Dementia Status: Chronic Plan: Cooperative and med complaint per staff. No behavior issues noted per nursing (2) Hyperlipemia Status: Chronic Plan: Continue statin (3) Agitation Status: Acute Plan: Cooperative at visit. On Risperdal and lorazepam. (4) Hypertension Status: Acute Plan: Continue current regimen blood pressure well controlled. B/P 138/74 will monitor (5) Schizophrenia Status: Chronic Plan: Managed per psych. (6) Suprapubic tenderness Status: Resolved Plan: Resolved. (7) Discomfort of back Status: Resolved Plan: Acetaminophen ordered PRN. No discomfort noted (8) Hyperkalemia Status: Resolved Plan: Resolved. Assessment and Plan Assessment and plan discussed with Dr. Vásquez Discussed Condition With Nursing Physician Attestation I and the DIRECTOR PHYSICAL THERAPY have both examined the patient and reviewed the note and I agree with these findings and plan of care. Ascencion Vásquez DO Problem Qualifiers (1) Dementia: Qualified Code: F03.91 - Dementia with behavioral disturbance, unspecified dementia type (2) Hyperlipemia: Qualified Code: E78.2 - Mixed hyperlipidemia (3) Hypertension: Qualified Code: I10 - Essential hypertension (4) Schizophrenia: Qualified Code: F20.9 - Schizophrenia, unspecified type Maria Esther Jhaveri March 22, 2017 07:12
[2017-03-22] MEDS: ASPIRIN 81 MG CHEW TAB PO SCH (09:00)
[2017-03-22] MEDS: BENZTROPINE MESYLATE 1 MG TAB PO SCH ×2 (09:00→20:15)
[2017-03-22] MEDS: risperiDONE ODT 1 MG TAB PO SCH (09:00)
[2017-03-22] MEDS: amLODIPine BESYLATE 5 MG TAB PO SCH (09:00)
[2017-03-22] MEDS: VALPROIC ACID SYRUP 250 MG/5 ML UDC PO SCH ×2 (09:00→20:15)
[2017-03-22] MEDS: LISINOPRIL 20 MG TAB PO SCH ×2 (09:00→20:13)
[2017-03-22] MEDS: levOCARNitine 10% ORAL SOLN 118 ML BTL PO SCH ×3 (09:00→17:19)
--- NOTE | 2017-03-22 09:51 | HHI.PYPN ---
Subjective Remarks Patient seen in day room with nurse Katty, patient continues confused demented speaking Estonian and a disorganized manner, trace increased resistance to medication. Needing much encouragement. Will increase Respinol to 2 mg twice a day. Otherwise continue treatment Review of Systems Except as stated in HPI: all other systems reviewed are Neg Objective Alert: Yes [place]: Person Mood: Calm Affect: Appropriate, Euthymic Memory Intact: Comment (not assessed today) Hallucinations: Other (appears somewhat internally preoccupied) Delusions: No Delusion Type: Other (None) Suicidal: Ideation (No SI) Homicidal: Ideation (No HI) Insight/Judgment Poor Vitals/IOs Vital Signs Date Time Temp Pulse Resp B/P Pulse Ox O2 Delivery O2 Flow Rate FiO2 03/22/17 05:40 96.2 102 17 138/74 99 Intake and Output 03/21/17 03/21/17 03/22/17 08:00 16:00 00:00 Intake Total 240 ml 1560 ml Balance 240 ml 1560 ml Assessment & Plan Problem List: (1) Dementia of Alzheimer's type with behavioral disturbance ICD Code: G30.8 Assessment & Plan Estimated LOS: days patient continues demented confused at times mixed compliance with medication, please medication adjustment about Justification for Cont. Inpt. At this time patient will decompensate with placed in a lower level of care Discharge Planning To be determined Request HC Surrog/Guard Advoc?: Yes Problem Qualifiers (1) Dementia of Alzheimer's type with behavioral disturbance: Qualified Code: G30.8 - Alzheimer's disease of other onset with behavioral disturbance Rodolfo Corona MD March 22, 2017 09:51
[2017-03-22] MEDS: risperiDONE ODT 2 MG TAB PO SCH (20:13)
[2017-03-22] MEDS: MELATONIN 5 MG TAB PO SCH (20:14)
[2017-03-22] MEDS: ATORVASTATIN 20 MG TAB PO SCH (20:15)
[2017-03-23] MEDS: LORazepam 0.5 MG TAB age > 65 yrs PO PRN ×2 (05:00→12:45)
[2017-03-23 05:23] VITALS: BP 153/73; PULSE 83; RESP 17; TEMP 97.1; O2SAT 98
[2017-03-23] MEDS: LEVOTHYROXINE SODIUM 50 MCG TAB PO SCH (06:00)
[2017-03-23] MEDS: ASPIRIN 81 MG CHEW TAB PO SCH (08:43)
[2017-03-23] MEDS: amLODIPine BESYLATE 5 MG TAB PO SCH (08:44)
[2017-03-23] MEDS: VALPROIC ACID SYRUP 250 MG/5 ML UDC PO SCH ×2 (08:44→20:25)
[2017-03-23] MEDS: levOCARNitine 10% ORAL SOLN 118 ML BTL PO SCH ×3 (08:44→17:47)
[2017-03-23] MEDS: LISINOPRIL 20 MG TAB PO SCH ×2 (08:44→20:26)
[2017-03-23] MEDS: BENZTROPINE MESYLATE 1 MG TAB PO SCH ×2 (08:44→20:26)
[2017-03-23] MEDS: risperiDONE ODT 2 MG TAB PO SCH ×2 (08:44→20:25)
--- NOTE | 2017-03-23 12:21 | HHI.PYPN ---
Subjective Remarks Patient was seen and case discussed with nursing. Patient is alert and oriented 1. Remains internally preoccupied and disorganized thought process. Behaving well on the unit. Compliant with medications Objective Alert: Yes [place]: Person Mood: Anxious Affect: Appropriate, Euthymic Memory Intact: Comment (not assessed today) Hallucinations: Other (appears somewhat internally preoccupied) Delusions: No Delusion Type: Other (None) Suicidal: Ideation (No SI) Homicidal: Ideation (No HI) Insight/Judgment Poor Vitals/IOs Vital Signs Date Time Temp Pulse Resp B/P Pulse Ox O2 Delivery O2 Flow Rate FiO2 03/23/17 05:23 97.1 83 17 153/73 98 Intake and Output 03/22/17 03/22/17 03/23/17 08:00 16:00 00:00 Intake Total 480 ml 600 ml 1080 ml Balance 480 ml 600 ml 1080 ml Assessment & Plan Problem List: (1) Dementia of Alzheimer's type with behavioral disturbance ICD Code: G30.8 Assessment & Plan Continue current treatment plan Justification for Cont. Inpt. Patient will decompensate in a less restrictive setting Request HC Surrog/Guard Advoc?: Yes Problem Qualifiers (1) Dementia of Alzheimer's type with behavioral disturbance: Qualified Code: G30.8 - Alzheimer's disease of other onset with behavioral disturbance Gustavo Amador DO March 23, 2017 12:21
[2017-03-23 18:00] VITALS: BP 128/66; PULSE 70; TEMP 96; O2SAT 99
[2017-03-23] MEDS: MELATONIN 5 MG TAB PO SCH (20:25)
[2017-03-23] MEDS: ATORVASTATIN 20 MG TAB PO SCH (20:25)
[2017-03-24] MEDS: LEVOTHYROXINE SODIUM 50 MCG TAB PO SCH (05:13)
[2017-03-24 05:53] VITALS: BP 119/67; PULSE 84; RESP 16; TEMP 97.6; O2SAT 100
[2017-03-24] MEDS: levOCARNitine 10% ORAL SOLN 118 ML BTL PO SCH ×3 (09:00→18:14)
[2017-03-24] MEDS: amLODIPine BESYLATE 5 MG TAB PO SCH (09:09)
[2017-03-24] MEDS: risperiDONE ODT 2 MG TAB PO SCH ×2 (09:09→21:00)
[2017-03-24] MEDS: VALPROIC ACID SYRUP 250 MG/5 ML UDC PO SCH ×2 (09:09→21:00)
[2017-03-24] MEDS: LISINOPRIL 20 MG TAB PO SCH ×2 (09:10→21:00)
[2017-03-24] MEDS: BENZTROPINE MESYLATE 1 MG TAB PO SCH ×2 (09:10→21:00)
[2017-03-24] MEDS: ASPIRIN 81 MG CHEW TAB PO SCH (09:10)
--- NOTE | 2017-03-24 12:41 | HHI.PYPN ---
Subjective Remarks Patient was seen and case discussed with nursing. Patient remains resistant with medications. He is alert and oriented 1. Remains labile and responding to internal stimuli throughout the day. Largely nonsensical Objective Alert: Yes [place]: Person Mood: Anxious Affect: Appropriate, Euthymic Memory Intact: Comment (not assessed today) Hallucinations: Other (appears somewhat internally preoccupied) Delusions: No Delusion Type: Other (None) Suicidal: Ideation (No SI) Homicidal: Ideation (No HI) Insight/Judgment Poor Vitals/IOs Vital Signs Date Time Temp Pulse Resp B/P Pulse Ox O2 Delivery O2 Flow Rate FiO2 03/24/17 05:53 97.6 84 16 119/67 100 Intake and Output 03/23/17 03/23/17 03/24/17 08:00 16:00 00:00 Intake Total 360 ml 1560 ml Balance 360 ml 1560 ml Assessment & Plan Problem List: (1) Dementia of Alzheimer's type with behavioral disturbance ICD Code: G30.8 Assessment & Plan Hemoglobin was low at 9.4. Nursing was asked to alert the medical team and they 'll return. Justification for Cont. Inpt. Patient will decompensate in a less restrictive setting Request HC Surrog/Guard Advoc?: Yes Problem Qualifiers (1) Dementia of Alzheimer's type with behavioral disturbance: Qualified Code: G30.8 - Alzheimer's disease of other onset with behavioral disturbance Gustavo Amador DO March 24, 2017 12:41
[2017-03-24 19:59] VITALS: BP 162/70; PULSE 66; RESP 18; TEMP 96.6; O2SAT 100
[2017-03-24] MEDS: MELATONIN 5 MG TAB PO SCH (21:00)
[2017-03-24] MEDS: ATORVASTATIN 20 MG TAB PO SCH (21:00)
[2017-03-24] MEDS: LORazepam 2 MG/ML VIAL - age > 65 yrs IM PRN (22:09)
[2017-03-25] MEDS: LEVOTHYROXINE SODIUM 50 MCG TAB PO SCH (06:00)
[2017-03-25 06:35] VITALS: BP 120/53; PULSE 71; RESP 18; TEMP 97.8; O2SAT 97
[2017-03-25 08:10] VITALS: BP 148/74; PULSE 91; O2SAT 98
[2017-03-25] MEDS: LISINOPRIL 5 MG TAB PO SCH ×2 (08:40→21:00)
[2017-03-25] MEDS: ASPIRIN 81 MG CHEW TAB PO SCH (08:40)
[2017-03-25] MEDS: amLODIPine BESYLATE 5 MG TAB PO SCH (08:40)
[2017-03-25] MEDS: BENZTROPINE MESYLATE 1 MG TAB PO SCH ×2 (08:40→21:00)
[2017-03-25] MEDS: VALPROIC ACID SYRUP 250 MG/5 ML UDC PO SCH ×2 (08:40→21:00)
[2017-03-25] MEDS: risperiDONE ODT 2 MG TAB PO SCH ×2 (08:40→21:00)
[2017-03-25] MEDS: levOCARNitine 10% ORAL SOLN 118 ML BTL PO SCH ×3 (08:42→17:36)
--- NOTE | 2017-03-25 11:48 | HHI.PYPN ---
Subjective Remarks Patient seen in day room with nurse Jules, chart reviewed, patient overall no changes in behavior however she showed some mild increased irritability last night and did need a when necessary of Ativan. Though today she is sitting calmly in the dayroom talking to herself and has been compliant with medication for now continue treatment Review of Systems Except as stated in HPI: all other systems reviewed are Neg Objective Alert: Yes [place]: Person Mood: Anxious Affect: Appropriate, Euthymic Memory Intact: Comment (not assessed today) Hallucinations: Other (appears somewhat internally preoccupied) Delusions: No Delusion Type: Other (None) Suicidal: Ideation (No SI) Homicidal: Ideation (No HI) Insight/Judgment Very poor Vitals/IOs Vital Signs Date Time Temp Pulse Resp B/P Pulse Ox O2 Delivery O2 Flow Rate FiO2 03/25/17 08:10 91 148/74 98 03/25/17 06:35 97.8 18 Intake and Output 03/24/17 03/24/17 03/24/17 07:59 15:59 23:59 Intake Total 0 ml 840 ml 480 ml Balance 0 ml 840 ml 480 ml Assessment & Plan Problem List: (1) Dementia of Alzheimer's type with behavioral disturbance ICD Code: G30.8 Assessment & Plan Estimated LOS: days patient continues demented at times somewhat intrusive but redirectable. For now continue treatment, compliant medications Justification for Cont. Inpt. At this time patient will decompensate the place to the lower level of care Discharge Planning To be determined Request HC Surrog/Guard Advoc?: Yes Problem Qualifiers (1) Dementia of Alzheimer's type with behavioral disturbance: Qualified Code: G30.8 - Alzheimer's disease of other onset with behavioral disturbance Rodolfo Corona MD March 25, 2017 11:48
[2017-03-25 17:00] VITALS: BP 121/59; PULSE 79; RESP 18; TEMP 96.5
[2017-03-25] MEDS: MELATONIN 5 MG TAB PO SCH (21:00)
[2017-03-25] MEDS: ATORVASTATIN 20 MG TAB PO SCH (21:00)
[2017-03-26] MEDS: LEVOTHYROXINE SODIUM 50 MCG TAB PO SCH (05:39)
[2017-03-26 06:00] VITALS: BP 113/55; PULSE 74; RESP 18; TEMP 97.9; O2SAT 97
[2017-03-26] MEDS: LORazepam 2 MG/ML VIAL - age > 65 yrs IM PRN (06:16)
[2017-03-26] MEDS: amLODIPine BESYLATE 5 MG TAB PO SCH (08:13)
[2017-03-26] MEDS: LISINOPRIL 5 MG TAB PO SCH ×2 (08:14→21:00)
[2017-03-26] MEDS: BENZTROPINE MESYLATE 1 MG TAB PO SCH ×2 (08:40→21:00)
[2017-03-26] MEDS: VALPROIC ACID SYRUP 250 MG/5 ML UDC PO SCH ×2 (08:41→21:00)
[2017-03-26] MEDS: risperiDONE ODT 2 MG TAB PO SCH ×2 (08:41→21:00)
[2017-03-26] MEDS: levOCARNitine 10% ORAL SOLN 118 ML BTL PO SCH ×3 (08:41→17:04)
[2017-03-26] MEDS: ASPIRIN 81 MG CHEW TAB PO SCH (08:41)
--- NOTE | 2017-03-26 08:45 | HHI.PR ---
Subjective Remarks Patient seen in Day room. Cooperative with exam however appears irritated. Objective Vital Signs Date Time Temp Pulse Resp B/P Pulse Ox O2 Delivery O2 Flow Rate FiO2 03/26/17 06:00 97.9 74 18 113/55 97 03/25/17 17:00 96.5 79 18 121/59 I/O 03/25/17 03/25/17 03/25/17 03/26/17 03/26/17 03/26/17 07:00 15:00 23:00 07:00 15:00 23:00 Intake Total 480 ml 1320 ml 600 ml 240 ml Balance 480 ml 1320 ml 600 ml 240 ml Intake Oral 480 ml 1320 ml 600 ml 240 ml # Voids 4 2 2 1 Objective Remarks GENERAL: alert appears agitated. SKIN: Warm and dry. HEAD: Normocephalic. EYES: No scleral icterus. No injection or drainage. NECK: Supple, trachea midline. No JVD or lymphadenopathy. CARDIOVASCULAR: Regular rate and rhythm without murmurs, gallops, or rubs. RESPIRATORY: Breath sounds equal bilaterally. No accessory muscle use. GASTROINTESTINAL: Abdomen soft, non-tender, nondistended. MUSCULOSKELETAL: No cyanosis, or edema. BACK: Nontender without obvious deformity. No CVA tenderness. Medications and IVs Current Medications Medications (Trade) Dose Ordered Sig/Natalio Route Start Time Stop Time Status Last Admin (Catapres) 0.1 mg Q6H PRN PO 01/07/17 18:45 (Tylenol) 650 mg Q4H PRN PO 01/08/17 13:45 03/05/17 22:21 (Milk Of Magnesia Liq) 30 ml DAILY PRN PO 01/08/17 13:45 01/16/17 20:54 (Mag-Al Plus Susp Liq) 30 ml Q6H PRN PO 01/08/17 13:45 (Aspirin Chew) 81 mg DAILY PO 01/09/17 09:00 03/25/17 08:40 (Lipitor) 20 mg HS PO 01/08/17 21:00 03/25/17 21:00 (Synthroid) 50 mcg DAILY@06 PO 01/09/17 06:00 03/26/17 05:39 (Norvasc) 10 mg DAILY PO 01/17/17 09:00 03/25/17 08:40 (Depakene Liq) 500 mg DAILY PO 01/22/17 09:00 03/25/17 08:40 (Depakene Liq) 750 mg HS PO 01/21/17 21:00 03/25/17 21:00 (Pill Splitter) 1 ea UNSCH PRN OTHER 01/21/17 16:15 (Tylenol) 650 mg Q4H PRN PO 01/25/17 07:45 (Cogentin) 0.5 mg BID PO 01/25/17 21:00 03/25/17 21:00 (Remeron) 7.5 mg HS PO 01/27/17 21:00 Hold 02/01/17 21:10 (Ativan) 0.5 mg DAILY@18 PO 02/01/17 18:00 Hold 02/01/17 17:34 (Carnitor 10% Liq) 6 ml TID PO 03/07/17 18:00 03/25/17 17:36 (Ativan) 0.5 mg Q6H PRN PO 03/13/17 16:15 03/23/17 12:45 (Ativan Inj) 0.5 mg Q6H PRN IM 03/13/17 16:33 03/26/17 06:16 (Melatonin) 5 mg HS PO 03/16/17 21:00 03/25/17 21:00 (risperDAL M-TAB) 2 mg BID PO 03/22/17 21:00 03/25/17 21:00 (Prinivil) 5 mg BID PO 03/25/17 09:00 03/25/17 21:00 Assessment and Plan Problem List: (1) Dementia Status: Chronic Plan: Alert and med complaint per staff. Patient with increased agitation this AM. (2) Hyperlipemia Status: Chronic Plan: Continue statin (3) Agitation Status: Acute Plan: On Risperdal and lorazepam. Will order UA with increased agitation (4) Hypertension Status: Acute Plan: Continue current regimen blood pressure well controlled. B/P 113/55 will monitor (5) Schizophrenia Status: Chronic Plan: Managed per psych. (6) Suprapubic tenderness Status: Resolved Plan: Resolved. (7) Discomfort of back Status: Resolved Plan: Acetaminophen ordered PRN. No discomfort noted (8) Hyperkalemia Status: Resolved Plan: Resolved. Assessment and Plan Assessment and plan discussed with Dr. Vásquez Discussed Condition With Nursing Physician Attestation I and the [employer] have both examined this patient and reviewed this note and I agree with these findings and plan of care. Ascencion Vásquez DO Problem Qualifiers (1) Dementia: Qualified Code: F03.91 - Dementia with behavioral disturbance, unspecified dementia type (2) Hyperlipemia: Qualified Code: E78.2 - Mixed hyperlipidemia (3) Hypertension: Qualified Code: I10 - Essential hypertension (4) Schizophrenia: Qualified Code: F20.9 - Schizophrenia, unspecified type Maria Esther Jhaveri [facility] March 26, 2017 08:45
[2017-03-26 12:10] LABS: BACTERIA, URINE RARE /hpf; BLOOD, URINE NEG (NEG); COMMENT (UR) CULT NOT INDICATED; CULTURE IF INDICATED CULT NOT INDICATED; GLUCOSE,URINE NEG (NEG); GRANULAR CAST, URINE 3 /lpf; HYALINE CAST, URINE 1 /lpf (RARE); KETONE, URINE NEG (NEG); MUCUS URINE FEW /lpf (OCC); NITRITE,URINE NEG (NEG); PH, URINE 5.5 (5.0-8.5); SQUAMOUS EPITHELIAL CELL URINE 6 /hpf (0-5); TRANSITIONAL EPI CELLS, URINE <1 /hpf; URINE COLOR YELLOW (YELLW/STRAW)
--- NOTE | 2017-03-26 15:53 | HHI.PYPN ---
Subjective Remarks Patient seen in day room with nurse Jules, chart reviewed, patient continues somewhat intrusive somewhat more intense today with increased pressured speech. Though no other significant behavioral problems Review of Systems Except as stated in HPI: all other systems reviewed are Neg Objective Alert: Yes [place]: Person Mood: Anxious Affect: Appropriate, Euthymic Memory Intact: Comment (not assessed today) Hallucinations: Other (appears somewhat internally preoccupied) Delusions: No Delusion Type: Other (None) Suicidal: Ideation (No SI) Homicidal: Ideation (No HI) Insight/Judgment Very poor Labs Test 03/26/17 11:25 Urine Color YELLOW Urine Turbidity HAZY Urine pH 5.5 Urine Specific [place] 1.026 Urine Protein TRACE mg/dL Urine Glucose (UA) NEG mg/dL Urine Ketones NEG mg/dL Urine Occult Blood NEG Urine Nitrite NEG Urine Bilirubin NEG Urine Urobilinogen 2.0 MG/DL Urine Leukocyte Esterase LARGE Urine RBC 2 /hpf Urine WBC 24 /hpf Urine Squamous Epithelial 6 /hpf Cells Urine Transitional Epithelial <1 /hpf Cells Urine Bacteria RARE /hpf Urine Hyaline Casts 1 /lpf Urine Granular Casts 3 /lpf Urine Mucus FEW /lpf Microscopic Urinalysis Comment CULT NOT INDICATED Vitals/IOs Vital Signs Date Time Temp Pulse Resp B/P Pulse Ox O2 Delivery O2 Flow Rate FiO2 03/26/17 06:00 97.9 74 18 113/55 97 Intake and Output 03/25/17 03/25/17 03/25/17 07:59 15:59 23:59 Intake Total 1320 ml 600 ml Balance 1320 ml 600 ml Assessment & Plan Problem List: (1) Dementia of Alzheimer's type with behavioral disturbance ICD Code: G30.8 Assessment & Plan Estimated LOS: days patient continues demented some intrusive but redirectable. No significant behavioral problems. Justification for Cont. Inpt. At this time patient will decompensate the placed in a lower level of care Discharge Planning To be determined Request HC Surrog/Guard Advoc?: Yes Problem Qualifiers (1) Dementia of Alzheimer's type with behavioral disturbance: Qualified Code: G30.8 - Alzheimer's disease of other onset with behavioral disturbance Rodolfo Corona MD March 26, 2017 15:53
[2017-03-26] MEDS: LORazepam 0.5 MG TAB age > 65 yrs PO PRN (17:05)
[2017-03-26 18:13] VITALS: BP 124/62; PULSE 64; RESP 16; TEMP 97.6; O2SAT 98
[2017-03-26] MEDS: ATORVASTATIN 20 MG TAB PO SCH (21:00)
[2017-03-26] MEDS: MELATONIN 5 MG TAB PO SCH (21:00)
[2017-03-27] MEDS: LORazepam 0.5 MG TAB age > 65 yrs PO PRN ×2 (04:58→21:24)
[2017-03-27] MEDS: LEVOTHYROXINE SODIUM 50 MCG TAB PO SCH (04:58)
[2017-03-27 07:43] LABS: AUTOMATED NEUTROPHIL # 1.9 TH/MM3 (1.8-7.7); BASOPHIL % 0.7 % (0.0-2.0); EOSINOPHIL # 0.2 TH/MM3 (0-0.4); HEMATOCRIT 26.7 % (35.0-46.0); HEMO FLAGS DIFF FINAL; LYMPH % 37.3 % (9.0-44.0); LYMPHOCYTE # 1.5 TH/MM3 (1.0-4.8); MEAN CORPUSCULAR HEMOGLOBIN 29.2 PG (27.0-34.0); MEAN CORPUSCULAR HGB CONC 33.2 % (32.0-36.0); MONO % 11.8 % (0.0-8.0); NEUT % 45.2 % (16.0-70.0); PLATELET COUNT 148 TH/MM3 (150-450); RED BLOOD COUNT 3.04 MIL/MM3 (4.00-5.30); RED CELL DISTRIBUTION WIDTH 16.9 % (11.6-17.2); WHITE BLOOD COUNT 4.1 TH/MM3 (4.0-11.0)
[2017-03-27 08:09] LABS: BICARBONATE 28.6 MEQ/L (21.0-32.0); POTASSIUM 4.8 MEQ/L (3.5-5.1)
[2017-03-27] MEDS: amLODIPine BESYLATE 5 MG TAB PO SCH (09:00)
[2017-03-27] MEDS: levOCARNitine 10% ORAL SOLN 118 ML BTL PO SCH ×3 (09:00→17:05)
[2017-03-27] MEDS: VALPROIC ACID SYRUP 250 MG/5 ML UDC PO SCH ×2 (09:00→20:23)
[2017-03-27] MEDS: ASPIRIN 81 MG CHEW TAB PO SCH (09:00)
[2017-03-27] MEDS: LISINOPRIL 5 MG TAB PO SCH ×2 (09:00→20:23)
[2017-03-27] MEDS: risperiDONE ODT 2 MG TAB PO SCH ×2 (09:00→20:21)
[2017-03-27] MEDS: BENZTROPINE MESYLATE 1 MG TAB PO SCH ×2 (09:00→20:21)
--- NOTE | 2017-03-27 09:15 | HHI.PYPN ---
Subjective Remarks Patient seen in [place] with nurse Selena, chart reviewed, patient continues to wander speaking [place]ian. At times wandering into other patient's rooms. Staff states last night patient became somewhat upset and irritable needing ETO. [place] complained the patient somewhat constipated will order some mineral oil and programs for that. We'll also discontinue the melatonin and add trazodone 25 mg at at bedtime Review of Systems Except as stated in HPI: all other systems reviewed are Neg Objective Alert: Yes [place]: Person Mood: Anxious Affect: Appropriate, Euthymic Memory Intact: Comment (not assessed today) Hallucinations: Other (appears somewhat internally preoccupied) Delusions: No Delusion Type: Other (None) Suicidal: Ideation (No SI) Homicidal: Ideation (No HI) Insight/Judgment Very poor Labs Test 03/26/17 03/27/17 11:25 06:40 Urine Color YELLOW Urine Turbidity HAZY Urine pH 5.5 Urine Specific [place] 1.026 Urine Protein TRACE mg/dL Urine Glucose (UA) NEG mg/dL Urine Ketones NEG mg/dL Urine Occult Blood NEG Urine Nitrite NEG Urine Bilirubin NEG Urine Urobilinogen 2.0 MG/DL Urine Leukocyte Esterase LARGE Urine RBC 2 /hpf Urine WBC 24 /hpf Urine Squamous Epithelial 6 /hpf Cells Urine Transitional Epithelial <1 /hpf Cells Urine Bacteria RARE /hpf Urine Hyaline Casts 1 /lpf Urine Granular Casts 3 /lpf Urine Mucus FEW /lpf Microscopic Urinalysis Comment CULT NOT INDICATED White Blood Count 4.1 TH/MM3 Red Blood Count 3.04 MIL/MM3 Hemoglobin 8.9 GM/DL Hematocrit 26.7 % Mean Corpuscular Volume 88.0 FL Mean Corpuscular Hemoglobin 29.2 PG Mean Corpuscular Hemoglobin 33.2 % Concent Red Cell Distribution Width 16.9 % Platelet Count 148 TH/MM3 Mean Platelet Volume 8.5 FL Neutrophils (%) (Auto) 45.2 % Lymphocytes (%) (Auto) 37.3 % Monocytes (%) (Auto) 11.8 % Eosinophils (%) (Auto) 5.0 % Basophils (%) (Auto) 0.7 % Neutrophils # (Auto) 1.9 TH/MM3 Lymphocytes # (Auto) 1.5 TH/MM3 Monocytes # (Auto) 0.5 TH/MM3 Eosinophils # (Auto) 0.2 TH/MM3 Basophils # (Auto) 0.0 TH/MM3 CBC Comment DIFF FINAL Differential Comment Sodium Level 145 MEQ/L Potassium Level 4.8 MEQ/L Chloride Level 111 MEQ/L Carbon Dioxide Level 28.6 MEQ/L Anion Gap 5 MEQ/L Blood Urea Nitrogen 44 MG/DL Creatinine 0.85 MG/DL Estimat Glomerular Filtration 65 ML/MIN Rate Random Glucose 67 MG/DL Calcium Level 8.6 MG/DL Vitals/IOs Vital Signs Date Time Temp Pulse Resp B/P Pulse Ox O2 Delivery O2 Flow Rate FiO2 03/26/17 18:13 97.6 64 16 124/62 98 Intake and Output 03/26/17 03/26/17 03/27/17 08:00 16:00 00:00 Intake Total 240 ml 1560 ml 480 ml Output Total 120 ml Balance 240 ml 1440 ml 480 ml Assessment & Plan Problem List: (1) Dementia of Alzheimer's type with behavioral disturbance ICD Code: G30.8 Assessment & Plan Estimated LOS: days patient continues confused and demented, wandering, some sleep issues have been noted. We will discontinue the melatonin start small dose trazodone. Also offer her some prunes and mineral for her constipation Justification for Cont. Inpt. At this time patient will decompensate placed in a lower level of care Discharge Planning To be determined Request HC Surrog/Guard Advoc?: Yes Problem Qualifiers (1) Dementia of Alzheimer's type with behavioral disturbance: Qualified Code: G30.8 - Alzheimer's disease of other onset with behavioral disturbance Rodolfo Corona MD March 27, 2017 09:15
[2017-03-27] MEDS ORDERED: MINERAL OIL EMULSION 55% PO ONE (10:00)
[2017-03-27] MEDS ORDERED: MINERAL OIL LIQUID 30 ML CUP PO ONE (11:00)
[2017-03-27 16:00] VITALS: BP 112/59; PULSE 112; RESP 17; TEMP 97; O2SAT 97
[2017-03-27] MEDS: traZODone HCL 50 MG TAB PO SCH (20:20)
[2017-03-27] MEDS: ATORVASTATIN 20 MG TAB PO SCH (20:22)
[2017-03-28] MEDS: LEVOTHYROXINE SODIUM 50 MCG TAB PO SCH (04:33)
[2017-03-28] MEDS: LORazepam 0.5 MG TAB age > 65 yrs PO PRN ×2 (04:33→20:20)
[2017-03-28 05:30] VITALS: BP 132/64; PULSE 88; RESP 17; TEMP 96.6
--- NOTE | 2017-03-28 08:39 | HHI.PYPN ---
Subjective Remarks Patient seen in dayroom with floor staff. Chart reviewed. Patient continues to wander continues speaking [place]ese confusingly, needing occasional redirection but no significant behavioral problem. Will recheck Depakote blood level in a.m. Review of Systems Except as stated in HPI: all other systems reviewed are Neg Objective Alert: Yes [place]: Person Mood: Anxious Affect: Appropriate, Euthymic Memory Intact: Comment (not assessed today) Hallucinations: Other (appears somewhat internally preoccupied) Delusions: No Delusion Type: Other (None) Suicidal: Ideation (No SI) Homicidal: Ideation (No HI) Insight/Judgment Poor Vitals/IOs Vital Signs Date Time Temp Pulse Resp B/P Pulse Ox O2 Delivery O2 Flow Rate FiO2 03/28/17 05:30 96.6 88 17 132/64 03/27/17 16:00 97 Intake and Output 03/27/17 03/27/17 03/28/17 08:00 16:00 00:00 Intake Total 240 ml 840 ml 1080 ml Balance 240 ml 840 ml 1080 ml Assessment & Plan Problem List: (1) Dementia of Alzheimer's type with behavioral disturbance ICD Code: G30.8 Assessment & Plan Estimated LOS: days patient continues demented confused at times somewhat intrusive. Compliant medications. Will recheck Depakote level in a.m. Justification for Cont. Inpt. This time patient will decompensate and placed in a lower level of care Discharge Planning To be determined Request HC Surrog/Guard Advoc?: Yes Problem Qualifiers (1) Dementia of Alzheimer's type with behavioral disturbance: Qualified Code: G30.8 - Alzheimer's disease of other onset with behavioral disturbance Rodolfo Corona MD March 28, 2017 08:39
[2017-03-28] MEDS: ASPIRIN 81 MG CHEW TAB PO SCH (09:00)
[2017-03-28] MEDS: levOCARNitine 10% ORAL SOLN 118 ML BTL PO SCH ×3 (09:00→17:05)
[2017-03-28] MEDS: risperiDONE ODT 2 MG TAB PO SCH ×2 (09:00→20:19)
[2017-03-28] MEDS: LISINOPRIL 5 MG TAB PO SCH ×2 (09:00→21:00)
[2017-03-28] MEDS: amLODIPine BESYLATE 5 MG TAB PO SCH (09:00)
[2017-03-28] MEDS: BENZTROPINE MESYLATE 1 MG TAB PO SCH ×2 (09:00→20:20)
[2017-03-28] MEDS: VALPROIC ACID SYRUP 250 MG/5 ML UDC PO SCH ×2 (09:00→20:19)
[2017-03-28 17:27] VITALS: BP 109/62; PULSE 70; RESP 17; TEMP 97.9; O2SAT 100
[2017-03-28] MEDS: traZODone HCL 50 MG TAB PO SCH (20:20)
[2017-03-28] MEDS: ATORVASTATIN 20 MG TAB PO SCH (20:20)
[2017-03-29] MEDS: LEVOTHYROXINE SODIUM 50 MCG TAB PO SCH (05:41)
[2017-03-29] MEDS: LORazepam 0.5 MG TAB age > 65 yrs PO PRN ×2 (06:18→19:48)
[2017-03-29 06:24] VITALS: BP 117/64; PULSE 67; RESP 16; TEMP 96.4; O2SAT 99
--- NOTE | 2017-03-29 07:45 | HHI.PR ---
Subjective Remarks Patient seen in [facility] Cooperative with exam. Per nursing agitation last night Objective Vital Signs Date Time Temp Pulse Resp B/P Pulse Ox O2 Delivery O2 Flow Rate FiO2 03/29/17 06:24 96.4 67 16 117/64 99 03/28/17 17:27 97.9 70 17 109/62 100 I/O 03/28/17 03/28/17 03/28/17 03/29/17 03/29/17 03/29/17 07:00 15:00 23:00 07:00 15:00 23:00 Intake Total 360 ml 120 ml Balance 360 ml 120 ml Intake Oral 360 ml 120 ml # Voids 2 1 1 Result Diagram: 03/27/1740 03/27/17 0640 Objective Remarks GENERAL: alert appears agitated. SKIN: Warm and dry. HEAD: Normocephalic. EYES: No scleral icterus. No injection or drainage. NECK: Supple, trachea midline. No JVD or lymphadenopathy. CARDIOVASCULAR: Regular rate and rhythm without murmurs, gallops, or rubs. RESPIRATORY: Breath sounds equal bilaterally. No accessory muscle use. GASTROINTESTINAL: Abdomen soft, non-tender, nondistended. MUSCULOSKELETAL: No cyanosis, or edema. BACK: Nontender without obvious deformity. No CVA tenderness. Medications and IVs Current Medications Medications (Trade) Dose Ordered Sig/Natalio Route Start Time Stop Time Status Last Admin (Catapres) 0.1 mg Q6H PRN PO 01/07/17 18:45 (Tylenol) 650 mg Q4H PRN PO 01/08/17 13:45 03/05/17 22:21 (Milk Of Magnesia Liq) 30 ml DAILY PRN PO 01/08/17 13:45 01/16/17 20:54 (Mag-Al Plus Susp Liq) 30 ml Q6H PRN PO 01/08/17 13:45 (Aspirin Chew) 81 mg DAILY PO 01/09/17 09:00 03/28/17 09:00 (Lipitor) 20 mg HS PO 01/08/17 21:00 03/28/17 20:20 (Synthroid) 50 mcg DAILY@06 PO 01/09/17 06:00 03/29/17 05:41 (Norvasc) 10 mg DAILY PO 01/17/17 09:00 03/28/17 09:00 (Depakene Liq) 500 mg DAILY PO 01/22/17 09:00 03/28/17 09:00 (Depakene Liq) 750 mg HS PO 01/21/17 21:00 03/28/17 20:19 (Pill Splitter) 1 ea UNSCH PRN OTHER 01/21/17 16:15 (Tylenol) 650 mg Q4H PRN PO 01/25/17 07:45 03/26/17 08:43 (Cogentin) 0.5 mg BID PO 01/25/17 21:00 03/28/17 20:20 (Remeron) 7.5 mg HS PO 01/27/17 21:00 Hold 02/01/17 21:10 (Ativan) 0.5 mg DAILY@18 PO 02/01/17 18:00 Hold 02/01/17 17:34 (Carnitor 10% Liq) 6 ml TID PO 03/07/17 18:00 03/28/17 17:05 (Ativan) 0.5 mg Q6H PRN PO 03/13/17 16:15 03/29/17 06:18 (Ativan Inj) 0.5 mg Q6H PRN IM 03/13/17 16:33 03/26/17 06:16 (risperDAL M-TAB) 2 mg BID PO 03/22/17 21:00 03/28/17 20:19 (Prinivil) 5 mg BID PO 03/25/17 09:00 03/28/17 09:00 (Desyrel) 25 mg HS PO 03/27/17 21:00 03/28/17 20:20 Assessment and Plan Problem List: (1) Dementia Status: Chronic Plan: Alert and med complaint per staff. Patient with increased agitation last shift (2) Hyperlipemia Status: Chronic Plan: Continue statin (3) Agitation Status: Acute Plan: On Risperdal and lorazepam. UA ordered patient with increased agitation last night (4) Hypertension Status: Acute Plan: Continue current regimen blood pressure well controlled. B/P 113/55 will monitor (5) Schizophrenia Status: Chronic Plan: Managed per psych. (6) Suprapubic tenderness Status: Resolved Plan: denies (7) Discomfort of back Status: Resolved Plan: Acetaminophen ordered PRN. No discomfort noted (8) Hyperkalemia Status: Resolved Plan: Resolved. Assessment and Plan Assessment and plan discussed with Dr. Vásquez Discussed Condition With Nursing Physician Attestation I and the [employer] have both examined this patient and reviewed this note and I agree with these findings and plan of care. Ascencion Vásquez DO Problem Qualifiers (1) Dementia: Qualified Code: F03.91 - Dementia with behavioral disturbance, unspecified dementia type (2) Hyperlipemia: Qualified Code: E78.2 - Mixed hyperlipidemia (3) Hypertension: Qualified Code: I10 - Essential hypertension (4) Schizophrenia: Qualified Code: F20.9 - Schizophrenia, unspecified type Maria Esther Jhaveri [employer] March 29, 2017 07:45
[2017-03-29] MEDS: amLODIPine BESYLATE 5 MG TAB PO SCH (09:14)
[2017-03-29] MEDS: risperiDONE ODT 2 MG TAB PO SCH ×2 (09:14→20:43)
[2017-03-29] MEDS: VALPROIC ACID SYRUP 250 MG/5 ML UDC PO SCH ×2 (09:14→20:41)
[2017-03-29] MEDS: LISINOPRIL 5 MG TAB PO SCH ×2 (09:15→20:43)
[2017-03-29] MEDS: ASPIRIN 81 MG CHEW TAB PO SCH (09:15)
[2017-03-29] MEDS: levOCARNitine 10% ORAL SOLN 118 ML BTL PO SCH ×3 (09:20→18:00)
[2017-03-29] MEDS: BENZTROPINE MESYLATE 1 MG TAB PO SCH ×2 (09:20→20:41)
--- NOTE | 2017-03-29 12:16 | HHI.PYPN ---
Subjective Remarks Patient seen in day room with nurse Allie, chart review, feet UA has been ordered this morning, patient continues to wander diffusely confused at times but more irritable than past days. Redirectable. Compliant medications. For now continue treatment Review of Systems Except as stated in HPI: all other systems reviewed are Neg Objective Alert: Yes [place]: Person Mood: Anxious Affect: Appropriate, Euthymic Memory Intact: Comment (not assessed today) Hallucinations: Other (appears somewhat internally preoccupied) Delusions: No Delusion Type: Other (None) Suicidal: Ideation (No SI) Homicidal: Ideation (No HI) Insight/Judgment Very poor Vitals/IOs Vital Signs Date Time Temp Pulse Resp B/P Pulse Ox O2 Delivery O2 Flow Rate FiO2 03/29/17 06:24 96.4 67 16 117/64 99 Intake and Output 03/28/17 03/28/17 03/29/17 08:00 16:00 00:00 Intake Total 360 ml Balance 360 ml Assessment & Plan Problem List: (1) Dementia of Alzheimer's type with behavioral disturbance ICD Code: G30.8 Assessment & Plan Estimated LOS: days patient continues confused and demented, needing frequent redirection. We'll be repeating UA Justification for Cont. Inpt. At this time patient will decompensate if placed in a lower level of care Discharge Planning To be determined Request HC Surrog/Guard Advoc?: Yes Problem Qualifiers (1) Dementia of Alzheimer's type with behavioral disturbance: Qualified Code: G30.8 - Alzheimer's disease of other onset with behavioral disturbance Rodolfo Corona MD March 29, 2017 12:16
[2017-03-29] MEDS: traZODone HCL 50 MG TAB PO SCH (20:42)
[2017-03-29] MEDS: ATORVASTATIN 20 MG TAB PO SCH (20:43)
[2017-03-30] MEDS: LEVOTHYROXINE SODIUM 50 MCG TAB PO SCH (05:14)
[2017-03-30 05:55] VITALS: BP 120/57; PULSE 88; RESP 16; TEMP 97.6
[2017-03-30] MEDS: levOCARNitine 10% ORAL SOLN 118 ML BTL PO SCH ×3 (08:17→17:28)
[2017-03-30] MEDS: VALPROIC ACID SYRUP 250 MG/5 ML UDC PO SCH ×2 (08:18→20:52)
[2017-03-30] MEDS: risperiDONE ODT 2 MG TAB PO SCH ×2 (08:18→20:52)
[2017-03-30] MEDS: amLODIPine BESYLATE 5 MG TAB PO SCH (08:18)
[2017-03-30] MEDS: LISINOPRIL 5 MG TAB PO SCH ×2 (08:18→20:52)
[2017-03-30] MEDS: BENZTROPINE MESYLATE 1 MG TAB PO SCH ×2 (08:18→20:52)
[2017-03-30] MEDS: ASPIRIN 81 MG CHEW TAB PO SCH (08:18)
[2017-03-30 10:53] LABS: BLOOD, URINE NEG (NEG); GLUCOSE,URINE NEG (NEG); KETONE, URINE NEG (NEG); MUCUS URINE FEW /lpf (OCC); NITRITE,URINE NEG (NEG); PH, URINE 6.5 (5.0-8.5); SQUAMOUS EPITHELIAL CELL URINE 2 /hpf (0-5); TRANSITIONAL EPI CELLS, URINE <1 /hpf; URINE COLOR YELLOW (YELLW/STRAW)
[2017-03-30 11:01] LABS: COMMENT (UR) CULT NOT INDICATED; CULTURE IF INDICATED CULT NOT INDICATED
--- NOTE | 2017-03-30 11:03 | HHI.PYPN ---
Subjective Remarks Pt seen and discussed with staff. Pt has been compliant with medications. She has had intermittent bouts of agitation (crying and screaming) on the unit. U/A is pending. Objective Alert: Yes [place]: Person Mood: Calm Affect: Restricted Memory Intact: Comment (impaired) Hallucinations: Other (appears somewhat internally preoccupied) Delusions: No Delusion Type: Other (None) Suicidal: Ideation (No SI) Homicidal: Ideation (No HI) Insight/Judgment poor Labs Test 03/29/17 19:59 Valproic Acid (Depakene) Level 49 MCG/ML Vitals/IOs Vital Signs Date Time Temp Pulse Resp B/P Pulse Ox O2 Delivery O2 Flow Rate FiO2 03/30/17 05:55 97.6 88 16 120/57 03/29/17 06:24 99 Intake and Output 03/29/17 03/29/17 03/30/17 08:00 16:00 00:00 Intake Total 120 ml 720 ml 960 ml Balance 120 ml 720 ml 960 ml Assessment & Plan Problem List: (1) Dementia of Alzheimer's type with behavioral disturbance ICD Code: G30.8 Assessment & Plan Await U/A results. Continue current tx plan. Estimated LOS: days Justification for Cont. Inpt. impairments in self care Request HC Surrog/Guard Advoc?: Yes Problem Qualifiers (1) Dementia of Alzheimer's type with behavioral disturbance: Qualified Code: G30.8 - Alzheimer's disease of other onset with behavioral disturbance Keli Wild MD March 30, 2017 11:03
[2017-03-30 18:00] VITALS: BP 115/53; PULSE 79; RESP 17; TEMP 98.6; O2SAT 100
[2017-03-30] MEDS: ATORVASTATIN 20 MG TAB PO SCH (20:52)
[2017-03-30] MEDS: traZODone HCL 50 MG TAB PO SCH (20:52)
[2017-03-31] MEDS: LEVOTHYROXINE SODIUM 50 MCG TAB PO SCH (05:29)
[2017-03-31 05:56] VITALS: BP 118/64; PULSE 96; RESP 17; TEMP 97.6; O2SAT 98
[2017-03-31] MEDS: VALPROIC ACID SYRUP 250 MG/5 ML UDC PO SCH ×2 (08:40→19:59)
[2017-03-31] MEDS: risperiDONE ODT 2 MG TAB PO SCH ×2 (08:40→19:57)
[2017-03-31] MEDS: LISINOPRIL 5 MG TAB PO SCH ×2 (08:40→19:58)
[2017-03-31] MEDS: amLODIPine BESYLATE 5 MG TAB PO SCH (08:40)
[2017-03-31] MEDS: ASPIRIN 81 MG CHEW TAB PO SCH (08:40)
[2017-03-31] MEDS: levOCARNitine 10% ORAL SOLN 118 ML BTL PO SCH ×3 (08:41→18:00)
[2017-03-31] MEDS: BENZTROPINE MESYLATE 1 MG TAB PO SCH ×2 (08:41→19:58)
--- NOTE | 2017-03-31 13:41 | HHI.PYPN ---
Subjective Remarks Pt seen and discussed with staff. Pt has not been agitated or had outburst today. Mood is pleasant and cooperative. No medication side effects. Objective Alert: Yes [place]: Person Mood: Calm Affect: Appropriate Memory Intact: Comment (impaired) Hallucinations: Other (appears somewhat internally preoccupied) Delusions: No Delusion Type: Other (None) Suicidal: Ideation (No SI) Homicidal: Ideation (No HI) Insight/Judgment poor Vitals/IOs Vital Signs Date Time Temp Pulse Resp B/P Pulse Ox O2 Delivery O2 Flow Rate FiO2 03/31/17 05:56 97.6 96 17 118/64 98 Intake and Output 03/30/17 03/30/17 03/31/17 08:00 16:00 00:00 Intake Total 480 ml 720 ml 720 ml Balance 480 ml 720 ml 720 ml Assessment & Plan Problem List: (1) Dementia of Alzheimer's type with behavioral disturbance ICD Code: G30.8 Assessment & Plan Continue current tx plan. Estimated LOS: days Justification for Cont. Inpt. risk of decompensation Request HC Surrog/Guard Advoc?: Yes Problem Qualifiers (1) Dementia of Alzheimer's type with behavioral disturbance: Qualified Code: G30.8 - Alzheimer's disease of other onset with behavioral disturbance Keli Wild MD March 31, 2017 13:41
[2017-03-31] MEDS: LORazepam 2 MG/ML VIAL - age > 65 yrs IM PRN (17:20)
[2017-03-31] MEDS: traZODone HCL 50 MG TAB PO SCH (19:58)
[2017-03-31] MEDS: ATORVASTATIN 20 MG TAB PO SCH (19:58)
[2017-03-31] MEDS: LORazepam 0.5 MG TAB age > 65 yrs PO PRN (19:59)
[2017-04-01] MEDS: LEVOTHYROXINE SODIUM 50 MCG TAB PO SCH (05:31)
[2017-04-01 05:34] VITALS: BP 114/58; PULSE 74; RESP 18; TEMP 98.2; O2SAT 97
--- NOTE | 2017-04-01 08:44 | HHI.PYPN ---
Subjective Remarks Patient seen in her room with floor staff, chart review, patient compliant medication. She continues to wander though is redirectable. She continues speaking confusing in Bangladeshi. Placement remains quite problematic Review of Systems Except as stated in HPI: all other systems reviewed are Neg Objective Alert: Yes [place]: Person Mood: Calm Affect: Appropriate Memory Intact: Comment (impaired) Hallucinations: Other (appears somewhat internally preoccupied) Delusions: No Delusion Type: Other (None) Suicidal: Ideation (No SI) Homicidal: Ideation (No HI) Insight/Judgment Very poor Vitals/IOs Vital Signs Date Time Temp Pulse Resp B/P Pulse Ox O2 Delivery O2 Flow Rate FiO2 04/01/17 05:34 98.2 74 18 114/58 97 Intake and Output 03/31/17 03/31/17 04/01/17 08:00 16:00 00:00 Intake Total 240 ml 1200 ml Balance 240 ml 1200 ml Assessment & Plan Problem List: (1) Dementia of Alzheimer's type with behavioral disturbance ICD Code: G30.8 Assessment & Plan Estimated LOS: days patient remains confused and demented, wandering, but no significant behavioral problems. At times it appears she still responding to some internal stimuli mainly in the late afternoon and evening. For now continue treatment Justification for Cont. Inpt. At this time patient will decompensate if placed in a lower level of care Discharge Planning To be determined Request HC Surrog/Guard Advoc?: Yes Problem Qualifiers (1) Dementia of Alzheimer's type with behavioral disturbance: Qualified Code: G30.8 - Alzheimer's disease of other onset with behavioral disturbance Rodolfo Corona MD April 01, 2017 08:44
[2017-04-01] MEDS: levOCARNitine 10% ORAL SOLN 118 ML BTL PO SCH ×3 (09:00→17:35)
[2017-04-01] MEDS: BENZTROPINE MESYLATE 1 MG TAB PO SCH ×2 (09:41→20:05)
[2017-04-01] MEDS: risperiDONE ODT 2 MG TAB PO SCH ×2 (09:41→20:04)
[2017-04-01] MEDS: amLODIPine BESYLATE 5 MG TAB PO SCH (09:41)
[2017-04-01] MEDS: VALPROIC ACID SYRUP 250 MG/5 ML UDC PO SCH ×2 (09:41→20:04)
[2017-04-01] MEDS: LISINOPRIL 5 MG TAB PO SCH ×2 (09:42→20:05)
[2017-04-01] MEDS: ASPIRIN 81 MG CHEW TAB PO SCH (09:42)
--- NOTE | 2017-04-01 12:13 | HHI.PR ---
Subjective Remarks no new problems will asses lab Objective Vital Signs Date Time Temp Pulse Resp B/P Pulse Ox O2 Delivery O2 Flow Rate FiO2 04/01/17 05:34 98.2 74 18 114/58 97 I/O 03/31/17 03/31/17 03/31/17 04/01/17 04/01/17 04/01/17 07:00 15:00 23:00 07:00 15:00 23:00 Intake Total 240 ml 1200 ml 360 ml Balance 240 ml 1200 ml 360 ml Intake Oral 240 ml 1200 ml 360 ml # Voids 3 2 2 Objective Remarks GENERAL: Well-nourished, well-developed patient.confused stable at baseline speaks mostly peruvian SKIN: Warm and dry. HEAD: Normocephalic. EYES: No scleral icterus. No injection or drainage. NECK: Supple, trachea midline. No JVD or lymphadenopathy. CARDIOVASCULAR: Regular rate and rhythm without murmurs, gallops, or rubs. RESPIRATORY: Breath sounds equal bilaterally. No accessory muscle use. GASTROINTESTINAL: Abdomen soft, non-tender, nondistended. EXTREMITIES: No cyanosis, or edema. NEUROLOGICAL: Awake, alert, agitated speaks only [place]uvian wishes only to go home agitated that she is here Medications and IVs Current Medications Olanzapine (ZyPREXA ZYDIS ODT) 5 mg ONCE ONCE PO Last administered on 10:21; Start 01/06/17 at 09:45; Stop 01/06/17 at 09:46; Status DC Amlodipine Besylate (Norvasc) 5 mg ONCE ONCE PO ; Start 01/06/17 at 22:15; Stop 01/06/17 at 22:16; Status DC Lisinopril (Prinivil) 20 mg ONCE ONCE PO ; Start 01/06/17 at 22:15; Stop at 22:16; Status DC Olanzapine (ZyPREXA ZYDIS ODT) 5 mg NOW ONCE PO Last administered on 01/07/17 11:00; Start 01/07/17 at 11:00; Stop 01/07/17 at 11:01; Status DC Lorazepam (Ativan) 0.5 mg Q12H PRN PO MODERATE TO SEVERE ANXIETY Last administered on 03/12/17 02:52; Start 01/07/17 at 17:30; Stop 03/13/17 at 16:04; Status DC Lorazepam (Ativan Inj) 0.5 mg Q12H PRN IM MODERATE TO SEVERE ANXIETY Last administered on 03/13/17 09:30; Start 01/07/17 at 17:30; Stop 03/13/17 at 16:33 ; Status DC Acetaminophen (Tylenol) 650 mg Q4H PRN PO Pain 1-5 or Temp >101F; Start at 17:30; Stop 01/08/17 at 14:05; Status DC Magnesium Hydroxide (Milk Of Magnesia Liq) 30 ml DAILY PRN PO CONSTIPATION; Start 01/07/17 at 17:30; Stop 01/08/17 at 14:07; Status DC Al Hydrox/Mg Hydrox/Simethicone (Mag-Al Plus Susp Liq) 30 ml Q6H PRN PO DYSPEPSIA; Start 01/07/17 at 17:30; Stop 01/08/17 at 14:05; Status DC Lisinopril (Prinivil) 20 mg DAILY PO Last administered on 01/08/17 09:54; Start 01/07/17 at 18:45; Stop 01/08/17 at 14:07; Status DC Aspirin (Aspirin Chew) 81 mg DAILY PO Last administered on 01/08/17 09:54; Start 01/07/17 at 18:00; Stop 01/08/17 at 14:05; Status DC Valproic Acid (Depakene Liq) 375 mg BID PO ; Start 01/07/17 at 21:00; Stop at 21:00; Status DC Amlodipine Besylate (Norvasc) 5 mg DAILY PO Last administered on 01/07/17 17:49 ; Start 01/07/17 at 18:00; Stop 01/08/17 at 09:14; Status DC Levothyroxine Sodium (Synthroid) 50 mcg DAILY@0600 PO Last administered on 05:32; Start 01/08/17 at 06:00; Stop 01/08/17 at 14:07; Status DC Mirtazapine (Remeron) 15 mg HS PO ; Start 01/07/17 at 21:00; Stop 01/07/17 at 21: 00; Status DC Atorvastatin Calcium (Lipitor) 20 mg HS PO Last administered on 01/07/17 21:20 ; Start 01/07/17 at 21:00; Stop 01/08/17 at 14:05; Status DC Quetiapine Fumarate (SEROquel) 200 mg BID PO ; Start 01/07/17 at 21:00; Stop 01/08 at 14:07; Status DC Clonidine (Catapres) 0.1 mg Q6H PRN PO SBP> OR = 180, DBP> OR = 100; Start 01/07 at 18:45 Valproic Acid (Depakene Liq) 375 mg BID PO Last administered on 01/08/17 09:54 ; Start 01/07/17 at 21:00; Stop 01/08/17 at 14:07; Status DC Mirtazapine (Remeron) 15 mg HS PO Last administered on 01/07/17 21:20; Start at 21:00; Stop 01/08/17 at 14:08; Status DC Amlodipine Besylate (Norvasc) 10 mg DAILY PO ; Start 01/09/17 at 09:00; Stop 01/09 at 09:00; Status DC Acetaminophen (Tylenol) 650 mg Q4H PRN PO Temp >101F Last administered on 22:21; Start 01/08/17 at 13:45 Magnesium Hydroxide (Milk Of Magnesia Liq) 30 ml DAILY PRN PO CONSTIPATION Last administered on 01/16/17 20:54; Start 01/08/17 at 13:45 Al Hydrox/Mg Hydrox/Simethicone (Mag-Al Plus Susp Liq) 30 ml Q6H PRN PO DYSPEPSIA; Start 01/08/17 at 13:45 Amlodipine Besylate (Norvasc) 5 mg DAILY PO Last administered on 01/16/17 08: 34; Start 01/09/17 at 09:00; Stop 01/16/17 at 11:46; Status DC Aspirin (Aspirin Chew) 81 mg DAILY PO Last administered on 04/01/17 09:42; Start 01/09/17 at 09:00 Atorvastatin Calcium (Lipitor) 20 mg HS PO Last administered on 03/31/17 19:58 ; Start 01/08/17 at 21:00 Levothyroxine Sodium (Synthroid) 50 mcg DAILY@06 PO Last administered on 05:31; Start 01/09/17 at 06:00 Lisinopril (Prinivil) 20 mg DAILY PO Last administered on 01/22/17 08:47; Start 01/09/17 at 09:00; Stop 01/22/17 at 10:37; Status DC Mirtazapine (Remeron) 15 mg HS PO Last administered on 01/19/17 20:35; Start 01/08/17 at 21:00; Stop 01/21/17 at 14:48; Status DC Quetiapine Fumarate (SEROquel) 200 mg BID PO Last administered on 01/09/17 21: 00; Start 01/08/17 at 21:00; Stop 01/10/17 at 13:23; Status DC Valproic Acid (Depakene Liq) 375 mg BID PO Last administered on 01/16/17 08:32 ; Start 01/08/17 at 21:00; Stop 01/16/17 at 12:32; Status DC Risperidone (risperDAL M-TAB) 1 mg DAILY@12,18 PO Last administered on 17:29; Start 01/10/17 at 18:00; Stop 01/15/17 at 10:46; Status DC Lorazepam (Ativan) 0.5 mg TID PO Last administered on 01/26/17 08:55; Start at 13:00; Stop 01/26/17 at 09:01; Status DC Risperidone (risperDAL M-TAB) 1 mg TID PO Last administered on 01/21/17 13:12 ; Start 01/15/17 at 13:00; Stop 01/21/17 at 14:48; Status DC Amlodipine Besylate (Norvasc) 10 mg DAILY PO Last administered on 04/01/17 09: 41; Start 01/17/17 at 09:00 Valproic Acid (Depakene Liq) 500 mg BID PO Last administered on 01/20/17 08:14 ; Start 01/16/17 at 21:00; Stop 01/21/17 at 14:48; Status DC Mirtazapine (Remeron) 20 mg HS PO Last administered on 01/26/17 20:56; Start 01/21/17 at 21:00; Stop 01/27/17 at 11:05; Status DC Risperidone (risperDAL M-TAB) 2 mg BID PO Last administered on 02/01/17 08:32 ; Start 01/21/17 at 21:00; Stop 02/01/17 at 12:31; Status DC Valproic Acid (Depakene Liq) 500 mg DAILY PO Last administered on 04/01/17 09: 41; Start 01/22/17 at 09:00 Valproic Acid (Depakene Liq) 750 mg HS PO Last administered on 03/31/17 19:59 ; Start 01/21/17 at 21:00 Miscellaneous (Pill Splitter) 1 ea UNSCH PRN OTHER SEE LABEL COMMENTS; Start at 16:15 Lisinopril (Prinivil) 20 mg BID PO Last administered on 03/03/17 08:48; Start 01/22/17 at 21:00; Stop 03/03/17 at 10:59; Status DC Acetaminophen (Tylenol) 650 mg Q4H PRN PO PAIN 1 TO 10 AND/OR AGITATION Last administered on 03/26/17 08:43; Start 01/25/17 at 07:45 Lorazepam (Ativan) 0.5 mg DAILY@12,18 PO Last administered on 01/31/17 11:35; Start 01/26/17 at 18:00; Stop 02/01/17 at 12:27; Status DC Benztropine Mesylate (Cogentin) 0.5 mg BID PO Last administered on 04/01/17 09 :41; Start 01/25/17 at 21:00 Mirtazapine (Remeron) 7.5 mg HS PO Last administered on 02/01/17 21:10; Start 01/27/17 at 21:00; Status Hold Lorazepam (Ativan) 0.5 mg DAILY@18 PO Last administered on 02/01/17 17:34; Start 02/01/17 at 18:00; Status Hold Risperidone (risperDAL M-TAB) 2 mg DAILY PO Last administered on 02/02/17 10:15 ; Start 02/02/17 at 09:00; Stop 02/02/17 at 13:18; Status DC Risperidone (risperDAL M-TAB) 3 mg HS PO Last administered on 02/01/17 21:10; Start 02/01/17 at 21:00; Stop 02/02/17 at 13:18; Status DC Ondansetron HCl (Zofran Inj) 4 mg ONCE STAT IV PUSH ; Start 02/02/17 at 07:14; Stop 02/02/17 at 07:18; Status DC Risperidone (risperDAL M-TAB) 2 mg HS PO Last administered on 02/06/17 20:46; Start 02/02/17 at 21:00; Stop 02/07/17 at 09:22; Status DC Risperidone (risperDAL M-TAB) 1 mg DAILY PO Last administered on 02/07/17 08:29 ; Start 02/03/17 at 09:00; Stop 02/07/17 at 09:22; Status DC Levocarnitine (Carnitor 10% Liq) 3 ml TID PO Last administered on 03/07/17 12: 29; Start 02/02/17 at 18:00; Stop 03/07/17 at 14:59; Status DC Risperidone (risperDAL M-TAB) 0.5 mg ONCE ONCE PO Last administered on 13:45; Start 02/03/17 at 13:45; Stop 02/03/17 at 13:48; Status DC Risperidone (risperDAL M-TAB) 2 mg BID PO Last administered on 02/20/17 08:52 ; Start 02/07/17 at 21:00; Stop 02/20/17 at 13:02; Status DC Risperidone (risperDAL M-TAB) 2 mg HS PO Last administered on 03/21/17 20:18; Start 02/20/17 at 21:00; Stop 03/22/17 at 09:49; Status DC Risperidone (risperDAL M-TAB) 1 mg DAILY PO Last administered on 03/22/17 09: 00; Start 02/21/17 at 09:00; Stop 03/22/17 at 09:49; Status DC Sodium Polystyrene Sulfonate (Kayexalate Liq) 15 gm ONCE ONCE PO Last administered on 03/03/17 13:02; Start 03/03/17 at 11:00; Stop 03/03/17 at 11:11 ; Status DC Lisinopril (Prinivil) 5 mg BID PO Last administered on 03/24/17 09:10; Start 03/03/17 at 21:00; Stop 03/25/17 at 08:23; Status DC Levocarnitine (Carnitor 10% Liq) 6 ml TID PO Last administered on 04/01/17 09: 00; Start 03/07/17 at 18:00 Lorazepam (Ativan) 0.5 mg Q6H PRN PO MODERATE TO SEVERE ANXIETY Last administered on 03/29/17 19:48; Start 03/13/17 at 16:15 Lorazepam (Ativan Inj) 0.5 mg Q6H PRN IM MODERATE TO SEVERE ANXIETY Last administered on 03/31/17 17:20; Start 03/13/17 at 16:33 Melatonin (Melatonin) 5 mg HS PO Last administered on 03/26/17 21:00; Start at 21:00; Stop 03/27/17 at 08:57; Status DC Risperidone (risperDAL M-TAB) 2 mg BID PO Last administered on 04/01/17 09:41 ; Start 03/22/17 at 21:00 Lisinopril (Prinivil) 5 mg BID PO Last administered on 04/01/17 09:42; Start 03/25/17 at 09:00 Trazodone HCl (Desyrel) 25 mg HS PO Last administered on 03/31/17 19:58; Start 03/27/17 at 21:00 Mineral Oil (Kondremul Liq) 30 ml ONCE ONCE PO ; Start 03/27/17 at 10:00; Stop 03/27/17 at 10:01; Status DC Mineral Oil (Mineral Oil Liq) 30 ml ONCE ONCE PO ; Start 03/27/17 at 11:00; Stop 03/27/17 at 11:01; Status DC Assessment and Plan Problem List: (1) Altered mental status Status: Acute Plan: pt was obtunded earlier alert though confused now ct head no acute process lab shows no sign of infection or metabolic imbalance patients ams may have been due to medication will follow again in am please cill if there are further changes (2) Hyperkalemia Status: Resolved Plan: dc lisinopril give kxylate yany K in am Assessment and Plan ams medication related lab stable discussed with nursing pt is drinking will avoid iv fluids for now no further rx needed at this time Discharge Planning continue psych stabilization will ultimately need placement Ascencion Vásquez DO April 01, 2017 12:13
[2017-04-01] MEDS: traZODone HCL 50 MG TAB PO SCH (20:04)
[2017-04-01] MEDS: ATORVASTATIN 20 MG TAB PO SCH (20:04)
[2017-04-02] MEDS: LORazepam 0.5 MG TAB age > 65 yrs PO PRN (03:01)
[2017-04-02] MEDS: LEVOTHYROXINE SODIUM 50 MCG TAB PO SCH (05:48)
[2017-04-02 06:03] VITALS: BP 124/58; PULSE 68; RESP 18; TEMP 97.8; O2SAT 96
--- NOTE | 2017-04-02 07:31 | HHI.PR ---
Subjective Remarks Patient seen in bedroom and sleeping. VSS afebrile Objective Vital Signs Date Time Temp Pulse Resp B/P Pulse Ox O2 Delivery O2 Flow Rate FiO2 04/02/17 06:03 97.8 68 18 124/58 96 I/O 04/01/17 04/01/17 04/01/17 04/02/17 04/02/17 04/02/17 07:00 15:00 23:00 07:00 15:00 23:00 Intake Total 480 ml 480 ml Balance 480 ml 480 ml Intake Oral 480 ml 480 ml # Voids 1 2 Objective Remarks GENERAL: Sleeping SKIN: Warm and dry. HEAD: Normocephalic. EYES: No scleral icterus. No injection or drainage. NECK: Supple, trachea midline. No JVD or lymphadenopathy. CARDIOVASCULAR: Regular rate and rhythm without murmurs, gallops, or rubs. RESPIRATORY: Breath sounds equal bilaterally. No accessory muscle use. GASTROINTESTINAL: Abdomen soft, non-tender, nondistended. MUSCULOSKELETAL: No cyanosis, or edema. BACK: Nontender without obvious deformity. No CVA tenderness. Medications and IVs Current Medications Medications (Trade) Dose Ordered Sig/Natalio Route Start Time Stop Time Status Last Admin (Catapres) 0.1 mg Q6H PRN PO 01/07/17 18:45 (Tylenol) 650 mg Q4H PRN PO 01/08/17 13:45 03/05/17 22:21 (Milk Of Magnesia Liq) 30 ml DAILY PRN PO 01/08/17 13:45 01/16/17 20:54 (Mag-Al Plus Susp Liq) 30 ml Q6H PRN PO 01/08/17 13:45 (Aspirin Chew) 81 mg DAILY PO 01/09/17 09:00 04/01/17 09:42 (Lipitor) 20 mg HS PO 01/08/17 21:00 04/01/17 20:04 (Synthroid) 50 mcg DAILY@06 PO 01/09/17 06:00 04/02/17 05:48 (Norvasc) 10 mg DAILY PO 01/17/17 09:00 04/01/17 09:41 (Depakene Liq) 500 mg DAILY PO 01/22/17 09:00 04/01/17 09:41 (Depakene Liq) 750 mg HS PO 01/21/17 21:00 04/01/17 20:04 (Pill Splitter) 1 ea UNSCH PRN OTHER 01/21/17 16:15 (Tylenol) 650 mg Q4H PRN PO 01/25/17 07:45 03/26/17 08:43 (Cogentin) 0.5 mg BID PO 01/25/17 21:00 04/01/17 20:05 (Remeron) 7.5 mg HS PO 01/27/17 21:00 Hold 02/01/17 21:10 (Ativan) 0.5 mg DAILY@18 PO 02/01/17 18:00 Hold 02/01/17 17:34 (Carnitor 10% Liq) 6 ml TID PO 03/07/17 18:00 04/01/17 17:35 (Ativan) 0.5 mg Q6H PRN PO 03/13/17 16:15 04/02/17 03:01 (Ativan Inj) 0.5 mg Q6H PRN IM 03/13/17 16:33 03/31/17 17:20 (risperDAL M-TAB) 2 mg BID PO 03/22/17 21:00 04/01/17 20:04 (Prinivil) 5 mg BID PO 03/25/17 09:00 04/01/17 20:05 (Desyrel) 25 mg HS PO 03/27/17 21:00 04/01/17 20:04 Assessment and Plan Problem List: (1) Dementia Status: Chronic Plan: Alert and med complaint per staff. (2) Hyperlipemia Status: Chronic Plan: Continue statin (3) Agitation Status: Acute Plan: On Risperdal and lorazepam. UA ordered negative for UTI. Labs pending this AM (4) Hypertension Status: Acute Plan: Continue current regimen blood pressure well controlled. B/P 124/58 will monitor (5) Schizophrenia Status: Chronic Plan: Managed per psych. (6) Suprapubic tenderness Status: Resolved Plan: denies (7) Discomfort of back Status: Resolved Plan: Acetaminophen ordered PRN. No discomfort noted (8) Hyperkalemia Status: Resolved Plan: Resolved. Labs pending this am Assessment and Plan Assessment and plan discussed with Dr. Vásquez Physician Attestation I and the SENIOR HADOOP DEVELOPER have both examined this patient and reviewed this note and I agree with these findings and plan of care. Ascencion Vásquez D.O. Problem Qualifiers (1) Dementia: Qualified Code: F03.91 - Dementia with behavioral disturbance, unspecified dementia type (2) Hyperlipemia: Qualified Code: E78.2 - Mixed hyperlipidemia (3) Hypertension: Qualified Code: I10 - Essential hypertension (4) Schizophrenia: Qualified Code: F20.9 - Schizophrenia, unspecified type Maria Esther Jhaveri April 02, 2017 07:31
[2017-04-02] MEDS: levOCARNitine 10% ORAL SOLN 118 ML BTL PO SCH ×3 (09:00→18:00)
[2017-04-02] MEDS: VALPROIC ACID SYRUP 250 MG/5 ML UDC PO SCH ×2 (09:41→21:00)
[2017-04-02] MEDS: ASPIRIN 81 MG CHEW TAB PO SCH (09:42)
[2017-04-02] MEDS: risperiDONE ODT 2 MG TAB PO SCH ×2 (09:42→21:00)
[2017-04-02] MEDS: LISINOPRIL 5 MG TAB PO SCH ×2 (09:42→21:00)
[2017-04-02] MEDS: amLODIPine BESYLATE 5 MG TAB PO SCH (09:42)
[2017-04-02] MEDS: BENZTROPINE MESYLATE 1 MG TAB PO SCH ×2 (09:42→21:00)
--- NOTE | 2017-04-02 14:32 | HHI.PYPN ---
Subjective Remarks Patient seen today in dayroom with floor staff, chart reviewed. Patient continues to wander at times somewhat intrusive but redirectable. No significant behavioral problems noted. Review of Systems Except as stated in HPI: all other systems reviewed are Neg Objective Alert: Yes [place]: Person Mood: Calm Affect: Appropriate Memory Intact: Comment (impaired) Hallucinations: Other (appears somewhat internally preoccupied) Delusions: No Delusion Type: Other (None) Suicidal: Ideation (No SI) Homicidal: Ideation (No HI) Insight/Judgment Very poor Vitals/IOs Vital Signs Date Time Temp Pulse Resp B/P Pulse Ox O2 Delivery O2 Flow Rate FiO2 04/02/17 06:03 97.8 68 18 124/58 96 Intake and Output 04/01/17 04/01/17 04/02/17 08:00 16:00 00:00 Intake Total 360 ml 120 ml 480 ml Balance 360 ml 120 ml 480 ml Assessment & Plan Problem List: (1) Dementia of Alzheimer's type with behavioral disturbance ICD Code: G30.8 Assessment & Plan Estimated LOS: days patient continues demented confused needing frequent redirection. But overall no behavior problem Justification for Cont. Inpt. At the present time patient will decompensate with placed in a lower level of care Discharge Planning To be determined Request HC Surrog/Guard Advoc?: Yes Problem Qualifiers (1) Dementia of Alzheimer's type with behavioral disturbance: Qualified Code: G30.8 - Alzheimer's disease of other onset with behavioral disturbance Rodolfo Corona MD April 02, 2017 14:32
[2017-04-02 17:15] VITALS: BP 111/53; PULSE 69; RESP 16; TEMP 96.2
[2017-04-02] MEDS: traZODone HCL 50 MG TAB PO SCH (21:00)
[2017-04-02] MEDS: ATORVASTATIN 20 MG TAB PO SCH (21:00)
[2017-04-03] MEDS: LEVOTHYROXINE SODIUM 50 MCG TAB PO SCH (05:43)
[2017-04-03 06:00] VITALS: BP 128/57; PULSE 67; RESP 16; TEMP 98.4; O2SAT 99
[2017-04-03] MEDS: amLODIPine BESYLATE 5 MG TAB PO SCH (08:51)
[2017-04-03] MEDS: VALPROIC ACID SYRUP 250 MG/5 ML UDC PO SCH ×2 (08:51→20:37)
[2017-04-03] MEDS: LISINOPRIL 5 MG TAB PO SCH ×2 (08:51→20:39)
[2017-04-03] MEDS: BENZTROPINE MESYLATE 1 MG TAB PO SCH ×2 (08:51→20:38)
[2017-04-03] MEDS: ASPIRIN 81 MG CHEW TAB PO SCH (08:51)
[2017-04-03] MEDS: risperiDONE ODT 2 MG TAB PO SCH ×2 (08:51→20:39)
[2017-04-03] MEDS: levOCARNitine 10% ORAL SOLN 118 ML BTL PO SCH ×3 (09:00→17:54)
--- NOTE | 2017-04-03 16:16 | HHI.PYPN ---
Subjective Remarks Patient seen in dayroom with question of, she continues to wander and babble in [place]. Patient needs frequent redirection and intervention. The no significant behavioral issues Review of Systems Except as stated in HPI: all other systems reviewed are Neg Objective Alert: Yes [place]: Person Mood: Calm Affect: Appropriate Memory Intact: Comment (impaired) Hallucinations: Other (appears somewhat internally preoccupied) Delusions: No Delusion Type: Other (None) Suicidal: Ideation (No SI) Homicidal: Ideation (No HI) Insight/Judgment Poor Vitals/IOs Vital Signs Date Time Temp Pulse Resp B/P Pulse Ox O2 Delivery O2 Flow Rate FiO2 04/03/17 06:00 98.4 67 16 128/57 99 Intake and Output 04/02/17 04/02/17 04/03/17 08:00 16:00 00:00 Intake Total 480 ml Balance 480 ml Assessment & Plan Problem List: (1) Dementia of Alzheimer's type with behavioral disturbance ICD Code: G30.8 Assessment & Plan Estimated LOS: days patient continues confused and demented, but no behavioral problems. For now continue treatment Justification for Cont. Inpt. At this time patient will decompensate if placed in a lower level of care Discharge Planning To be determined Request HC Surrog/Guard Advoc?: Yes Problem Qualifiers (1) Dementia of Alzheimer's type with behavioral disturbance: Qualified Code: G30.8 - Alzheimer's disease of other onset with behavioral disturbance Rodolfo Corona MD April 03, 2017 16:15
[2017-04-03] MEDS: LORazepam 0.5 MG TAB age > 65 yrs PO PRN (19:31)
[2017-04-03 20:00] VITALS: BP 129/74; PULSE 81; RESP 18; TEMP 97.2
[2017-04-03] MEDS: traZODone HCL 50 MG TAB PO SCH (20:38)
[2017-04-03] MEDS: ATORVASTATIN 20 MG TAB PO SCH (20:39)
[2017-04-04 04:54] VITALS: BP 145/55; PULSE 91; RESP 16; TEMP 96.7; O2SAT 96
[2017-04-04] MEDS: LORazepam 2 MG/ML VIAL - age > 65 yrs IM PRN (07:13)
[2017-04-04 08:00] LABS: AUTOMATED NEUTROPHIL # 1.8 TH/MM3 (1.8-7.7); BASOPHIL % 0.6 % (0.0-2.0); EOSINOPHIL # 0.2 TH/MM3 (0-0.4); EOSINOPHIL % 4.1 % (0.0-4.0); HEMATOCRIT 27.4 % (35.0-46.0); HEMO FLAGS DIFF FINAL; LYMPHOCYTE # 1.6 TH/MM3 (1.0-4.8); MEAN CELL VOLUME 88.9 FL (80.0-100.0); MEAN CORPUSCULAR HEMOGLOBIN 29.7 PG (27.0-34.0); MEAN CORPUSCULAR HGB CONC 33.4 % (32.0-36.0); MONO % 10.7 % (0.0-8.0); NEUT % 45.6 % (16.0-70.0); PLATELET COUNT 148 TH/MM3 (150-450); RED BLOOD COUNT 3.09 MIL/MM3 (4.00-5.30); RED CELL DISTRIBUTION WIDTH 17.7 % (11.6-17.2)
[2017-04-04 08:16] LABS: ANION GAP 5 MEQ/L (5-15); AST (GOT) 17 U/L (15-37); BICARBONATE 28.5 MEQ/L (21.0-32.0); BLOOD UREA NITROGEN 47 MG/DL (7-18); CHLORIDE 107 MEQ/L (98-107); GLOMERULAR FILTRATION RATE 48 ML/MIN (>89); POTASSIUM 5.4 MEQ/L (3.5-5.1); SODIUM (NA) 140 MEQ/L (136-145)
--- NOTE | 2017-04-04 08:27 | HHI.PYPN ---
Subjective Remarks Patient seen in day room with floor staff, chart reviewed, patient potassium level done this morning is 5.4 will repeated in a.m. tomorrow. Patient continues intrusive somewhat more irritable with that and more intense with her today. Attempted to follow me into the nurses station also. Otherwise patient compliant medication. Placement remains quite problematic for now continue treatment Review of Systems Except as stated in HPI: all other systems reviewed are Neg Objective Alert: Yes [place]: Person Mood: Calm Affect: Appropriate Memory Intact: Comment (impaired) Hallucinations: Other (appears somewhat internally preoccupied) Delusions: No Delusion Type: Other (None) Suicidal: Ideation (No SI) Homicidal: Ideation (No HI) Insight/Judgment Very poor Labs Test 04/04/17 06:33 White Blood Count 4.0 TH/MM3 Red Blood Count 3.09 MIL/MM3 Hemoglobin 9.2 GM/DL Hematocrit 27.4 % Mean Corpuscular Volume 88.9 FL Mean Corpuscular Hemoglobin 29.7 PG Mean Corpuscular Hemoglobin 33.4 % Concent Red Cell Distribution Width 17.7 % Platelet Count 148 TH/MM3 Mean Platelet Volume 9.9 FL Neutrophils (%) (Auto) 45.6 % Lymphocytes (%) (Auto) 39.0 % Monocytes (%) (Auto) 10.7 % Eosinophils (%) (Auto) 4.1 % Basophils (%) (Auto) 0.6 % Neutrophils # (Auto) 1.8 TH/MM3 Lymphocytes # (Auto) 1.6 TH/MM3 Monocytes # (Auto) 0.4 TH/MM3 Eosinophils # (Auto) 0.2 TH/MM3 Basophils # (Auto) 0.0 TH/MM3 CBC Comment DIFF FINAL Differential Comment Sodium Level 140 MEQ/L Potassium Level 5.4 MEQ/L Chloride Level 107 MEQ/L Carbon Dioxide Level 28.5 MEQ/L Anion Gap 5 MEQ/L Blood Urea Nitrogen 47 MG/DL Creatinine 1.10 MG/DL Estimat Glomerular Filtration 48 ML/MIN Rate Random Glucose 54 MG/DL Calcium Level 8.9 MG/DL Aspartate Amino Transf 17 U/L (AST/SGOT) Albumin 3.3 GM/DL Vitals/IOs Vital Signs Date Time Temp Pulse Resp B/P Pulse Ox O2 Delivery O2 Flow Rate FiO2 04/04/17 04:54 96.7 91 16 145/55 96 Intake and Output 504/03/17 04/04/17 08:00 16:00 00:00 Intake Total 360 ml 840 ml 1320 ml Balance 360 ml 840 ml 1320 ml Assessment & Plan Problem List: (1) Dementia of Alzheimer's type with behavioral disturbance ICD Code: G30.8 Assessment & Plan Estimated LOS: days patient continues demented and confused, will recheck potassium level tomorrow morning, she remains intrusive with somewhat increased intensity and frequency of her intrusiveness. Justification for Cont. Inpt. At this time patient will decompensate if placed in the lower level of care Discharge Planning To be determined Request HC Surrog/Guard Advoc?: Yes Problem Qualifiers (1) Dementia of Alzheimer's type with behavioral disturbance: Qualified Code: G30.8 - Alzheimer's disease of other onset with behavioral disturbance Rodolfo Corona MD Apr 04, 2017 08:27
[2017-04-04 08:28] LABS: ALKALINE PHOSPHATASE 74 U/L (45-117); ALT (GPT) 25 U/L (10-53); FREE T3 1.81 PG/ML (2.18-3.98); TOTAL BILIRUBIN ADULT 0.1 MG/DL (0.2-1.0)
[2017-04-04] MEDS: amLODIPine BESYLATE 5 MG TAB PO SCH (08:58)
[2017-04-04] MEDS: ASPIRIN 81 MG CHEW TAB PO SCH (08:58)
[2017-04-04] MEDS: BENZTROPINE MESYLATE 1 MG TAB PO SCH (08:58)
[2017-04-04] MEDS: VALPROIC ACID SYRUP 250 MG/5 ML UDC PO SCH (08:58)
[2017-04-04] MEDS: risperiDONE ODT 2 MG TAB PO SCH (08:58)
[2017-04-04] MEDS: LISINOPRIL 5 MG TAB PO SCH (08:58)
[2017-04-04] MEDS: LEVOTHYROXINE SODIUM 50 MCG TAB PO SCH (08:58)
[2017-04-04] MEDS: levOCARNitine 10% ORAL SOLN 118 ML BTL PO SCH (08:58)
[2017-04-04] MEDS ORDERED: Valproic Acid Liq PO (10:31)
[2017-04-04] MEDS ORDERED: RISPM2 PO (10:31)
[2017-04-04] MEDS ORDERED: LEVO10%S PO (10:31)
[2017-04-04] MEDS ORDERED: AMLO10 PO (10:31)
[2017-04-04] MEDS ORDERED: TRAZ50TA12 PO (10:31)
[2017-04-04] MEDS ORDERED: LISI-519 PO (10:31)
[2017-04-04] MEDS ORDERED: Benztropine PO (10:31)
[2017-04-04] MEDS ORDERED: LEVO.05 PO (10:31)
[2017-04-04] MEDS ORDERED: ASPI81CH25 PO (10:31)
[2017-04-04] MEDS ORDERED: ATOR20TA15 PO (10:31)
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
== END 2017-04-04 12:25 | DRG 57 ==
LOC: NEPC 09:07 → H250 01-07 16:05 → H4EA 02-02 09:15 → H250 02-04 15:56
PROVIDERS: ADMIT Psychiatry & Neurology Psychiatry; ATTEND Psychiatry & Neurology Psychiatry
DX: G30.9 Alzheimer's disease, unspecified (principal); D69.6 Thrombocytopenia, unspecified; F02.81 Dementia in other diseases classified elsewhere, unspecified severity, with behavioral disturbance; E72.20 Disorder of urea cycle metabolism, unspecified; E87.5 Hyperkalemia; F20.5 Residual schizophrenia; D64.9 Anemia, unspecified; I10 Essential (primary) hypertension; E78.2 Mixed hyperlipidemia; R11.14 Bilious vomiting; T42.6X5A Adverse effect of other antiepileptic and sedative-hypnotic drugs, initial encounter; K59.00 Constipation, unspecified; Y92.230 Patient room in hospital as the place of occurrence of the external cause; Z91.83 Wandering in diseases classified elsewhere
CPT/HCPCS: 70450; 71010; 80048; 80053; 80061; 80164; 80307; 81001; 82140; 82652; 82805; 82948; 83036; 84439; 84443; 84481; 85025; 85027; 87086; 99284; J2060

== ENCOUNTER 2018-03-26 20:38 | Inpatient (IN) | payer MEDICARE, OTHER ==
[~2018-03-26] VITALS: Ht 152.4 cm; Wt 57.4 kg
[~2018-03-26 20:38] MED LIST: ABH TOP; AMLO10 PO; AMLO5 PO; ASPI81CH25 PO; ATOR20TA15 PO; Benztropine PO; LEVO.05 PO; LEVO10%S PO; LISI-519 PO; PRIN20TA2 PO; REME15TA PO; RISPM2 PO; SERO200T PO; TRAZ50TA12 PO; TYLE325T PO; VALP250S2 PO; Valproic Acid Liq PO
[2018-03-26 21:31] VITALS: BP 191/85; PULSE 94; RESP 18; TEMP 97; O2SAT 100
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
[2018-03-26 22:14] LABS: AUTOMATED NEUTROPHIL # 3.7 TH/MM3 (1.8-7.7); BASOPHIL % 0.7 % (0.0-2.0); EOSINOPHIL # 0.1 TH/MM3 (0-0.4); EOSINOPHIL % 2.4 % (0.0-4.0); HEMATOCRIT 36.2 % (35.0-46.0); HEMOGLOBIN 11.9 GM/DL (11.6-15.3); LYMPHOCYTE # 1.7 TH/MM3 (1.0-4.8); MEAN CORPUSCULAR HEMOGLOBIN 27.6 PG (27.0-34.0); MEAN CORPUSCULAR HGB CONC 32.8 % (32.0-36.0); MEAN PLATELET VOLUME 8.9 FL (7.0-11.0); MONO % 9.1 % (0.0-8.0); MONOCYTE # 0.6 TH/MM3 (0-0.9); NEUT % 60.8 % (16.0-70.0); PLATELET COUNT 217 TH/MM3 (150-450); RED CELL DISTRIBUTION WIDTH 15.5 % (11.6-17.2); WHITE BLOOD COUNT 6.1 TH/MM3 (4.0-11.0)
[2018-03-26 22:28] LABS: ALBUMIN 3.8 GM/DL (3.4-5.0); AST (GOT) 11 U/L (15-37); BICARBONATE 27.5 MEQ/L (21.0-32.0); BLOOD UREA NITROGEN 16 MG/DL (7-18); CHLORIDE 106 MEQ/L (98-107); CREATININE 1.11 MG/DL (0.50-1.00); GLOMERULAR FILTRATION RATE 48 ML/MIN (>89); GLUCOSE,RANDOM 130 MG/DL (74-106); SODIUM (NA) 142 MEQ/L (136-145)
[2018-03-26 22:29] LABS: ALT (GPT) 15 U/L (10-53)
[2018-03-26 22:39] LABS: ALKALINE PHOSPHATASE 77 U/L (45-117); TOTAL BILIRUBIN ADULT 0.3 MG/DL (0.2-1.0); TOTAL PROTEIN 6.9 GM/DL (6.4-8.2)
[2018-03-26 23:41] LABS: BACTERIA, URINE RARE /hpf; BILIRUBIN, URINE NEG (NEG); BLOOD, URINE NEG (NEG); GLUCOSE,URINE NEG (NEG); HYALINE CAST, URINE 2 /lpf (RARE); KETONE, URINE NEG (NEG); MUCUS URINE FEW /lpf (OCC); NITRITE,URINE NEG (NEG); SQUAMOUS EPITHELIAL CELL URINE 2 /hpf (0-5); URINE COLOR LIGHT-YELLOW (YELLW/STRAW); URINE LEUKOCYTE ESTERASE SMALL (NEG)
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
[2018-03-27 07:06] VITALS: BP 222/106; PULSE 73; RESP 19; O2SAT 98
[2018-03-27] MEDS ORDERED: LISINOPRIL 20 MG TAB PO ONE (07:15)
[2018-03-27 08:35] VITALS: BP_SYST 196; BP_SYST 221; BP_SYST 223; BP_DIAS 100; BP_DIAS 102; BP_DIAS 107; PULSE 74; RESP 19; O2SAT 100
[2018-03-27] MEDS ORDERED: hydrALAZINE HCL 10 MG TAB PO ONE (08:45)
[2018-03-27 09:46] VITALS: BP 190/86; PULSE 69; RESP 16; O2SAT 99
[2018-03-27] MEDS ORDERED: LORazepam 2 MG/ML VIAL IM PRN ×2 (10:00)
[2018-03-27] MEDS ORDERED: ACETAMINOPHEN 325 MG TAB PO PRN (10:00)
[2018-03-27] MEDS: VALPROIC ACID SYRUP 250 MG/5 ML UDC PO SCH ×2 (10:00→20:34)
[2018-03-27] MEDS ORDERED: ALUMINUM/MAGNESIUM/SIMETH 30 ML CUP PO PRN (10:00)
[2018-03-27] MEDS ORDERED: MAGNESIUM HYDROXIDE SUSP 30 ML CUP PO PRN (10:00)
[2018-03-27] MEDS ORDERED: LORazepam 1 MG TAB PO PRN (10:00)
[2018-03-27] MEDS: LORazepam 0.5 MG TAB PO PRN (10:01)
[2018-03-27] MEDS: NICOTINE 21 MG/24 HR PATCH T-DERMAL SCH (10:07)
[2018-03-27] MEDS: ASPIRIN 81 MG CHEW TAB PO SCH (10:08)
[2018-03-27] MEDS: LISINOPRIL 20 MG TAB PO SCH (10:08)
[2018-03-27] MEDS: QUEtiapine FUMARATE 200 MG TAB PO SCH ×2 (10:46→20:34)
[2018-03-27 11:14] VITALS: BP 166/88; PULSE 79; RESP 19; O2SAT 98
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
[2018-03-27 14:30] VITALS: BP 149/87; PULSE 72; RESP 17; TEMP 97.2; O2SAT 99
[2018-03-27 18:27] VITALS: BP 154/74; PULSE 81; RESP 18; TEMP 97.1; O2SAT 100
[2018-03-27] MEDS: MIRTAZAPINE 15 MG TAB PO SCH (20:34)
[2018-03-27] MEDS: ATORVASTATIN 20 MG TAB PO SCH (20:48)
[2018-03-27] MEDS: LISINOPRIL 5 MG TAB PO SCH (20:48)
[2018-03-28 05:54] VITALS: BP 139/83; PULSE 86; RESP 16; TEMP 97.6; O2SAT 98
[2018-03-28] MEDS: ASPIRIN 81 MG CHEW TAB PO SCH (09:00)
[2018-03-28] MEDS: QUEtiapine FUMARATE 200 MG TAB PO SCH ×2 (09:00→21:00)
[2018-03-28] MEDS: LISINOPRIL 20 MG TAB PO SCH (09:00)
[2018-03-28] MEDS: LISINOPRIL 5 MG TAB PO SCH ×2 (09:00→21:00)
[2018-03-28] MEDS: NICOTINE 21 MG/24 HR PATCH T-DERMAL SCH (09:00)
[2018-03-28] MEDS: amLODIPine BESYLATE 5 MG TAB PO SCH (09:00)
[2018-03-28] MEDS: VALPROIC ACID SYRUP 250 MG/5 ML UDC PO SCH ×2 (09:00→21:00)
[2018-03-28 11:34] LABS: BICARBONATE 31.1 MEQ/L (21.0-32.0); BLOOD UREA NITROGEN 21 MG/DL (7-18); CALCIUM 9.2 MG/DL (8.5-10.1); CHLORIDE 104 MEQ/L (98-107); CHOLESTEROL 192 MG/DL (120-200); CREATININE 1.47 MG/DL (0.50-1.00); GLOMERULAR FILTRATION RATE 35 ML/MIN (>89); GLUCOSE,RANDOM 76 MG/DL (74-106); SODIUM (NA) 144 MEQ/L (136-145)
[2018-03-28 11:36] LABS: CHOLESTEROL/ HDL RATIO 3.47 RATIO; HDL CHOLESTEROL 55.3 MG/DL (40.0-60.0); LDL CHOLESTEROL 113 MG/DL (0-99); TRIGLYCERIDES 121 MG/DL (42-150)
[2018-03-28 15:17] LABS: HEMOGLOBIN A1C 5.7 % (4.3-6.0)
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
[2018-03-28] MEDS: SODIUM CHLOR 0.9% 1000 ML INJ 1,000 ML IV SCH (17:00)
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
[2018-03-28 18:45] VITALS: BP 112/56; PULSE 70; RESP 16; TEMP 98; O2SAT 97
[2018-03-28] MEDS: MIRTAZAPINE 15 MG TAB PO SCH (21:00)
[2018-03-28] MEDS: ATORVASTATIN 20 MG TAB PO SCH (21:00)
[2018-03-29] MEDS: SODIUM CHLOR 0.9% 1000 ML INJ 1,000 ML IV SCH ×3 (03:00→22:10)
[2018-03-29] MEDS: LEVOTHYROXINE SODIUM 50 MCG TAB PO SCH (05:36)
[2018-03-29] MEDS: LISINOPRIL 5 MG TAB PO SCH ×2 (08:06→21:00)
[2018-03-29] MEDS: VALPROIC ACID SYRUP 250 MG/5 ML UDC PO SCH ×2 (08:06→21:00)
[2018-03-29] MEDS: QUEtiapine FUMARATE 200 MG TAB PO SCH ×2 (08:06→21:00)
[2018-03-29] MEDS: amLODIPine BESYLATE 5 MG TAB PO SCH (08:06)
[2018-03-29] MEDS: ASPIRIN 81 MG CHEW TAB PO SCH (08:06)
[2018-03-29] MEDS: LISINOPRIL 20 MG TAB PO SCH (08:06)
[2018-03-29] MEDS: NICOTINE 21 MG/24 HR PATCH T-DERMAL SCH (08:08)
[2018-03-29] MEDS: LORazepam 0.5 MG TAB PO PRN (08:13)
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
--- NOTE | 2018-03-29 15:46 | HHI.PYPN ---
Subjective Remarks The patient was seen today for psychiatric reevaluation. Case was discussed with nursing charge. The patient was interviewing primary language is Luxembourgish. Patient reports having a good mood. She becomes disorganized and tangential, but redirectable. Denies suicidal and homicidal ideation, she denies visual and auditory hallucinations. As per nurse in charge the patient has being at times agitated and disruptive in the unit, but she responded well to verbal redirection and to medications. Review of Systems Except as stated in HPI: all other systems reviewed are Neg Mental Status Examination Appearance: Appropriate Consciousness: Alert Orientation: Person Motor Activity: Abnormal gait Speech: Incoherent (At times) Language: Adequate Fund of Knowledge: Inadequate Attention and Concentration: Adequate Memory: Impaired Mood: Appropriate Affect: Irritable (Slightly) Thought Process & Associations: Loose associations, Other ([place]) Thought Content: Bizarre thinking Hallucination Type: None Delusion Type: Paranoid Suicidal Ideation: No Suicidal Plan: No Suicidal Intention: No Homicidal Ideation: No Homicidal Plan: No Homicidal Intention: No Insight: Poor Judgment: Poor Results Vitals/IOs Vital Signs Date Time Temp Pulse Resp B/P (MAP) Pulse Ox O2 Delivery O2 Flow Rate FiO2 03/28/18 18:45 98.0 70 16 112/56 (74) 97 03/27/18 11:14 Room Air Intake and Output 03/29/18 03/29/18 03/30/18 08:00 16:00 00:00 Intake Total 240 ml 240 ml Balance 240 ml 240 ml Assessment & Plan Problem List: (1) Schizophrenia ICD Codes: F20.9 - Schizophrenia, unspecified Status: Chronic Assessment & Plan: Continue current psychotropic regimen. Brief supportive psychotherapy. Assessment & Plan Estimated LOS: days Justification for Cont. Inpt. Patient still psychotic. Jesu Alicia MD March 29, 2018 15:46
--- NOTE | 2018-03-29 15:53 | HHI.PR ---
Subjective Remarks Follow-up for dehydration Patient has not been drinking a lot. No complaints. Denies any chest pain or headache. Objective Vitals Vital Signs Date Time Temp Pulse Resp B/P (MAP) Pulse Ox O2 Delivery O2 Flow Rate FiO2 03/28/18 18:45 98.0 70 16 112/56 (74) 97 I/O 03/28/18 03/28/18 03/28/18 03/29/18 03/29/18 03/29/18 07:00 15:00 23:00 07:00 15:00 23:00 Intake Total 240 ml 120 ml 240 ml 240 ml Balance 240 ml 120 ml 240 ml 240 ml Intake Oral 240 ml 120 ml 240 ml 240 ml # Voids 1 1 Result Diagram: 03/26/18 2200 03/28/18 1024 Objective Remarks Not in distress, well-nourished, looks stated age PERRL Normal rate and regular rhythm, no murmurs gallops or rubs appreciated. Clear to auscultation and symmetric bilaterally, normal respiratory effort. Sleeping, easily arousable, not cooperative. A/P Problem List: (1) Encephalopathy acute ICD Code: G93.40 - Encephalopathy, unspecified (2) Schizophrenia ICD Code: F20.9 - Schizophrenia, unspecified Status: Chronic (3) Hypertension ICD Code: I10 - Essential (primary) hypertension Status: Acute (4) Hyperlipemia ICD Code: E78.5 - Hyperlipidemia, unspecified Status: Chronic (5) Dementia ICD Code: F03.90 - Unspecified dementia without behavioral disturbance Status: Chronic (6) AARON (acute kidney injury) ICD Code: N17.9 - Acute kidney failure, unspecified Status: Acute Assessment and Plan Suspect encephalopathy-monitor. Management per psychiatry. Management of psychiatric medications as per psychiatry. Hypothyroidism-continue Synthroid Hypertension-caution on AMARILYS inhibitors, creatinine is increasing, encourage fluid intake, discussed with nursing, Gatorade 3 times a day. Kidney ultrasound showed a right renal cyst otherwise unremarkable. Continue Norvasc. Recheck BMP tomorrow.` Dyslipidemia-continue statin Pastor Vargas MD March 29, 2018 15:53
[2018-03-29 18:37] VITALS: BP 114/59; PULSE 77; RESP 16; TEMP 97.6; O2SAT 97
[2018-03-29] MEDS: MIRTAZAPINE 15 MG TAB PO SCH (21:00)
[2018-03-29] MEDS: ATORVASTATIN 20 MG TAB PO SCH (21:00)
[2018-03-30] MEDS: LEVOTHYROXINE SODIUM 50 MCG TAB PO SCH (06:00)
[2018-03-30 06:18] VITALS: BP 143/71; PULSE 80; RESP 18; TEMP 97.6; O2SAT 99
--- NOTE | 2018-03-30 08:40 | HHI.PYPN ---
Subjective Remarks Patient seen and examined with nurse in weekend coverage. Chart reviewed. Case discussed with nursing staff. Patient reportedly refusing meds, refusing labs and (contrary to charting) has poor oral intake. For me today, patient is ambulating around the unit singing loudly. Speech is rambling. She has no complaints of pain. No physical complaints. Review of Systems ROS Limitations: Language Barrier, Poor Historian Other Limited ROS Mental Status Examination Appearance: Appropriate Consciousness: Alert Orientation: Person Motor Activity: Other (No motor abnormalities noted) Speech: Other (Somewhat loud) Language: Other ([place]) Fund of Knowledge: Inadequate Attention and Concentration: Adequate Memory: Impaired Mood: Appropriate Affect: Irritable Thought Process & Associations: Other (Perhaps somewhat disorganized) Thought Content: Bizarre thinking Hallucination Type: None Delusion Type: Other (None voiced) Suicidal Ideation: No Suicidal Plan: No Suicidal Intention: No Homicidal Ideation: No Homicidal Plan: No Homicidal Intention: No Insight: Poor Judgment: Poor Results Labs Labs reviewed. Decreased GFR noted. Elevated TSH noted. Hospitalist following. Vitals/IOs Vital Signs Date Time Temp Pulse Resp B/P (MAP) Pulse Ox O2 Delivery O2 Flow Rate FiO2 03/30/18 06:18 97.6 80 18 143/71 (95) 99 03/27/18 11:14 Room Air Intake and Output 03/30/18 03/30/18 03/31/18 08:00 16:00 00:00 Intake Total 0 ml Balance 0 ml Assessment & Plan Problem List: (1) Schizophrenia ICD Codes: F20.9 - Schizophrenia, unspecified Status: Chronic Assessment & Plan Dietitian consult for reported poor oral intake. To consider IM option for patient's antipsychotic; deferred to primary psychiatrist. Continue other medications and care as ordered. Justification for Cont. Inpt. Risk for decompensation in less restrictive environment. Discharge Planning Per primary psychiatrist Desmond Connolly MD March 30, 2018 08:40
[2018-03-30] MEDS: QUEtiapine FUMARATE 200 MG TAB PO SCH ×2 (09:55→21:14)
[2018-03-30] MEDS: NICOTINE 21 MG/24 HR PATCH T-DERMAL SCH (09:55)
[2018-03-30] MEDS: LISINOPRIL 5 MG TAB PO SCH ×2 (09:55→21:14)
[2018-03-30] MEDS: LISINOPRIL 20 MG TAB PO SCH (09:55)
[2018-03-30] MEDS: SODIUM CHLOR 0.9% 1000 ML INJ 1,000 ML IV SCH ×2 (09:56→18:22)
[2018-03-30] MEDS: VALPROIC ACID SYRUP 250 MG/5 ML UDC PO SCH ×2 (09:56→21:15)
[2018-03-30] MEDS: ASPIRIN 81 MG CHEW TAB PO SCH (09:56)
--- NOTE | 2018-03-30 14:55 | HHI.PR ---
Subjective Remarks Patient still not drinking enough water, lab work not done. Patient does not have any complaints. There is any chest pain or headache. Objective Vitals Vital Signs Date Time Temp Pulse Resp B/P (MAP) Pulse Ox O2 Delivery O2 Flow Rate FiO2 03/30/18 06:18 97.6 80 18 143/71 (95) 99 03/29/18 18:37 97.6 77 16 114/59 (77) 97 I/O 03/29/18 03/29/18 03/29/18 03/30/18 03/30/18 03/30/18 07:00 15:00 23:00 07:00 15:00 23:00 Intake Total 240 ml 240 ml 960 ml 0 ml Balance 240 ml 240 ml 960 ml 0 ml Intake Oral 240 ml 240 ml 960 ml 0 ml # Voids 1 1 2 Result Diagram: 03/26/18 2200 03/28/18 1024 Objective Remarks Not in distress, well-nourished, looks stated age PERRL Normal rate and regular rhythm, no murmurs gallops or rubs appreciated. Clear to auscultation and symmetric bilaterally, normal respiratory effort. Ambulating, awake, oriented to self. A/P Problem List: (1) Encephalopathy acute ICD Code: G93.40 - Encephalopathy, unspecified (2) Schizophrenia ICD Code: F20.9 - Schizophrenia, unspecified Status: Chronic (3) Hypertension ICD Code: I10 - Essential (primary) hypertension Status: Acute (4) Hyperlipemia ICD Code: E78.5 - Hyperlipidemia, unspecified Status: Chronic (5) Dementia ICD Code: F03.90 - Unspecified dementia without behavioral disturbance Status: Chronic (6) AARON (acute kidney injury) ICD Code: N17.9 - Acute kidney failure, unspecified Status: Acute Assessment and Plan Suspect encephalopathy-monitor. Management per psychiatry. Management of psychiatric medications as per psychiatry. Hypothyroidism-continue Synthroid Hypertension-caution on AMARILYS inhibitors, creatinine is increasing, encourage fluid intake, discussed with nursing, Bernabe 3 times a day. Kidney ultrasound showed a right renal cyst otherwise unremarkable. Continue Norvasc. BMP not done, awaiting results. Dyslipidemia-continue statin Pastor Vargas MD March 30, 2018 14:55
[2018-03-30 15:35] LABS: BICARBONATE 29.9 MEQ/L (21.0-32.0); CALCIUM 8.7 MG/DL (8.5-10.1); CREATININE 1.3 MG/DL (0.50-1.00)
[2018-03-30] MEDS: ATORVASTATIN 20 MG TAB PO SCH (21:14)
[2018-03-30] MEDS: MIRTAZAPINE 15 MG TAB PO SCH (21:14)
[2018-03-31] MEDS: SODIUM CHLOR 0.9% 1000 ML INJ 1,000 ML IV SCH ×2 (05:00→15:00)
[2018-03-31] MEDS: LEVOTHYROXINE SODIUM 50 MCG TAB PO SCH (05:46)
[2018-03-31 06:32] VITALS: BP 129/62; PULSE 76; RESP 14; TEMP 97.7; O2SAT 95
[2018-03-31] MEDS: LISINOPRIL 5 MG TAB PO SCH ×2 (08:16→20:31)
[2018-03-31] MEDS: QUEtiapine FUMARATE 200 MG TAB PO SCH ×2 (08:16→20:31)
[2018-03-31] MEDS: ASPIRIN 81 MG CHEW TAB PO SCH (08:16)
[2018-03-31] MEDS: VALPROIC ACID SYRUP 250 MG/5 ML UDC PO SCH ×2 (08:16→20:30)
[2018-03-31] MEDS: LISINOPRIL 20 MG TAB PO SCH (08:16)
--- NOTE | 2018-03-31 08:38 | HHI.PR ---
Subjective Remarks Follow-up visit for AK I, HTN and encephalopathy. Spoke with nurse reports patient with uneventful night or morning. Patient is seen and examined sitting on the side of the bed eating breakfast in no acute distress. Denies any fevers , chills, nausea, vomiting, diarrhea, headaches, shortness of breath or cough. Objective Vitals Vital Signs Date Time Temp Pulse Resp B/P (MAP) Pulse Ox O2 Delivery O2 Flow Rate FiO2 03/31/18 06:32 97.7 76 14 129/62 (84) 95 I/O 03/30/18 03/30/18 03/30/18 03/31/18 03/31/18 03/31/18 07:00 15:00 23:00 07:00 15:00 23:00 Intake Total 0 ml 480 ml 480 ml Balance 0 ml 480 ml 480 ml Intake Oral 0 ml 480 ml Oral Supplement 480 ml # Voids 2 2 2 4 Result Diagram: 03/30/18 1429 Imaging Last Impressions Renal Ultrasound 03/29/18 0000 Signed Impressions: CONCLUSION: 1. No evidence of hydronephrosis. 2. Benign-appearing 3 cm cyst mid to upper pole right kidney. Objective Remarks GENERAL: This is a well-nourished, well-developed patient, in NAD SKIN: Cool and dry. HEAD: Atraumatic. Normocephalic. EYES: Pupils equal round. No scleral icterus. No injection or drainage. ENT: Nose without bleeding. Airway patent. NECK: Trachea midline. No JVD CARDIOVASCULAR: Regular rate and rhythm without murmurs, gallops, or rubs. RESPIRATORY: Clear to auscultation. Breath sounds equal bilaterally. No wheezes , rales, or rhonchi. GASTROINTESTINAL: Abdomen soft, non-tender, nondistended. No guarding. MUSCULOSKELETAL: Extremities without clubbing, cyanosis, or edema. No calf tenderness. NEUROLOGICAL: Awake, alert, oriented to self. Follows commands moving bilateral upper and lower extremities, garbled speech but understandable. A/P Problem List: (1) Encephalopathy acute ICD Code: G93.40 - Encephalopathy, unspecified (2) Schizophrenia ICD Code: F20.9 - Schizophrenia, unspecified Status: Chronic (3) Hypertension ICD Code: I10 - Essential (primary) hypertension Status: Acute (4) Hyperlipemia ICD Code: E78.5 - Hyperlipidemia, unspecified Status: Chronic (5) Dementia ICD Code: F03.90 - Unspecified dementia without behavioral disturbance Status: Chronic (6) AARON (acute kidney injury) ICD Code: N17.9 - Acute kidney failure, unspecified Status: Acute Assessment and Plan Dementia Suspect encephalopathy - Management per psychiatry. -More awake and alert today Hypothyroidism -continue Synthroid Hypertension, controlled -BP stable -caution Lisinopril and Amlodipine AARON - Likely secondary to poor PO intake - Kidney ultrasound showed a right renal cyst otherwise unremarkable. -BMP this morning improved, BUN 26, creatinine 1, GFR 54 -Continue p.o. hydration with Gatorade 3 times a day Dyslipidemia -continue statin DVT pro-ambulation Discussed with nurse. Pricilla Otero March 31, 2018 08:38
[2018-03-31] MEDS: NICOTINE 21 MG/24 HR PATCH T-DERMAL SCH (08:39)
--- NOTE | 2018-03-31 09:11 | HHI.PYPN ---
Subjective Remarks Patient seen for follow-up, chart reviewed. Discussion nursing staff reported the patient refused medications of the weekend but was compliant last evening and this morning. Patient refused labs as well as morning. Patient received Ativan 1 last evening due to agitation. Patient was found sitting hospital bed noted to be somewhat lethargic likely secondary to medication received less evening. Patient was able to be redirected back to her to her bed she was noted to be falling asleep during interview. Patient encouraged to continue treatment as well as lab work along with increased fluid intake. We will attempt to obtain labs this morning. Review of Systems Except as stated in HPI: all other systems reviewed are Neg Mental Status Examination Appearance: Appropriate Consciousness: Lethargic, Somnolent Orientation: Person Motor Activity: Other (No motor abnormalities noted) Speech: Other (Somewhat loud) Language: Other ([place]) Fund of Knowledge: Inadequate Attention and Concentration: Adequate Memory: Impaired Mood: Other (Unable to assess this patient noted to be somnolent during interview) Affect: Irritable, Other (Unable to assess this patient noted to be somnolent during interview) Thought Process & Associations: Other (Perhaps somewhat disorganized) Thought Content: Other (Unable to assess this patient noted to be somnolent during interview) Hallucination Type: None Delusion Type: Other (None voiced) Suicidal Ideation: No Suicidal Plan: No Suicidal Intention: No Homicidal Ideation: No Homicidal Plan: No Homicidal Intention: No Insight: Poor Judgment: Poor Results Labs Test 03/30/18 14:29 Blood Urea Nitrogen 34 MG/DL Creatinine 1.30 MG/DL Random Glucose 85 MG/DL Calcium Level 8.7 MG/DL Sodium Level 143 MEQ/L Potassium Level 3.9 MEQ/L Chloride Level 105 MEQ/L Carbon Dioxide Level 29.9 MEQ/L Anion Gap 8 MEQ/L Estimat Glomerular Filtration Rate 40 ML/MIN Vitals/IOs Vital Signs Date Time Temp Pulse Resp B/P (MAP) Pulse Ox O2 Delivery O2 Flow Rate FiO2 03/31/18 06:32 97.7 76 14 129/62 (84) 95 03/27/18 11:14 Room Air Intake and Output 03/31/18 03/31/18 04/01/18 08:00 16:00 00:00 Intake Total 360 ml Balance 360 ml Assessment & Plan Problem List: (1) Schizophrenia ICD Codes: F20.9 - Schizophrenia, unspecified Status: Chronic Assessment & Plan Patient seen to be too lethargic somnolent to interact with interview today. Patient is compliant medications last evening at this morning we will continue to monitor mood and behavior. We will continue current treatment. Patient continues to be followed by medical team due to recent decrease in renal function. Patient to continue to increase p.o. fluid intake and nutritional intake. Discharge planning in progress. Justification for Cont. Inpt. At risk for further decompensation if at lower level of care Discharge Planning Patient return back to her nursing facility when psychiatrically stable. Raad Capps MD March 31, 2018 09:11
[2018-03-31 11:45] LABS: BICARBONATE 31.5 MEQ/L (21.0-32.0)
[2018-03-31 18:15] VITALS: BP 139/70; PULSE 65; RESP 14; TEMP 96; O2SAT 97
[2018-03-31] MEDS: LORazepam 0.5 MG TAB PO PRN (20:31)
[2018-03-31] MEDS: MIRTAZAPINE 15 MG TAB PO SCH (20:31)
[2018-03-31] MEDS: ATORVASTATIN 20 MG TAB PO SCH (20:31)
[2018-04-01 06:00] VITALS: BP 142/67; PULSE 75; RESP 16; TEMP 97.8; O2SAT 98
[2018-04-01] MEDS: LEVOTHYROXINE SODIUM 50 MCG TAB PO SCH (06:00)
--- NOTE | 2018-04-01 07:58 | HHI.PR ---
Subjective Remarks Follow-up visit for AARON, HTN encephalopathy. Patient is seen ambulating in the hallway, much more awake today. Oriented to self, and year, believes we are in [facility]. Denies any pain or discomfort. Denies any fevers, chills, dysuria, nausea, vomiting or diarrhea. She voices no acute concerns or complaints today. Objective Vitals Vital Signs Date Time Temp Pulse Resp B/P (MAP) Pulse Ox O2 Delivery O2 Flow Rate FiO2 04/01/18 06:00 97.8 75 16 142/67 (92) 98 03/31/18 18:15 96.0 65 14 139/70 (93) 97 I/O 03/31/18 03/31/18 03/31/18 04/01/18 04/01/18 04/01/18 07:00 15:00 23:00 07:00 15:00 23:00 Intake Total 360 ml 480 ml Balance 360 ml 480 ml Intake Oral 360 ml 480 ml # Voids 4 1 4 Result Diagram: 03/31/18 1055 Imaging Last Impressions Renal Ultrasound 03/29/18 0000 Signed Impressions: CONCLUSION: 1. No evidence of hydronephrosis. 2. Benign-appearing 3 cm cyst mid to upper pole right kidney. Objective Remarks GENERAL: This is a well-nourished, well-developed patient, in NAD SKIN: Cool and dry. HEAD: Atraumatic. Normocephalic. EYES: Pupils equal round. No scleral icterus. No injection or drainage. ENT: Nose without bleeding. Airway patent. NECK: Trachea midline. No JVD CARDIOVASCULAR: Regular rate and rhythm without murmurs, gallops, or rubs. RESPIRATORY: Clear to auscultation. Breath sounds equal bilaterally. No wheezes , rales, or rhonchi. GASTROINTESTINAL: Abdomen soft, non-tender, nondistended. No guarding. MUSCULOSKELETAL: Extremities without clubbing, cyanosis, or edema. NEUROLOGICAL: Awake, alert. Follows commands moving bilateral upper and lower extremities, speech is clear. A/P Problem List: (1) Encephalopathy acute ICD Code: G93.40 - Encephalopathy, unspecified (2) Schizophrenia ICD Code: F20.9 - Schizophrenia, unspecified Status: Chronic (3) Hypertension ICD Code: I10 - Essential (primary) hypertension Status: Acute (4) Hyperlipemia ICD Code: E78.5 - Hyperlipidemia, unspecified Status: Chronic (5) Dementia ICD Code: F03.90 - Unspecified dementia without behavioral disturbance Status: Chronic (6) AARON (acute kidney injury) ICD Code: N17.9 - Acute kidney failure, unspecified Status: Acute Assessment and Plan Dementia Suspect encephalopathy - Management per psychiatry. -More awake, alert, ambulating the champion. Hypothyroidism -continue Synthroid Hypertension, controlled -BP stable -caution Lisinopril and Amlodipine due to AARON AARON - Likely secondary to poor PO intake - Kidney ultrasound showed a right renal cyst otherwise unremarkable. -creatinine 1.0, GFR 54, renal function improved -Continue p.o. hydration with Gatorade 3 times a day Dyslipidemia -continue statin DVT pro-ambulation Patient is stable and medically cleared to transfer to regular psychiatry unit. [facility] will sign off, please reconsult if needed. Pricilla Otero April 01, 2018 07:58
[2018-04-01] MEDS: ASPIRIN 81 MG CHEW TAB PO SCH (08:33)
[2018-04-01] MEDS: LISINOPRIL 5 MG TAB PO SCH ×2 (08:34→21:00)
[2018-04-01] MEDS: LISINOPRIL 20 MG TAB PO SCH (08:34)
[2018-04-01] MEDS: VALPROIC ACID SYRUP 250 MG/5 ML UDC PO SCH ×2 (08:34→21:00)
[2018-04-01] MEDS: QUEtiapine FUMARATE 200 MG TAB PO SCH ×2 (08:34→21:00)
[2018-04-01] MEDS: NICOTINE 21 MG/24 HR PATCH T-DERMAL SCH (08:34)
--- NOTE | 2018-04-01 09:15 | HHI.PYPN ---
Subjective Remarks Patient seen for follow, chart reviewed. Discussion nursing staff reported the patient has a compliant with medications with no behavioral issues. Patient was found attempting to make her bed this morning noted B, cooperative. Patient states that she slept well, reports eating and drinking well, reports having had breakfast this morning. Patient reports no difficulty bowel movement , stating "everything is good". Patient denies any perceptional services or delusions at this time. Patient was encouraged to continue to maintain consistent nutritional and fluid intake which she agreed. Review of Systems Except as stated in HPI: all other systems reviewed are Neg Mental Status Examination Appearance: Appropriate Consciousness: Lethargic, Somnolent Orientation: Person Motor Activity: Other (No motor abnormalities noted) Speech: Slow Language: Adequate Fund of Knowledge: Inadequate Attention and Concentration: Adequate Memory: Impaired Mood: Other ("Everything is good") Affect: Irritable, Blunt Thought Process & Associations: Other (Perhaps somewhat disorganized) Thought Content: Other (Unable to assess this patient noted to be somnolent during interview) Hallucination Type: None Delusion Type: None Suicidal Ideation: No Suicidal Plan: No Suicidal Intention: No Homicidal Ideation: No Homicidal Plan: No Homicidal Intention: No Insight: Poor Judgment: Poor Results Labs Labs reviewed Test 03/31/18 10:55 Blood Urea Nitrogen 26 MG/DL Creatinine 1.00 MG/DL Random Glucose 109 MG/DL Calcium Level 9.0 MG/DL Sodium Level 145 MEQ/L Potassium Level 4.4 MEQ/L Chloride Level 107 MEQ/L Carbon Dioxide Level 31.5 MEQ/L Anion Gap 7 MEQ/L Estimat Glomerular Filtration Rate 54 ML/MIN Vitals/IOs Vital Signs Date Time Temp Pulse Resp B/P (MAP) Pulse Ox O2 Delivery O2 Flow Rate FiO2 04/01/18 06:00 97.8 75 16 142/67 (92) 98 Intake and Output 04/01/18 04/01/18 04/02/18 08:00 16:00 00:00 Intake Total 240 ml Balance 240 ml Assessment & Plan Problem List: (1) Schizophrenia ICD Codes: F20.9 - Schizophrenia, unspecified Status: Chronic Assessment & Plan Patient with no behavioral services, has a compliant with medications recently, has been calm and cooperative staff. Continue to encourage patient to maintain adequate nutritional and fluid intake. Continue current treatment. Continue to monitor mood and behavior. We will order a Depakote level in 1-2 days. Discharge planning in progress. Justification for Cont. Inpt. At risk of further decompensation at lower level of care. Discharge Planning Patient return back to her nursing facility when discharged Raad Capps MD April 01, 2018 09:15
[2018-04-01 18:26] VITALS: BP 139/64; PULSE 95; RESP 16; TEMP 98.4; O2SAT 98
[2018-04-01] MEDS: MIRTAZAPINE 15 MG TAB PO SCH (21:00)
[2018-04-01] MEDS: ATORVASTATIN 20 MG TAB PO SCH (21:00)
[2018-04-02 05:53] VITALS: BP 128/67; PULSE 80; RESP 17; TEMP 97.6; O2SAT 99
[2018-04-02] MEDS: LEVOTHYROXINE SODIUM 50 MCG TAB PO SCH (06:00)
[2018-04-02] MEDS: NICOTINE 21 MG/24 HR PATCH T-DERMAL SCH (09:00)
[2018-04-02] MEDS ORDERED: AMLO10 PO (09:52)
[2018-04-02] MEDS ORDERED: LEVO.05 PO (09:52)
[2018-04-02] MEDS ORDERED: REME15TA PO (09:52)
[2018-04-02] MEDS ORDERED: ASPI81CH25 PO (09:52)
[2018-04-02] MEDS ORDERED: ATOR20TA15 PO (09:52)
[2018-04-02] MEDS ORDERED: VALP250S2 PO (09:52)
[2018-04-02] MEDS ORDERED: SERO200T PO (09:52)
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
[2018-04-02] MEDS: ASPIRIN 81 MG CHEW TAB PO SCH (09:59)
[2018-04-02] MEDS: LISINOPRIL 20 MG TAB PO SCH (10:04)
[2018-04-02] MEDS ORDERED: LISI-519 PO (10:05)
[2018-04-02] MEDS: QUEtiapine FUMARATE 200 MG TAB PO SCH ×2 (10:05→21:00)
[2018-04-02] MEDS ORDERED: PRIN20TA2 PO (10:05)
[2018-04-02] MEDS: LISINOPRIL 5 MG TAB PO SCH ×2 (10:05→21:00)
[2018-04-02] MEDS: VALPROIC ACID SYRUP 250 MG/5 ML UDC PO SCH ×2 (10:06→21:00)
--- NOTE | 2018-04-02 11:49 | HHI.PYPN ---
Subjective Remarks Patient seen for follow, chart reviewed. Discussion nursing staff reported the patient had refused her Synthroid this morning but took the rest of her medications with encouragement. Patient with no behavioral disturbances since admission. Patient was found lying hospital bed calm, cooperative. Patient states that she slept well, tolerating her medications well without adverse drug reaction noted, eating and drinking well and reported slight constipation. Patient denies any perceptional services continues to be confused secondary to neurocognitive deficits. Patient has not been noted to have any physical or verbal aggression towards staff or other patients is calm and redirectable. Review of Systems Except as stated in HPI: all other systems reviewed are Neg Mental Status Examination Appearance: Appropriate Consciousness: Lethargic, Somnolent Orientation: Person Motor Activity: Other (No motor abnormalities noted) Speech: Slow Language: Adequate Fund of Knowledge: Inadequate Attention and Concentration: Adequate Memory: Impaired Mood: Appropriate, Other ("Good") Affect: Appropriate, Blunt Thought Process & Associations: Other ([place]) Thought Content: Other (Asking about being discharged back home) Hallucination Type: None Delusion Type: None Suicidal Ideation: No Suicidal Plan: No Suicidal Intention: No Homicidal Ideation: No Homicidal Plan: No Homicidal Intention: No Insight: Poor Judgment: Poor Results Vitals/IOs Vital Signs Date Time Temp Pulse Resp B/P (MAP) Pulse Ox O2 Delivery O2 Flow Rate FiO2 04/02/18 05:53 97.6 80 17 128/67 (87) 99 Intake and Output 04/02/18 04/02/18 04/03/18 08:00 16:00 00:00 Intake Total 240 ml Balance 240 ml Assessment & Plan Problem List: (1) Schizophrenia ICD Codes: F20.9 - Schizophrenia, unspecified Status: Chronic Assessment & Plan Patient this time continues with appropriate behavior, no behavioral disturbances or agitation, calm and cooperative with staff. Patient on occasion has refused medication at the interval time is but with encouragement will take her medications. Patient likely at baseline, will continue to require encouragement with medications at times but for the most part has been compliant with encouragement. We will continue current treatment continue monitor mood and behavior. Nursing facility at this time does not feel comfortable having patient return back to her facility despite patient not having any physical or verbal aggression toward anyone since admission are concerned about her compliance with treatment. Therefore patient at this time cannot be discharged to her nursing facility as they are not amenable to accepting her back at this time. Discharge planning in progress. Justification for Cont. Inpt. At risk of further decompensation a lower level care. Discharge Planning Patient return back to her nursing facility. Raad Capps MD April 02, 2018 11:49
[2018-04-02 18:00] VITALS: BP 124/62; PULSE 79; RESP 17; TEMP 97.4; O2SAT 100
[2018-04-02] MEDS: MIRTAZAPINE 15 MG TAB PO SCH (21:00)
[2018-04-02] MEDS: ATORVASTATIN 20 MG TAB PO SCH (21:00)
[2018-04-03 05:54] VITALS: BP 121/61; PULSE 76; RESP 18; TEMP 98.3; O2SAT 98
[2018-04-03] MEDS: LEVOTHYROXINE SODIUM 50 MCG TAB PO SCH (06:00)
[2018-04-03] MEDS: LISINOPRIL 20 MG TAB PO SCH (08:59)
[2018-04-03] MEDS: ASPIRIN 81 MG CHEW TAB PO SCH (08:59)
[2018-04-03] MEDS: LISINOPRIL 5 MG TAB PO SCH ×3 (08:59→21:00)
[2018-04-03] MEDS: QUEtiapine FUMARATE 200 MG TAB PO SCH ×3 (08:59→21:00)
[2018-04-03] MEDS: VALPROIC ACID SYRUP 250 MG/5 ML UDC PO SCH ×3 (09:00→21:00)
[2018-04-03] MEDS: NICOTINE 21 MG/24 HR PATCH T-DERMAL SCH (09:00)
--- NOTE | 2018-04-03 15:23 | HHI.PYPN ---
Subjective Remarks Patient seen for follow, chart reviewed. Discussion nursing staff reported the patient did refuse medications last night but adherent to treatment this morning. Patient was found sitting in hospital bed eating breakfast noted B, cooperative. Patient denies any physical complaints at this time continues to be confused secondary to neurocognitive deficits. Patient disorganized at times but easily redirectable, no aggressive behavior, calm and cooperative with staff. Patient has had a consistency with adherence to treatment but with encouragement patient does take her medications. Review of Systems Except as stated in HPI: all other systems reviewed are Neg Mental Status Examination Appearance: Appropriate Consciousness: Alert Orientation: Person Motor Activity: Other (No motor abnormalities noted) Speech: Slow Language: Adequate Fund of Knowledge: Inadequate Attention and Concentration: Adequate Memory: Impaired Mood: Other ("Good") Affect: Appropriate, Blunt Thought Process & Associations: Other ([place]) Thought Content: Other (Asking about being discharged back home) Hallucination Type: None Delusion Type: None Suicidal Ideation: No Suicidal Plan: No Suicidal Intention: No Homicidal Ideation: No Homicidal Plan: No Homicidal Intention: No Insight: Poor Judgment: Poor Results Vitals/IOs Vital Signs Date Time Temp Pulse Resp B/P (MAP) Pulse Ox O2 Delivery O2 Flow Rate FiO2 04/03/18 05:54 98.3 76 18 121/61 (81) 98 Intake and Output 04/03/18 04/03/18 04/04/18 08:00 16:00 00:00 Intake Total 360 ml Balance 360 ml Assessment & Plan Problem List: (1) Schizophrenia ICD Codes: F20.9 - Schizophrenia, unspecified Status: Chronic Assessment & Plan Patient this time continues with no behavioral disturbances or episodes of aggression or agitation and has been calm and cooperative throughout admission. Patient has had inconsistencies with adherence to treatment but for the most part has been taking her medications with encouragement. We will draw a repeat valproic acid level for tomorrow morning. We will continue to monitor mood and behavior. Discharge planning in progress. Justification for Cont. Inpt. At risk of further decompensation a lower level of care. Discharge Planning Patient awaiting return back to residence Raad Capps MD April 03, 2018 15:23
[2018-04-03 18:13] VITALS: BP 145/70; PULSE 83; RESP 16; TEMP 97.9; O2SAT 97
[2018-04-03] MEDS: MIRTAZAPINE 15 MG TAB PO SCH ×2 (20:57→21:00)
[2018-04-03] MEDS: ATORVASTATIN 20 MG TAB PO SCH ×2 (20:58→21:00)
[2018-04-04 04:35] VITALS: BP 165/74; PULSE 83; RESP 17; TEMP 97.7; O2SAT 95
[2018-04-04] MEDS: LEVOTHYROXINE SODIUM 50 MCG TAB PO SCH (05:04)
[2018-04-04] MEDS: QUEtiapine FUMARATE 200 MG TAB PO SCH ×2 (10:47→21:18)
[2018-04-04] MEDS: LISINOPRIL 5 MG TAB PO SCH ×2 (10:48→21:19)
[2018-04-04] MEDS: LISINOPRIL 20 MG TAB PO SCH (10:48)
[2018-04-04] MEDS: ASPIRIN 81 MG CHEW TAB PO SCH (10:50)
[2018-04-04] MEDS: NICOTINE 21 MG/24 HR PATCH T-DERMAL SCH (10:55)
[2018-04-04] MEDS: VALPROIC ACID SYRUP 250 MG/5 ML UDC PO SCH ×2 (12:23→21:19)
--- NOTE | 2018-04-04 18:14 | HHI.PYPN ---
Subjective Remarks Patient seen for follow-up, chart reviewed. Discussion with nursing staff reported patient singing, confused , no behavioral disturbances. Patient found ambulating on the unit, confused but redirectable. She reports having some constipation. Denies any physical complaints. She was encouraged to continue adherence to medications which she agreed. Review of Systems Except as stated in HPI: all other systems reviewed are Neg Mental Status Examination Appearance: Appropriate Consciousness: Alert Orientation: Person Motor Activity: Other (No motor abnormalities noted) Speech: Slow Language: Adequate Fund of Knowledge: Inadequate Attention and Concentration: Adequate Memory: Impaired Mood: Other ("Good") Affect: Appropriate, Blunt Thought Process & Associations: Other ([place]) Thought Content: Other (Asking about being discharged back home) Hallucination Type: None Delusion Type: None Suicidal Ideation: No Suicidal Plan: No Suicidal Intention: No Homicidal Ideation: No Homicidal Plan: No Homicidal Intention: No Insight: Poor Judgment: Poor Results Labs labs reviewed Test 04/04/18 08:25 Valproic Acid (Depakene) Level 41 MCG/ML Vitals/IOs Vital Signs Date Time Temp Pulse Resp B/P (MAP) Pulse Ox O2 Delivery O2 Flow Rate FiO2 04/04/18 04:35 97.7 83 17 165/74 (104) 95 Intake and Output 04/04/18 04/04/18 04/05/18 08:00 16:00 00:00 Intake Total 480 ml 240 ml Balance 480 ml 240 ml Assessment & Plan Problem List: (1) Schizophrenia ICD Codes: F20.9 - Schizophrenia, unspecified Status: Chronic Assessment & Plan Patient continues with neurocognitive deficits from dementia. No episodes of agitation or behavioral dyscontrol. VPA level was subtherapeutic but patient had missed some doses. Continue current treatment. Continue to monitor and behavior. Discharge planning in progress. Justification for Cont. Inpt. At risk for further decompensation at lower level of care. Raad Capps MD Apr 04, 2018 18:14
[2018-04-04 18:29] VITALS: BP_SYST 139; BP_SYST 165; BP_DIAS 65; BP_DIAS 74; PULSE 83; PULSE 99; RESP 16; RESP 17; TEMP 97.3; TEMP 97.7; O2SAT 95; O2SAT 99
[2018-04-04] MEDS: ATORVASTATIN 20 MG TAB PO SCH (21:19)
[2018-04-04] MEDS: MIRTAZAPINE 15 MG TAB PO SCH (21:19)
[2018-04-05 04:33] VITALS: BP 159/77; PULSE 95; RESP 17; TEMP 97.4; O2SAT 97
[2018-04-05] MEDS: LEVOTHYROXINE SODIUM 50 MCG TAB PO SCH (05:06)
[2018-04-05] MEDS: LISINOPRIL 5 MG TAB PO SCH ×2 (09:00→20:38)
[2018-04-05] MEDS: LISINOPRIL 20 MG TAB PO SCH (09:00)
[2018-04-05] MEDS: ASPIRIN 81 MG CHEW TAB PO SCH (09:00)
[2018-04-05] MEDS: NICOTINE 21 MG/24 HR PATCH T-DERMAL SCH (09:00)
[2018-04-05] MEDS: QUEtiapine FUMARATE 200 MG TAB PO SCH ×2 (09:00→20:38)
[2018-04-05] MEDS: VALPROIC ACID SYRUP 250 MG/5 ML UDC PO SCH ×2 (09:00→20:39)
[2018-04-05 17:46] VITALS: BP 107/55; PULSE 87; RESP 16; TEMP 97.3; O2SAT 95
[2018-04-05] MEDS: ATORVASTATIN 20 MG TAB PO SCH (20:38)
[2018-04-05] MEDS: MIRTAZAPINE 15 MG TAB PO SCH (20:38)
[2018-04-06] MEDS: LEVOTHYROXINE SODIUM 50 MCG TAB PO SCH (06:00)
[2018-04-06 06:40] VITALS: BP 143/67; PULSE 73; RESP 16; TEMP 98.6
[2018-04-06] MEDS: NICOTINE 21 MG/24 HR PATCH T-DERMAL SCH (09:00)
[2018-04-06] MEDS: ASPIRIN 81 MG CHEW TAB PO SCH (09:17)
[2018-04-06] MEDS: LISINOPRIL 5 MG TAB PO SCH ×2 (09:17→20:19)
[2018-04-06] MEDS: VALPROIC ACID SYRUP 250 MG/5 ML UDC PO SCH ×2 (09:17→20:20)
[2018-04-06] MEDS: QUEtiapine FUMARATE 200 MG TAB PO SCH ×2 (09:17→20:19)
[2018-04-06] MEDS: LISINOPRIL 20 MG TAB PO SCH (09:18)
--- NOTE | 2018-04-06 12:05 | HHI.PYPN ---
Subjective Remarks Patient was seen and case discussed with nursing. Interview conducted in Romanian. Patient is alert and oriented 2. She spends the day talking to herself and is internally preoccupied. Compliant with medications. No behavioral outbursts Mental Status Examination Appearance: Appropriate Consciousness: Alert Orientation: Person Motor Activity: Other (No motor abnormalities noted) Speech: Slow Language: Adequate Fund of Knowledge: Inadequate Attention and Concentration: Adequate Memory: Impaired Mood: Other ("Good") Affect: Appropriate, Blunt Thought Process & Associations: Other ([place]) Thought Content: Other (Internal stimuli) Hallucination Type: None Delusion Type: None Suicidal Ideation: No Suicidal Plan: No Suicidal Intention: No Homicidal Ideation: No Homicidal Plan: No Homicidal Intention: No Insight: Poor Judgment: Poor Results Vitals/IOs Vital Signs Date Time Temp Pulse Resp B/P (MAP) Pulse Ox O2 Delivery O2 Flow Rate FiO2 04/06/18 06:40 98.6 73 16 143/67 (92) 04/05/18 17:46 95 Assessment & Plan Problem List: (1) Schizophrenia ICD Codes: F20.9 - Schizophrenia, unspecified Status: Chronic Assessment & Plan Continue current treatment plan Justification for Cont. Inpt. Patient would decompensate in a less restrictive setting Gustavo Amador DO Apr 06, 2018 12:05
[2018-04-06] MEDS: ATORVASTATIN 20 MG TAB PO SCH (20:19)
[2018-04-06] MEDS: MIRTAZAPINE 15 MG TAB PO SCH (20:19)
[2018-04-07 05:33] VITALS: BP 138/58; PULSE 88; RESP 16; TEMP 98.1
[2018-04-07] MEDS: LEVOTHYROXINE SODIUM 50 MCG TAB PO SCH (05:51)
[2018-04-07] MEDS: NICOTINE 21 MG/24 HR PATCH T-DERMAL SCH (09:00)
[2018-04-07] MEDS: ASPIRIN 81 MG CHEW TAB PO SCH (09:12)
[2018-04-07] MEDS: QUEtiapine FUMARATE 200 MG TAB PO SCH (09:12)
[2018-04-07] MEDS: VALPROIC ACID SYRUP 250 MG/5 ML UDC PO SCH (09:12)
[2018-04-07] MEDS: LISINOPRIL 20 MG TAB PO SCH (09:12)
[2018-04-07] MEDS: LISINOPRIL 5 MG TAB PO SCH (09:13)
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
== END 2018-04-07 14:35 | DRG 885 ==
LOC: NEDAMB 20:38 → NEDA 03-27 09:47 → H4EA 03-27 12:00 → H260 04-05 13:50 → H250 04-05 13:50
PROVIDERS: ADMIT Student in an Organized Health Care Education/Training Program; ATTEND Student in an Organized Health Care Education/Training Program
DX: F20.9 Schizophrenia, unspecified (principal); N17.9 Acute kidney failure, unspecified; G93.40 Encephalopathy, unspecified; F03.91 Unspecified dementia, unspecified severity, with behavioral disturbance; E86.0 Dehydration; E11.9 Type 2 diabetes mellitus without complications; N28.1 Cyst of kidney, acquired; I10 Essential (primary) hypertension; F31.9 Bipolar disorder, unspecified; E03.9 Hypothyroidism, unspecified; E78.5 Hyperlipidemia, unspecified; Z79.82 Long term (current) use of aspirin
CPT/HCPCS: 76775; 80048; 80053; 80061; 80164; 81001; 83036; 84443; 85025; J2060

== ENCOUNTER 2018-04-12 09:54 | Emergency (ER) | payer MEDICARE, OTHER ==
[~2018-04-12] VITALS: Ht 160 cm; Wt 65.0 kg
[~2018-04-12 09:54] MED LIST changes: -ABH TOP; -AMLO5 PO; -Benztropine PO; -RISPM2 PO; -TRAZ50TA12 PO; -Valproic Acid Liq PO
[2018-04-12 10:01] VITALS: BP 179/85; PULSE 90; RESP 12; TEMP 98.5; O2SAT 96
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
[2018-04-12] MEDS ORDERED: ARIP400I IM (10:53)
[2018-04-12] MEDS ORDERED: HALO100P IM (10:53)
[2018-04-12] MEDS ORDERED: ATIV2INJ2 IM (10:53)
[2018-04-12] MEDS ORDERED: REME15TA2 PO (10:53)
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
[2018-04-12] MEDS ORDERED: LORazepam 2 MG/ML VIAL IM ONE (13:45)
--- NOTE | 2018-04-13 15:13 | EKG ---
Date Performed: 04/12/2018 Time Performed: 10:10:58 PTAGE: 77 years EKG: Sinus rhythm NORMAL ECG NO PREVIOUS TRACING DOCTOR: Victorino Deutsch Interpretating Date/Time 04/13/2018 15:11:25
== END 2018-04-12 14:55 | disposition home or self-care (01) ==
LOC: NEPC 09:54
DX: S01.01XA Laceration without foreign body of scalp, initial encounter (principal); R51 Headache; I10 Essential (primary) hypertension; E11.9 Type 2 diabetes mellitus without complications; F03.90 Unspecified dementia, unspecified severity, without behavioral disturbance, psychotic disturbance, mood disturbance, and anxiety; E03.9 Hypothyroidism, unspecified; W01.10XA Fall on same level from slipping, tripping and stumbling with subsequent striking against unspecified object, initial encounter; Y92.129 Unspecified place in nursing home as the place of occurrence of the external cause
CPT/HCPCS: 12002; 70450; 72125; 93005; 96372; 99284; J2060

== ENCOUNTER 2018-09-17 16:24 | Inpatient (IN) ==
--- NOTE | 2018-09-17 18:21 | ED ---
HPI General Chief Complaint: Psychiatric Symptoms Stated Complaint: Psych Eval/VCSO Time Seen by Provider: 09/17/18 18:17 Source: patient Mode of arrival: ambulatory Limitations: no limitations History of Present Illness HPI Narrative: 78-year-old female presents to the emergency department as a Delgado act after "threatening" long-term staff at [facility] and rehab. Patient denies accusations and states everything was fine and then they brought her to the emergency department for evaluation. According to the Delgado act they stated that she became aggressive toward staff and that they would not be allowing the patient come back. She states she is not taking any medications at this time but does have an extensive psych history of psychosis, schizophrenia, hypertension, dementia. History is obtained through [employer], interpreting services, as she is mainly chinese-speaking. She has no other complaints today. Duration: constant History of same: Yes Relieving factors: none Exacerbating factors: none Associated symptoms: Reports denies other symptoms Treatments prior to arrival: Reports none Related Data Home Medications Medication Instructions Recorded Confirmed acetaminophen 325 mg PO Q6H PRN 09/17/18 09/17/18 amlodipine 10 mg PO DAILY 09/17/18 09/17/18 aripiprazole [Abilify Maintena] 400 mg IM QMONTH 09/17/18 09/17/18 aspirin 81 mg PO DAILY 09/17/18 09/17/18 atorvastatin 20 mg PO DAILY 09/17/18 09/17/18 buspirone 15 mg PO BID 09/17/18 09/17/18 haloperidol decanoate [Haldol 100 mg IM Q4W 09/17/18 09/17/18 Decanoate] levothyroxine 50 mcg PO DAILY 09/17/18 09/17/18 lisinopril 5 mg PO DAILY 09/17/18 09/17/18 lorazepam [Ativan] 2 mg IM PRN PRN 09/17/18 09/17/18 mirtazapine [Remeron] 15 mg PO DAILY 09/17/18 09/17/18 multivitamin 1 tab PO QAM 09/17/18 09/17/18 valproic acid (as sodium salt) 8 ml PO BID 09/17/18 09/17/18 Allergies Allergy/AdvReac Type Severity Reaction Status Date / Time oxcarbazepine Allergy Unknown Anaphylaxis Unverified 09/17/18 16:36 Review of Systems ROS: all other systems reviewed are negative [facility] History History Provided By: Patient Medical History Medical History Anxiety disorder (Acute) 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 within the Last 8 Weeks: No Recent Out of Country Travel within the Last 8 Weeks: No Exam Narrative Exam Narrative: GENERAL: WD, Wn in NAD, chinese speaking. SKIN: Focused skin assessment warm/dry. HEAD: Atraumatic. Normocephalic. EYES: Pupils equal and round. No scleral icterus. No injection or drainage. ENT: No nasal bleeding or discharge. Mucous membranes pink and moist. NECK: Trachea midline. No JVD. CARDIOVASCULAR: Regular rate and rhythm. No murmur appreciated. RESPIRATORY: No accessory muscle use. Clear to auscultation. Breath sounds equal bilaterally. MUSCULOSKELETAL: No obvious deformities. No clubbing. No cyanosis. No edema. NEUROLOGICAL: Awake and alert. No obvious cranial nerve deficits. Motor grossly within normal limits. Normal speech. PSYCHIATRIC: Appropriate mood and affect; insight and judgment normal. Course Initial Documented Vital Signs Temperature 98.7 F 09/17/18 16:36 Pulse Rate 99 H 09/17/18 16:36 Respiratory Rate 16 09/17/18 16:36 Blood Pressure 173/80 H 09/17/18 16:36 Pulse Oximetry 99 09/17/18 16:36 Last Documented Vital Signs Temperature 98.8 F 09/19/18 06:35 Pulse Rate 81 09/19/18 06:35 Respiratory Rate 16 09/19/18 06:35 Blood Pressure 121/62 09/19/18 06:35 Pulse Oximetry 94 L 09/19/18 06:35 Medical Decision Making MDM Narrative Medical decision making narrative: 78-year-old female presents to the emergency department as a Delgado act with aggressive behavior from her rehab facility. Patient does not appear altered but appears pleasantly demented. Labs ordered for evaluation. At this time, I do not believe that a head CT is necessary based off of history and physical. Medically cleared to see psych. Medical Screen Exam Complete: Yes Emergency Medical Condition: Yes Differential Diagnosis Differential Diagnosis: Dementia, schizophrenia, depression, homicidal ideations , medication noncompliance Lab Data Result diagrams: 09/17/18 16:39 09/19/18 06:15 Lab Results 09/17/18 09/17/18 09/17/18 Range/Units 16:39 16:39 18:43 WBC 7.1 (4.0-11.0) th/mm3 RBC 3.52 L (4.00-5.30) mil/mm3 Hgb 10.4 L (11.6-15.3) gm/dL Hct 31.2 L (35.0-46.0) % MCV 88.7 (80.0-100.0) fL MCH 29.6 (27.0-34.0) pg MCHC 33.4 (32.0-36.0) % RDW 13.8 (11.6-17.2) % Plt Count 239 (150-450) th/mm3 MPV 9.1 (7.0-11.0) fL Neut % (Auto) 60.8 (16.0-70.0) % Lymph % (Auto) 23.3 (9.0-44.0) % [place] % (Auto) 10.8 H (0.0-8.0) % Eos % (Auto) 4.3 H (0.0-4.0) % Baso % (Auto) 0.8 (0.0-2.0) % Neut # (Auto) 4.3 (1.8-7.7) th/mm3 Lymph # (Auto) 1.6 (1.0-4.8) th/mm3 [place] # (Auto) 0.8 (0.0-0.9) th/mm3 Eos # (Auto) 0.3 (0.0-0.4) th/mm3 Baso # (Auto) 0.1 (0.0-0.2) th/mm3 WBC Differential . Differential Comment Auto diff final Sodium 139 (136-145) meq/L Potassium 4.7 (3.5-5.1) meq/L Chloride 106 (98-107) meq/L Carbon Dioxide 25.1 (21.0-32.0) meq/L Anion Gap 8 (5-15) meq/L BUN 33 H (7-18) mg/dL Creatinine 1.20 H (0.50-1.00) mg/dL Estimated GFR 44 L (>89) mL/min Random Glucose 111 H (74-106) mg/dL Calcium 8.6 (8.5-10.1) mg/dL Magnesium 2.2 (1.5-2.5) mg/dL Total Bilirubin 0.1 L (0.2-1.0) mg/dL AST 21 (15-37) U/L ALT 23 (10-53) U/L Alkaline Phosphatase 93 (45-117) U/L Total Protein 7.0 (6.4-8.2) g/dL Albumin 3.5 (3.4-5.0) g/dL Triglycerides (42-150) mg/dL Cholesterol (120-200) mg/dL LDL Cholesterol, Calc (0-99) mg/dL HDL Cholesterol (40.0-60.0) mg/dL Cholesterol/HDL Ratio Ratio TSH 3.280 (0.358-3.740) uIU/mL Urine Opiates Screen Neg (Neg) Ur Barbiturates Screen Neg (Neg) Ur Amphetamines Screen Neg (Neg) U Benzodiazepines Scrn Neg (Neg) Urine Cocaine Screen Neg (Neg) U Cannabinoids Screen Neg (Neg) Serum Alcohol Less than 3 (0-5) mg/dL 09/19/18 Range/Units 06:15 WBC (4.0-11.0) th/mm3 RBC (4.00-5.30) mil/mm3 Hgb (11.6-15.3) gm/dL Hct (35.0-46.0) % MCV (80.0-100.0) fL MCH (27.0-34.0) pg MCHC (32.0-36.0) % RDW (11.6-17.2) % Plt Count (150-450) th/mm3 MPV (7.0-11.0) fL Neut % (Auto) (16.0-70.0) % Lymph % (Auto) (9.0-44.0) % [place] % (Auto) (0.0-8.0) % Eos % (Auto) (0.0-4.0) % Baso % (Auto) (0.0-2.0) % Neut # (Auto) (1.8-7.7) th/mm3 Lymph # (Auto) (1.0-4.8) th/mm3 [place] # (Auto) (0.0-0.9) th/mm3 Eos # (Auto) (0.0-0.4) th/mm3 Baso # (Auto) (0.0-0.2) th/mm3 WBC Differential Differential Comment Sodium 140 (136-145) meq/L Potassium 4.7 (3.5-5.1) meq/L Chloride 105 (98-107) meq/L Carbon Dioxide 29.1 (21.0-32.0) meq/L Anion Gap 6 (5-15) meq/L BUN 25 H (7-18) mg/dL Creatinine 1.21 H (0.50-1.00) mg/dL Estimated GFR 43 L (>89) mL/min Random Glucose 89 (74-106) mg/dL Calcium 8.6 (8.5-10.1) mg/dL Magnesium (1.5-2.5) mg/dL Total Bilirubin (0.2-1.0) mg/dL AST (15-37) U/L ALT (10-53) U/L Alkaline Phosphatase (45-117) U/L Total Protein (6.4-8.2) g/dL Albumin (3.4-5.0) g/dL Triglycerides 114 (42-150) mg/dL Cholesterol 155 (120-200) mg/dL LDL Cholesterol, Calc 81 (0-99) mg/dL HDL Cholesterol 51.0 (40.0-60.0) mg/dL Cholesterol/HDL Ratio 3.03 Ratio TSH (0.358-3.740) uIU/mL Urine Opiates Screen (Neg) Ur Barbiturates Screen (Neg) Ur Amphetamines Screen (Neg) U Benzodiazepines Scrn (Neg) Urine Cocaine Screen (Neg) U Cannabinoids Screen (Neg) Serum Alcohol (0-5) mg/dL Discharge Plan Discharge Disposition Patient Disposition: 30 Still Patient Discharge Condition Condition: Stable Discharge Details Diagnosis: Dementia Physicians Team ED Provider: Zana Medina ED Midlevel Provider: Carlee Greenberg Primary Care Provider: Desmond Chavis Attending Provider: Rodolfo Corona Other Providers: Rodolfo Corona Status ED Status: Left Department Discharge Information Discharge Date/Time: 09/18/18 16:36
[2018-09-17 18:26] LABS: Baso # (Auto) 0.1 th/mm3 (0.0-0.2); Baso % (Auto) 0.8 % (0.0-2.0); Eos # (Auto) 0.3 th/mm3 (0.0-0.4); Eos % (Auto) 4.3 % (0.0-4.0); Hematocrit 31.2 % (35.0-46.0); Hemoglobin 10.4 gm/dL (11.6-15.3); Lymph # (Auto) 1.6 th/mm3 (1.0-4.8); Lymph % (Auto) 23.3 % (9.0-44.0); Mean Corpuscular HGB Conc 33.4 % (32.0-36.0); Mean Corpuscular Hemoglobin 29.6 pg (27.0-34.0); Mean Corpuscular Volume 88.7 fL (80.0-100.0); Mean Platelet Volume 9.1 fL (7.0-11.0); Mono # (Auto) 0.8 th/mm3 (0.0-0.9); Mono % (Auto) 10.8 % (0.0-8.0); Neut # (Auto) 4.3 th/mm3 (1.8-7.7); Neut % (Auto) 60.8 % (16.0-70.0); Platelet Count 239 th/mm3 (150-450); Red Blood Count 3.52 mil/mm3 (4.00-5.30); Red Cell Distribution Width 13.8 % (11.6-17.2); White Blood Count 7.1 th/mm3 (4.0-11.0)
[2018-09-17 18:58] LABS: Alanine Aminotransferase 23 U/L (10-53)
[2018-09-17 19:07] LABS: Alkaline Phosphatase 93 U/L (45-117)
[2018-09-17 19:21] LABS: Albumin 3.5 g/dL (3.4-5.0); Anion Gap 8 meq/L (5-15); Aspartate Aminotransferase 21 U/L (15-37); Blood Urea Nitrogen 33 mg/dL (7-18); Calcium 8.6 mg/dL (8.5-10.1); Carbon Dioxide 25.1 meq/L (21.0-32.0); Chloride 106 meq/L (98-107); Glomerular Filtration Rate 44 mL/min (>89); Glucose,Random 111 mg/dL (74-106); Magnesium 2.2 mg/dL (1.5-2.5); Potassium 4.7 meq/L (3.5-5.1); Sodium 139 meq/L (136-145)
[2018-09-17 19:54] LABS: Amphetamine Screen,Urine Neg (Neg); Barbiturate Screen,Urine Neg (Neg); Cannabinoid Screen,Urine Neg (Neg); Cocaine Screen,Urine Neg (Neg)
[2018-09-17 20:19] LABS: Opiate Screen,Urine Neg (Neg)
[2018-09-18] MEDS ORDERED: Bisacodyl 10 MG Supp RECTAL PRN (15:17)
--- NOTE | 2018-09-18 15:37 | P.HPPSY ---
Provisional Diagnosis Admission Date: September 17, 2018 16:24 [place] I.: Dementia with behavioral disturbances, schizophrenia Competence Certification of Person's Competence To Provide Express and Informed Consent I have personally examined Carrie Mayberry, a person being served at [facility] on, September 18, 2018 1531. Express and informed consent means consent voluntarily given in writing, by a competent person, after sufficient explanation and disclosure of the subject matter involved to enable the person to make a knowing and willful decision without any element of force, fraud, deceit, duress, or other form of constraint or coercion. This person is 18 years of age or older, is not now known to be incompetent to consent to treatment with a guardian advocate, and does not have a health care surrogate or proxy currently making medical treatment decisions. I have found this person to be one of the following: [] Competent to provide express and informed consent, as defined above, for voluntary admission to this facility and is competent to provide express and informed consent for treatment. He/she has the consistent capacity to make well reasoned, willful, and knowing decisions concerning his or her medical or mental health treatment. The person fully and consistently understands the purpose of the admission for examination/placement and is fully capable of personally exercising all rights assured [place] [] Incompetent to provide express and informed consent to voluntary admission, and this is incompetent to provide express and informed consent to treatment. The person must be transferred to involuntary status and a petition for a guardian advocate filed with the Circuit Court. [x] Refusing to provide express and informed consent to voluntary admission but is competent to provide express and informed consent for treatment. The person must be discharged or transferred to involuntary status. Form shall be completed within 24 hours of a person's arrival at the receiving facility and filed in the clinical record of each person: 1. Admitted on a voluntary basis 2. Permitted to provide express and informed consent to his/her own treatment 3. Allowed to transfer from involuntary to voluntary status 4. Prior to permitting a person to consent to his or her own treatment after having been previously found incompetent to consent to treatment. History of Present Illness Capacity: Lacks capacity History of Present Illness: The patient is a 78-year-old [place] woman, only [place]an-speaking single, domiciled in a [facility] and rehab, well-known by the service, with psychiatric history of bipolar disorder, schizophrenia, dementia with behavioral disturbances, multiple psychiatric hospitalizations, history of aggressive behavior, she is on Depakote 250 mg twice daily, Abilify Maintena 400 mg, Haldol decanoate 100 mg, Remeron 15 mg at bedtime, medical history hypertension, who presents to the emergency department as a Delgado act after "threatening" assisted staff at [facility] and rehab. Patient denies accusations and states everything was fine and then they brought her to the emergency department for evaluation. According to the Delgado act they stated that she became aggressive toward staff and that they would not be allowing the patient come back. On psychiatric evaluation today the patient is found pacing in the ER, she is a little bit agitated, restless, but not aggressive. Patient was interviewed in her primary language is [place]. Patient reports that she is fine, she does not know the reason she is here just let me to go home. Patient is completely disoriented, she thinks that she is in [place] "In [facility] with my family". The patient denies that she has become aggressive. Patient does not know what her family is. She denies distress, denies pain, and denies depression. She denies suicidal and homicial ideation, she denies visual and auditory hallucinations. The patient has jenna loosening of associations, disorientation, no making any sense. As per nurse in charge, the patient had been agitated in the ER, at times verbally hostile. PPHx: of bipolar disorder, schizophrenia, dementia with behavioral disturbances , multiple psychiatric hospitalizations, history of aggressive behavior, she is on Depakote 250 mg twice daily, Abilify Maintena 400 mg, Haldol decanoate 100 mg , Remeron 15 mg at bedtime PMHx: medical history hypertension Substance Hx: She denies the use of illegal drugs or alcohol Family Hx: No family psychiatric history Social Hx: She was born and raised in [place], she is only [place]-speaking single, domiciled in a [facility] and rehab Review of Systems All other systems reviewed negative except as stated in HPI Psychiatric: Reports irritability, Reports mood swings, Reports paranoia PMFSH - History History Provided By: Patient - Medical History Medical History: Medical History (Last Updated 09/17/18 @ 16:40 by Sharon James) Anxiety disorder 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, unspecified Hyperlipemia Hypertension Hypothyroidism Insomnia Schizophrenia Surgical history unknown Unspecified dementia with behavioral disturbance Unspecified mood [affective] disorder Unspecified psychosis - Travel History Recent Travel in the [place] Within the Last 8 Weeks: No Recent Travel Out of the Country Within the Last 8 Weeks: No Medications and Allergies Active Medications: Active Medications Acetaminophen (Tylenol) 325 mg PO Q6H PRN PRN Reason: Pain/Fever Al Hydrox/Mg Hydrox/Simethicone (Mag-Al Plus Susp Liq) 30 ml PO Q6H PRN PRN Reason: DYSPEPSIA Al Hydroxide/Mg Hydroxide (Milk Of Magnesia Liq) 30 ml PO Q12H PRN PRN Reason: Mild Constipation Amlodipine Besylate (Norvasc) 10 mg PO DAILY RAKAN Aspirin (Aspirin Chew) 81 mg PO DAILY RAKAN Atorvastatin Calcium (Lipitor) 20 mg PO DAILY RAKAN Bisacodyl (Dulcolax Supp) 10 mg RECTAL DAILY PRN PRN Reason: SEVERE CONSITIPATION Buspirone HCl (Buspar) 15 mg PO BID RAKAN Lactulose (Lactulose Liq) 30 ml PO DAILY PRN PRN Reason: SEVERE CONSITIPATION Levothyroxine Sodium (Synthroid) 50 mcg PO DAILY@0600 RAKAN Lisinopril (Prinivil) 5 mg PO DAILY RAKAN Mirtazapine (Remeron) 15 mg PO DAILY [facility] Miscellaneous (Pill Splitter) 1 each OTHER UNSCH PRN PRN Reason: SEE LABEL COMMENTS Senna/Docusate Sodium (Gifty-Colace) 1 tab PO BID RAKAN Sennosides (Senokot) 17.2 mg PO Q12H PRN PRN Reason: Moderate Constipation Valproate Sodium (Depakene Liq) 400 mg PO BID RAKAN Allergies Allergy/AdvReac Type Severity Reaction Status Date / Time oxcarbazepine Allergy Unknown Anaphylaxis Unverified 09/17/18 16:36 Home Medications Medication Instructions Recorded Confirmed Type acetaminophen 325 mg PO Q6H PRN 09/17/18 09/17/18 History amlodipine 10 mg PO DAILY 09/17/18 09/17/18 History aripiprazole [Abilify Maintena] 400 mg IM QMONTH 09/17/18 09/17/18 History aspirin 81 mg PO DAILY 09/17/18 09/17/18 History atorvastatin 20 mg PO DAILY 09/17/18 09/17/18 History buspirone 15 mg PO BID 09/17/18 09/17/18 History haloperidol decanoate [Haldol 100 mg IM Q4W 09/17/18 09/17/18 History Decanoate] levothyroxine 50 mcg PO DAILY 09/17/18 09/17/18 History lisinopril 5 mg PO DAILY 09/17/18 09/17/18 History lorazepam [Ativan] 2 mg IM PRN PRN 09/17/18 09/17/18 History mirtazapine [Remeron] 15 mg PO DAILY 09/17/18 09/17/18 History multivitamin 1 tab PO QAM 09/17/18 09/17/18 History valproic acid (as sodium salt) 8 ml PO BID 09/17/18 09/17/18 History Results - Labs CBC & Chem 7: 09/17/18 16:39 09/17/18 16:39 Labs: Laboratory Results - last 24 hr 09/17/18 09/17/18 09/17/18 16:39 16:39 18:43 WBC 7.1 RBC 3.52 L Hgb 10.4 L Hct 31.2 L MCV 88.7 MCH 29.6 MCHC 33.4 RDW 13.8 Plt Count 239 MPV 9.1 Neut % (Auto) 60.8 Lymph % (Auto) 23.3 [place] % (Auto) 10.8 H Eos % (Auto) 4.3 H Baso % (Auto) 0.8 Neut # (Auto) 4.3 Lymph # (Auto) 1.6 [place] # (Auto) 0.8 Eos # (Auto) 0.3 Baso # (Auto) 0.1 WBC Differential . Differential Comment Auto diff final Sodium 139 Potassium 4.7 Chloride 106 Carbon Dioxide 25.1 Anion Gap 8 BUN 33 H Creatinine 1.20 H Estimated GFR 44 L Random Glucose 111 H Calcium 8.6 Magnesium 2.2 Total Bilirubin 0.1 L AST 21 ALT 23 Alkaline Phosphatase 93 Total Protein 7.0 Albumin 3.5 TSH 3.280 Urine Opiates Screen Neg Ur Barbiturates Screen Neg Ur Amphetamines Screen Neg U Benzodiazepines Scrn Neg Urine Cocaine Screen Neg U Cannabinoids Screen Neg Serum Alcohol Less than 3 Exam Vital signs: Vital Signs 09/17/18 16:36 09/17/18 18:12 09/17/18 22:45 Temperature 98.7 F 97.9 F Pulse Rate 99 H 92 H 86 Respiratory Rate 16 16 Blood Pressure 173/80 H 129/73 150/70 H Pulse Oximetry 99 98 97 09/18/18 05:59 Temperature 98.1 F Pulse Rate 88 Respiratory Rate 14 Blood Pressure 189/85 H Pulse Oximetry 98 Intake & Output 09/17/18 09/18/18 09/18/18 18:59 06:59 18:59 Weight 61.235 kg Narrative: No tremors, no EPS, no psychomotor agitation or retardation at the moment, no catatonia, no gait disturbance - Constitutional no acute distress - Routine HEENT Exam Head: Present: normocephalic, atraumatic Eye: Present: EOMI, PERRL ENT: Present: mucous membranes moist Mental Status Examination Appearance: Appropriate Consciousness: Alert Orientation: Person Motor Activity: Normal gait Speech: Unremarkable Language: Adequate Fund of Knowledge: Adequate Attention and Concentration: Adequate Memory: Impaired Mood: Appropriate Affect: Appropriate Thought Process & Associations: Intact Thought Content: Appropriate Hallucination Type: None Delusion Type: Paranoid Suicidal Ideation: No Suicidal Plan: No Suicidal Intention: No Homicidal Ideation: No Homicidal Plan: No Homicidal Intention: No Insight: Poor Judgment: Poor Assessment and Plan - Assessment (1) Dementia Code(s): F03.90 - Unspecified dementia without behavioral disturbance Status: Acute - Plan Plan: On psychiatric evaluation today the patient seems to be a little bit agitated, restless, very disorganized and paranoid, with Jenna loosening of associations and nonsensical speech. Patient has been reported to be very aggressive in [facility] again. This is a patient with a psychiatric history of schizophrenia, dementia , multiple psychiatric hospitalizations, aggressive behavior, noncompliant with medications. Patient represents risk of danger to self and others, she will be admitted in psychiatry for stabilization and safety. I will restart her outpatient psychotropics, Depakote 250 mg twice daily Remeron 15 mg, will order Depakote levels. Also would restart medications for hypertension hypothyroidism. Will consult psychiatry for second opinion, will consult medicine to help with underlying medical conditions. Transfer patient to [facility]. Justification for Continued Inpatient Stay: To be admitted in psychiatry (1) Dementia Qualifiers: Dementia type: unspecified type Dementia behavioral disturbance: with behavioral disturbance Qualified Code(s): F03.91 - Unspecified dementia with behavioral disturbance
[2018-09-18] MEDS: amLODIPine 10 MG Tablet PO SCH (16:31)
[2018-09-18] MEDS: Lisinopril 5 MG Tablet PO SCH (16:31)
[2018-09-18] MEDS: Senna/Docusate Sodium 8.6/50 MG Tablet PO SCH (21:24)
[2018-09-19] MEDS: Levothyroxine 50 MCG Tablet PO SCH (06:18)
[2018-09-19 07:57] LABS: Calcium 8.6 mg/dL (8.5-10.1); Carbon Dioxide 29.1 meq/L (21.0-32.0); Potassium 4.7 meq/L (3.5-5.1)
[2018-09-19 08:00] LABS: Chol/HDL Ratio 3.03 Ratio
[2018-09-19] MEDS: Senna/Docusate Sodium 8.6/50 MG Tablet PO SCH (09:19)
[2018-09-19] MEDS: Mirtazapine 15 MG Tablet PO SCH (09:19)
[2018-09-19] MEDS: Lisinopril 5 MG Tablet PO SCH (09:20)
[2018-09-19] MEDS: amLODIPine 10 MG Tablet PO SCH (09:21)
--- NOTE | 2018-09-19 12:11 | P.PNPSY ---
Subjective Remarks: Patient admitted by Dr. Colindres,'s H&P reviewed and agreed with. Dr. Colindres has signed first opinion petition supporting Delgado act. I agree patient meets criteria for involuntary psychiatric hospitalization. He is also signed health care surrogate and guardian advocate I agree with that also. Patient seen by me in day room with nurse Ibeth. Patient remains diffusely confused disoriented speaking a mixture of Mongolian and Yoruba. I have also completed the initial inpatient psychiatric template orders. And did a review of the med reconciliation. For now continue treatment. Review of Systems unobtainable due to mental status Mental Status Examination Appearance: Appropriate Consciousness: Alert Orientation: Person Motor Activity: Normal gait Speech: Unremarkable, Other (Somewhat rapid in broken Mongolian) Language: Adequate Fund of Knowledge: Adequate Attention and Concentration: Adequate (Fair) Memory: Impaired Mood: Other (Euthymic to somewhat irritable) Affect: Other (Slight increased range and intensity) Thought Process & Associations: Disorganized Thought Content: Other (Disorganized was difficult to assess due to language issues) Hallucination Type: None Delusion Type: Paranoid Suicidal Ideation: No Suicidal Plan: No Suicidal Intention: No Homicidal Ideation: No Homicidal Plan: No Homicidal Intention: No Insight: Poor Judgment: Poor Assessment and Plan - Assessment (1) Dementia Code(s): F03.90 - Unspecified dementia without behavioral disturbance Status: Acute - Plan Plan: Patient remains demented and confused disoriented but at this time no behavioral problem patient meets criteria for involuntary psychiatric hospitalization thus I will cosign second opinion petition Delgado act out for agree with healthcare surrogate Guardian advocate Justification for Continued Inpatient Stay: At this time patient would decompensate a place to a lower level of care Request Healthcare Surrogate/Guardian Advocate?: Yes (1) Dementia Qualifiers: Dementia type: unspecified type Dementia behavioral disturbance: with behavioral disturbance Qualified Code(s): F03.91 - Unspecified dementia with behavioral disturbance
[2018-09-19] MEDS ORDERED: Haloperidol Decanoate Inj 50 MG/ML Ampul IM SCH (13:00)
[2018-09-20] MEDS: Levothyroxine 50 MCG Tablet PO SCH (05:15)
[2018-09-20] MEDS: amLODIPine 10 MG Tablet PO SCH (09:25)
[2018-09-20] MEDS: Lisinopril 5 MG Tablet PO SCH (09:33)
[2018-09-20] MEDS: Mirtazapine 15 MG Tablet PO SCH (09:33)
[2018-09-20 12:50] LABS: Hemoglobin A1c 6.2 % (4.3-6.0)
--- NOTE | 2018-09-20 14:48 | P.PNPSY ---
Subjective Remarks: Reviewed electronic medical records and discussed case with staff. Follow-up was conducted in the day room With YAHIR Sinha present. Patient has been observed throughout my time on the unit standing in the window speaking nonstop. Her nurse Ernestine is fluent in Japanese and reports that the patient has been intermittently confused, irritable, internally stimulated. She reports that her speech is organized but at times illogical. She does have some movements of lucidity. I attempted to call both of her sons to receive consent for medications however was no answer and I am unable to leave voicemail. Mental Status Examination Appearance: Appropriate Consciousness: Alert Orientation: Person Motor Activity: Normal gait Speech: Unremarkable, Other (Somewhat rapid in broken Japanese) Language: Adequate Fund of Knowledge: Adequate Attention and Concentration: Adequate (Fair) Memory: Impaired Mood: Other (Euthymic to somewhat irritable) Affect: Other (Slight increased range and intensity) Thought Process & Associations: Disorganized Thought Content: Other (Disorganized was difficult to assess due to language issues) Hallucination Type: None Delusion Type: Paranoid Suicidal Ideation: No Suicidal Plan: No Suicidal Intention: No Homicidal Ideation: No Homicidal Plan: No Homicidal Intention: No Insight: Poor Judgment: Poor Assessment and Plan - Assessment (1) Dementia Code(s): F03.90 - Unspecified dementia without behavioral disturbance Status: Acute - Plan Plan: Patient will be reevaluated by the attending psychiatrist. Continue with current treatment plan. Justification for Continued Inpatient Stay: Moving this patient to a less restrictive environment would likely result in decompensation. Request Healthcare Surrogate/Guardian Advocate?: Yes (1) Dementia Qualifiers: Dementia type: unspecified type Dementia behavioral disturbance: with behavioral disturbance Qualified Code(s): F03.91 - Unspecified dementia with behavioral disturbance
[2018-09-21] MEDS: Levothyroxine 50 MCG Tablet PO SCH (05:27)
--- NOTE | 2018-09-21 07:56 | P.PNPSY ---
Subjective Remarks: Reviewed electronic medical records and discussed case with staff. Follow-up was conducted in the hallway with YAHIR Gray present. Patient endorses that she slept well. Looking for her breakfast. Nurses report that she is intermittently confused and talks to herself. At times she thinks she in [place]. . Review of Systems All other systems reviewed negative except as stated in HPI Mental Status Examination Appearance: Appropriate Consciousness: Alert Orientation: Person Motor Activity: Normal gait Speech: Unremarkable, Other (Somewhat rapid in broken Croatian) Language: Adequate Fund of Knowledge: Adequate Attention and Concentration: Adequate (Fair) Memory: Impaired Mood: Other (Euthymic to somewhat irritable) Affect: Other (Slight increased range and intensity) Thought Process & Associations: Disorganized Thought Content: Other (Disorganized was difficult to assess due to language issues) Hallucination Type: None Delusion Type: Paranoid Suicidal Ideation: No Suicidal Plan: No Suicidal Intention: No Homicidal Ideation: No Homicidal Plan: No Homicidal Intention: No Insight: Poor Judgment: Poor Assessment and Plan - Assessment (1) Dementia Code(s): F03.90 - Unspecified dementia without behavioral disturbance Status: Acute - Plan Plan: Patient will be reevaluated by the attending psychiatrist. Continue with current treatment plan. Justification for Continued Inpatient Stay: Moving patient to a less restrictive environment may result in her decompensation. Request Healthcare Surrogate/Guardian Advocate?: Yes (1) Dementia Qualifiers: Dementia type: unspecified type Dementia behavioral disturbance: with behavioral disturbance Qualified Code(s): F03.91 - Unspecified dementia with behavioral disturbance
[2018-09-21] MEDS: amLODIPine 10 MG Tablet PO SCH (08:49)
[2018-09-21] MEDS: Lisinopril 5 MG Tablet PO SCH (08:51)
[2018-09-22] MEDS: Levothyroxine 50 MCG Tablet PO SCH (06:30)
[2018-09-22] MEDS: Lisinopril 5 MG Tablet PO SCH (08:46)
[2018-09-22] MEDS: amLODIPine 10 MG Tablet PO SCH (08:46)
--- NOTE | 2018-09-22 11:37 | P.PNPSY ---
Subjective Remarks: Patient was seen today for psychiatric reevaluation. The patient is found in the hallway talking with another patient. She is calm, cooperative, interview is conducted in [place]. Patient reports that she feels better. She is definitely pleasantly confused and demented, she relates that she is in a hotel in [place]. But she reports good mood, denies depression, she denies anxiety, denies suicidal and homicidal ideation, she denies visual and auditory hallucinations. She tells me that she is taking the medications, denies side effects. Report good appetite, good sleep. No agitation, no aggressive behavior displayed at least in the last 48 hours. Mental Status Examination Appearance: Appropriate Consciousness: Alert Orientation: Person Motor Activity: Normal gait Speech: Unremarkable, Other (Somewhat rapid in broken Yi) Language: Adequate Fund of Knowledge: Adequate Attention and Concentration: Adequate (Fair) Memory: Impaired Mood: Other (Euthymic to somewhat irritable) Affect: Other (Slight increased range and intensity) Thought Process & Associations: Disorganized Thought Content: Other (Disorganized was difficult to assess due to language issues) Hallucination Type: None Delusion Type: Paranoid Suicidal Ideation: No Suicidal Plan: No Suicidal Intention: No Homicidal Ideation: No Homicidal Plan: No Homicidal Intention: No Insight: Poor Judgment: Poor Assessment and Plan - Assessment (1) Dementia Code(s): F03.90 - Unspecified dementia without behavioral disturbance Status: Acute - Plan Plan: Patient seems to be responding adequately to psychotropic regimen. I will order today an EKG for QTc interval baseline, also order Depakote levels. Continue current psychotropic regimen. Monitor behavior. Justification for Continued Inpatient Stay: Continue psychiatric hospitalization for stabilization. Request Healthcare Surrogate/Guardian Advocate?: Yes (1) Dementia Qualifiers: Dementia type: unspecified type Dementia behavioral disturbance: with behavioral disturbance Qualified Code(s): F03.91 - Unspecified dementia with behavioral disturbance
[2018-09-23] MEDS: Levothyroxine 50 MCG Tablet PO SCH (06:29)
[2018-09-23] MEDS: Lisinopril 5 MG Tablet PO SCH (08:55)
[2018-09-23] MEDS: amLODIPine 10 MG Tablet PO SCH (08:55)
--- NOTE | 2018-09-23 12:12 | P.PNPSY ---
Subjective Remarks: The patient was seen today for psychiatric reevaluation. Patient was discussed with nursing charge. On my psychiatric evaluation the patient is found the recreational area of the unit, the patient is calm, cooperative, pleasant. The patient reports feeling okay today, denies pain, denies distress, she reports being in a good mood. She says that she is willing to do whatever her kids agree for her to do. She is partially oriented in place, she knows that she is in [place], does not know additional details, complete disoriented in time, denies suicidal and homicidal ideation, she denies visual and auditory hallucinations. No agitation or aggressive behavior reported at least in the last 48 hours. Mental Status Examination Appearance: Appropriate Consciousness: Alert Orientation: Person Motor Activity: Normal gait Speech: Unremarkable, Other (Somewhat rapid in broken Gambian) Language: Adequate Fund of Knowledge: Adequate Attention and Concentration: Adequate (Fair) Memory: Impaired Mood: Other (Euthymic to somewhat irritable) Affect: Other (Slight increased range and intensity) Thought Process & Associations: Disorganized Thought Content: Other (Disorganized was difficult to assess due to language issues) Hallucination Type: None Delusion Type: Paranoid Suicidal Ideation: No Suicidal Plan: No Suicidal Intention: No Homicidal Ideation: No Homicidal Plan: No Homicidal Intention: No Insight: Poor Judgment: Poor Assessment and Plan - Assessment (1) Dementia Code(s): F03.90 - Unspecified dementia without behavioral disturbance Status: Acute - Plan Plan: Patient is not taking medication due to lack of consent. She continues to be disoriented, no prominent agitation or aggressive behavior reported. Justification for Continued Inpatient Stay: Continue psychiatric hospitalization for stabilization Request Healthcare Surrogate/Guardian Advocate?: Yes (1) Dementia Qualifiers: Dementia type: unspecified type Dementia behavioral disturbance: with behavioral disturbance Qualified Code(s): F03.91 - Unspecified dementia with behavioral disturbance
--- NOTE | 2018-09-23 13:20 | ECG ---
Date Performed: 09/22/2018 Time Performed: 13:37:47 PTAGE: 78 years EKG: Sinus rhythm NORMAL ECG Since the PREVIOUS TRACING , no significant change noted PREVIOUS TRACIN04/12/2018 10.10 DOCTOR: Diana Dugan Interpretating Date/Time 09/23/2018 13:18:30
[2018-09-23] MEDS ORDERED: Haloperidol Inj 5 MG/ML Ampul ONE (14:45)
[2018-09-23] MEDS ORDERED: Haloperidol Inj 5 MG/ML Ampul IM ONE (15:00)
[2018-09-24] MEDS: Levothyroxine 50 MCG Tablet PO SCH (06:02)
[2018-09-24] MEDS: amLODIPine 10 MG Tablet PO SCH (08:02)
[2018-09-24] MEDS: Lisinopril 5 MG Tablet PO SCH (08:02)
--- NOTE | 2018-09-24 12:24 | P.PNPSY ---
Subjective Remarks: The patient was seen today for psychiatric reevaluation, she was seen in the unit but prior to that she was in court. Patient continues to be pleasantly confused, today she was able to express in court that she wants to go home, but she would not no what her home is. Patient reports good mood, has been episodically agitated in the unit, but no aggressive. She has not been taking her medications given the fact that she refuses and there is no surrogate decision-maker at the moment. However, today JR was appointed as a decision maker by court. The patient denies suicidal and was ideation, she denies visual and auditory hallucinations. Mental Status Examination Appearance: Appropriate Consciousness: Alert Orientation: Person Motor Activity: Normal gait Speech: Unremarkable, Other (Somewhat rapid in broken Armenian) Language: Adequate Fund of Knowledge: Adequate Attention and Concentration: Adequate (Fair) Memory: Impaired Mood: Other (Euthymic to somewhat irritable) Affect: Other (Slight increased range and intensity) Thought Process & Associations: Disorganized Thought Content: Other (Disorganized was difficult to assess due to language issues) Hallucination Type: None Delusion Type: Paranoid Suicidal Ideation: No Suicidal Plan: No Suicidal Intention: No Homicidal Ideation: No Homicidal Plan: No Homicidal Intention: No Insight: Poor Judgment: Poor Assessment and Plan - Assessment (1) Dementia Code(s): F03.90 - Unspecified dementia without behavioral disturbance Status: Acute - Plan Plan: On psychiatric evaluation today the patient is calm, cooperative, episodically agitated and annoyed, but no aggressive. She appeared in court when she was determined to continue on psychiatric hospitalization until she is a stable and we can provide her with a safe discharge. JR agree with psychotropics for the patient. Will be started in Depakote 250 mg, Remeron 15 mg, BuSpar 15 mg 3 times daily. Justification for Continued Inpatient Stay: Continue admission for stabilization and safety Request Healthcare Surrogate/Guardian Advocate?: Yes (1) Dementia Qualifiers: Dementia type: unspecified type Dementia behavioral disturbance: with behavioral disturbance Qualified Code(s): F03.91 - Unspecified dementia with behavioral disturbance
--- NOTE | 2018-09-24 17:18 | P.CONIM ---
History of Present Illness Service: [facility] Consult date: 09/24/18 Reason for Consult: Elevated BP Primary Care Provider: Desmond Chavis MD Chief Complaint: hypertension History of Present Illness: This patient is a 78 years old [place] female, Qatari-speaking with past medical history of bipolar disorder, schizophrenia, dementia with behavioral disturbance, aggressive behavior and hypertension with multiple psychiatric hospitalizations. Patient domiciled in in an [facility] at [facility]. Patient presented to the ED under a Delgado act after threatening alf stopped at [facility]. According to the Delgado act she became aggressive towards staff and they would not be allowing the patient to come back. Patient was admitted to the psychiatric unit for evaluation and management. Medicine team is consulted for medical management of hypertension. Patient seen and examined with the Qatari-speaking nurse. Patient had a conversation with an unknown person. Patient stated that she is getting next week and somebody had to help her get ready. Patient was able to identify herself, however patient is disoriented, thought she is in [place]. Patient denies any pain, chest pain or shortness of breath. Patient denies any headache or dizziness, abdominal pain, nausea, vomiting, diarrhea or constipation. Patient denies any fever or chills. Patient states that she is well. 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, unspecified Hyperlipemia Hypertension Hypothyroidism Insomnia Schizophrenia Surgical history unknown Surgical history unknown Unspecified dementia with behavioral disturbance Unspecified mood [affective] disorder Unspecified psychosis - Family History Family History: Family History (Last Updated 09/24/18 @ 17:16 by MARY Mayen) Other Family history unknown - Social History I have reviewed the patient's Social History: Yes - Tobacco History Smoking Status: Unknown if ever smoked - Alcohol History How Often Do You Have a Drink Containing Alcohol: Unable to Obtain - Substance Use History Substance History: Unable to Obtain - Travel History Recent Travel in the [place] Within the Last 8 Weeks: No Recent Travel Out of the Country Within the Last 8 Weeks: No - Immunization History Hx Influenza Vaccine This Season: No Medications and Allergies Active Medications: Active Medications Acetaminophen (Tylenol) 325 mg PO Q6H PRN PRN Reason: Pain/Fever Al Hydrox/Mg Hydrox/Simethicone (Mag-Al Plus Susp Liq) 30 ml PO Q6H PRN PRN Reason: DYSPEPSIA Al Hydroxide/Mg Hydroxide (Milk Of Magnesia Liq) 30 ml PO Q12H PRN PRN Reason: Mild Constipation Amlodipine Besylate (Norvasc) 10 mg PO DAILY [facility] Last Admin: 09/24/18 08:02 Dose: 10 mg Aspirin (Aspirin Chew) 81 mg PO DAILY [facility] Last Admin: 09/24/18 08:02 Dose: 81 mg Atorvastatin Calcium (Lipitor) 20 mg PO DAILY [facility] Last Admin: 09/24/18 08:02 Dose: 20 mg Buspirone HCl (Buspar) 15 mg PO BID [facility] Clonidine HCl (Catapres) 0.1 mg PO Q6H PRN PRN Reason: sbp>160, dbp> 90 Haloperidol Decanoate (Haldol Decanoate Ini) 100 mg IM Q28D [facility] Hydroxyzine HCl (Atarax) 50 mg PO Q6H PRN PRN Reason: ANXIETY Levothyroxine Sodium (Synthroid) 50 mcg PO DAILY@0600 [facility] Last Admin: 09/24/18 06:02 Dose: 50 mcg Lisinopril (Prinivil) 10 mg PO DAILY [facility] Mirtazapine (Remeron) 15 mg PO DAILY [facility] Miscellaneous (Pill Splitter) 1 each OTHER UNSCH PRN PRN Reason: SEE LABEL COMMENTS Multivitamins (Theragran) 1 tab PO DAILY [facility] Last Admin: 09/24/18 08:02 Dose: 1 tab Valproate Sodium (Depakene Liq) 250 mg PO BID [facility] Allergies Allergy/AdvReac Type Severity Reaction Status Date / Time oxcarbazepine Allergy Unknown Anaphylaxis Unverified 09/17/18 16:36 Home Medications Medication Instructions Recorded Confirmed Type acetaminophen 325 mg PO Q6H PRN 09/17/18 09/17/18 History amlodipine 10 mg PO DAILY 09/17/18 09/17/18 History aripiprazole [Abilify Maintena] 400 mg IM QMONTH 09/17/18 09/17/18 History aspirin 81 mg PO DAILY 09/17/18 09/17/18 History atorvastatin 20 mg PO DAILY 09/17/18 09/17/18 History buspirone 15 mg PO BID 09/17/18 09/17/18 History haloperidol decanoate [Haldol 100 mg IM Q4W 09/17/18 09/17/18 History Decanoate] levothyroxine 50 mcg PO DAILY 09/17/18 09/17/18 History lisinopril 5 mg PO DAILY 09/17/18 09/17/18 History lorazepam [Ativan] 2 mg IM PRN PRN 09/17/18 09/17/18 History mirtazapine [Remeron] 15 mg PO DAILY 09/17/18 09/17/18 History multivitamin 1 tab PO QAM 09/17/18 09/17/18 History valproic acid (as sodium salt) 8 ml PO BID 09/17/18 09/17/18 History Exam Vital signs: Vital Signs 09/24/18 06:00 09/24/18 13:36 09/24/18 16:03 Temperature 98.5 F 98.2 F Pulse Rate 76 73 109 H Respiratory Rate 18 17 17 Blood Pressure 165/72 H 161/77 H 184/79 H Pulse Oximetry 95 98 97 Intake & Output 09/23/18 09/24/18 09/24/18 18:59 06:59 18:59 Intake Total 480 / 480 340 / 340 720 / 720 Balance 480 / 480 340 / 340 720 / 720 Intake: Oral 480 / 480 240 / 240 720 / 720 Oral Supplement 100 / 100 Other: # Voids 2 2 5 # Bowel Movements 0 Narrative: GENERAL: Well-developed, well-nourished, speaking lady, sitting in a chair in no apparent distress SKIN: Warm and dry. HEAD: Atraumatic. Normocephalic. EYES: Pupils equal and round. No scleral icterus. No injection or drainage. ENT: No nasal bleeding or discharge. Mucous membranes pink and moist. NECK: Trachea midline. No JVD. CARDIOVASCULAR: Regular rate and rhythm. RESPIRATORY: No accessory muscle use. Clear to auscultation. Breath sounds equal bilaterally. GASTROINTESTINAL: Abdomen soft, non-tender, nondistended. Hepatic and splenic margins not palpable. MUSCULOSKELETAL: Extremities without clubbing, cyanosis, or edema. No obvious deformities. NEUROLOGICAL: Awake and alert. No obvious cranial nerve deficits. Motor grossly within normal limits. Five out of 5 muscle strength in the arms and legs. Normal speech. PSYCHIATRIC: Pleasant mood and affect; insight and judgment poor Results - Labs CBC & Chem 7: 09/17/18 16:39 09/19/18 06:15 Assessment and Plan - Assessment (1) Hypertension Code(s): I10 - Essential (primary) hypertension Status: Acute (2) Dementia with behavioral disturbance Code(s): F03.91 - Unspecified dementia with behavioral disturbance Status: Acute (3) Bipolar disorder Code(s): F31.9 - Bipolar disorder, unspecified Status: Acute - Plan This patient is a 78 years old [place] female, Qatari-speaking with past medical history of bipolar disorder, schizophrenia, dementia with behavioral disturbance, aggressive behavior and hypertension with multiple psychiatric hospitalizations. Patient domiciled in in an [facility] at [facility]. Patient presented to the ED under a Delgado act after threatening alf stopped at [facility]. Hypertension Essential (primary) hypertension, Acute -Blood pressure elevated -Increase lisinopril dose, continue Norvasc home dose -add as needed clonidine for SBP>160 or DBP>90 -Monitor blood pressure adjust medication as needed Bipolar disorder Dementia with behavioral disturbance Unspecified dementia with behavioral disturbance, Acute -Management by psychiatric team Hyperglycemia -Hemoglobin A1c increased to 6.2%, was 5.7 previous admission -Change diet to diabetic diet -Monitor fasting blood sugar and cover with insulin sliding scale AARON -Likely related to dehydration -Encourage increase fluid intake -Monitor BMP -Avoid nephrotoxic agents DVT prophylaxis: Patient ambulatory Code Status: Full code Discussed Condition With: Patient and nurse
[2018-09-24] MEDS ORDERED: Dextrose 50% in Water 50 ML Vial IV.PUSH PRN (18:38)
[2018-09-24] MEDS: Insulin NovoLOG Aspart Correctional Sugar Inj SQ SCH (20:07)
[2018-09-24] MEDS ORDERED: Insulin NovoLOG Aspart Correctional Sugar Inj SQ SCH (21:00)
[2018-09-25] MEDS: Acetaminophen 325 MG Tablet PO PRN (02:45)
[2018-09-25] MEDS: Levothyroxine 50 MCG Tablet PO SCH (05:21)
[2018-09-25] MEDS: Insulin NovoLOG Aspart Correctional Sugar Inj SQ SCH ×4 (07:19→20:41)
[2018-09-25] MEDS: Lisinopril 10 MG Tablet PO SCH (08:39)
[2018-09-25] MEDS: amLODIPine 10 MG Tablet PO SCH (08:39)
[2018-09-25] MEDS: Mirtazapine 15 MG Tablet PO SCH (08:40)
--- NOTE | 2018-09-25 12:35 | P.PNPSY ---
Subjective Remarks: Reviewed electronic medical records and discussed case with staff. Follow-up was conducted in the patient's room. Patient found sitting in a chair talking to herself. Nurse reports she has been compliant with medications and has had no behavioral outbursts. When asked how she is today the patient respond to good. When asked if she had slept okay she responded yes and when asked if she had been eating okay she responded yes. She denies feeling sick. She remains internally stimulated and grossly confused. Mental Status Examination Appearance: Appropriate Consciousness: Alert Orientation: Person Motor Activity: Normal gait Speech: Unremarkable, Other (Somewhat rapid in broken Bengali) Language: Adequate Fund of Knowledge: Adequate Attention and Concentration: Adequate (Fair) Memory: Impaired Mood: Other (Euthymic to somewhat irritable) Affect: Other (Slight increased range and intensity) Thought Process & Associations: Disorganized Thought Content: Other (Disorganized was difficult to assess due to language issues) Hallucination Type: None Delusion Type: Paranoid Suicidal Ideation: No Suicidal Plan: No Suicidal Intention: No Homicidal Ideation: No Homicidal Plan: No Homicidal Intention: No Insight: Poor Judgment: Poor Assessment and Plan - Assessment (1) Dementia Code(s): F03.90 - Unspecified dementia without behavioral disturbance Status: Acute - Plan Plan: Patient will be reevaluated by the attending psychiatrist. Continue with current treatment plan. Justification for Continued Inpatient Stay: Moving this patient to a less restrictive environment would likely result in decompensation. Request Healthcare Surrogate/Guardian Advocate?: Yes (1) Dementia Qualifiers: Dementia type: unspecified type Dementia behavioral disturbance: with behavioral disturbance Qualified Code(s): F03.91 - Unspecified dementia with behavioral disturbance
--- NOTE | 2018-09-25 14:26 | P.PNIM ---
Subjective Interval history: Follow-up hypertension. Patient seen and examined walking in the hallway, speaking Anguillan to someone not existing. Patient denies any headache or dizziness, denies any chest pain or shortness of breath. Patient stated she is good. Nurse reported blood pressure has been better Physical Exam Vital signs: Vital Signs 09/24/18 16:03 09/24/18 17:25 09/25/18 06:00 Temperature 98.2 F 97.4 F L Pulse Rate 109 H 81 72 Respiratory Rate 17 18 Blood Pressure 184/79 H 153/70 H 107/53 L Pulse Oximetry 97 96 09/25/18 08:41 Temperature Pulse Rate 75 Respiratory Rate Blood Pressure 137/65 Pulse Oximetry Intake & Output 09/24/18 09/25/18 09/25/18 18:59 06:59 18:59 Intake Total 960 / 960 240 / 240 Balance 960 / 960 240 / 240 Intake: Oral 960 / 960 240 / 240 Other: # Voids 5 240 Narrative: GENERAL: Well-developed, well-nourished, speaking lady, sitting in a chair in no apparent distress SKIN: Warm and dry. HEAD: Atraumatic. Normocephalic. EYES: Pupils equal and round. No scleral icterus. No injection or drainage. ENT: No nasal bleeding or discharge. Mucous membranes pink and moist. NECK: Trachea midline. No JVD. CARDIOVASCULAR: Regular rate and rhythm. RESPIRATORY: No accessory muscle use. Clear to auscultation. Breath sounds equal bilaterally. GASTROINTESTINAL: Abdomen soft, non-tender, nondistended. Hepatic and splenic margins not palpable. MUSCULOSKELETAL: Extremities without clubbing, cyanosis, or edema. No obvious deformities. NEUROLOGICAL: Awake and alert. No obvious cranial nerve deficits. Motor grossly within normal limits. Five out of 5 muscle strength in the arms and legs. Normal speech. PSYCHIATRIC: Pleasant mood and affect; insight and judgment poor Results - Labs CBC & Chem 7: 09/17/18 16:39 09/19/18 06:15 Laboratory Results - last 24 hr 09/24/18 09/25/18 09/25/18 20:06 05:38 11:12 POC Glucose 109 91 99 Assessment and Plan - Assessment (1) Hypertension Code(s): I10 - Essential (primary) hypertension Status: Acute (2) Dementia with behavioral disturbance Code(s): F03.91 - Unspecified dementia with behavioral disturbance Status: Acute (3) Bipolar disorder Code(s): F31.9 - Bipolar disorder, unspecified Status: Acute - Plan This patient is a 78 years old Beninese female, Anguillan-speaking with past medical history of bipolar disorder, schizophrenia, dementia with behavioral disturbance, aggressive behavior and hypertension with multiple psychiatric hospitalizations. Patient domiciled in in an [facility] at [facility]. Patient presented to the ED under a Delgado act after threatening long term stopped at [facility]. Hypertension Essential (primary) hypertension, Acute -Blood pressure improving, 137/65 today -Continue increased lisinopril dose, continue Norvasc home dose -add as needed clonidine for SBP>160 or DBP>90 -Monitor blood pressure adjust medication as needed Bipolar disorder Dementia with behavioral disturbance Unspecified dementia with behavioral disturbance, Acute -Management by psychiatric team Hyperglycemia -Hemoglobin A1c increased to 6.2%, was 5.7 previous admission -Change diet to diabetic diet -Monitor fasting blood sugar and cover with insulin sliding scale -Fasting blood sugar reviewed, fair controlled 91-109 AARON -Likely related to dehydration -Encourage increase fluid intake -Monitor BMP -Avoid nephrotoxic agents DVT prophylaxis: Patient ambulatory Code Status: Full code Discussed Condition With: Patient and nurse
[2018-09-26] MEDS: Levothyroxine 50 MCG Tablet PO SCH (06:33)
[2018-09-26] MEDS: Insulin NovoLOG Aspart Correctional Sugar Inj SQ SCH ×4 (07:41→21:50)
[2018-09-26] MEDS: amLODIPine 10 MG Tablet PO SCH (08:30)
[2018-09-26] MEDS: Mirtazapine 15 MG Tablet PO SCH (08:30)
[2018-09-26] MEDS: Lisinopril 10 MG Tablet PO SCH (08:30)
[2018-09-26 09:18] LABS: Baso # (Auto) 0.1 th/mm3 (0.0-0.2); Baso % (Auto) 0.9 % (0.0-2.0); Eos # (Auto) 0.2 th/mm3 (0.0-0.4); Eos % (Auto) 2.9 % (0.0-4.0); Hemoglobin 10.5 gm/dL (11.6-15.3); Lymph # (Auto) 1.2 th/mm3 (1.0-4.8); Lymph % (Auto) 19.4 % (9.0-44.0); Mean Corpuscular Hemoglobin 29.8 pg (27.0-34.0); Mean Corpuscular Volume 87.7 fL (80.0-100.0); Mean Platelet Volume 8.7 fL (7.0-11.0); Mono # (Auto) 0.4 th/mm3 (0.0-0.9); Mono % (Auto) 6.7 % (0.0-8.0); Neut # (Auto) 4.3 th/mm3 (1.8-7.7); Neut % (Auto) 70.1 % (16.0-70.0); Platelet Count 236 th/mm3 (150-450); Red Blood Count 3.54 mil/mm3 (4.00-5.30); Red Cell Distribution Width 13.7 % (11.6-17.2); White Blood Count 6.2 th/mm3 (4.0-11.0)
[2018-09-26 09:53] LABS: Calcium 8.5 mg/dL (8.5-10.1); Carbon Dioxide 27.2 meq/L (21.0-32.0); Potassium 4.1 meq/L (3.5-5.1)
--- NOTE | 2018-09-26 15:13 | P.PNIM ---
Subjective Interval history: Follow-up hypertension, hyperglycemia, AARON, bipolar disorder and dementia with behavioral disturbance. Patient seen and examined sitting in the chair, stated she is fine. Patient denies any pain or discomfort. Patient is Urugu[place]-speaking however understand simple Amharic and responds in some Amharic words today. Patient denies any headache or dizziness, denies any chest pain or shortness of breath, denies any abdominal pain, nausea, vomiting, diarrhea or constipation. Patient denies any fever or chills. Nurse denies any patient's acute complaints, denies any problems overnight. Physical Exam Vital signs: Vital Signs 09/25/18 22:00 09/26/18 06:00 Temperature 97.9 F 97.6 F Pulse Rate 73 76 Respiratory Rate 16 18 Blood Pressure 154/87 H 163/74 H Pulse Oximetry 95 92 L Intake & Output 09/25/18 09/26/18 09/26/18 18:59 06:59 18:59 Intake Total 960 / 960 240 / 240 480 / 480 Balance 960 / 960 240 / 240 480 / 480 Intake: Oral 960 / 960 240 / 240 480 / 480 Other: # Voids 2 2 Narrative: GENERAL: Well-developed, well-nourished, speaking lady, with some Amharic response, sitting in a chair in no apparent distress SKIN: Warm and dry. HEAD: Atraumatic. Normocephalic. EYES: Pupils equal and round. No scleral icterus. No injection or drainage. ENT: No nasal bleeding or discharge. Mucous membranes pink and moist. NECK: Trachea midline. No JVD. CARDIOVASCULAR: Regular rate and rhythm. RESPIRATORY: No accessory muscle use. Clear to auscultation. Breath sounds equal bilaterally. GASTROINTESTINAL: Abdomen soft, non-tender, nondistended. Hepatic and splenic margins not palpable. MUSCULOSKELETAL: Extremities without clubbing, cyanosis, or edema. No obvious deformities. NEUROLOGICAL: Awake and alert. No obvious cranial nerve deficits. Motor grossly within normal limits. Five out of 5 muscle strength in the arms and legs. Normal speech. PSYCHIATRIC: Flat but pleasant mood and affect; insight and judgment poor Results - Labs CBC & Chem 7: 09/26/18 09:02 09/26/18 09:02 Laboratory Results - last 24 hr 09/25/18 09/26/18 09/26/18 19:33 09:02 09:02 WBC 6.2 RBC 3.54 L Hgb 10.5 L Hct 31.0 L MCV 87.7 MCH 29.8 MCHC 34.0 RDW 13.7 Plt Count 236 MPV 8.7 Neut % (Auto) 70.1 H Lymph % (Auto) 19.4 [place] % (Auto) 6.7 Eos % (Auto) 2.9 Baso % (Auto) 0.9 Neut # (Auto) 4.3 Lymph # (Auto) 1.2 [place] # (Auto) 0.4 Eos # (Auto) 0.2 Baso # (Auto) 0.1 WBC Differential . Differential Comment Auto diff final Sodium 140 Potassium 4.1 Chloride 106 Carbon Dioxide 27.2 Anion Gap 7 BUN 35 H Creatinine 1.13 H Estimated GFR 47 L POC Glucose 129 H Random Glucose 120 H Calcium 8.5 09/26/18 10:53 WBC RBC Hgb Hct MCV MCH MCHC RDW Plt Count MPV Neut % (Auto) Lymph % (Auto) [place] % (Auto) Eos % (Auto) Baso % (Auto) Neut # (Auto) Lymph # (Auto) [place] # (Auto) Eos # (Auto) Baso # (Auto) WBC Differential Differential Comment Sodium Potassium Chloride Carbon Dioxide Anion Gap BUN Creatinine Estimated GFR POC Glucose 83 Random Glucose Calcium Assessment and Plan - Assessment (1) Hypertension Code(s): I10 - Essential (primary) hypertension Status: Acute (2) Dementia with behavioral disturbance Code(s): F03.91 - Unspecified dementia with behavioral disturbance Status: Acute (3) Bipolar disorder Code(s): F31.9 - Bipolar disorder, unspecified Status: Acute - Plan This patient is a 78 years old Swazi female, Uruguayan-speaking with past medical history of bipolar disorder, schizophrenia, dementia with behavioral disturbance, aggressive behavior and hypertension with multiple psychiatric hospitalizations. Patient domiciled in in an CUSTODIAL at [facility] re[facility]. Patient presented to the ED under a Delgado act after threatening care home stopped at [facility]. Hypertension Essential (primary) hypertension, Acute -Blood pressure labile, low of 107/53 to high of 163/74 and 48 hours period. -Continue increased lisinopril dose, continue Norvasc home dose -Continue as needed clonidine for SBP>160 or DBP>90 -Monitor blood pressure adjust medication as needed Bipolar disorder Dementia with behavioral disturbance Unspecified dementia with behavioral disturbance, Acute -Management by psychiatric team Hyperglycemia -Hemoglobin A1c increased to 6.2%, was 5.7 previous admission -Change diet to diabetic diet -Monitor fasting blood sugar and cover with insulin sliding scale -Fasting blood sugar reviewed, fair controlled 91-129 AARON -Likely related to dehydration -Encourage increase fluid intake -Monitor BMP -Avoid nephrotoxic agents -creatinine improving, from 1.2 -->1.13, continue to monitor DVT prophylaxis: Patient ambulatory Code Status: full code Discussed Condition With: patient and nurse
--- NOTE | 2018-09-26 16:22 | P.PNPSY ---
Subjective Remarks: Reviewed electronic medical records and discussed case with staff. Follow-up was conducted in the patient's room. She states that she feels good, slept well , and has no medical complaints. Her nurse reports that she has been delusional and confused. She reported that she was going to the [employer]'s wedding and believed that 1 of our staff members was the [facility]. Mental Status Examination Appearance: Appropriate Consciousness: Alert Orientation: Person Motor Activity: Normal gait Speech: Unremarkable, Other (Somewhat rapid in broken Albanian) Language: Adequate Fund of Knowledge: Adequate Attention and Concentration: Adequate (Fair) Memory: Impaired Mood: Other (Euthymic to somewhat irritable) Affect: Other (Slight increased range and intensity) Thought Process & Associations: Disorganized Thought Content: Other (Disorganized was difficult to assess due to language issues) Hallucination Type: None Delusion Type: Paranoid Suicidal Ideation: No Suicidal Plan: No Suicidal Intention: No Homicidal Ideation: No Homicidal Plan: No Homicidal Intention: No Insight: Poor Judgment: Poor Assessment and Plan - Assessment (1) Dementia Code(s): F03.90 - Unspecified dementia without behavioral disturbance Status: Acute - Plan Plan: Patient will be reevaluated by the attending psychiatrist. Continue with current treatment plan. Patient remains grossly confused. Placement is being sought. Justification for Continued Inpatient Stay: Moving this patient to a less restrictive environment would likely result in decompensation. Request Healthcare Surrogate/Guardian Advocate?: Yes (1) Dementia Qualifiers: Dementia type: unspecified type Dementia behavioral disturbance: with behavioral disturbance Qualified Code(s): F03.91 - Unspecified dementia with behavioral disturbance
[2018-09-27] MEDS: Levothyroxine 50 MCG Tablet PO SCH (06:38)
[2018-09-27] MEDS: Insulin NovoLOG Aspart Correctional Sugar Inj SQ SCH ×4 (08:27→20:26)
[2018-09-27] MEDS: amLODIPine 10 MG Tablet PO SCH ×2 (08:30→10:41)
[2018-09-27] MEDS: Lisinopril 20 MG Tablet PO SCH ×2 (08:30→10:41)
[2018-09-27] MEDS: Mirtazapine 15 MG Tablet PO SCH ×2 (08:31→10:42)
[2018-09-27] MEDS: Lisinopril 10 MG Tablet PO SCH (10:32)
--- NOTE | 2018-09-27 13:04 | P.PNPSY ---
Subjective Remarks: Reviewed electronic medical records and discussed case with staff. Follow-up was conducted in the hallway with her nurse. Her nurse reports that she refused her medications however, after some discussion she agreed to take them. Patient states that she feels good and has slept well. She complains of no illness at this time. She remains in grossly confused and delusional. Mental Status Examination Appearance: Appropriate Consciousness: Alert Orientation: Person Motor Activity: Normal gait Speech: Unremarkable, Other (Somewhat rapid in broken [place]) Language: Adequate Fund of Knowledge: Adequate Attention and Concentration: Adequate (Fair) Memory: Impaired Mood: Other (Euthymic to somewhat irritable) Affect: Other (Slight increased range and intensity) Thought Process & Associations: Disorganized Thought Content: Other (Disorganized was difficult to assess due to language issues) Hallucination Type: None Delusion Type: Paranoid Suicidal Ideation: No Suicidal Plan: No Suicidal Intention: No Homicidal Ideation: No Homicidal Plan: No Homicidal Intention: No Insight: Poor Judgment: Poor Assessment and Plan - Assessment (1) Dementia Code(s): F03.90 - Unspecified dementia without behavioral disturbance Status: Acute - Plan Plan: Patient will be reevaluated by the attending psychiatrist. Continue with current treatment plan. Justification for Continued Inpatient Stay: Moving this patient to a less restrictive environment would likely result in decompensation. Request Healthcare Surrogate/Guardian Advocate?: Yes (1) Dementia Qualifiers: Dementia type: unspecified type Dementia behavioral disturbance: with behavioral disturbance Qualified Code(s): F03.91 - Unspecified dementia with behavioral disturbance
--- NOTE | 2018-09-27 15:42 | P.PNIM ---
Subjective Interval history: Follow-up hypertension, hyperglycemia, AARON, bipolar disorder and dementia with behavioral disturbance. Patient seen and examined sitting in the chair, talking in [place], however responding to simple Micronesian questions. Patient denies any pain or any shortness of breath, denies any discomfort. Nurse reported no acute complaints overnight. Physical Exam Vital signs: Vital Signs 09/26/18 17:15 09/27/18 06:00 Temperature 97.8 F 97.8 F Pulse Rate 87 79 Respiratory Rate 18 18 Blood Pressure 167/73 H 165/81 H Pulse Oximetry 96 96 Intake & Output 09/26/18 09/27/18 09/27/18 18:59 06:59 18:59 Intake Total 840 / 840 0 / 0 Balance 840 / 840 0 / 0 Intake: Oral 840 / 840 0 / 0 Oral Supplement 0 / 0 Other: # Voids 2 # Bowel Movements 0 Narrative: GENERAL: Well-developed, well-nourished, speaking lady, with some Micronesian response, sitting in a chair in no apparent distress SKIN: Warm and dry. HEAD: Atraumatic. Normocephalic. EYES: Pupils equal and round. No scleral icterus. No injection or drainage. ENT: No nasal bleeding or discharge. Mucous membranes pink and moist. NECK: Trachea midline. No JVD. CARDIOVASCULAR: Regular rate and rhythm. RESPIRATORY: No accessory muscle use. Clear to auscultation. Breath sounds equal bilaterally. GASTROINTESTINAL: Abdomen soft, non-tender, nondistended. Hepatic and splenic margins not palpable. MUSCULOSKELETAL: Extremities without clubbing, cyanosis, or edema. No obvious deformities. NEUROLOGICAL: Awake and alert. No obvious cranial nerve deficits. Motor grossly within normal limits. Five out of 5 muscle strength in the arms and legs. Normal speech. PSYCHIATRIC: Flat but pleasant mood and affect; insight and judgment poor Results - Labs CBC & Chem 7: 09/26/18 09:02 09/26/18 09:02 Laboratory Results - last 24 hr 09/26/18 09/27/18 09/27/18 15:55 06:47 11:23 POC Glucose 173 H 78 86 Assessment and Plan - Assessment (1) Hypertension Code(s): I10 - Essential (primary) hypertension Status: Acute (2) Dementia with behavioral disturbance Code(s): F03.91 - Unspecified dementia with behavioral disturbance Status: Acute (3) Bipolar disorder Code(s): F31.9 - Bipolar disorder, unspecified Status: Acute - Plan This patient is a 78 years old Sw[place] female, Citizen [place]-speaking with past medical history of bipolar disorder, schizophrenia, dementia with behavioral disturbance, aggressive behavior and hypertension with multiple psychiatric hospitalizations. Patient domiciled in in an ANAIS at [facility]. Patient presented to the ED under a Delgado act after threatening fpc stopped at [facility]. Hypertension Essential (primary) hypertension, Acute -Blood pressure labile, low of 107/53 to high of 163/74 and 48 hours period. - continue Norvasc home dose -Continue as needed clonidine for SBP>160 or DBP>90 -Monitor blood pressure adjust medication as needed -BP still elevated, increase Lisinopril dose with hold parameters, blood pressure improved to 143/65 after dose of lisinopril -monitor BP, adjust medication a necessary Bipolar disorder Dementia with behavioral disturbance Unspecified dementia with behavioral disturbance, Acute -Management by psychiatric team Hyperglycemia -Hemoglobin A1c increased to 6.2%, was 5.7 previous admission -Change diet to diabetic diet -Monitor fasting blood sugar and cover with insulin sliding scale -Blood sugar reviewed, fair controlled 91-129 AARON -Likely related to dehydration -Encourage increase fluid intake -Monitor BMP -Avoid nephrotoxic agents -creatinine improving, from 1.2 -->1.13, continue to monitor DVT prophylaxis: Patient ambulatory Patient medically stable. We will sign off, will be available as needed Code Status: Full code Discussed Condition With: Patient and nurse
[2018-09-28] MEDS: Levothyroxine 50 MCG Tablet PO SCH (05:01)
--- NOTE | 2018-09-28 08:00 | P.PNPSY ---
Subjective Remarks: Reviewed electronic medical records and discussed case with staff. Follow-up was conducted in the day room with nurse present. Patient ate all of her breakfast. She states that all is good in Brazilian. No behavioral concerns reported. Sleeping well. Medication compliant. Staff report that she was aggressive last week and this behavior cycles. Review of Systems All other systems reviewed negative except as stated in HPI Mental Status Examination Appearance: Appropriate Consciousness: Alert Orientation: Person Motor Activity: Normal gait Speech: Unremarkable, Other (Somewhat rapid in broken Brazilian) Language: Adequate Fund of Knowledge: Adequate Attention and Concentration: Adequate (Fair) Memory: Impaired Mood: Other (Euthymic to somewhat irritable) Affect: Other (Slight increased range and intensity) Thought Process & Associations: Disorganized Thought Content: Other (Disorganized was difficult to assess due to language issues) Hallucination Type: None Delusion Type: Paranoid Suicidal Ideation: No Suicidal Plan: No Suicidal Intention: No Homicidal Ideation: No Homicidal Plan: No Homicidal Intention: No Insight: Poor Judgment: Poor Assessment and Plan - Assessment (1) Dementia with behavioral disturbance Code(s): F03.91 - Unspecified dementia with behavioral disturbance Status: Acute - Plan Plan: Patient will be reevaluated by the attending psychiatrist. Continue with current treatment plan. Justification for Continued Inpatient Stay: Moving patient to a less restrictive environment may result in her decompensation. Request Healthcare Surrogate/Guardian Advocate?: Yes
[2018-09-28] MEDS: amLODIPine 10 MG Tablet PO SCH ×2 (08:31→08:54)
[2018-09-28] MEDS: Lisinopril 20 MG Tablet PO SCH ×2 (08:31→08:54)
[2018-09-28] MEDS: Mirtazapine 15 MG Tablet PO SCH ×2 (08:32→08:54)
[2018-09-28] MEDS: Insulin NovoLOG Aspart Correctional Sugar Inj SQ SCH ×4 (08:54→21:00)
[2018-09-28] MEDS ORDERED: Haloperidol Inj 5 MG/ML Ampul IM ONE (09:00)
[2018-09-29] MEDS: Levothyroxine 50 MCG Tablet PO SCH ×2 (06:02→06:09)
[2018-09-29] MEDS: Insulin NovoLOG Aspart Correctional Sugar Inj SQ SCH ×4 (08:09→20:30)
[2018-09-29] MEDS: amLODIPine 10 MG Tablet PO SCH (08:32)
[2018-09-29] MEDS: Lisinopril 20 MG Tablet PO SCH (08:33)
[2018-09-29] MEDS: Mirtazapine 15 MG Tablet PO SCH (08:33)
--- NOTE | 2018-09-29 10:51 | P.TTN ---
- Patient Problems Problems: 1. Discharge planning 2. Medication compliance 3. Knowledge deficit 4. Lack of coping skills - Progress Toward Goals Provider Present: Dr. Jessica Corona Provider Input: 09/29/18: CounselorAshlyn, has assigned Hawa to seek placement for pt, preference is to accomodate pt's primary language of Upper Sor[place] as a consideration. No medication changes noted. Group Spec/RT/OT/HODGE Present: Rashid Bryant OT Group Spec/RT/OT/HODGE Input: 09/29/18: Pt rarely attends groups as she is unable to tolerate to participate. - Discharge Plan 09/29/18: CounselorAshlyn, has assigned Hawa to seek placement for pt, preference is to accomodate pt's primary language of Upper Sor[place] as a consideration. - Documentation Teaching Recipient: Patient
--- NOTE | 2018-09-29 16:21 | P.PNPSY ---
Subjective Remarks: Patient seen for follow up; chart reviewed. Discussion with nursing staff reported that patient eating and drinking well and reporting some visual hallucinations of too many girls, noted occasionally talking to self refused to Synthroid in the morning but was able to take rest of medications. Patient was found in the unit noted to be calm and cooperative. Patient states she slept well, she is eating and drinking well, reports her mood is "good" denying any suicidal or homicidal ideations. Patient denies any auditory hallucinations stating the last time was months ago, denies any visual hallucinations. Patient is alert and oriented only to person she is in the outpatient Center and is not oriented to date. Review of Systems All other systems reviewed negative except as stated in HPI Mental Status Examination Appearance: Appropriate Consciousness: Alert Orientation: Person Motor Activity: Normal gait Speech: Unremarkable, Other (Somewhat rapid in broken Serbian) Language: Adequate Fund of Knowledge: Adequate Attention and Concentration: Adequate (Fair) Memory: Impaired Mood: Appropriate Affect: Appropriate Thought Process & Associations: Other ([place]) Thought Content: Appropriate Hallucination Type: None Delusion Type: Paranoid Suicidal Ideation: No Suicidal Plan: No Suicidal Intention: No Homicidal Ideation: No Homicidal Plan: No Homicidal Intention: No Insight: Poor Judgment: Poor Assessment and Plan - Assessment (1) Dementia Code(s): F03.90 - Unspecified dementia without behavioral disturbance Status: Acute - Plan Plan: Patient at this time with no behavioral disturbances no episodes of irritability , has been compliant with treatment and cooperative with staff. We will continue current treatment. Continue to monitor mood and behavior. Discharge planning in progress. Justification for Continued Inpatient Stay: At risk of further decompensation at lower level care. Request Healthcare Surrogate/Guardian Advocate?: Yes (1) Dementia Qualifiers: Dementia type: unspecified type Dementia behavioral disturbance: with behavioral disturbance Qualified Code(s): F03.91 - Unspecified dementia with behavioral disturbance
[2018-09-30] MEDS: Levothyroxine 50 MCG Tablet PO SCH (05:20)
[2018-09-30] MEDS: Insulin NovoLOG Aspart Correctional Sugar Inj SQ SCH ×4 (08:04→20:47)
[2018-09-30] MEDS: Lisinopril 20 MG Tablet PO SCH (08:05)
[2018-09-30] MEDS: Mirtazapine 15 MG Tablet PO SCH (08:06)
[2018-09-30] MEDS: amLODIPine 10 MG Tablet PO SCH (08:06)
--- NOTE | 2018-09-30 19:35 | P.PNPSY ---
Subjective Remarks: Plan monitor for evening compliant with medication no behavioral disturbances continues with self. Patient was found to ambulate on the unit, cooperative. Patient states she is feeling "good" reports eating and drinking well with no difficulty resting. Patient denies any perceptual disturbances or delusions. When asked about staff having noticed patient does not do so she denies. Review of Systems All other systems reviewed negative except as stated in HPI Mental Status Examination Appearance: Appropriate Consciousness: Alert Orientation: Person Motor Activity: Normal gait Speech: Unremarkable, Other (Somewhat rapid in broken Hungarian) Language: Adequate Fund of Knowledge: Adequate Attention and Concentration: Adequate (Fair) Memory: Impaired Mood: Appropriate Affect: Appropriate Thought Process & Associations: Other (Hilliards) Thought Content: Appropriate Hallucination Type: None Delusion Type: Paranoid (Minimal) Suicidal Ideation: No Suicidal Plan: No Suicidal Intention: No Homicidal Ideation: No Homicidal Plan: No Homicidal Intention: No Insight: Poor Judgment: Poor Assessment and Plan - Assessment (1) Dementia Code(s): F03.90 - Unspecified dementia without behavioral disturbance Status: Acute - Plan Plan: Patient at this time continues with concrete responses during interview but denying any manic or psychotic symptoms. Patient noted with good behavioral control with no evidence of agitation or irritability. We will continue current treatment. We will continue to monitor mood and behavior. Discharge planning in progress. Justification for Continued Inpatient Stay: At risk of further decompensation at lower level care. Request Healthcare Surrogate/Guardian Advocate?: Yes (1) Dementia Qualifiers: Dementia type: unspecified type Dementia behavioral disturbance: with behavioral disturbance Qualified Code(s): F03.91 - Unspecified dementia with behavioral disturbance
[2018-10-01] MEDS: Levothyroxine 50 MCG Tablet PO SCH (05:12)
[2018-10-01] MEDS: Insulin NovoLOG Aspart Correctional Sugar Inj SQ SCH ×4 (07:15→20:57)
[2018-10-01] MEDS: Mirtazapine 15 MG Tablet PO SCH (08:58)
[2018-10-01] MEDS: amLODIPine 10 MG Tablet PO SCH (08:59)
--- NOTE | 2018-10-01 10:23 | P.TTN ---
- Patient Problems Problems: 1. Discharge planning 2. Medication compliance 3. Knowledge deficit 4. Lack of coping skills - Progress Toward Goals Provider Present: Dr. Jessica Corona Provider Input: 10/01/18: Hawa found a possible placement in [facility] speaking [facility]), awaiting on response from facility. 09/29/18: CounselorAshlyn, has assigned Hawa to seek placement for pt, preference is to accomodate pt's primary language of [place] Citizen as a consideration. No medication changes noted. Nurse Input: 10/01/18: YAHIR Kelley reports patient is walking the floor but not been social. Pt currently compliant with medication. Psychiatric Counselors Present: Other Psychiatric Therapist Input: 10/01/18: Patient to be possible discharged to [facility] speaking [facility], waiting to hear back from the facility. Zach Callahan, [facility] Group Spec/RT/OT/HODGE Present: NAVEEN Fischer, Rashid Bryant, OT Group Spec/RT/OT/HODGE Input: 09/29/18: Pt rarely attends groups as she is unable to tolerate to participate. Occupational Therapist Input: 10/01/18: Patient is been selective with which activities she attends and has not been attending them all. - Discharge Plan 09/29/18: CounselorAshlyn, has assigned Hawa to seek placement for pt, preference is to accomodate pt's primary language of [place] Citizen as a consideration. - Documentation Teaching Recipient: Patient
[2018-10-01] MEDS: Lisinopril 20 MG Tablet PO SCH (11:26)
--- NOTE | 2018-10-01 14:52 | P.PNPSY ---
Subjective Remarks: Patient seen for follow up; chart reviewed. Discussion with nursing staff reported that patient noted to be very concrete, no episodes of agitation or irritability continues to have baseline confusion. Patient also noted during lunch time to take another patient's food but was redirectable. Patient was found ambulating on unit noted B, cooperative. Patient denies any physical complaints at this time although was able to mention noticing blood in her urine as well as after bowel movement when she wiped with tissue. She reports adequate sleep, her mood has been "good" denying any auditory hallucinations but upon further questioning stated that she sometimes hears this during the day last time being this morning but was unable to mention or elaborate on content. Patient is noted to ramble at times with some confusion but agrees to providing urine for lab analysis. Review of Systems All other systems reviewed negative except as stated in HPI Mental Status Examination Appearance: Appropriate Consciousness: Alert Orientation: Person Motor Activity: Normal gait Speech: Unremarkable Language: Adequate Fund of Knowledge: Adequate Attention and Concentration: Adequate (Fair) Memory: Impaired Mood: Appropriate Affect: Appropriate Thought Process & Associations: Other ([place]) Thought Content: Appropriate Hallucination Type: Auditory ("Sometimes") Delusion Type: Paranoid (Minimal) Suicidal Ideation: No Suicidal Plan: No Suicidal Intention: No Homicidal Ideation: No Homicidal Plan: No Homicidal Intention: No Insight: Poor Judgment: Poor Assessment and Plan - Assessment (1) Dementia Code(s): F03.90 - Unspecified dementia without behavioral disturbance Status: Acute - Plan Plan: Patient currently with adherence to treatment and cooperative with staff no episodes of agitation or irritability. Patient easily redirectable. Due to concerns of patient report of urine with blood as well as with bowel movement we will order UA as well as Hemoccult patient noted with normocytic anemia with recent lab work. We will continue current treatment. We will continue to monitor mood and behavior. Discharge planning in progress. Justification for Continued Inpatient Stay: At risk of further decompensation at lower level care. Request Healthcare Surrogate/Guardian Advocate?: Yes (1) Dementia Qualifiers: Dementia type: unspecified type Dementia behavioral disturbance: with behavioral disturbance Qualified Code(s): F03.91 - Unspecified dementia with behavioral disturbance
[2018-10-02] MEDS: Levothyroxine 50 MCG Tablet PO SCH (06:19)
[2018-10-02] MEDS: Insulin NovoLOG Aspart Correctional Sugar Inj SQ SCH ×4 (09:25→21:00)
[2018-10-02] MEDS: Mirtazapine 15 MG Tablet PO SCH (09:25)
[2018-10-02] MEDS: amLODIPine 10 MG Tablet PO SCH (09:25)
[2018-10-02] MEDS: Lisinopril 20 MG Tablet PO SCH (09:25)
--- NOTE | 2018-10-02 14:59 | P.PNPSY ---
Subjective Remarks: Patient seen for follow-up, chart reviewed. Discussion with nursing staff reported that patient with no noted episodes of agitation, cooperative with staff, easily redirectible. Patient was found sitting on hospital chair, initially refused breakfast as per staff but was easily encouraged to eat breakfast which she did. Patient denies any physical complaints at this time noted with concrete responses, patient reports her mood is being "good" denying any depressed mood, manic or psychotic symptoms at this time. Patient continues with baseline confusion. Review of Systems All other systems reviewed negative except as stated in HPI Mental Status Examination Appearance: Appropriate Consciousness: Alert Orientation: Person Motor Activity: Normal gait Speech: Unremarkable Language: Adequate Fund of Knowledge: Adequate Attention and Concentration: Adequate (Fair) Memory: Impaired Mood: Appropriate Affect: Appropriate Thought Process & Associations: Other ([place]) Thought Content: Appropriate Hallucination Type: Auditory ("Sometimes") Delusion Type: Paranoid (Minimal) Suicidal Ideation: No Suicidal Plan: No Suicidal Intention: No Homicidal Ideation: No Homicidal Plan: No Homicidal Intention: No Insight: Poor Judgment: Poor Assessment and Plan - Assessment (1) Dementia Code(s): F03.90 - Unspecified dementia without behavioral disturbance Status: Acute - Plan Plan: Patient continues with baseline confusion, no episodes of agitation or irritability. Has been compliant with medications. Urine and stool sample still pending for analysis. We will continue current treatment. Continue to monitor mood and behavior. Discharge planning in progress. Justification for Continued Inpatient Stay: At risk of further decompensation at lower level care. Request Healthcare Surrogate/Guardian Advocate?: Yes (1) Dementia Qualifiers: Dementia type: unspecified type Dementia behavioral disturbance: with behavioral disturbance Qualified Code(s): F03.91 - Unspecified dementia with behavioral disturbance
[2018-10-03] MEDS: Levothyroxine 50 MCG Tablet PO SCH (05:57)
[2018-10-03] MEDS: Lisinopril 20 MG Tablet PO SCH (09:55)
[2018-10-03] MEDS: amLODIPine 10 MG Tablet PO SCH (09:56)
[2018-10-03] MEDS: Mirtazapine 15 MG Tablet PO SCH (09:56)
[2018-10-03] MEDS: Insulin NovoLOG Aspart Correctional Sugar Inj SQ SCH ×4 (12:42→21:38)
--- NOTE | 2018-10-03 16:50 | P.PNPSY ---
Subjective Remarks: Patient seen for follow-up, chart reviewed. Discussion with nursing staff reported that patient no behavioral disturbances, compliant with medications. Patient was found heavily on unit noted B, cooperative. Patient denies any difficulty with eating or drinking, denies any perceptional disturbances but did mention having seen a "6-year-old girl outside of the window". Patient reports sleeping well, denies any physical complaints at this time. Her mood has been "good". No delusional material elicited today. Review of Systems All other systems reviewed negative except as stated in HPI Mental Status Examination Appearance: Appropriate Consciousness: Alert Orientation: Person Motor Activity: Normal gait Speech: Unremarkable Language: Adequate Fund of Knowledge: Adequate Attention and Concentration: Adequate (Fair) Memory: Impaired Mood: Appropriate Affect: Appropriate Thought Process & Associations: Other ([place]) Thought Content: Appropriate Hallucination Type: None Delusion Type: Paranoid (Minimal) Suicidal Ideation: No Suicidal Plan: No Suicidal Intention: No Homicidal Ideation: No Homicidal Plan: No Homicidal Intention: No Insight: Poor Judgment: Poor Assessment and Plan - Assessment (1) Dementia Code(s): F03.90 - Unspecified dementia without behavioral disturbance Status: Acute - Plan Plan: Patient continues with some disorganization at the appropriate with staff, compliant with medications, occasional visual hallucinations but no auditory hallucinations. Patient with no aggressive behavior on the unit has been calm and cooperative with staff. Continue current treatment. Continue to monitor mood and behavior. UA and occult blood of stool pending. Discharge planning in progress. Justification for Continued Inpatient Stay: At risk of further decompensation at lower level care. Request Healthcare Surrogate/Guardian Advocate?: Yes (1) Dementia Qualifiers: Dementia type: unspecified type Dementia behavioral disturbance: with behavioral disturbance Qualified Code(s): F03.91 - Unspecified dementia with behavioral disturbance
[2018-10-04] MEDS: Levothyroxine 50 MCG Tablet PO SCH (06:43)
[2018-10-04] MEDS: Insulin NovoLOG Aspart Correctional Sugar Inj SQ SCH ×3 (07:23→20:33)
[2018-10-04] MEDS: amLODIPine 10 MG Tablet PO SCH (08:04)
[2018-10-04] MEDS: Lisinopril 20 MG Tablet PO SCH (08:04)
[2018-10-04] MEDS: Mirtazapine 15 MG Tablet PO SCH (08:05)
--- NOTE | 2018-10-04 13:11 | P.PNPSY ---
Subjective Remarks: Reviewed electronic medical records and discussed case with staff. Follow-up was conducted in the hallway with YAHIR Espinosa present. Her nurse reports that she has been compliant with her medications. Patient states that she is doing "good ". She denies feeling tired or sick. She denies any pain at this time. Staff report that she is been assisting with newer admit to the unit who also speaks Turkmen. She seems to be somewhat calmer and more easily or redirectable. It appears she has settled down nicely on. Mental Status Examination Appearance: Appropriate Consciousness: Alert Orientation: Person Motor Activity: Normal gait Speech: Unremarkable Language: Adequate Fund of Knowledge: Adequate Attention and Concentration: Adequate (Fair) Memory: Impaired Mood: Appropriate Affect: Appropriate Thought Process & Associations: Other ([place]) Thought Content: Appropriate Hallucination Type: None Delusion Type: Paranoid (Minimal) Suicidal Ideation: No Suicidal Plan: No Suicidal Intention: No Homicidal Ideation: No Homicidal Plan: No Homicidal Intention: No Insight: Poor Judgment: Poor Assessment and Plan - Assessment (1) Dementia Code(s): F03.90 - Unspecified dementia without behavioral disturbance Status: Acute - Plan Plan: Patient will be reevaluated by the attending psychiatrist. Continue with current treatment plan. Justification for Continued Inpatient Stay: Moving this patient to a less restrictive environment would likely result in decompensation. Request Healthcare Surrogate/Guardian Advocate?: Yes (1) Dementia Qualifiers: Dementia type: unspecified type Dementia behavioral disturbance: with behavioral disturbance Qualified Code(s): F03.91 - Unspecified dementia with behavioral disturbance
[2018-10-05] MEDS: Levothyroxine 50 MCG Tablet PO SCH (06:42)
--- NOTE | 2018-10-05 08:49 | P.PNPSY ---
Subjective Remarks: Reviewed electronic medical records and discussed case with staff. Follow-up was conducted in the day room with SANDEEP Parish present. Patient is eating breakfast. She intermittently gets frustrated and annoyed with others. She is easily redirected. She is medication compliant. Nursing staff report that she does not sleep through the night. She is taking naps during the day. Mental Status Examination Appearance: Appropriate Consciousness: Alert Orientation: Person Motor Activity: Normal gait Speech: Unremarkable Language: Adequate Fund of Knowledge: Adequate Attention and Concentration: Adequate (Fair) Memory: Impaired Mood: Appropriate Affect: Appropriate Thought Process & Associations: Other ([place]) Thought Content: Appropriate Hallucination Type: None Delusion Type: Paranoid (Minimal) Suicidal Ideation: No Suicidal Plan: No Suicidal Intention: No Homicidal Ideation: No Homicidal Plan: No Homicidal Intention: No Insight: Poor Judgment: Poor Assessment and Plan - Assessment (1) Dementia with behavioral disturbance Code(s): F03.91 - Unspecified dementia with behavioral disturbance Status: Acute - Plan Plan: Patient will be reevaluated by the attending psychiatrist. Continue with current treatment plan. Justification for Continued Inpatient Stay: Moving patient to a less restrictive environment may result in her decompensation. Request Healthcare Surrogate/Guardian Advocate?: Yes
[2018-10-05] MEDS: Lisinopril 20 MG Tablet PO SCH (09:37)
[2018-10-05] MEDS: amLODIPine 10 MG Tablet PO SCH (09:38)
[2018-10-05] MEDS: Mirtazapine 15 MG Tablet PO SCH (09:38)
[2018-10-06] MEDS: Insulin NovoLOG Aspart Correctional Sugar Inj SQ SCH ×2 (06:03→21:27)
[2018-10-06] MEDS: Levothyroxine 50 MCG Tablet PO SCH (09:30)
[2018-10-06] MEDS: Lisinopril 20 MG Tablet PO SCH (10:05)
[2018-10-06] MEDS: Mirtazapine 15 MG Tablet PO SCH (10:06)
[2018-10-06] MEDS: amLODIPine 10 MG Tablet PO SCH (10:07)
--- NOTE | 2018-10-06 13:34 | P.PNPSY ---
Subjective Remarks: Patient seen for follow-up, chart reviewed. Discussion with nursing staff reported that patient isolative at times but compliant with medications, eating and drinking well. Patient was found sitting hospital chair in her room noted B , cooperative. Patient states that she had been attending groups, her mood has been "good" denying any auditory visual hallucinations. Patient has been adherent to treatment stating that she takes her medications. Patient believes she is being discharged today but easily redirectable. Patient continued with baseline confusion. Review of Systems All other systems reviewed negative except as stated in HPI Mental Status Examination Appearance: Appropriate Consciousness: Alert Orientation: Person Motor Activity: Normal gait Speech: Unremarkable Language: Adequate Fund of Knowledge: Adequate Attention and Concentration: Adequate (Fair) Memory: Impaired Mood: Appropriate Affect: Appropriate Thought Process & Associations: Other ([place]) Thought Content: Appropriate Hallucination Type: None Delusion Type: None Suicidal Ideation: No Suicidal Plan: No Suicidal Intention: No Homicidal Ideation: No Homicidal Plan: No Homicidal Intention: No Insight: Poor Judgment: Impulsive Assessment and Plan - Assessment (1) Dementia Code(s): F03.90 - Unspecified dementia without behavioral disturbance Status: Acute - Plan Plan: Patient continued with stable mood, not endorsing any perceptional service of delusions. We will continue current treatment. Treatment team currently looking for adequate referral to residential facility for patient. Continue to monitor mood and behavior. Discharge planning in progress. Justification for Continued Inpatient Stay: At risk of further decompensation at lower level care. Request Healthcare Surrogate/Guardian Advocate?: Yes (1) Dementia Qualifiers: Dementia type: unspecified type Dementia behavioral disturbance: with behavioral disturbance Qualified Code(s): F03.91 - Unspecified dementia with behavioral disturbance
[2018-10-07] MEDS: Levothyroxine 50 MCG Tablet PO SCH (05:54)
--- NOTE | 2018-10-07 07:21 | P.TTN ---
- Patient Problems Problems: 1. Discharge planning 2. Medication compliance 3. Knowledge deficit 4. Lack of coping skills - Progress Toward Goals Provider Present: Dr. Jessica Corona Provider Input: 10/06/18: No med changes, pt presenting as stable. D/c plan is for counselors (Go) to seek placement, preferably in [place] speaking facility per pt primary language. Hawa to call snf this am as first follow-up. 10/01/18: Hawa found a possible placement in [facility] awaiting on response from facility. 09/29/18: CounselorAshlyn, has assigned Hawa to seek placement for pt, preference is to accomodate pt's primary language of [place] as a consideration. No medication changes noted. Nurse Input: 10/01/18: YAHIR Kelley reports patient is walking the floor but not been social. Pt currently compliant with medication. Psychiatric Counselors Present: Other Psychiatric Therapist Input: 10/01/18: Patient to be possible discharged to [facility], waiting to hear back from the facility. Zach Callahan, [facility] Group Spec/RT/OT/HODGE Present: NAVEEN Fischer, Rashid Bryant, OT Group Spec/RT/OT/HODGE Input: 10/06/18: Pt attends select groups, she is redirectable, pleasant has has been observed frequently with another pt, conversing (they are both fluent in [place]ian). 09/29/18: Pt rarely attends groups as she is unable to tolerate to participate. Occupational Therapist Input: 10/01/18: Patient is been selective with which activities she attends and has not been attending them all. - Discharge Plan 10/06/18: D/c plan is for counselors (Go) to seek placement, preferably in [place] speaking facility per pt primary language. Hawa to call snf this am as first follow-up. 09/29/18: CounselorAshlyn, has assigned Hawa to seek placement for pt, preference is to accomodate pt's primary language of [place]ian as a consideration. - Documentation Teaching Recipient: Patient
[2018-10-07] MEDS: Mirtazapine 15 MG Tablet PO SCH (08:09)
[2018-10-07] MEDS: amLODIPine 10 MG Tablet PO SCH (08:09)
[2018-10-07] MEDS: Lisinopril 20 MG Tablet PO SCH (08:09)
[2018-10-07] MEDS ORDERED: Haloperidol Decanoate Inj 50 MG/ML Ampul IM SCH (09:00)
--- NOTE | 2018-10-07 11:47 | P.PNPSY ---
Subjective Remarks: Patient seen for follow-up, chart reviewed. Discussion with nursing staff reported that patient compliant with medications no behavioral disturbances occasionally noted to be talking to self. Patient was found sitting in hospital chair falling asleep was able to wake up to interact with interview today. Patient states that she is feeling "fine foot" stating that she believes she is leaving today but was unable to elaborate where. Patient denies any physical complaints at this time denying any perceptional services or delusions. Review of Systems All other systems reviewed negative except as stated in HPI Mental Status Examination Appearance: Appropriate Consciousness: Alert Orientation: Person Motor Activity: Normal gait Speech: Unremarkable Language: Adequate Fund of Knowledge: Adequate Attention and Concentration: Adequate (Fair) Memory: Impaired Mood: Appropriate Affect: Appropriate Thought Process & Associations: Other ([place]) Thought Content: Appropriate Hallucination Type: None Delusion Type: None Suicidal Ideation: No Suicidal Plan: No Suicidal Intention: No Homicidal Ideation: No Homicidal Plan: No Homicidal Intention: No Insight: Poor Judgment: Impulsive Assessment and Plan - Assessment (1) Dementia Code(s): F03.90 - Unspecified dementia without behavioral disturbance Status: Acute - Plan Plan: Patient continues with baseline confusion, no episodes of agitation or irritability, compliant with medications, sleeping and eating drinking well. We will continue current treatment. We will continue to monitor mood and behavior. Treatment he continues to search for facility willing to accept patient. Discharge planning a progress. Justification for Continued Inpatient Stay: At risk of further decompensation at lower level care. Request Healthcare Surrogate/Guardian Advocate?: Yes (1) Dementia Qualifiers: Dementia type: unspecified type Dementia behavioral disturbance: with behavioral disturbance Qualified Code(s): F03.91 - Unspecified dementia with behavioral disturbance
[2018-10-08] MEDS: Insulin NovoLOG Aspart Correctional Sugar Inj SQ SCH ×2 (02:06→20:26)
[2018-10-08] MEDS: Levothyroxine 50 MCG Tablet PO SCH (07:20)
[2018-10-08] MEDS: Lisinopril 20 MG Tablet PO SCH (09:03)
[2018-10-08] MEDS: amLODIPine 10 MG Tablet PO SCH (09:03)
[2018-10-08] MEDS: Mirtazapine 15 MG Tablet PO SCH (09:03)
--- NOTE | 2018-10-08 13:46 | P.PNPSY ---
Subjective Remarks: Patient seen for follow-up, chart reviewed. Discussion with nursing staff reported that patient was upset this morning but not physically agitated or aggressive. Patient was found sitting in hospital chair in hallway noted to be , cooperative. Very concrete responses. Patient reports eating and drinking well, no difficulty with sleep, tolerating medications well. Patient denies any perceptual disturbances was noted to have some nonsensical statements and rambling at times but not noted to be irritable or combative. Patient has been compliant with medications. Review of Systems All other systems reviewed negative except as stated in HPI Mental Status Examination Appearance: Appropriate (Continue the same from before) Consciousness: Alert Orientation: Person Motor Activity: Normal gait Speech: Unremarkable Language: Adequate Fund of Knowledge: Adequate Attention and Concentration: Adequate (Fair) Memory: Impaired Mood: Appropriate Affect: Appropriate Thought Process & Associations: Other ([place]) Thought Content: Appropriate Hallucination Type: None Delusion Type: None Suicidal Ideation: No Suicidal Plan: No Suicidal Intention: No Homicidal Ideation: No Homicidal Plan: No Homicidal Intention: No Insight: Poor Judgment: Impulsive Assessment and Plan - Assessment (1) Dementia Code(s): F03.90 - Unspecified dementia without behavioral disturbance Status: Acute - Plan Plan: Patient has been calm and cooperative with staff compliant with medications, no episodes of irritability or agitation. No ETO's. We will continue current treatment continue to monitor mood and behavior. Discharge planning in progress. Justification for Continued Inpatient Stay: At risk of further decompensation at lower level care. Request Healthcare Surrogate/Guardian Advocate?: Yes (1) Dementia Qualifiers: Dementia type: unspecified type Dementia behavioral disturbance: with behavioral disturbance Qualified Code(s): F03.91 - Unspecified dementia with behavioral disturbance
[2018-10-09] MEDS: Levothyroxine 50 MCG Tablet PO SCH ×2 (06:26→06:33)
[2018-10-09] MEDS: amLODIPine 10 MG Tablet PO SCH (08:27)
[2018-10-09] MEDS: Mirtazapine 15 MG Tablet PO SCH (08:27)
[2018-10-09] MEDS: Lisinopril 20 MG Tablet PO SCH (08:27)
--- NOTE | 2018-10-09 10:38 | P.TTN ---
- Patient Problems Problems: 1. Discharge planning 2. Medication compliance 3. Knowledge deficit 4. Lack of coping skills - Progress Toward Goals Provider Present: Dr. Jessica Corona, Dr. Ron Capps Provider Input: 10/08/18 No med changes, pt display poor judgement and insight but has no beh issues other than yellings sometimes. 10/06/18: No med changes, pt presenting as stable. D/c plan is for counselors (Go) to seek placement, preferably in Serbian speaking facility per pt primary language. Hawa to call snf this am as first follow-up. 10/01/18: Hawa found a possible placement in [place], [place] [facility]), awaiting on response from facility. 09/29/18: Counselor, Ashlyn, has assigned Hawa to seek placement for pt, preference is to accomodate pt's primary language of Serbian as a consideration. No medication changes noted. Nurse Input: 10/08/18: Per RN pt has been argumentative during the morning and experiencing some hallucinations arguing with people who are not there. : YAHIR Kelley reports patient is walking the floor but not been social. Pt currently compliant with medication. Psychiatric Counselors Present: Other Psychiatric Therapist Input: 10/08/18: Zach: Placement with [facility] fell through and pt was not accepted. D/c plan is for counselors to seek placement, preferably in Serbian speaking facility per pt primary language.. 10/01/18: Patient to be possible discharged to [facility], waiting to hear back from the facility. Zach Callahan, [facility] Group Spec/RT/OT/HODGE Present: NAVEEN Fischer, Rashid Bryant, OT Group Spec/RT/OT/HODGE Input: 10/08/18: Pt attends select groups. 10/06/18: Pt attends select groups, she is redirectable, pleasant has has been observed frequently with another pt, conversing (they are both fluent in Serbian). 09/29: Pt rarely attends groups as she is unable to tolerate to participate. Occupational Therapist Input: 10/01/18: Patient is been selective with which activities she attends and has not been attending them all. - Discharge Plan 10/06/18: D/c plan is for counselors (Go) to seek placement, preferably in Serbian speaking facility per pt primary language. Hawa to call snf this am as first follow-up. 09/29/18: Counselor, Ashlyn, has assigned Hawa to seek placement for pt, preference is to accomodate pt's primary language of Serbian as a consideration. - Documentation Teaching Recipient: Patient
--- NOTE | 2018-10-09 13:23 | P.PNPSY ---
Subjective Remarks: Patient seen for follow-up, chart reviewed. Discussion with nursing staff reported that patient took medications, intrusive at times redirectable, no behavioral disturbances. Patient was found ambulating on the unit B, cooperative. Patient occasionally have nonsensical statements with baseline confusion but able to interact appropriately during interview. Patient states she is sleeping well, has been attending to her hygiene, eating and drinking well and compliant with medications. Patient denies any perceptual disturbances at this time. Review of Systems All other systems reviewed negative except as stated in HPI Mental Status Examination Appearance: Appropriate (Continue the same from before) Consciousness: Alert Orientation: Person Motor Activity: Normal gait Speech: Unremarkable Language: Adequate Fund of Knowledge: Adequate Attention and Concentration: Adequate (Fair) Memory: Impaired Mood: Appropriate Affect: Appropriate Thought Process & Associations: Other ([place]) Thought Content: Appropriate Hallucination Type: None Delusion Type: None Suicidal Ideation: No Suicidal Plan: No Suicidal Intention: No Homicidal Ideation: No Homicidal Plan: No Homicidal Intention: No Insight: Poor Judgment: Impulsive Assessment and Plan - Assessment (1) Dementia Code(s): F03.90 - Unspecified dementia without behavioral disturbance Status: Acute - Plan Plan: Patient at this time continues with baseline confusion but has been cooperative with staff and with care, has been compliant with medications. We will continue current treatment. Continue to monitor mood and behavior. Discharge planning in progress. Justification for Continued Inpatient Stay: At risk of further decompensation at lower level care. Request Healthcare Surrogate/Guardian Advocate?: Yes (1) Dementia Qualifiers: Dementia type: unspecified type Dementia behavioral disturbance: with behavioral disturbance Qualified Code(s): F03.91 - Unspecified dementia with behavioral disturbance
[2018-10-09] MEDS: Insulin NovoLOG Aspart Correctional Sugar Inj SQ SCH (20:42)
[2018-10-10] MEDS: Levothyroxine 50 MCG Tablet PO SCH ×2 (06:10→07:06)
[2018-10-10] MEDS: amLODIPine 10 MG Tablet PO SCH (08:43)
[2018-10-10] MEDS: Mirtazapine 15 MG Tablet PO SCH (08:43)
[2018-10-10] MEDS: Lisinopril 20 MG Tablet PO SCH (08:43)
[2018-10-10] MEDS: Acetaminophen 325 MG Tablet PO PRN (11:25)
--- NOTE | 2018-10-10 12:38 | P.PNPSY ---
Subjective Remarks: Patient seen for follow-up, chart reviewed. Discussion with nursing staff reported that patient patient compliant with medications, and was reporting some headache this morning. Patient was found sitting in the room noted B, cooperative. Patient denies any physical complaints other than headache earlier today but was encouraged to take as needed medication for headache which she initially refused with nursing earlier today but accepting now. Patient reports being compliant with her scheduled medications denying any physical complaints, reports sleeping and eating and drinking well. Patient denies any perceptual disturbances or delusions at this time. Review of Systems All other systems reviewed negative except as stated in HPI Mental Status Examination Appearance: Appropriate (Continue the same from before) Consciousness: Alert Orientation: Person Motor Activity: Normal gait Speech: Unremarkable Language: Adequate Fund of Knowledge: Adequate Attention and Concentration: Adequate (Fair) Memory: Impaired Mood: Appropriate Affect: Appropriate Thought Process & Associations: Other ([place]) Thought Content: Appropriate Hallucination Type: None Delusion Type: None Suicidal Ideation: No Suicidal Plan: No Suicidal Intention: No Homicidal Ideation: No Homicidal Plan: No Homicidal Intention: No Insight: Poor Judgment: Impulsive Assessment and Plan - Assessment (1) Dementia Code(s): F03.90 - Unspecified dementia without behavioral disturbance Status: Acute - Plan Plan: Patient continues with baseline confusion, no episodes of agitation or irritability, compliant with medication and pleasant cooperative with staff. Continue current treatment. Continue to monitor mood and behavior. Discharge planning in progress. Justification for Continued Inpatient Stay: At risk of further decompensation at lower level care. Request Healthcare Surrogate/Guardian Advocate?: Yes (1) Dementia Qualifiers: Dementia type: unspecified type Dementia behavioral disturbance: with behavioral disturbance Qualified Code(s): F03.91 - Unspecified dementia with behavioral disturbance
[2018-10-10] MEDS: Insulin NovoLOG Aspart Correctional Sugar Inj SQ SCH (20:05)
[2018-10-11] MEDS: Levothyroxine 50 MCG Tablet PO SCH (05:34)
[2018-10-11] MEDS: Lisinopril 20 MG Tablet PO SCH (09:10)
[2018-10-11] MEDS: Mirtazapine 15 MG Tablet PO SCH (09:10)
[2018-10-11] MEDS: amLODIPine 10 MG Tablet PO SCH (09:10)
--- NOTE | 2018-10-11 12:52 | P.PNPSY ---
Subjective Remarks: Pt seen and discussed with staff. She was admitted due to aggression at [facility]. Staff report that with coaxing she took morning meds. She has been c/o of people being outside of windows. No aggression or agitation today. No SI/HI Mental Status Examination Appearance: Appropriate (Continue the same from before) Consciousness: Alert Orientation: Person Motor Activity: Normal gait Speech: Unremarkable Language: Adequate Fund of Knowledge: Adequate Attention and Concentration: Adequate (Fair) Memory: Impaired Mood: Appropriate Affect: Appropriate Thought Process & Associations: Other ([place]) Thought Content: Appropriate Hallucination Type: None Delusion Type: None Suicidal Ideation: No Suicidal Plan: No Suicidal Intention: No Homicidal Ideation: No Homicidal Plan: No Homicidal Intention: No Insight: Poor Judgment: Impulsive Assessment and Plan - Assessment (1) Dementia Code(s): F03.90 - Unspecified dementia without behavioral disturbance Status: Acute - Plan Plan: Continue current tx plan Justification for Continued Inpatient Stay: risk of decompensation Request Healthcare Surrogate/Guardian Advocate?: Yes (1) Dementia Qualifiers: Dementia type: unspecified type Dementia behavioral disturbance: with behavioral disturbance Qualified Code(s): F03.91 - Unspecified dementia with behavioral disturbance
[2018-10-11] MEDS: Insulin NovoLOG Aspart Correctional Sugar Inj SQ SCH (21:01)
[2018-10-12] MEDS: Levothyroxine 50 MCG Tablet PO SCH (05:47)
--- NOTE | 2018-10-12 08:34 | P.PNPSY ---
Subjective Remarks: Reviewed electronic record and discussed with nursing staff. Rounded with YAHIR Gutiérrez. Patient is very angry today. Needs to be redirected frequently . Endorses that she is sleeping well and appetite is good. Nursing reports she gets loud and demanding. She refused her accu check last night. Today she seems more amenable to take her medications. Review of Systems All other systems reviewed negative except as stated in HPI Mental Status Examination Appearance: Appropriate (Continue the same from before) Consciousness: Alert Orientation: Person Motor Activity: Normal gait Speech: Unremarkable Language: Adequate Fund of Knowledge: Adequate Attention and Concentration: Adequate (Fair) Memory: Impaired Mood: Appropriate Affect: Appropriate Thought Process & Associations: Other ([place]) Thought Content: Appropriate Hallucination Type: None Delusion Type: None Suicidal Ideation: No Suicidal Plan: No Suicidal Intention: No Homicidal Ideation: No Homicidal Plan: No Homicidal Intention: No Insight: Poor Judgment: Impulsive Assessment and Plan - Assessment (1) Dementia with behavioral disturbance Code(s): F03.91 - Unspecified dementia with behavioral disturbance Status: Acute - Plan Plan: Continue current tx plan Justification for Continued Inpatient Stay: Moving patient to a less restrictive environment may result in her decompensation. Request Healthcare Surrogate/Guardian Advocate?: Yes
[2018-10-12] MEDS: amLODIPine 10 MG Tablet PO SCH (11:51)
[2018-10-12] MEDS: Mirtazapine 15 MG Tablet PO SCH (11:51)
[2018-10-12] MEDS: Lisinopril 20 MG Tablet PO SCH (11:51)
[2018-10-12] MEDS: Insulin NovoLOG Aspart Correctional Sugar Inj SQ SCH (21:52)
[2018-10-13] MEDS: Levothyroxine 50 MCG Tablet PO SCH (06:23)
[2018-10-13] MEDS: amLODIPine 10 MG Tablet PO SCH (09:05)
[2018-10-13] MEDS: Mirtazapine 15 MG Tablet PO SCH (09:05)
[2018-10-13] MEDS: Lisinopril 20 MG Tablet PO SCH (09:05)
--- NOTE | 2018-10-13 14:37 | P.PNPSY ---
Subjective Remarks: Patient seen for follow-up, chart reviewed. Discussion with nursing staff reported that patient patient with occasional verbal outbursts to self but redirectable no evidence of agitation and irritability, eating drinking well. Patient was found sitting in hospital chair in the room B, cooperative. Patient noted with slightly less energy, states that she is feeling okay denies any physical complaints at this time the previously patient had complained of blood in her stools as well as pain upon urination but reported noted patient does have baseline confusion. She denies any perceptual disturbances, denies any difficulty eating and drinking or bowel movement. Review of Systems All other systems reviewed negative except as stated in HPI Mental Status Examination Appearance: Appropriate (Continue the same from before) Consciousness: Alert Orientation: Person Motor Activity: Normal gait Speech: Unremarkable Language: Adequate Fund of Knowledge: Adequate Attention and Concentration: Adequate (Fair) Memory: Impaired Mood: Appropriate Affect: Appropriate Thought Process & Associations: Other ([place]) Thought Content: Appropriate Hallucination Type: None Delusion Type: None Suicidal Ideation: No Suicidal Plan: No Suicidal Intention: No Homicidal Ideation: No Homicidal Plan: No Homicidal Intention: No Insight: Poor Judgment: Impulsive Assessment and Plan - Assessment (1) Dementia Code(s): F03.90 - Unspecified dementia without behavioral disturbance Status: Acute - Plan Plan: Patient continues with baseline confusion, we will order repeat CBC, CMP, valproic acid level, and reorder a UA and occult blood as these were still pending. We will continue rest of medications. Continue to monitor mood and behavior. Discharge planning in progress. Justification for Continued Inpatient Stay: At risk of further decompensation at lower level care. Request Healthcare Surrogate/Guardian Advocate?: Yes (1) Dementia Qualifiers: Dementia type: unspecified type Dementia behavioral disturbance: with behavioral disturbance Qualified Code(s): F03.91 - Unspecified dementia with behavioral disturbance
[2018-10-13] MEDS: Insulin NovoLOG Aspart Correctional Sugar Inj SQ SCH (21:17)
[2018-10-14] MEDS: Levothyroxine 50 MCG Tablet PO SCH (05:42)
[2018-10-14] MEDS: Mirtazapine 15 MG Tablet PO SCH ×2 (09:14→10:26)
[2018-10-14] MEDS: Lisinopril 20 MG Tablet PO SCH ×2 (09:14→10:26)
[2018-10-14] MEDS: amLODIPine 10 MG Tablet PO SCH ×2 (09:14→10:26)
[2018-10-14 12:09] LABS: Baso % (Auto) 0.6 % (0.0-2.0); Eos # (Auto) 0.2 th/mm3 (0.0-0.4); Hematocrit 31.7 % (35.0-46.0); Hemoglobin 10.6 gm/dL (11.6-15.3); Lymph # (Auto) 1.6 th/mm3 (1.0-4.8); Lymph % (Auto) 22.3 % (9.0-44.0); Mean Corpuscular HGB Conc 33.5 % (32.0-36.0); Mean Corpuscular Hemoglobin 29.7 pg (27.0-34.0); Mean Corpuscular Volume 88.6 fL (80.0-100.0); Mean Platelet Volume 8.8 fL (7.0-11.0); Mono # (Auto) 0.6 th/mm3 (0.0-0.9); Neut # (Auto) 4.7 th/mm3 (1.8-7.7); Neut % (Auto) 65.1 % (16.0-70.0); Platelet Count 232 th/mm3 (150-450); Red Blood Count 3.58 mil/mm3 (4.00-5.30); Red Cell Distribution Width 14.1 % (11.6-17.2); White Blood Count 7.1 th/mm3 (4.0-11.0)
[2018-10-14 12:39] LABS: Alanine Aminotransferase 22 U/L (10-53); Albumin 3.9 g/dL (3.4-5.0); Anion Gap 6 meq/L (5-15); Aspartate Aminotransferase 14 U/L (15-37); Blood Urea Nitrogen 35 mg/dL (7-18); Calcium 8.9 mg/dL (8.5-10.1); Carbon Dioxide 27.7 meq/L (21.0-32.0); Chloride 103 meq/L (98-107); Glomerular Filtration Rate 51 mL/min (>89); Glucose,Random 125 mg/dL (74-106); Sodium 137 meq/L (136-145)
[2018-10-14 12:42] LABS: Alkaline Phosphatase 88 U/L (45-117); Total Protein 7.5 g/dL (6.4-8.2)
--- NOTE | 2018-10-14 13:23 | P.PNPSY ---
Subjective Remarks: Patient seen in day room with floor staff, chart reviewed, patient trying mixed complaints medication. Patient continues to wander speaking in Omani but redirectable. She is calm and she is pleasant with me at this time. For now continue treatment Review of Systems All other systems reviewed negative except as stated in HPI Mental Status Examination Appearance: Appropriate (Continue the same from before) Consciousness: Alert Orientation: Person Motor Activity: Normal gait Speech: Unremarkable Language: Adequate Fund of Knowledge: Adequate Attention and Concentration: Adequate (Fair) Memory: Impaired Mood: Appropriate Affect: Appropriate Thought Process & Associations: Other ([place]) Thought Content: Appropriate Hallucination Type: None Delusion Type: None Suicidal Ideation: No Suicidal Plan: No Suicidal Intention: No Homicidal Ideation: No Homicidal Plan: No Homicidal Intention: No Insight: Poor Judgment: Impulsive Assessment and Plan - Assessment (1) Dementia Code(s): F03.90 - Unspecified dementia without behavioral disturbance Status: Acute - Plan Plan: Patient continues to wander the halls she is calm continues diffusely confused at times somewhat babbling in [place]i but redirectable. For now continue treatment Justification for Continued Inpatient Stay: At this time patient with decompensated placed on a lower level of care Discharge Planning: To be determined Request Healthcare Surrogate/Guardian Advocate?: Yes (1) Dementia Qualifiers: Dementia type: unspecified type Dementia behavioral disturbance: with behavioral disturbance Qualified Code(s): F03.91 - Unspecified dementia with behavioral disturbance
[2018-10-14] MEDS: Insulin NovoLOG Aspart Correctional Sugar Inj SQ SCH (21:26)
[2018-10-15] MEDS: Levothyroxine 50 MCG Tablet PO SCH (05:34)
[2018-10-15] MEDS: amLODIPine 10 MG Tablet PO SCH (08:22)
[2018-10-15] MEDS: Mirtazapine 15 MG Tablet PO SCH (08:22)
[2018-10-15] MEDS: Lisinopril 20 MG Tablet PO SCH (08:22)
--- NOTE | 2018-10-15 11:37 | P.PNPSY ---
Subjective Remarks: Patient seen for follow-up, chart reviewed. Discussion with nursing staff reported that patient with no behavioral disturbances, no behavioral issues, compliant with medication and with care. Patient was found lying on hospital chair and noted to be calm and cooperative. Patient denies any physical complaints at this time reports eating and drinking well, denies any perceptual disturbances or delusions. Patient later engaged in interview as being found in the hallway talking to self and patient rambling secondary to baseline confusion. Review of Systems All other systems reviewed negative except as stated in HPI Mental Status Examination Appearance: Appropriate (Continue the same from before) Consciousness: Alert Orientation: Person Motor Activity: Normal gait Speech: Unremarkable Language: Adequate Fund of Knowledge: Adequate Attention and Concentration: Adequate (Fair) Memory: Impaired Mood: Appropriate Affect: Appropriate Thought Process & Associations: Other ([place]) Thought Content: Appropriate Hallucination Type: None Delusion Type: None Suicidal Ideation: No Suicidal Plan: No Suicidal Intention: No Homicidal Ideation: No Homicidal Plan: No Homicidal Intention: No Insight: Poor Judgment: Impulsive Assessment and Plan - Assessment (1) Dementia Code(s): F03.90 - Unspecified dementia without behavioral disturbance Status: Acute - Plan Plan: Patient continues at baseline confusion, no evidence of agitation or irritability, compliant with care. Patient also compliant with medication regimen. No behavioral disturbances. We will continue current treatment. Continue to monitor mood and behavior. Discharge planning in progress. Justification for Continued Inpatient Stay: At risk of further decompensation at lower level care. Request Healthcare Surrogate/Guardian Advocate?: Yes (1) Dementia Qualifiers: Dementia type: unspecified type Dementia behavioral disturbance: with behavioral disturbance Qualified Code(s): F03.91 - Unspecified dementia with behavioral disturbance
--- NOTE | 2018-10-15 15:36 | P.TTN ---
- Patient Problems Problems: 1. Discharge planning 2. Medication compliance 3. Knowledge deficit 4. Lack of coping skills - Progress Toward Goals Provider Present: Dr. Jessica Corona, Dr. Ron Capps Provider Input: 10/15/18 Per MD pt continues to have poor insight and judgement. Pt sometimes argues with the delusion but is redirectable when spoken to kindly. 10/13/18 Poor insight and judgement. No behavior problems over the weekend. 10/08/18 No med changes, pt display poor judgement and insight but has no beh issues other than yellings sometimes. 10/06/18: No med changes, pt presenting as stable. D/c plan is for counselors (Ania and Zach) to seek placement, preferably in [place] speaking facility per pt primary language. Hawa to call snf this am as first follow-up. 10/01/18: Hawa found a possible placement in [place], [place] )[facility]), awaiting on response from facility. 09/29/18: Counselor, Ashlyn, has assigned Hawa to seek placement for pt, preference is to accomodate pt's primary language of Egyptian as a consideration. No medication changes noted. Nurse Input: 10/15/18 Per RN pt has been abit argumentative today but redirectable. Medication compliant and enjoys walking through the hallway. 08/21 Patient has slept well. Continues to walk the floor. 10/08/18: Per RN pt has been argumentative during the morning and experiencing some hallucinations arguing with people who are not there. 10/01/18: YAHIR Kelley reports patient is walking the floor but not been social. Pt currently compliant with medication. Psychiatric Counselors Present: Other Psychiatric Therapist Input: 10/15/18 Sonyaed: Pt will be staffed by [facility] tomorrow and they will have a decision on acceptance by tomorrow. 10/13/18 Zach: Was able to contact her brother with a wellness check by the police since he refused to answer phone. Placement still an issue. 10/08/18: Zach: Placement with [facility] fell through and pt was not accepted. D/c plan is for counselors to seek placement, preferably in [place] speaking facility per pt primary language.. 10/01/18: Patient to be possible [facility] to [facility], waiting to hear back from the facility. Zach Callahan , [facility] Group Spec/RT/OT/HODGE Present: Macey Garcia, GPS, NAVEEN Fischer, Rashid Bryant, OT Group Spec/RT/OT/HODGE Input: 10/15/18 Per Macey, Pt attends select groups activities. 10/13/18 Select group participations. 10/08/18: Pt attends select groups. 10/06/18: Pt attends select groups, she is redirectable, pleasant has has been observed frequently with another pt, conversing (they are both fluent in Egyptian). 09/29/18: Pt rarely attends groups as she is unable to tolerate to participate. Occupational Therapist Input: 10/01/18: Patient is been selective with which activities she attends and has not been attending them all. - Discharge Plan 10/06/18: D/c plan is for counselors (Go) to seek placement, preferably in [place] speaking facility per pt primary language. Hawa to call snf this am as first follow-up. 09/29/18: Counselor, Ashlyn, has assigned Hawa to seek placement for pt, preference is to accomodate pt's primary language of Egyptian as a consideration. - Documentation Teaching Recipient: Patient
[2018-10-15] MEDS: Insulin NovoLOG Aspart Correctional Sugar Inj SQ SCH (20:46)
[2018-10-16] MEDS: Acetaminophen 325 MG Tablet PO PRN (00:51)
[2018-10-16] MEDS: Levothyroxine 50 MCG Tablet PO SCH (05:58)
[2018-10-16] MEDS: Lisinopril 20 MG Tablet PO SCH (08:03)
[2018-10-16] MEDS: amLODIPine 10 MG Tablet PO SCH (08:03)
[2018-10-16] MEDS: Mirtazapine 15 MG Tablet PO SCH (08:04)
--- NOTE | 2018-10-16 12:02 | P.PNPSY ---
Subjective Remarks: Patient seen for follow-up, chart reviewed. Discussion with nursing staff reported that patient with no behavioral disturbances, has been sleeping and eating and drinking well, compliant with medications. Patient was found standing in hallway noted to be confused and stated that she was supposed to be discharged home today. Patient denies any physical complaints, noted to be, cooperative, denying any adverse drug reactions from medications, reports that compliance with meds. Patient denies any perceptual disturbances or delusions. Review of Systems All other systems reviewed negative except as stated in HPI Mental Status Examination Appearance: Appropriate (With the) Consciousness: Alert Orientation: Person Motor Activity: Normal gait Speech: Unremarkable Language: Adequate Fund of Knowledge: Adequate Attention and Concentration: Adequate (Fair) Memory: Impaired Mood: Appropriate Affect: Appropriate Thought Process & Associations: Other ([place]) Thought Content: Appropriate Hallucination Type: None Delusion Type: None Suicidal Ideation: No Suicidal Plan: No Suicidal Intention: No Homicidal Ideation: No Homicidal Plan: No Homicidal Intention: No Insight: Poor Judgment: Impulsive Assessment and Plan - Assessment (1) Dementia Code(s): F03.90 - Unspecified dementia without behavioral disturbance Status: Acute - Plan Plan: baseline, patient is medications see patient. Continue baseline confusion, compliant with medications, but some agitation and irritability, calm and cooperative with staff and with care. Continue current treatment. Continue to monitor mood and behavior. Discharge planning in progress. Repeat UA and Hemoccult blood pending. Justification for Continued Inpatient Stay: At risk of further decompensation at lower level care. Request Healthcare Surrogate/Guardian Advocate?: Yes (1) Dementia Qualifiers: Dementia type: unspecified type Dementia behavioral disturbance: with behavioral disturbance Qualified Code(s): F03.91 - Unspecified dementia with behavioral disturbance
[2018-10-16 20:47] LABS: Bacteria,Urine Rare /hpf; Bilirubin,Urine Negative (Negative); Clarity,Urine Clear (Clear); Color,Urine Yellow (Yellw/Straw); Glucose,Urine (UA) Negative (Negative); Leukocyte Esterase,Urine Small (Negative); Mucus,Urine Few /lpf (Occasional); Nitrite,Urine Negative (Negative); Specific Gravity,Urine 1.019 (1.002-1.035); Squamous Epithelial Cell,Urine 2 /hpf (0-5)
[2018-10-16] MEDS: Insulin NovoLOG Aspart Correctional Sugar Inj SQ SCH (22:09)
[2018-10-17] MEDS: Levothyroxine 50 MCG Tablet PO SCH (05:48)
[2018-10-17] MEDS: Mirtazapine 15 MG Tablet PO SCH (08:00)
[2018-10-17] MEDS: Lisinopril 20 MG Tablet PO SCH (08:00)
[2018-10-17] MEDS: amLODIPine 10 MG Tablet PO SCH (08:00)
--- NOTE | 2018-10-17 14:27 | P.PNPSY ---
Subjective Remarks: The patient was seen today for psychiatric reevaluation. Patient is interviewed in Bangladeshi. She was discussion with nurse in charge who reported that patient with no behavioral disturbances, has been sleeping and eating and drinking well, compliant with medications. Patient was found standing in hallway noted to be confused and stated that she was supposed to be discharged home today. Patient denies any physical complaints, noted to be, cooperative, denying any adverse drug reactions from medications, reports that compliance with meds. Patient denies any perceptual disturbances or delusions. Mental Status Examination Appearance: Appropriate (With the) Consciousness: Alert Orientation: Person Motor Activity: Normal gait Speech: Unremarkable Language: Adequate Fund of Knowledge: Adequate Attention and Concentration: Adequate (Fair) Memory: Impaired Mood: Appropriate Affect: Appropriate Thought Process & Associations: Other ([place]) Thought Content: Appropriate Hallucination Type: None Delusion Type: None Suicidal Ideation: No Suicidal Plan: No Suicidal Intention: No Homicidal Ideation: No Homicidal Plan: No Homicidal Intention: No Insight: Poor Judgment: Impulsive Assessment and Plan - Assessment (1) Dementia Code(s): F03.90 - Unspecified dementia without behavioral disturbance Status: Acute - Plan Plan: Patient is calm, cooperative, no behavior changes in the last 24 hours. Compliant with medications, no cervical side effects. Continue current psychotropic regimen. Justification for Continued Inpatient Stay: Continue psychiatric admission for stabilization. Request Healthcare Surrogate/Guardian Advocate?: Yes (1) Dementia Qualifiers: Dementia type: unspecified type Dementia behavioral disturbance: with behavioral disturbance Qualified Code(s): F03.91 - Unspecified dementia with behavioral disturbance
[2018-10-17] MEDS: Insulin NovoLOG Aspart Correctional Sugar Inj SQ SCH (21:36)
[2018-10-18] MEDS: Levothyroxine 50 MCG Tablet PO SCH (05:09)
[2018-10-18] MEDS: amLODIPine 10 MG Tablet PO SCH (08:22)
[2018-10-18] MEDS: Mirtazapine 15 MG Tablet PO SCH (08:22)
[2018-10-18] MEDS: Lisinopril 20 MG Tablet PO SCH (08:22)
--- NOTE | 2018-10-18 12:20 | P.PNPSY ---
Subjective Remarks: Reviewed electronic medical records and discussed case with staff. Follow-up was conducted in the hallway with YAHIR Ortiz present. Her nurse reports that there have been no changes the patient remains compliant with her medications and has had no real significant behavioral disturbances. Patient denies feeling sick or having pain. She states that she is sleeping okay and eating well. No complaints at this time. Mental Status Examination Appearance: Appropriate (With the) Consciousness: Alert Orientation: Person Motor Activity: Normal gait Speech: Unremarkable Language: Adequate Fund of Knowledge: Adequate Attention and Concentration: Adequate (Fair) Memory: Impaired Mood: Appropriate Affect: Appropriate Thought Process & Associations: Other ([place]) Thought Content: Appropriate Hallucination Type: None Delusion Type: None Suicidal Ideation: No Suicidal Plan: No Suicidal Intention: No Homicidal Ideation: No Homicidal Plan: No Homicidal Intention: No Insight: Poor Judgment: Impulsive Assessment and Plan - Assessment (1) Dementia Code(s): F03.90 - Unspecified dementia without behavioral disturbance Status: Acute - Plan Plan: Patient will be reevaluated by the attending psychiatrist. Continue with current treatment plan. Justification for Continued Inpatient Stay: Moving this patient to a less restrictive environment would likely result in decompensation. Request Healthcare Surrogate/Guardian Advocate?: Yes (1) Dementia Qualifiers: Dementia type: unspecified type Dementia behavioral disturbance: with behavioral disturbance Qualified Code(s): F03.91 - Unspecified dementia with behavioral disturbance
[2018-10-18] MEDS: Insulin NovoLOG Aspart Correctional Sugar Inj SQ SCH (21:00)
[2018-10-19] MEDS: Levothyroxine 50 MCG Tablet PO SCH (05:29)
[2018-10-19] MEDS: amLODIPine 10 MG Tablet PO SCH (08:46)
[2018-10-19] MEDS: Mirtazapine 15 MG Tablet PO SCH (08:47)
[2018-10-19] MEDS: Lisinopril 20 MG Tablet PO SCH (08:47)
--- NOTE | 2018-10-19 15:38 | P.PNPSY ---
Subjective Remarks: Patient seen in coverage for Dr. Alicia. Chart reviewed. Case discussed with nursing staff who reports that patient will respond to internal stimuli from time to time but otherwise presents no behavioral problem. I find the patient ambulating around the unit. She is calm at the time of my evaluation. She does call out to unseen people at times. No evident medication side effects. No signs of physical distress. Vital Signs Temp Pulse Resp BP Pulse Ox 10/18/18 18:01 98.1 F 91 H 20 153/74 H 99 Intake and Output 10/19/18 10/19/18 10/19/18 06:59 14:59 22:59 Intake Total 480 / 480 Balance 480 / 480 Intake: Oral 480 / 480 Other: Date of Last Bowel Movement 10/17/18 Laboratory Results - last 24 hr 10/18/18 10/18/18 19:51 22:10 POC Glucose 163 H 189 H Labs reviewed. Review of Systems other (Limited ROS today) Mental Status Examination Appearance: Appropriate (Fair) Consciousness: Alert Orientation: Person Motor Activity: Normal gait Speech: Unremarkable Mood: Other (calm) Affect: Blunt Thought Content: Hallucinations Hallucination Type: Other (Responding at times to internal stimuli) Suicidal Ideation: No Homicidal Ideation: No Insight: Poor Judgment: Impulsive Assessment and Plan - Assessment (1) Dementia Code(s): F03.90 - Unspecified dementia without behavioral disturbance Status: Acute - Plan Plan: Continue current psychotropic medications as ordered. Continue to monitor on the inpatient unit. Continue other care as ordered. Justification for Continued Inpatient Stay: Risk for decompensation in less restrictive environment. Discharge Planning: Per Dr. Alicia. Request Healthcare Surrogate/Guardian Advocate?: Yes (1) Dementia Qualifiers: Dementia type: unspecified type Dementia behavioral disturbance: with behavioral disturbance Qualified Code(s): F03.91 - Unspecified dementia with behavioral disturbance
[2018-10-19] MEDS: Insulin NovoLOG Aspart Correctional Sugar Inj SQ SCH (20:21)
[2018-10-20] MEDS: Levothyroxine 50 MCG Tablet PO SCH (05:00)
[2018-10-20] MEDS: Lisinopril 20 MG Tablet PO SCH (08:00)
[2018-10-20] MEDS: Mirtazapine 15 MG Tablet PO SCH (08:00)
[2018-10-20] MEDS: amLODIPine 10 MG Tablet PO SCH (08:00)
--- NOTE | 2018-10-20 12:21 | P.PNPSY ---
Subjective Remarks: The patient was seen today for psychiatric reevaluation. The patient is found singing in the champion, which is calm, superficially cooperative. She reports that she is happy, awaiting the food to eat. As per nurse in charge the patient has been having some visual hallucinations at times, seems to be internally preoccupied, especially during the nighttime. Shows episodic agitation, but not really aggressiveness. Compliant with medications, no significant side effects. Mental Status Examination Appearance: Appropriate (Fair) Consciousness: Alert Orientation: Person Motor Activity: Normal gait Speech: Unremarkable Language: Adequate Fund of Knowledge: Adequate Attention and Concentration: Adequate (Fair) Memory: Impaired Mood: Other (calm) Affect: Blunt Thought Process & Associations: Other ([place]) Thought Content: Hallucinations Hallucination Type: Other (Responding at times to internal stimuli) Delusion Type: None Suicidal Ideation: No Suicidal Plan: No Suicidal Intention: No Homicidal Ideation: No Homicidal Plan: No Homicidal Intention: No Insight: Poor Judgment: Impulsive Assessment and Plan - Assessment (1) Dementia Code(s): F03.90 - Unspecified dementia without behavioral disturbance Status: Acute - Plan Plan: I will add Seroquel 25 mg at bedtime to help her with her sleep and visual hallucinations at nighttime. Continue psychiatric admission for stabilization Justification for Continued Inpatient Stay: Continue psychiatric admission for stabilization. Request Healthcare Surrogate/Guardian Advocate?: Yes (1) Dementia Qualifiers: Dementia type: unspecified type Dementia behavioral disturbance: with behavioral disturbance Qualified Code(s): F03.91 - Unspecified dementia with behavioral disturbance
[2018-10-20] MEDS: QUEtiapine 25 MG Tablet PO SCH (20:04)
[2018-10-20] MEDS: Insulin NovoLOG Aspart Correctional Sugar Inj SQ SCH (20:29)
[2018-10-20] MEDS: Aluminum/Magnesium/Simethacone Susp 30 ML UDC PO PRN (21:40)
[2018-10-21] MEDS: Levothyroxine 50 MCG Tablet PO SCH (05:31)
[2018-10-21] MEDS: Aluminum/Magnesium/Simethacone Susp 30 ML UDC PO PRN (05:31)
[2018-10-21] MEDS: Lisinopril 20 MG Tablet PO SCH (08:01)
[2018-10-21] MEDS: Mirtazapine 15 MG Tablet PO SCH (08:01)
[2018-10-21] MEDS: amLODIPine 10 MG Tablet PO SCH (08:01)
--- NOTE | 2018-10-21 11:32 | P.PNPSY ---
Subjective Remarks: The patient was seen today for psychiatric reevaluation. Case was discussed with nursing charge. On my psychiatric evaluation I find the patient in the recreational area of the unit. Patient is calm, in a good spirit. Patient tells me that she has been singing [employer] songs. She reports to be happy, awaiting to be back in [place] to see her family. Completely disoriented in time and place. Pleasantly confused. No agitation, no aggressive behavior present. Compliant with medications, no significant side effects. The patient denies pain at this moment Mental Status Examination Appearance: Appropriate (Fair) Consciousness: Alert Orientation: Person Motor Activity: Normal gait Speech: Unremarkable Language: Adequate Fund of Knowledge: Adequate Attention and Concentration: Adequate (Fair) Memory: Impaired Mood: Other (calm) Affect: Blunt Thought Process & Associations: Other ([place]) Thought Content: Hallucinations Hallucination Type: Other (Responding at times to internal stimuli) Delusion Type: None Suicidal Ideation: No Suicidal Plan: No Suicidal Intention: No Homicidal Ideation: No Homicidal Plan: No Homicidal Intention: No Insight: Poor Judgment: Impulsive Assessment and Plan - Assessment (1) Dementia Code(s): F03.90 - Unspecified dementia without behavioral disturbance Status: Acute - Plan Plan: Continue current psychotropic regimen. Support, motivational psychoeducation provided. Justification for Continued Inpatient Stay: Continue psychiatric admission for stabilization. Request Healthcare Surrogate/Guardian Advocate?: Yes (1) Dementia Qualifiers: Dementia type: unspecified type Dementia behavioral disturbance: with behavioral disturbance Qualified Code(s): F03.91 - Unspecified dementia with behavioral disturbance
[2018-10-21] MEDS: Insulin NovoLOG Aspart Correctional Sugar Inj SQ SCH (23:06)
[2018-10-21] MEDS: QUEtiapine 25 MG Tablet PO SCH (23:07)
[2018-10-22] MEDS: Levothyroxine 50 MCG Tablet PO SCH (05:00)
[2018-10-22] MEDS: Lisinopril 20 MG Tablet PO SCH (08:56)
[2018-10-22] MEDS: Mirtazapine 15 MG Tablet PO SCH (08:56)
[2018-10-22] MEDS: amLODIPine 10 MG Tablet PO SCH (08:56)
[2018-10-22] MEDS: Acetaminophen 325 MG Tablet PO PRN (09:11)
--- NOTE | 2018-10-22 13:50 | P.PNPSY ---
Subjective Remarks: The patient was seen today for psychiatric reevaluation. The patient is found in her room. Calm, superficially cooperative, pleasantly disoriented. Reports good mood, denies pain, denies distress, she denies suicidal and homicidal ideation, denies visual and auditory hallucinations. Has been eating appropriately, no agitation or aggressive behavior reported. She refused her Seroquel last night, but she says today will take it. Mental Status Examination Appearance: Appropriate (Fair) Consciousness: Alert Orientation: Person Motor Activity: Normal gait Speech: Unremarkable Language: Adequate Fund of Knowledge: Adequate Attention and Concentration: Adequate (Fair) Memory: Impaired Mood: Other (calm) Affect: Blunt Thought Process & Associations: Other ([place]) Thought Content: Hallucinations Hallucination Type: Other (Responding at times to internal stimuli) Delusion Type: None Suicidal Ideation: No Suicidal Plan: No Suicidal Intention: No Homicidal Ideation: No Homicidal Plan: No Homicidal Intention: No Insight: Poor Judgment: Impulsive Assessment and Plan - Assessment (1) Dementia Code(s): F03.90 - Unspecified dementia without behavioral disturbance Status: Acute - Plan Plan: Continue current psychotropic regimen. Support, motivational psych education provided Justification for Continued Inpatient Stay: Continue psychiatric admission for stabilization and safety Request Healthcare Surrogate/Guardian Advocate?: Yes (1) Dementia Qualifiers: Dementia type: unspecified type Dementia behavioral disturbance: with behavioral disturbance Qualified Code(s): F03.91 - Unspecified dementia with behavioral disturbance
[2018-10-22] MEDS: Insulin NovoLOG Aspart Correctional Sugar Inj SQ SCH (20:29)
[2018-10-22] MEDS: QUEtiapine 25 MG Tablet PO SCH (20:53)
[2018-10-23] MEDS: Levothyroxine 50 MCG Tablet PO SCH (06:23)
[2018-10-23] MEDS: Mirtazapine 15 MG Tablet PO SCH (08:31)
[2018-10-23] MEDS: amLODIPine 10 MG Tablet PO SCH (08:31)
[2018-10-23] MEDS: Lisinopril 20 MG Tablet PO SCH (08:31)
--- NOTE | 2018-10-23 14:28 | P.PNPSY ---
Subjective Remarks: The patient was seen today for psychiatric reevaluation. Patient is found in her room, calm, cooperative, in a good spirit. Patient tells me that she was seeing him before, report good mood, says that she is happy today. Reports good appetite, good sleep, no agitation, no aggressive behavior present at the moment. Compliant with her medications, no significant side effects reported. Mental Status Examination Appearance: Appropriate (Fair) Consciousness: Alert Orientation: Person Motor Activity: Normal gait Speech: Unremarkable Language: Adequate Fund of Knowledge: Adequate Attention and Concentration: Adequate (Fair) Memory: Impaired Mood: Other (calm) Affect: Blunt Thought Process & Associations: Other ([place]) Thought Content: Hallucinations Hallucination Type: Other (Responding at times to internal stimuli) Delusion Type: None Suicidal Ideation: No Suicidal Plan: No Suicidal Intention: No Homicidal Ideation: No Homicidal Plan: No Homicidal Intention: No Insight: Poor Judgment: Impulsive Assessment and Plan - Assessment (1) Dementia Code(s): F03.90 - Unspecified dementia without behavioral disturbance Status: Acute - Plan Plan: Continue current psychotropic regimen. Support, motivation, psych education provided. Follow-up vital signs. Justification for Continued Inpatient Stay: Continue psychiatric admission for stabilization. Request Healthcare Surrogate/Guardian Advocate?: Yes (1) Dementia Qualifiers: Dementia type: unspecified type Dementia behavioral disturbance: with behavioral disturbance Qualified Code(s): F03.91 - Unspecified dementia with behavioral disturbance
[2018-10-23] MEDS: QUEtiapine 25 MG Tablet PO SCH (20:18)
[2018-10-23] MEDS: Insulin NovoLOG Aspart Correctional Sugar Inj SQ SCH (21:02)
[2018-10-24] MEDS: Levothyroxine 50 MCG Tablet PO SCH (05:52)
[2018-10-24] MEDS: Mirtazapine 15 MG Tablet PO SCH (08:37)
[2018-10-24] MEDS: Lisinopril 20 MG Tablet PO SCH (08:37)
[2018-10-24] MEDS: amLODIPine 10 MG Tablet PO SCH (08:38)
[2018-10-24] MEDS ORDERED: Haloperidol Inj 5 MG/ML Ampul ONE (13:00)
[2018-10-24] MEDS ORDERED: Haloperidol Inj 5 MG/ML Ampul IM STA (13:04)
--- NOTE | 2018-10-24 13:11 | P.PNPSY ---
Subjective Remarks: The patient was seen today for psychiatric reevaluation. Patient discussed with nursing charge. Patient finding calm, cooperative, in a very good mood today. Patient reports to be happy today, very hungry, waiting for breakfast. Patient pleasantly confused, oriented in person, disoriented in time and place. Reported as compliant with medications, no agitation, no aggressive behavior. Mental Status Examination Appearance: Appropriate (Fair) Consciousness: Alert Orientation: Person Motor Activity: Normal gait Speech: Unremarkable Language: Adequate Fund of Knowledge: Adequate Attention and Concentration: Adequate (Fair) Memory: Impaired Mood: Other (calm) Affect: Blunt Thought Process & Associations: Other ([place]) Thought Content: Hallucinations Hallucination Type: Other (Responding at times to internal stimuli) Delusion Type: None Suicidal Ideation: No Suicidal Plan: No Suicidal Intention: No Homicidal Ideation: No Homicidal Plan: No Homicidal Intention: No Insight: Poor Judgment: Impulsive Assessment and Plan - Assessment (1) Dementia Code(s): F03.90 - Unspecified dementia without behavioral disturbance Status: Acute - Plan Plan: Continue psychiatric hospitalization for stabilization, continue current psychotropic regimen. Support, motivational psych education provided per Justification for Continued Inpatient Stay: Continue psychiatric admission Request Healthcare Surrogate/Guardian Advocate?: Yes (1) Dementia Qualifiers: Dementia type: unspecified type Dementia behavioral disturbance: with behavioral disturbance Qualified Code(s): F03.91 - Unspecified dementia with behavioral disturbance
[2018-10-24] MEDS: QUEtiapine 25 MG Tablet PO SCH (22:14)
[2018-10-24] MEDS: Insulin NovoLOG Aspart Correctional Sugar Inj SQ SCH (22:16)
[2018-10-25] MEDS: Levothyroxine 50 MCG Tablet PO SCH (06:30)
[2018-10-25] MEDS: Mirtazapine 15 MG Tablet PO SCH (12:30)
[2018-10-25] MEDS: Lisinopril 20 MG Tablet PO SCH (12:30)
[2018-10-25] MEDS: amLODIPine 10 MG Tablet PO SCH (12:30)
--- NOTE | 2018-10-25 13:25 | P.PNPSY ---
Subjective Chief Complaint: Follow-up treatment of dementia with behaviors and psychosis Remarks: Patient seen for follow-up, chart reviewed, patient discussed with nursing staff ; we reviewed the patient's mood, thoughts, and behaviors from overnight and this morning. Nursing reports that the patient continues to demonstrate a labile mood and confused mentation. She slept approximately 6 hours overnight. She has been cooperative and redirectable thus far on the unit today. Patient did require an emergency treatment order yesterday afternoon with Haldol 5 mg IM and Ativan 1 mg, agitation seemed to be triggered by the transfer of patients to the [address]. The patient was observed interacting appropriately within the milieu. She denied complaints. Mental Status Examination Appearance: Appropriate (Fair) Consciousness: Alert Orientation: Person Motor Activity: Normal gait Speech: Unremarkable Language: Adequate Fund of Knowledge: Adequate Attention and Concentration: Adequate (Fair) Memory: Impaired Mood: Other (calm) Affect: Blunt Thought Process & Associations: Other ([place]) Thought Content: Hallucinations Hallucination Type: Other (Responding at times to internal stimuli) Delusion Type: None Suicidal Ideation: No Suicidal Plan: No Suicidal Intention: No Homicidal Ideation: No Homicidal Plan: No Homicidal Intention: No Insight: Poor Judgment: Impulsive Assessment and Plan - Assessment (1) Dementia Code(s): F03.90 - Unspecified dementia without behavioral disturbance Status: Acute - Plan Plan: Continue psychiatric hospitalization for stabilization, continue current psychotropic regimen. Justification for Continued Inpatient Stay: Patient remains an elevated risk for self-harm by self neglect and will require further inpatient stabilization and preparation of a safe discharge plan. Moving patient to a less restrictive environment at this time may result in decompensation. Request Healthcare Surrogate/Guardian Advocate?: Yes (1) Dementia Qualifiers: Dementia type: unspecified type Dementia behavioral disturbance: with behavioral disturbance Qualified Code(s): F03.91 - Unspecified dementia with behavioral disturbance
[2018-10-25] MEDS: QUEtiapine 25 MG Tablet PO SCH (21:09)
[2018-10-25] MEDS: Insulin NovoLOG Aspart Correctional Sugar Inj SQ SCH (22:35)
[2018-10-26] MEDS: Levothyroxine 50 MCG Tablet PO SCH (07:15)
--- NOTE | 2018-10-26 08:23 | P.PNPSY ---
Subjective Chief Complaint: Follow-up treatment of dementia with behaviors and psychosis Remarks: Reviewed electronic record and discussed with nursing staff. Rounded with YAHIR Christina. Patient is in the common area eating breakfast. She is calm and cooperative. Nursing reports that yesterday she required an ETO when she was moving from 2700 to 2600. She appears to be adjusting to the different environment. Slept approximately 6 -7 hours. Eating well. Medications are a concern and she has to be strongly encouraged to take them and will take them if the nurse persists. Review of Systems All other systems reviewed negative except as stated in HPI Mental Status Examination Appearance: Appropriate (Fair) Consciousness: Alert Orientation: Person Motor Activity: Normal gait Speech: Unremarkable Language: Adequate Fund of Knowledge: Adequate Attention and Concentration: Adequate (Fair) Memory: Impaired Mood: Other (calm) Affect: Blunt Thought Process & Associations: Other ([place]) Thought Content: Hallucinations Hallucination Type: Other (Responding at times to internal stimuli) Delusion Type: None Suicidal Ideation: No Suicidal Plan: No Suicidal Intention: No Homicidal Ideation: No Homicidal Plan: No Homicidal Intention: No Insight: Poor Judgment: Impulsive Assessment and Plan - Assessment (1) Dementia with behavioral disturbance Code(s): F03.91 - Unspecified dementia with behavioral disturbance Status: Acute - Plan Plan: Continue psychiatric hospitalization for stabilization, continue current psychotropic regimen. Justification for Continued Inpatient Stay: Moving patient to a less Request Healthcare Surrogate/Guardian Advocate?: Yes
[2018-10-26] MEDS: Lisinopril 20 MG Tablet PO SCH (09:14)
[2018-10-26] MEDS: Mirtazapine 15 MG Tablet PO SCH (09:14)
[2018-10-26] MEDS: amLODIPine 10 MG Tablet PO SCH ×2 (09:14→10:51)
[2018-10-26] MEDS ORDERED: Haloperidol Inj 5 MG/ML Ampul IM ONE (16:19)
[2018-10-26] MEDS: QUEtiapine 25 MG Tablet PO SCH (20:28)
[2018-10-26] MEDS: Insulin NovoLOG Aspart Correctional Sugar Inj SQ SCH (20:33)
[2018-10-27] MEDS: Mirtazapine 15 MG Tablet PO SCH (09:23)
[2018-10-27] MEDS: Levothyroxine 50 MCG Tablet PO SCH (09:23)
[2018-10-27] MEDS: Lisinopril 20 MG Tablet PO SCH (09:23)
[2018-10-27] MEDS: amLODIPine 10 MG Tablet PO SCH (09:23)
--- NOTE | 2018-10-27 10:04 | P.PNPSY ---
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 Discussion with nursing staff reported that patient had required ETO yesterday when patient moved to a different unit but no behavioral disturbance since. Patient since admission had no behavioral disturbances and recent ETO likely due to environmental change due to patient being moved to a different unit in a different room as patient was attempted to elope the unit and go back to her previous room. Patient has had good behavioral control, cooperative, compliant with medications since. Patient was found and ablated on the unit noted to be calm and cooperative. Patient states that she is feeling well, denies any physical complaints other than having noticed some bright red blood upon cleaning himself after bowel movement. I do note that patient has chronic normocytic anemia as per chart. We will attempt to get occult blood stool sample. Patient continued baseline confusion. Review of Systems All other systems reviewed negative except as stated in HPI Mental Status Examination Appearance: Appropriate (Fair) Consciousness: Alert Orientation: Person Motor Activity: Normal gait Speech: Unremarkable Language: Adequate Fund of Knowledge: Adequate Attention and Concentration: Adequate (Fair) Memory: Impaired Mood: Other (calm) Affect: Blunt (But reactive at times) Thought Process & Associations: Other ([place]) Thought Content: Hallucinations Hallucination Type: Other (Responding at times to internal stimuli) Delusion Type: None Suicidal Ideation: No Suicidal Plan: No Suicidal Intention: No Homicidal Ideation: No Homicidal Plan: No Homicidal Intention: No Insight: Poor Judgment: Impulsive Assessment and Plan - Assessment (1) Dementia Code(s): F03.90 - Unspecified dementia without behavioral disturbance Status: Acute - Plan Plan: Patient currently continues with baseline confusion, no further episodes of agitation as patient appears to be acclimating to new room and units. We will order occult blood stool sample. We will continue current medication regimen, continue to monitor mood and behavior. Discharge planning in progress. Justification for Continued Inpatient Stay: At risk of further decompensation at lower level care. Request Healthcare Surrogate/Guardian Advocate?: Yes (1) Dementia Qualifiers: Dementia type: unspecified type Dementia behavioral disturbance: with behavioral disturbance Qualified Code(s): F03.91 - Unspecified dementia with behavioral disturbance
--- NOTE | 2018-10-27 14:12 | P.TTN ---
- Patient Problems Problems: 1. Discharge planning 2. Medication compliance 3. Knowledge deficit 4. Lack of coping skills - Progress Toward Goals Provider Present: Dr. Jessica Corona, Dr. Ron Capps Provider Input: 10/27/18 Per MD pt has been good on behavior and eto was recently needed only because of moving her from one unit to another. 10/15/18 Per MD pt continues to have poor insight and judgement. Pt sometimes argues with the delusion but is redirectable when spoken to kindly. 10/13/18 Poor insight and judgement. No behavior problems over the weekend. 10/08/18 No med changes, pt display poor judgement and insight but has no beh issues other than yellings sometimes. 10/06/18: No med changes, pt presenting as stable. D/c plan is for counselors (Go) to seek placement, preferably in [place] speaking facility per pt primary language. Hawa to call snf this am as first follow-up. 10/01/18: Hawa found a possible placement in [facility] [place] speaking usp), awaiting on response from facility. 09/29/18: Counselor, Ashlyn, has assigned Hawa to seek placement for pt, preference is to accomodate pt's primary language of [place] as a consideration. No medication changes noted. Nurse Input: 10/27/18 Per RN pt has been doing okay, needed eto couple days ago but she is in good behavior, medication compliant and has been sleeping well. 10/15/18 Per RN pt has been abit argumentative today but redirectable. Medication compliant and enjoys walking through the hallway. 10/13/18 Patient has slept well. Continues to walk the floor. 10/08/18: Per RN pt has been argumentative during the morning and experiencing some hallucinations arguing with people who are not there. 10/01/18: YAHIR Kelley reports patient is walking the floor but not been social. Pt currently compliant with medication. Psychiatric Counselors Present: Other Psychiatric Therapist Input: 10/27/18 Maried: Pt continues to be a placing issue. Pt recently denied from [facility] and paper work was sent today to [facility] for a second review. 10/15/18 Maried: Pt will be staffed by [facility] tomorrow and they will have a decision on acceptance by tomorrow. 10/13/18 Zach: Was able to contact her brother with a wellness check by the police since he refused to answer phone. Placement still an issue. 10/08/18: Zach: Placement with [facility] fell through and pt was not accepted. D/c plan is for counselors to seek placement, preferably in Finnish speaking facility per pt primary language.. 10/01/18: Patient to be possible discharged to [facility] speaking [facility], waiting to hear back from the facility. Zach Callahan , [facility] Group Spec/RT/OT/HODGE Present: Macey Garcia, GPS, Katie Roblero, HODGE, Rashid Bryant, OT, Aditya Wilkinson, HODGE Group Spec/RT/OT/HODGE Input: 10/27/18 Per Aditya, pt does not participate in groups often but select. 10/15/18 Per Macey, Pt attends select groups activities. 10/13/18 Select group participations. 10/08/18: Pt attends select groups. 10/06/18: Pt attends select groups, she is redirectable, pleasant has has been observed frequently with another pt, conversing (they are both fluent in Finnish). 09/29/18: Pt rarely attends groups as she is unable to tolerate to participate. Occupational Therapist Input: 10/01/18: Patient is been selective with which activities she attends and has not been attending them all. - Discharge Plan 10/06/18: D/c plan is for counselors (Go) to seek placement, preferably in [place] speaking facility per pt primary language. Hawa to call snf this am as first follow-up. 09/29/18: Counselor, Ashlyn, has assigned Hawa to seek placement for pt, preference is to accomodate pt's primary language of [place] as a consideration. - Documentation Teaching Recipient: Patient
[2018-10-27] MEDS: QUEtiapine 25 MG Tablet PO SCH ×2 (21:03→22:08)
[2018-10-27] MEDS: Insulin NovoLOG Aspart Correctional Sugar Inj SQ SCH (21:06)
[2018-10-28] MEDS: Acetaminophen 325 MG Tablet PO PRN (02:36)
[2018-10-28] MEDS: Levothyroxine 50 MCG Tablet PO SCH ×2 (05:00→05:36)
[2018-10-28] MEDS: Lisinopril 20 MG Tablet PO SCH (08:53)
[2018-10-28] MEDS: amLODIPine 10 MG Tablet PO SCH (08:53)
[2018-10-28] MEDS: Mirtazapine 15 MG Tablet PO SCH (08:53)
--- NOTE | 2018-10-28 15:05 | P.PNPSY ---
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 Discussion with nursing staff reported that patient no behavioral issues, at times noted to be talking to self. Patient was found sitting in hallway conversing with staff, noted to be calm and cooperative. Patient states that she is happy that his [facility], noted with good affect smiling and good spirits. Patient continues to report having occasional bright red blood upon bowel movement and agreed to allow nursing staff to see and what it happens. Patient denies any perceptual service or delusions at this time continues with baseline confusion. Review of Systems All other systems reviewed negative except as stated in HPI Mental Status Examination Appearance: Appropriate (Fair) Consciousness: Alert Orientation: Person Motor Activity: Normal gait Speech: Unremarkable Language: Adequate Fund of Knowledge: Adequate Attention and Concentration: Adequate (Fair) Memory: Impaired Mood: Other (calm) Affect: Blunt (But reactive at times) Thought Process & Associations: Other ([place]) Thought Content: Appropriate Hallucination Type: Other (Noted to be talking to self at times) Delusion Type: None Suicidal Ideation: No Suicidal Plan: No Suicidal Intention: No Homicidal Ideation: No Homicidal Plan: No Homicidal Intention: No Insight: Poor Judgment: Impulsive Assessment and Plan - Assessment (1) Dementia Code(s): F03.90 - Unspecified dementia without behavioral disturbance Status: Acute - Plan Plan: Patient continued baseline confusion, no episodes of agitation or irritability, compliant with medications. Hemoccult stool sample pending. We will continue current treatment. Continue to monitor mood and behavior. Discharge planning in progress. Justification for Continued Inpatient Stay: At risk of further decompensation at lower level care. Request Healthcare Surrogate/Guardian Advocate?: Yes (1) Dementia Qualifiers: Dementia type: unspecified type Dementia behavioral disturbance: with behavioral disturbance Qualified Code(s): F03.91 - Unspecified dementia with behavioral disturbance
[2018-10-28] MEDS: QUEtiapine 25 MG Tablet PO SCH (20:44)
[2018-10-28] MEDS: Insulin NovoLOG Aspart Correctional Sugar Inj SQ SCH (20:47)
[2018-10-29] MEDS: Levothyroxine 50 MCG Tablet PO SCH (06:26)
[2018-10-29] MEDS: Lisinopril 20 MG Tablet PO SCH (07:59)
[2018-10-29] MEDS: amLODIPine 10 MG Tablet PO SCH (07:59)
[2018-10-29] MEDS: Mirtazapine 15 MG Tablet PO SCH (08:00)
--- NOTE | 2018-10-29 14:30 | P.TTN ---
- Patient Problems Problems: 1. Discharge planning 2. Medication compliance 3. Knowledge deficit 4. Lack of coping skills - Progress Toward Goals Provider Present: Dr. Jessica Corona, Dr. Ron Capps Provider Input: 10/29/18 Per MD pt is med compliant just waiting on placement. 10/27/18 Per MD pt has been good on behavior and eto was recently needed only because of moving her from one unit to another. 10/15/18 Per MD pt continues to have poor insight and judgement. Pt sometimes argues with the delusion but is redirectable when spoken to kindly. 10/13/18 Poor insight and judgement. No behavior problems over the weekend. 10/08/18 No med changes, pt display poor judgement and insight but has no beh issues other than yellings sometimes. 10/06: No med changes, pt presenting as stable. D/c plan is for counselors (Go) to seek placement, preferably in [place] speaking facility per pt primary language. Hawa to call snf this am as first follow-up. 10/01/18: Hawa found a possible placement in [place], [place] speaking residential ), awaiting on response from facility. 09/29/18: Counselor, Ashlyn, has assigned Hawa to seek placement for pt, preference is to accomodate pt's primary language of [place]ian as a consideration. No medication changes noted. Nurse Input: 10/29/18 Per YAHIR Kelley pt was a bit agitated last night and still wanting to go to the old unit where she was prior to the move to the 0. 10/27/18 Per RN pt has been doing okay, needed eto couple days ago but she is in good behavior, medication compliant and has been sleeping well. 10/15 Per RN pt has been abit argumentative today but redirectable. Medication compliant and enjoys walking through the hallway. 10/13/18 Patient has slept well. Continues to walk the floor. 10/08/18: Per RN pt has been argumentative during the morning and experiencing some hallucinations arguing with people who are not there. 10/01/18: YAHIR Kelley reports patient is walking the floor but not been social. Pt currently compliant with medication. Psychiatric Counselors Present: Other Psychiatric Therapist Input: 10/29/18 Maried: Pt was denied at [facility], further placement been looked at for dc. 10/27/18 Maried: Pt continues to be a placing issue. Pt recently denied from [facility] and paper work was sent today to [facility] for a second review. 10/15/18 Maried: Pt will be staffed by [facility] tomorrow and they will have a decision on acceptance by tomorrow. 10/13/18 Maried: Was able to contact her brother with a wellness check by the police since he refused to answer phone. Placement still an issue. 10/08/18: Maried: Placement with [facility] fell through and pt was not accepted. D/c plan is for counselors to seek placement, preferably in [place] speaking facility per pt primary language.. 10/01/18: Patient to be possible discharged to [facility], waiting to hear back from the facility. Zach Callahan , [facility] Group Spec/RT/OT/HODGE Present: Macey Garcia, GPS, NAVEEN Fischer, Rashid Bryant, OT, Aditya Wilkinson, NAVEEN, Other Group Spec/RT/OT/HODGE Input: 10/29/18 Per Marguerite pt attends select groups. 10/27/18 Per Aditya, pt does not participate in groups often but select. Per Macey, Pt attends select groups activities. 10/13/18 Select group participations. 10/08/18: Pt attends select groups. 10/06/18: Pt attends select groups, she is redirectable, pleasant has has been observed frequently with another pt, conversing (they are both fluent in [place]). 09/29/18: Pt rarely attends groups as she is unable to tolerate to participate. Occupational Therapist Input: 10/01/18: Patient is been selective with which activities she attends and has not been attending them all. - Discharge Plan 10/06/18: D/c plan is for counselors (Go) to seek placement, preferably in [place] speaking facility per pt primary language. Hawa to call snf this am as first follow-up. 09/29/18: Counselor, Ashlyn, has assigned Hawa to seek placement for pt, preference is to accomodate pt's primary language of [place]ian as a consideration. - Documentation Teaching Recipient: Significant Other
--- NOTE | 2018-10-29 17:10 | P.PNPSY ---
Subjective Chief Complaint: Follow-up treatment of dementia with behaviors and psychosis Remarks: patient seen for follow-up, chart reviewed. Discussion with nursing staff reported that patient with not behavioral disturbances but was noted to have been wandering into other patients' rooms but redirectable. Patient was found in dayroom noted to be calm and cooperative. She is noted with appropriate affect, denies any perceptual disturbances although noted to talk aloud at times. Patient with baseline confusion. Review of Systems All other systems reviewed negative except as stated in HPI Mental Status Examination Appearance: Appropriate (Fair) Consciousness: Alert Orientation: Person Motor Activity: Normal gait Speech: Unremarkable Language: Adequate Fund of Knowledge: Adequate Attention and Concentration: Adequate (Fair) Memory: Impaired Mood: Other (calm) Affect: Blunt (But reactive at times) Thought Process & Associations: Other ([place]) Thought Content: Appropriate Hallucination Type: Other (Noted to be talking to self at times) Delusion Type: None Suicidal Ideation: No Suicidal Plan: No Suicidal Intention: No Homicidal Ideation: No Homicidal Plan: No Homicidal Intention: No Insight: Poor Judgment: Impulsive Assessment and Plan - Assessment (1) Dementia Code(s): F03.90 - Unspecified dementia without behavioral disturbance Status: Acute - Plan Plan: Patient continues with baseline confusion, no behavioral disturbances, redirectable. Continue current treatment, continue to monitor mood and behavior. Discharge planning in progress. Justification for Continued Inpatient Stay: At risk for further decompensation at lower level of care. Request Healthcare Surrogate/Guardian Advocate?: Yes (1) Dementia Qualifiers: Dementia type: unspecified type Dementia behavioral disturbance: with behavioral disturbance Qualified Code(s): F03.91 - Unspecified dementia with behavioral disturbance
[2018-10-29] MEDS: QUEtiapine 25 MG Tablet PO SCH (21:27)
[2018-10-29] MEDS: Insulin NovoLOG Aspart Correctional Sugar Inj SQ SCH (23:28)
[2018-10-30] MEDS: Levothyroxine 50 MCG Tablet PO SCH (05:32)
[2018-10-30] MEDS: amLODIPine 10 MG Tablet PO SCH (08:45)
[2018-10-30] MEDS: Lisinopril 20 MG Tablet PO SCH (08:45)
[2018-10-30] MEDS: Mirtazapine 15 MG Tablet PO SCH (08:45)
--- NOTE | 2018-10-30 14:54 | P.PNPSY ---
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 Discussion with nursing staff reported that patient compliant with medications no behavioral disturbances, no to be somewhat tearful last evening. Patient was found and ablated on unit noted to be, cooperative. Patient is attending groups, compliant with medication, continue with baseline confusion, is noted to be talking to self at times. Patient continues to be encouraged to have bowel movement and receptacle placed by nurse and toilet to obtain occult blood sample from stool but continues to remove it. Patient states that he she has "a little bit" of bright red blood upon cleaning self after bowel movement. Patient denies any physical complaints at this time. Patient denies any perceptual disturbances or delusions. Review of Systems All other systems reviewed negative except as stated in HPI Mental Status Examination Appearance: Appropriate (Fair) Consciousness: Alert Orientation: Person Motor Activity: Normal gait Speech: Unremarkable Language: Adequate Fund of Knowledge: Adequate Attention and Concentration: Adequate (Fair) Memory: Impaired Mood: Other (calm) Affect: Blunt (But reactive at times) Thought Process & Associations: Other ([place]) Thought Content: Appropriate Hallucination Type: Other (Noted to be talking to self at times) Delusion Type: None Suicidal Ideation: No Suicidal Plan: No Suicidal Intention: No Homicidal Ideation: No Homicidal Plan: No Homicidal Intention: No Insight: Poor Judgment: Impulsive Assessment and Plan - Assessment (1) Dementia Code(s): F03.90 - Unspecified dementia without behavioral disturbance Status: Acute - Plan Plan: Patient continued baseline confusion, continues to remove receptacle to obtain stool sample for occult blood test. His compliant with medications no behavioral disturbances. We will continue current treatment. Continue to monitor mood and behavior. Discharge planning in progress. Justification for Continued Inpatient Stay: At risk of further decompensation at lower level care. Request Healthcare Surrogate/Guardian Advocate?: Yes (1) Dementia Qualifiers: Dementia type: unspecified type Dementia behavioral disturbance: with behavioral disturbance Qualified Code(s): F03.91 - Unspecified dementia with behavioral disturbance
[2018-10-30] MEDS: QUEtiapine 25 MG Tablet PO SCH (21:40)
[2018-10-30] MEDS: Insulin NovoLOG Aspart Correctional Sugar Inj SQ SCH (21:40)
[2018-10-31] MEDS: Levothyroxine 50 MCG Tablet PO SCH (06:40)
[2018-10-31] MEDS: Lisinopril 20 MG Tablet PO SCH (08:29)
[2018-10-31] MEDS: amLODIPine 10 MG Tablet PO SCH (08:29)
[2018-10-31] MEDS: Mirtazapine 15 MG Tablet PO SCH (08:29)
--- NOTE | 2018-10-31 15:29 | P.PNPSY ---
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 Discussion with nursing staff reported that patient no behavior disturbances, compliant with medications, visible on the unit. Patient was found ambulating in the hallway noted to be calm, cooperative. Patient with confusion stating that she did go back to her home reporting at previous unit where she was staying. Patient with no behavioral disturbances or irritability. Patient is compliant with medications denies any physical complaints at this time. Review of Systems All other systems reviewed negative except as stated in HPI Mental Status Examination Appearance: Appropriate (Fair) Consciousness: Alert Orientation: Person Motor Activity: Normal gait Speech: Unremarkable Language: Adequate Fund of Knowledge: Adequate Attention and Concentration: Adequate (Fair) Memory: Impaired Mood: Other (calm) Affect: Blunt (But reactive at times) Thought Process & Associations: Other ([place]) Thought Content: Appropriate Hallucination Type: Other (Noted to be talking to self at times) Delusion Type: None Suicidal Ideation: No Suicidal Plan: No Suicidal Intention: No Homicidal Ideation: No Homicidal Plan: No Homicidal Intention: No Insight: Poor Judgment: Impulsive Assessment and Plan - Assessment (1) Dementia Code(s): F03.90 - Unspecified dementia without behavioral disturbance Status: Acute - Plan Plan: Patient continued baseline confusion, no behavioral disturbances, compliant with medications. Treatment team continues to search for adequate placement or patient will be accepted upon discharge. Discharge planning in progress. Justification for Continued Inpatient Stay: At risk of further decompensation at lower level care. Request Healthcare Surrogate/Guardian Advocate?: Yes (1) Dementia Qualifiers: Dementia type: unspecified type Dementia behavioral disturbance: with behavioral disturbance Qualified Code(s): F03.91 - Unspecified dementia with behavioral disturbance
[2018-10-31] MEDS: Insulin NovoLOG Aspart Correctional Sugar Inj SQ SCH (21:14)
[2018-10-31] MEDS: QUEtiapine 25 MG Tablet PO SCH (21:42)
[2018-11-01] MEDS: Levothyroxine 50 MCG Tablet PO SCH ×2 (06:06→06:08)
[2018-11-01] MEDS: amLODIPine 10 MG Tablet PO SCH (11:53)
[2018-11-01] MEDS: Lisinopril 20 MG Tablet PO SCH (11:53)
[2018-11-01] MEDS: Mirtazapine 15 MG Tablet PO SCH (11:54)
--- NOTE | 2018-11-01 12:59 | P.PNPSY ---
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 Follow-up was conducted in the hallway. Patient has been observed being labile in the hallway. Her nurse reports that she was agitated last night with some hallucinating. This morning she refused to take her morning medications. Patient is pleasant and cooperative with her follow-up with me. She states that she feels "good". She denies any complaints at this time. Mental Status Examination Appearance: Appropriate (Fair) Consciousness: Alert Orientation: Person Motor Activity: Normal gait Speech: Unremarkable Language: Adequate Fund of Knowledge: Adequate Attention and Concentration: Adequate (Fair) Memory: Impaired Mood: Other (calm) Affect: Blunt (But reactive at times) Thought Process & Associations: Other ([place]) Thought Content: Appropriate Hallucination Type: Other (Noted to be talking to self at times) Delusion Type: None Suicidal Ideation: No Suicidal Plan: No Suicidal Intention: No Homicidal Ideation: No Homicidal Plan: No Homicidal Intention: No Insight: Poor Judgment: Impulsive Assessment and Plan - Assessment (1) Dementia Code(s): F03.90 - Unspecified dementia without behavioral disturbance Status: Acute - Plan Plan: Patient will be reevaluated by the attending psychiatrist. Continue with current treatment plan. Justification for Continued Inpatient Stay: Moving this patient to a less restrictive environment would likely result in decompensation. Request Healthcare Surrogate/Guardian Advocate?: Yes (1) Dementia Qualifiers: Dementia type: unspecified type Dementia behavioral disturbance: with behavioral disturbance Qualified Code(s): F03.91 - Unspecified dementia with behavioral disturbance
[2018-11-01] MEDS: QUEtiapine 25 MG Tablet PO SCH (21:44)
[2018-11-01] MEDS: Insulin NovoLOG Aspart Correctional Sugar Inj SQ SCH (22:12)
[2018-11-02 04:31] VITALS: RESP 18
[2018-11-02] MEDS: Levothyroxine 50 MCG Tablet PO SCH (05:29)
[2018-11-02] MEDS: Lisinopril 20 MG Tablet PO SCH (09:27)
[2018-11-02] MEDS: amLODIPine 10 MG Tablet PO SCH (09:27)
[2018-11-02] MEDS: Mirtazapine 15 MG Tablet PO SCH (09:28)
--- NOTE | 2018-11-02 10:51 | P.PNPSY ---
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 Follow-up was conducted in the day room with YAHIR Cruz present. Patient appears to be in good spirits. Her nurse reports that she refused to take her morning medications which is becoming somewhat of a regularity. She does however take her nighttime medications without difficulty. She denies any complaints today and seems to be in a better mood than yesterday. Mental Status Examination Appearance: Appropriate (Fair) Consciousness: Alert Orientation: Person Motor Activity: Normal gait Speech: Unremarkable Language: Adequate Fund of Knowledge: Adequate Attention and Concentration: Adequate (Fair) Memory: Impaired Mood: Other (calm) Affect: Blunt (But reactive at times) Thought Process & Associations: Other ([place]) Thought Content: Appropriate Hallucination Type: Other (Noted to be talking to self at times) Delusion Type: None Suicidal Ideation: No Suicidal Plan: No Suicidal Intention: No Homicidal Ideation: No Homicidal Plan: No Homicidal Intention: No Insight: Poor Judgment: Impulsive Assessment and Plan - Assessment (1) Dementia Code(s): F03.90 - Unspecified dementia without behavioral disturbance Status: Acute - Plan Plan: Patient will be reevaluated by the attending psychiatrist. Continue with current treatment plan. Justification for Continued Inpatient Stay: Moving this patient to a less restrictive environment would likely result in decompensation. Request Healthcare Surrogate/Guardian Advocate?: Yes (1) Dementia Qualifiers: Dementia type: unspecified type Dementia behavioral disturbance: with behavioral disturbance Qualified Code(s): F03.91 - Unspecified dementia with behavioral disturbance
[2018-11-02] MEDS: Insulin NovoLOG Aspart Correctional Sugar Inj SQ SCH (21:56)
[2018-11-02] MEDS: QUEtiapine 25 MG Tablet PO SCH (21:56)
[2018-11-03 06:02] VITALS: BP 168/70; PULSE 85; TEMP 98.4; O2SAT 95
[2018-11-03] MEDS: Levothyroxine 50 MCG Tablet PO SCH (06:02)
[2018-11-03] MEDS: Lisinopril 20 MG Tablet PO SCH (08:01)
[2018-11-03] MEDS: amLODIPine 10 MG Tablet PO SCH (08:01)
[2018-11-03] MEDS: Mirtazapine 15 MG Tablet PO SCH (08:01)
--- NOTE | 2018-11-03 13:59 | P.PNPSY ---
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 Patient continues diffusely confused disoriented demented basically babbling in [place]. She is overall calm at the present time taking redirection without problem. She was transferred back from [id number] today and did that without problems or incidents. For now continue treatment Review of Systems All other systems reviewed negative except as stated in HPI Mental Status Examination Appearance: Appropriate (Fair) Consciousness: Alert Orientation: Person Motor Activity: Normal gait Speech: Unremarkable Language: Adequate Fund of Knowledge: Adequate Attention and Concentration: Adequate (Fair) Memory: Impaired Mood: Other (calm) Affect: Blunt (But reactive at times) Thought Process & Associations: Other ([place]) Thought Content: Appropriate Hallucination Type: Other (Noted to be talking to self at times) Delusion Type: None Suicidal Ideation: No Suicidal Plan: No Suicidal Intention: No Homicidal Ideation: No Homicidal Plan: No Homicidal Intention: No Insight: Poor Judgment: Impulsive Assessment and Plan - Assessment (1) Dementia Code(s): F03.90 - Unspecified dementia without behavioral disturbance Status: Acute - Plan Plan: Patient remains diffusely confused disoriented demented continue to work on placement issues Justification for Continued Inpatient Stay: At this time patient with decompensated placed in a lower level of care Discharge Planning: To be determined Request Healthcare Surrogate/Guardian Advocate?: Yes (1) Dementia Qualifiers: Dementia type: Alzheimer's disease Alzheimer's disease onset: other onset Dementia behavioral disturbance: with behavioral disturbance Qualified Code(s) : G30.8 - Other Alzheimer's disease; F02.81 - Dementia in other diseases classified elsewhere with behavioral disturbance
== END 2018-11-03 16:20 | DRG 57 ==
LOC: NEPJ 16:24 → NEDA 09-18 15:25 → H250 09-18 16:18 → H260 10-24 13:00 → H250 11-03 09:50
PROVIDERS: ADMIT Student in an Organized Health Care Education/Training Program; ATTEND Student in an Organized Health Care Education/Training Program
CPT/HCPCS: 80048; 80053; 80061; 80164; 80307; 81001; 82948; 82962; 83036; 83735; 84443; 85025; 87086; 90791; 93005; 99285; J1630; J1815; J2060